=== PATIENT | female | born 1955 | race Two or more races ===

== ENCOUNTER 2020-08-25 08:39 | Outpatient (REF) | payer MEDICARE, SELFPAY ==
--- NOTE | ~2020-08-25 | XR_ITS ---
EXAMINATION: XR KNEE STANDING, BILATERAL XR KNEE, RIGHT CLINICAL INFORMATION: Right knee pain. COMPARISON: Most recent right knee radiographs dated 04/27/2018. TECHNIQUE: AP standing view of the right and left knee. Lateral and sunrise views of the right knee. FINDINGS: RIGHT KNEE: Moderate to severe lateral compartment joint space narrowing with subchondral sclerosis. Tricompartmental marginal osteophytes. No fracture or dislocation. Trace joint effusion. No abnormal soft tissue calcification. LEFT KNEE: Mild medial compartment joint space narrowing. Small tricompartmental marginal osteophytes. No osseous erosion. No fracture or dislocation. XR/XR knee RT 2V IMPRESSION: 1. Tricompartmental right knee osteoarthritis, most prominent within the lateral compartment. Trace joint effusion. Findings are similar when compared to the prior radiographs. 2. Tricompartmental left knee osteoarthritis, most prominent within the medial compartment.
--- NOTE | ~2020-08-25 | XR_ITS ---
EXAMINATION: XR KNEE STANDING, BILATERAL XR KNEE, RIGHT CLINICAL INFORMATION: Right knee pain. COMPARISON: Most recent right knee radiographs dated 04/27/2018. TECHNIQUE: AP standing view of the right and left knee. Lateral and sunrise views of the right knee. FINDINGS: RIGHT KNEE: Moderate to severe lateral compartment joint space narrowing with subchondral sclerosis. Tricompartmental marginal osteophytes. No fracture or dislocation. Trace joint effusion. No abnormal soft tissue calcification. LEFT KNEE: Mild medial compartment joint space narrowing. Small tricompartmental marginal osteophytes. No osseous erosion. No fracture or dislocation. XR/XR knee standing BI IMPRESSION: 1. Tricompartmental right knee osteoarthritis, most prominent within the lateral compartment. Trace joint effusion. Findings are similar when compared to the prior radiographs. 2. Tricompartmental left knee osteoarthritis, most prominent within the medial compartment.
== END 2020-08-25 08:40 | disposition home or self-care (01) ==
LOC: HO.HOSX 08:39
PROVIDERS: Visit Provider Orthopaedic Surgery
DX: M17.11 Unilateral primary osteoarthritis, right knee (principal)
CPT/HCPCS: 20610; 73560; 73565; 99202; J1040

== ENCOUNTER 2020-11-13 08:58 | Outpatient (REF) | payer MEDICARE, SELFPAY ==
--- NOTE | ~2020-11-13 | XR_ITS ---
EXAMINATION: XR ANKLE, RIGHT CLINICAL INFORMATION: Right ankle joint effusion. COMPARISON: None TECHNIQUE: AP, lateral, and mortise views of the right ankle. FINDINGS: There is mild soft tissue swelling bilaterally. No ankle joint effusion is detected. Mild degenerative changes are seen with some osteophytes arising from the distal fibula as well as the medial malleolus. A large enthesophyte seen at the insertion of the patellar tendon and there is a large plantar calcaneal spur seen. Osteophyte seen arising from the dorsal navicular and cuboid. XR/XR ankle RT min 3V IMPRESSION: Degenerative changes as described above with osteophytes. No ankle joint effusion is seen. Large plantar calcaneal spur.
== END 2020-11-13 08:59 | disposition home or self-care (01) ==
LOC: HO.XRAY 08:58
PROVIDERS: PCP Family Medicine; Visit Provider Family Medicine
DX: M25.471 Effusion, right ankle (principal)
CPT/HCPCS: 73610

== ENCOUNTER 2021-04-08 08:28 | Outpatient (REF) | payer MEDICARE, SELFPAY ==
--- NOTE | ~2021-04-08 | MM_ITS ---
EXAMINATION: BONE DENSITOMETRY CLINICAL INDICATION: Screening. COMPARISON: Previous BD dated 06/21/2018 and baseline BD dated 07/25/2014. TECHNIQUE: Using a [employer] DXA System (software version: 13.1) manufactured by [employer], dual-energy x-ray absorptiometry was performed of the lumbar spine and left hip. The images are of good technical quality. Summary results are attached. FINDINGS: AP SPINE L1-L4: Current: BMD 1.090 g/cm2, Z-score 0.3, T-score -0.7, normal, 2.2% increase from previous, 6.4% increase from baseline (<5% change is not significant). Prior: BMD 1.067 g/cm2. Baseline: BMD 1.024 g/cm2. LEFT FEMUR, NECK: Current: BMD 0.787 g/cm2, Z-score -0.6, T-score -1.8, osteopenia. Prior: BMD 0.815 g/cm2. Baseline: BMD 0.841 g/cm2. LEFT FEMUR, TOTAL: Current: BMD 0.773 g/cm2, Z-score -0.9, T-score -1.9, osteopenia, 6.5% decrease from previous, 11.5% decrease from baseline (<5% change is not significant). Prior: BMD 0.827 g/cm2. Baseline: BMD 0.873 g/cm2. IDENTIFIED RISK FACTORS: Menopause, history of fracture (adult), height loss, recurrent falls, rheumatoid arthritis, secondary osteoporosis. HISTORY OF FRACTURE: Shoulder. MEDICATIONS: None listed. MM/XR DEXA axial skeleton IMPRESSION: 1. DIAGNOSIS: Osteopenia based on the lowest T-score value of -1.9 in the total femur applying World Health Organization criteria. 2. 10-YEAR FRACTURE RISK PREDICTION, FRAX: Major osteoporotic fracture (clinical spine, forearm, hip or shoulder) 12.1%. Hip fracture 1.9%. 3. Treatment Recommendations: NOF guidelines recommend consideration for treatment in postmenopausal women and men age 50 and older presenting with the following: -A hip or vertebral (clinical or morphometric) fracture. -T-score less than or equal to -2.5 at the femoral neck or spine after appropriate evaluation to exclude secondary causes. -Low bone mass at the hip or spine and a 10-year fracture probability by FRAX of greater than or equal to 3% for hip fracture or greater than or equal to 20% for major osteoporotic fracture based on the [place] adapted WHO algorithm. 4. Other Recommendations: All treatment decisions require clinical judgment and consideration of individual patient factors, including patient preferences, comorbidities, previous drug use, risk factors not captured in the FRAX model (e.g. frailty, falls, vitamin D deficiency, increased bone turnover, interval significant decline in bone density) and possible under or overestimation of fracture risk by FRAX. Additional medical evaluation for secondary cause of low bone mineral density may be appropriate. FUTURE SCAN RECOMMENDATION: People with diagnosed cases of osteoporosis or at high risk for fracture should have regular bone mineral density tests. For patients eligible for Medicare, routine testing is allowed once every 2 years. The testing frequency can be increased to one year for patients who have rapidly progressing disease, those who are receiving or discontinuing medical therapy to restore bone mass, or have additional risk factors.
== END 2021-04-08 08:29 | disposition home or self-care (01) ==
LOC: HO.MAMMO 08:28
PROVIDERS: Visit Provider Nurse Practitioner
DX: Z13.820 Encounter for screening for osteoporosis (principal); M06.9 Rheumatoid arthritis, unspecified; Z78.0 Asymptomatic menopausal state
CPT/HCPCS: 77080

== ENCOUNTER 2021-08-12 09:40 | Outpatient (REF) | payer OTHER, SELFPAY ==
--- NOTE | ~2021-08-12 | US_ITS ---
EXAMINATION: US ABDOMEN COMPLETE CLINICAL INFORMATION: Right upper quadrant pain, ?cholelithiasis. COMPARISON: Ultrasound abdomen complete 01/29/2019. CT abdomen and pelvis with contrast 01/29/2019. Ultrasound abdomen complete 01/16/2013. TECHNIQUE: Real-time imaging of the abdominal viscera. FINDINGS: PANCREAS: Normal. ABDOMINAL AORTA: The proximal, mid, and distal segments are normal in caliber. INFERIOR VENA CAVA: Visualized portions are normal. LIVER: The liver is normal in size. The liver contour is normal. There is mild increased echogenicity. No focal hepatic lesion. There is no intrahepatic biliary duct dilatation seen. GALLBLADDER: Normal. The gallbladder is physiologically distended without evidence of stones, sludge, polyps, wall thickening or pericholecystic fluid. Gallbladder polyps seen on the previous exam are not seen on the present exam. COMMON BILE DUCT: Normal in caliber measuring 0.2 cm in diameter. RIGHT KIDNEY: There is an anechoic cyst in the upper pole measuring 1.7 x 1.0 x 1.5 cm. No hydronephrosis or renal calculi. The kidney measures 10.3 cm in maximum dimension. LEFT KIDNEY: There is anechoic cyst in the upper pole medially measuring 0.9 x 0.5 x 0.7 cm. No hydronephrosis or renal calculi. The kidney measures 10.3 cm in maximum dimension. SPLEEN: Normal. The spleen measures 12.3 cm in maximum dimension. FREE FLUID: None. US/US abdomen complete IMPRESSION: Bilateral upper pole renal cysts. There are no echogenic stones or hydronephrosis. Unremarkable gallbladder. Mild hepatic steatosis without focal lesion.
== END 2021-08-12 09:41 | disposition home or self-care (01) ==
LOC: HO.US 09:40
PROVIDERS: PCP Pediatrics; Visit Provider Emergency Medicine
DX: R10.9 Unspecified abdominal pain (principal)
CPT/HCPCS: 76700

== ENCOUNTER 2022-09-13 09:52 | Outpatient (REF) | payer OTHER, SELFPAY ==
--- NOTE | ~2022-09-13 | XR_ITS ---
EXAMINATION: XR THORACIC SPINE CLINICAL INFORMATION: Mid back pain of 2 years' duration. COMPARISON: None available. TECHNIQUE: Frontal, lateral and swimmer's of the thoracic spine were obtained. FINDINGS: There is bony demineralization. Vertebral body heights are normal. There is a mild thoracic dextroscoliosis. The thoracic disc spaces are relatively well-maintained. No acute fracture or spondylolisthesis is seen. There is multi-level marked thoracic spondylosis, with an appearance suggesting possible DISH. The paravertebral soft tissues are unremarkable. XR/XR lumbar spine 2-3V IMPRESSION: 1. No acute fracture or spondylolisthesis is seen. 2. The thoracic disc spaces are well-maintained. 3. Findings suggest possible DISH (diffuse idiopathic skeletal hyperostosis). 4. There is a mild thoracic dextroscoliosis. EXAMINATION: XR LUMBOSACRAL SPINE CLINICAL INFORMATION: Lower back pain of 2 years' duration. COMPARISON: Radiographs dated 03/07/2019. TECHNIQUE: AP and lateral views of the lumbar spine and lateral view of the lumbosacral junction. FINDINGS: There is bony demineralization. Vertebral body heights are normal. At L2-L3, a 5 mm anterolisthesis is seen. The remaining disc spaces are well-maintained. No acute fracture or spondylolisthesis is seen. There is moderate anterior spondylosis at L1-L2. The posterior elements are intact. There are aortoiliac atherosclerotic calcifications. IMPRESSION: 1. There is moderate degenerative disease at L4-L5. 2. No acute fracture or spondylolisthesis is seen. 3. There is moderate anterior spondylosis at L1-L2.
--- NOTE | ~2022-09-13 | XR_ITS ---
EXAMINATION: XR THORACIC SPINE CLINICAL INFORMATION: Mid back pain of 2 years' duration. COMPARISON: None available. TECHNIQUE: Frontal, lateral and swimmer's of the thoracic spine were obtained. FINDINGS: There is bony demineralization. Vertebral body heights are normal. There is a mild thoracic dextroscoliosis. The thoracic disc spaces are relatively well-maintained. No acute fracture or spondylolisthesis is seen. There is multi-level marked thoracic spondylosis, with an appearance suggesting possible DISH. The paravertebral soft tissues are unremarkable. XR/XR thoracic spine 2V IMPRESSION: 1. No acute fracture or spondylolisthesis is seen. 2. The thoracic disc spaces are well-maintained. 3. Findings suggest possible DISH (diffuse idiopathic skeletal hyperostosis). 4. There is a mild thoracic dextroscoliosis. EXAMINATION: XR LUMBOSACRAL SPINE CLINICAL INFORMATION: Lower back pain of 2 years' duration. COMPARISON: Radiographs dated 03/07/2019. TECHNIQUE: AP and lateral views of the lumbar spine and lateral view of the lumbosacral junction. FINDINGS: There is bony demineralization. Vertebral body heights are normal. At L2-L3, a 5 mm anterolisthesis is seen. The remaining disc spaces are well-maintained. No acute fracture or spondylolisthesis is seen. There is moderate anterior spondylosis at L1-L2. The posterior elements are intact. There are aortoiliac atherosclerotic calcifications. IMPRESSION: 1. There is moderate degenerative disease at L4-L5. 2. No acute fracture or spondylolisthesis is seen. 3. There is moderate anterior spondylosis at L1-L2.
== END 2022-09-13 09:53 | disposition home or self-care (01) ==
LOC: HO.HHCX 09:52
PROVIDERS: Visit Provider Internal Medicine
DX: M54.6 Pain in thoracic spine (principal); G89.29 Other chronic pain
CPT/HCPCS: 72070; 72100

== ENCOUNTER 2023-01-24 10:28 | Outpatient (REF) | payer OTHER, SELFPAY ==
--- NOTE | ~2023-01-24 | XR_ITS ---
EXAMINATION: XR KNEE, RIGHT CLINICAL INFORMATION: Unilateral osteoarthritis right knee COMPARISON: None available. TECHNIQUE: Three views of the right knee. FINDINGS: Moderate joint effusion. Bones are diffusely demineralized. Marked lateral joint space narrowing. Lateral and posterior patellar marginal osteophytes. XR/XR knee RT 3V IMPRESSION: Tricompartmental degenerative changes most notable in the lateral compartment.
== END 2023-01-24 10:29 | disposition home or self-care (01) ==
LOC: HO.HOSX 10:28
PROVIDERS: Visit Provider Orthopaedic Surgery
DX: M17.11 Unilateral primary osteoarthritis, right knee (principal)
CPT/HCPCS: 73562; 99202

== ENCOUNTER 2023-01-24 13:06 | Outpatient (AMB) | payer OTHER, SELFPAY ==
--- NOTE | 2023-01-24 13:17 | MHC.OFFVIS ---
Intake Vital Signs 01/24/23 13:18 Height 5 ft 5 in Weight 168 lb BMI 28.0 Intake Visit Reasons: OV- right knee pain Intake Note: Ina is a 68 year old female who presents today for a follow up visit for her right knee O.A. Last seen with Dr. Rehman in 2020 where he was given a cortisone injection. Currently complaining of increase pain. This injection was not helpful, she feels that the knee looks swollen and twisted. She was told that at some point she would need surgery. Hx of many cortisone injections which has become less effective over time. The knee feels that it will give out on her and she is afraid to fall. Patient describes her pain as severe in nature, 12/27. She has done physical therapy for 12 weeks over the last 6 months which aggravated her pain. She has had multiple injections in the past which gave her minimal relief. The patient has difficulty walking even short distances because of her pain. At this point her right knee pain and mechanical symptoms are interfering with her activities of daily living and her ability to sleep well through the night. Allergies theophylline Allergy (Unknown, Verified 01/24/23 13:21) nausea Medication List - Last Reconciled 01/24/23 by Espinoza Mart MD aspirin 81 mg PO DAILY atorvastatin 10 mg PO DAILY carvedilol 3.125 mg PO BID ferrous sulfate 7.5 mg PO DAILY gabapentin 100 mg PO BEDTIME insulin glargine (Lantus Solostar U-100 Insulin) 10 units subcut BEDTIME insulin lispro (Humalog KwikPen (U-100) Insulin) subcut irbesartan 75 mg PO DAILY metformin 500 mg PO DAILY montelukast 10 mg PO BEDTIME ayvvlhvzevuy-xuaz-imwqq acid 18-400 mg-mcg (Certavite-Antioxidant) 1 tab PO DAILY omeprazole 20 mg PO DAILY sertraline 25 mg PO DAILY [facility] Medical History (Updated 08/25/20 @ 10:00 by Octaviano Rehman MD) Asthma Osteoarthritis Anxiety Acute depression Diabetes Social History (Updated 08/25/20 @ 09:40 by YONG Major) Current occupational status: disabled 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 Physical Exam Vital Signs: BMI result Body Mass Index 28.0 Const Other: Well-nourished well-developed very friendly female awake alert and oriented x3 in no acute distress Extrem Other: Bilateral lower extremity examination shows good capillary refill, no skin lesions noted, normal sensation light touch Right knee examination shows a minimal effusion, palpable crepitus with range of motion, pain with range of motion, range of motion from -3 degrees to 115 degrees, no instability Results Reviewed Results Reviewed: X-rays of the patient's right knee show severe joint space narrowing with grade 4 [id number] arthritis, subchondral sclerosis, osteophyte formation, no acute bony abnormalities Assessment & Plan Assessment & Plan (1) Primary osteoarthritis of right knee: Code(s): M17.11 - Unilateral primary osteoarthritis, right knee Plan: Ms. Greer presents with progressively worsening right knee pain due to end-stage degenerative joint disease. I had a lengthy discussion with the patient regarding the treatment options. At this point she has failed continued non operative treatments. The risks and benefits of right total knee replacement surgery were discussed at length with the patient. The patient wishes to proceed with surgery. She will contact my office to pick a surgery date. I will see her back 1 week prior to her surgery to answer any final questions that she might have. Feel free to call me at any time should questions regarding her orthopedic management arise. Thank you very much for asking me to see this very friendly patient. I spent 22 minutes in reviewing the patient's records and imaging studies, seeing the patient and documenting in the medical record. Orders: Orders XR knee RT 3V Today M17.11 - Unilateral primary osteoarthritis, right knee Coding Level of Care Code New Pt Level 2 (20659) Diagnoses Primary osteoarthritis of right knee M17.11
[2023-01-24 13:18] VITALS: BMI 28.0
== END 2023-01-24 13:43 | disposition home or self-care (01) ==
PROVIDERS: PCP Pediatrics; Visit Provider Orthopaedic Surgery
DX: M17.11 Unilateral primary osteoarthritis, right knee (principal)
CPT/HCPCS: 99202

== ENCOUNTER 2023-03-16 12:31 | Outpatient (REF) | payer OTHER, SELFPAY ==
[2023-03-16 14:20] LABS: Estimated Average Glucose 194 mg/dL; Hemoglobin A1c % 8.4 % (<6.0)
== END 2023-03-16 12:32 | disposition home or self-care (01) ==
LOC: HO.LAB 12:31
PROVIDERS: PCP Pediatrics; Visit Provider Orthopaedic Surgery
DX: Z01.812 Encounter for preprocedural laboratory examination (principal)
CPT/HCPCS: 36415; 83036

== ENCOUNTER 2023-03-17 15:21 | Outpatient (REF) | payer OTHER, SELFPAY ==
[2023-03-17 16:03] LABS: MANUAL DIFF FLAG NO
[2023-03-17 16:11] LABS: Basophils Percent Auto 0.3 % (0-2); Eosinophils Absolute Auto 0.1 X10*3/uL (0.0-0.4); Eosinophils Percent Auto 1.9 % (0-4); Hematocrit 35.5 % (37.0-47.0); Hemoglobin 11.1 g/dl (12.0-16.0); Imm Gran Abs Auto 0.02 X10*3/uL (0.00-0.03); Imm Gran Pct Auto 0.3 % (0.0-0.4); Lymphocytes Absolute Auto 1.6 X10*3/uL (1.2-4.9); Lymphocytes Percent Auto 23.2 % (20-40); Mean Corpuscular HGB Conc 31.3 g/dl (31.0-35.0); Mean Corpuscular Hemoglobin 26.4 pg (27.0-33.0); Mean Corpuscular Volume 84.3 fL (80.0-98.0); Mean Platelet Volume 9.9 fL (9.4-12.3); Monocytes Absolute Auto 0.7 X10*3/uL (0.1-1.2); Monocytes Percent Auto 10.2 % (2-11); Neutrophils Absolute Auto 4.5 x10*3/uL (2.0-8.3); Neutrophils Percent Auto 64.1 % (45-73); Platelet Count 432 X10*3/uL (160-400); Red Blood Count 4.21 X10*6/uL (4.20-5.50); Red Cell Distribution Width 14.7 % (11.0-16.0)
[2023-03-17 17:56] LABS: Alanine Aminotransferase 20 U/L (0-31); Albumin Level 3.6 g/dL (3.5-5.0); Alkaline Phosphatase 118 U/L (39-117); Anion Gap 13 (12-20); Aspartate Amino Transferase 22 U/L (5-31); Bilirubin Total 0.3 mg/dL (0.0-1.0); Blood Urea Nitrogen 12 mg/dL (9-16); Calcium 9.8 mg/dL (8.4-10.2); Carbon Dioxide 27 mmol/L (22-29); Chloride 106 mmol/L (96-108); Estimated Glomerular Filt Rate > 60; Glucose Random 130 mg/dL (60-115); Lipase 41 U/L (8-78); Potassium 4.3 mmol/L (3.3-5.1); Sodium 142 mmol/L (135-145); Total Protein 6.5 g/dL (6.5-8.0)
== END 2023-03-17 15:22 | disposition home or self-care (01) ==
LOC: HO.HHCL 15:21
PROVIDERS: Visit Provider Registered Nurse
DX: R10.11 Right upper quadrant pain (principal)
CPT/HCPCS: 36415; 80053; 83690; 85025

== ENCOUNTER → 2023-07-24 09:02 | Outpatient (BNVA) | payer OTHER, SELFPAY | PROVIDERS: PCP Pediatrics; Visit Provider Orthopaedic Surgery ==

== ENCOUNTER 2023-08-31 08:01 | Outpatient (AMB) | payer OTHER, SELFPAY ==
--- NOTE | 2023-08-31 08:07 | MHC.OFFVIS ---
Intake Visit Reasons: pre-op right TKA on 09/04/[address] Hernandez Note: Ina is a 68 year old female who presents today for a follow up visit for her right knee O.A. Last seen with Dr. Rehman in 2020 where he was given a cortisone injection. Currently complaining of increase pain. This injection was not helpful, she feels that the knee looks swollen and twisted. She was told that at some point she would need surgery. Hx of many cortisone injections which has become less effective over time. The knee feels that it will give out on her and she is afraid to fall. Patient describes her pain as severe in nature, 10/10. She has done physical therapy for 12 weeks over the last 6 months which aggravated her pain. She has had multiple injections in the past which gave her minimal relief. The patient has difficulty walking even short distances because of her pain. At this point her right knee pain and mechanical symptoms are interfering with her activities of daily living and her ability to sleep well through the night. The patient has been working on getting her diabetes under better control. She states that her most recent hemoglobin A1c was 6.7. Allergies theophylline Allergy (Intermediate, Verified 08/31/23 08:08) Facial Swelling, itching, nausea Medication List - Last Reconciled 08/31/23 by Espinoza Mart MD albuterol sulfate 90 mcg/actuation 2 puffs inhalation 6XD PRN albuterol sulfate 2.5 mg inhalation QID PRN aspirin 81 mg PO DAILY atorvastatin 40 mg PO BEDTIME carvedilol 6.25 mg PO BID cetirizine 10 mg PO DAILY PRN cyanocobalamin (vitamin B-12) (Vitamin B-12) 1,000 mcg PO DAILY empagliflozin (Jardiance) 25 mg PO DAILY famotidine 40 mg PO BEDTIME ferrous sulfate 325 mg PO Q OTHER DAY fluticasone propionate 50 mcg/actuation (Flonase Allergy Relief) 1 spray intranasal BID PRN gabapentin 400 mg PO TID insulin glargine (Lantus Solostar U-100 Insulin) 13 units subcut BEDTIME insulin lispro (Humalog KwikPen (U-100) Insulin) subcut TIDAC irbesartan 75 mg PO DAILY metformin 1,000 mg PO BID mometasone-formoterol 200-5 mcg/actuation (Dulera) 2 puffs inhalation BID montelukast 10 mg PO BEDTIME kustguutnudm-xnay-wlbgv acid 18-400 mg-mcg (Certavite-Antioxidant) 1 tab PO DAILY pantoprazole 40 mg PO DAILY sertraline 100 mg PO DAILY walker Folding front wheeled walker PFSH Medical History Hx of breast cancer Back pain YAEL on CPAP Vitamin B deficiency Steatosis of liver Osteopenia Mixed anxiety and depressive disorder HTN (hypertension) GERD (gastroesophageal reflux disease) Stress incontinence in female Dyslipidemia Renal cyst Asthma Osteoarthritis Anxiety Acute depression Diabetes Surgical History Hx of tubal ligation Hx of breast surgery Hx of colonoscopy Social History Household Members: None Housing: Apartment Are you a primary menagerie caretaker to a significant other at home: No Do you presently have visiting nurse or other home services: Yes (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 weekly hours 26.5 days and 14 night, supportive family also) Patient Tobacco Use Status: Never used Tobacco Use of substances other than those prescribed or required for medical reasons: No Current occupational status: disabled 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 Physical Exam Const Other: Well-nourished well-developed very friendly female awake alert and oriented x3 in no acute distress Extrem Other: Bilateral lower extremity examination shows good capillary refill, no skin lesions noted, normal sensation light touch Right knee examination shows a minimal effusion, palpable crepitus with range of motion, pain with range of motion, range of motion from -3 degrees to 115 degrees Results Reviewed Results Reviewed: X-rays of the patient's right knee show severe joint space narrowing with grade 4 end-stage qfxv-lh-fwey arthritis, subchondral sclerosis, osteophyte formation, no acute bony abnormalities Assessment & Plan Assessment & Plan (1) Primary osteoarthritis of right knee: Code(s): M17.11 - Unilateral primary osteoarthritis, right knee Category: Medical Plan Ms. Greer presents with progressively worsening right knee pain due to end-stage degenerative joint disease. I had a lengthy discussion with the patient regarding the treatment options. At this point she has failed continued non operative treatments. The risks and benefits of right total knee replacement surgery were discussed at length with the patient. The patient wishes to proceed with surgery. community services manager will be consulted following her surgery for home physical therapy and nursing. The patient will follow-up as instructed. Feel free to call me at any time should questions regarding her orthopedic management arise. I spent 20 minutes in reviewing the patient's records and imaging studies, seeing the patient and documenting in the medical record. Coding Level of Care Code Est Pt Level 3 (71141) Diagnoses Primary osteoarthritis of right knee M17.11
== END 2023-08-31 08:18 | disposition home or self-care (01) ==
PROVIDERS: PCP Pediatrics; Visit Provider Orthopaedic Surgery
DX: M17.11 Unilateral primary osteoarthritis, right knee (principal)
CPT/HCPCS: 99024

== ENCOUNTER → 2023-08-31 08:01 | Outpatient (BNVA) | payer OTHER, SELFPAY | PROVIDERS: PCP Pediatrics; Visit Provider Orthopaedic Surgery | DX: Z01.818 Encounter for other preprocedural examination (principal); M17.11 Unilateral primary osteoarthritis, right knee | CPT/HCPCS: 99212 ==

== ENCOUNTER 2023-09-04 09:28 | Inpatient (IN) | payer OTHER, SELFPAY ==
[2023-08-25 12:15] VITALS: BP 101/57; PULSE 85; RESP 16; O2SAT 98; BMI 28.3
--- NOTE | 2023-08-25 12:48 | HO.ANESPROP2 ---
Documented by User: Yolanda Del Valle NP 09/05/23 12:13 HPI - Anesthesia Eval Consult details Narrative: 68yo F for Right Knee Replacement Total, 09/04/23 No recent illness No CP/SOB with activity limted to knee pain Follows [facility] Cardiology for cardiomyopathy (EF 45-50% per 08/2022 ECHO). Optimized for surgery per 07/2023 office visit. Medically optimized per PCP office visit 07/2023 Asthma: stable with scheduled inhaler, no rescu inhaler since Fall 2022 GERD: controlled with H2 block YAEL: CPAP QHS Anesthesia Pre-Procedure Meds Is the patient on any of the following meds?: SGLT2 Inhib PMFSH Active Problems Active Problems: All Active Problems Primary osteoarthritis of right knee (Acute) Past Medical History Medical History Hx of breast cancer Back pain YAEL on CPAP Vitamin B deficiency Steatosis of liver Osteopenia Mixed anxiety and depressive disorder HTN (hypertension) GERD (gastroesophageal reflux disease) Stress incontinence in female Dyslipidemia Renal cyst Asthma Osteoarthritis Anxiety Acute depression Diabetes Family History Family history of problems with anesthesia: No Surgical History Surgical History Hx of tubal ligation Hx of breast surgery Hx of colonoscopy History of Problems with Anesthesia: No Social History Social History Household Members: Family Housing: Apartment Are you a primary urgent care nurse practitioner to a significant other at home: No Do you presently have visiting nurse or other home services: No Patient Tobacco Use Status: Never used Tobacco service: No Current occupational status: disabled 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 Meds Allergies Allergy/AdvReac Type Severity Reaction Status Date / Time theophylline Allergy Intermediate Facial Verified 09/04/23 10:30 Swelling, itching, nausea Home Medications ?Medication ?Instructions ?Recorded ?Confirmed ?Last Taken ?Type irbesartan 75 mg tablet 75 mg PO DAILY 08/25/20 09/04/23 09/03/23 History montelukast 10 mg tablet 10 mg PO BEDTIME 08/25/20 09/04/23 09/03/23 History insulin glargine 100 unit/mL (3 13 unit subcut BEDTIME 01/24/23 09/04/23 09/03/23 History mL) subcutaneous pen (Lantus Solostar U-100 Insulin) insulin lispro 100 unit/mL 18 - 24 unit subcut TIDAC 01/24/23 09/04/23 09/03/23 History subcutaneous pen (Humalog KwikPen 12 units (U-100) Insulin) atorvastatin 40 mg tablet 40 mg PO BEDTIME 07/24/23 09/04/23 09/03/23 History empagliflozin 25 mg tablet 25 mg PO DAILY 07/24/23 09/04/23 08/28/23 History (Jardiance) famotidine 40 mg tablet 40 mg PO BEDTIME 07/24/23 09/04/23 09/03/23 History gabapentin 400 mg capsule 400 mg PO TID 07/24/23 09/04/23 09/03/23 History metformin 1,000 mg tablet 1,000 mg PO BID 07/24/23 09/04/23 09/03/23 History pantoprazole 40 mg tablet,delayed 40 mg PO DAILY@0630 07/24/23 09/04/23 09/03/23 History release cetirizine 10 mg tablet 10 mg PO DAILY PRN Allergy Symptoms 08/24/23 09/04/23 09/03/23 History cyanocobalamin (vitamin B-12) 1,000 mcg PO DAILY 08/24/23 09/04/23 09/03/23 History 1,000 mcg tablet (Vitamin B-12) ferrous sulfate 325 mg (65 mg 325 mg PO Q OTHER DAY 08/24/23 09/04/23 09/03/23 History iron) tablet fluticasone propionate 50 1 spray intranasal BID PRN Allergy 08/24/23 09/04/23 Unknown History mcg/actuation nasal Symptoms spray,suspension (Flonase Allergy Relief) mometasone-formoterol HFA 200 2 puff inhalation BID 08/24/23 09/04/23 09/03/23 History mcg-5 mcg/actuation aerosol inhaler (Dulera) sertraline 100 mg tablet 100 mg PO DAILY 08/24/23 09/04/23 09/03/23 History carvedilol 12.5 mg tablet 12.5 mg PO BID 09/04/23 09/04/23 09/03/23 History raloxifene 60 mg tablet 60 mg PO DAILY 09/04/23 09/04/23 Unknown History Exam Height,Weight and Vital Signs: Height 5 ft 5 in Weight 77.1 kg Last Vital Signs Pulse 85 08/25/23 12:15 Resp 16 08/25/23 12:15 BP 101/57 L 08/25/23 12:15 Pulse Ox 98 08/25/23 12:15 O2 Del Method Room Air 08/25/23 12:15 Narrative Narrative: EKG 07/2023 anterior T wave inversions (old since 2015) ECHO 08/2022 1. Mild global hypokinesis 2. Overall LV sys function is mildly impaired with EF 45-50% 3. C/w findings of 2020, no real change Airway Mallampati Class: I TM Dist: >3cm Neck ROM: Full Denture: Upper and Lower Heart: RRR Lungs: CTAB Assessment and Plan Assessment Anesthesia Assessment: Anesthesia Plan Discussed and PAT Visit Final Anesthetic Review Family History of Problems with Anesthesia: No History of Problems with Anesthesia: No Documented by User: Elise Fox MD 09/07/23 11:17 PMFSH Past Medical History Medical History Hx of breast cancer Back pain YAEL on CPAP Vitamin B deficiency Steatosis of liver Osteopenia Mixed anxiety and depressive disorder HTN (hypertension) GERD (gastroesophageal reflux disease) Stress incontinence in female Dyslipidemia Renal cyst Asthma Osteoarthritis Anxiety Acute depression Diabetes Surgical History Surgical History Hx of tubal ligation Hx of breast surgery Hx of colonoscopy Social History Social History Household Members: Family Housing: Apartment Are you a primary urgent care nurse practitioner to a significant other at home: No Do you presently have visiting nurse or other home services: No Patient Tobacco Use Status: Never used Tobacco service: No Current occupational status: disabled 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 Meds Allergies Allergy/AdvReac Type Severity Reaction Status Date / Time theophylline Allergy Intermediate Facial Verified 09/04/23 10:30 Swelling, itching, nausea Home Medications ?Medication ?Instructions ?Recorded ?Confirmed ?Last Taken ?Type irbesartan 75 mg tablet 75 mg PO DAILY 08/25/20 09/04/23 09/03/23 History montelukast 10 mg tablet 10 mg PO BEDTIME 08/25/20 09/04/23 09/03/23 History insulin glargine 100 unit/mL (3 13 unit subcut BEDTIME 01/24/23 09/04/23 09/03/23 History mL) subcutaneous pen (Lantus Solostar U-100 Insulin) insulin lispro 100 unit/mL 18 - 24 unit subcut TIDAC 01/24/23 09/04/23 09/03/23 History subcutaneous pen (Humalog KwikPen 12 units (U-100) Insulin) atorvastatin 40 mg tablet 40 mg PO BEDTIME 07/24/23 09/04/23 09/03/23 History empagliflozin 25 mg tablet 25 mg PO DAILY 07/24/23 09/04/23 08/28/23 History (Jardiance) famotidine 40 mg tablet 40 mg PO BEDTIME 07/24/23 09/04/23 09/03/23 History gabapentin 400 mg capsule 400 mg PO TID 07/24/23 09/04/23 09/03/23 History metformin 1,000 mg tablet 1,000 mg PO BID 07/24/23 09/04/23 09/03/23 History pantoprazole 40 mg tablet,delayed 40 mg PO DAILY@0630 07/24/23 09/04/23 09/03/23 History release cetirizine 10 mg tablet 10 mg PO DAILY PRN Allergy Symptoms 08/24/23 09/04/23 09/03/23 History cyanocobalamin (vitamin B-12) 1,000 mcg PO DAILY 08/24/23 09/04/23 09/03/23 History 1,000 mcg tablet (Vitamin B-12) ferrous sulfate 325 mg (65 mg 325 mg PO Q OTHER DAY 08/24/23 09/04/23 09/03/23 History iron) tablet fluticasone propionate 50 1 spray intranasal BID PRN Allergy 08/24/23 09/04/23 Unknown History mcg/actuation nasal Symptoms spray,suspension (Flonase Allergy Relief) mometasone-formoterol HFA 200 2 puff inhalation BID 08/24/23 09/04/23 09/03/23 History mcg-5 mcg/actuation aerosol inhaler (Dulera) sertraline 100 mg tablet 100 mg PO DAILY 08/24/23 09/04/23 09/03/23 History carvedilol 12.5 mg tablet 12.5 mg PO BID 09/04/23 09/04/23 09/03/23 History raloxifene 60 mg tablet 60 mg PO DAILY 09/04/23 09/04/23 Unknown History Assessment and Plan Final Anesthetic Review NPO: Yes ASA Class: III Final Preanesthetic Review: No Changes in Pt Med Stat, Meds/Allgs Chart Reviewed, Consent Obtained/Reviewed and Anes Risks/Benef Reviewed Patient Risk: Intermediate Procedure Risk: Intermediate Anesthetic Plan Anesthetic Plan: Spinal and Regional Block Disposition: Standard PACU
[2023-08-25 13:40] LABS: Hematocrit 35.2 % (37.0-47.0); Hemoglobin 11.5 g/dl (12.0-16.0); Mean Corpuscular HGB Conc 32.7 g/dl (31.0-35.0); Mean Corpuscular Hemoglobin 27.3 pg (27.0-33.0); Mean Corpuscular Volume 83.4 fL (80.0-98.0); Mean Platelet Volume 10.5 fL (9.4-12.3); Platelet Count 223 X10*3/uL (160-400); Red Blood Count 4.22 X10*6/uL (4.20-5.50); Red Cell Distribution Width 14.6 % (11.0-16.0); White Blood Count 6.7 X10*3/uL (4.8-10.8)
[2023-08-25 14:20] LABS: Anion Gap 11 (12-20); Blood Urea Nitrogen 16 mg/dL (9-16); Calcium 9.9 mg/dL (8.4-10.2); Carbon Dioxide 29 mmol/L (22-29); Chloride 105 mmol/L (96-108); Creatinine Clr Calc Pharmacy 63.2; Estimated Glomerular Filt Rate > 60; Glucose Random 143 mg/dL (60-115); Potassium 4.3 mmol/L (3.3-5.1); Sodium 141 mmol/L (135-145)
[2023-08-25 15:19] LABS: MRSA Nasal PCR NEGATIVE (Negative); SA Nasal PCR NEGATIVE (Negative)
[2023-09-04] VITALS (11 sets, daily range): BP systolic 94–143; BP diastolic 48–72; PULSE 61–82; RESP 12–18; TEMP 36.1–37.1; O2SAT 92–99; BMI 28.5
--- OUTSIDE RECORDS SUMMARY | 2023-09-04 09:56 | XMS_ITS | Continuity of Care Document ---
Author Organization [facility] Address [address] [place] [id number]- Care Team Providers Care Risk Officer Name Role Phone Benny Thompson NP Primary Care Physician [place] [facility] [place] 07/[place]/19 [facility] [address] [place] [address] [facility] Attending Physician: Andrei Griffith MD Admitting Physician: Andrei Griffith MD Referring Physician: Benny Thompson NP Allergies, Adverse Reactions, Alerts Substance Reaction Severity Status theophylline Active Immunizations Given and Recorded Vaccine Date Status Refusal Reason influenza virus vaccine, inactivated 1 01/21/15 Gi selena pneumococcal 23-valent vaccine 03/22/12 Given Influenza Vaccine (oldterm) 2 01/17/07 Given 1Admin Note: CDC info given to patient 2Admin Note: sanofi pasterur cold storage supervisor Medications acetaminophen-codeine 300 mg-15 mg oral tablet 1 tablet, By Mouth, Every 6 hours, PRN as needed for pain, 0 Refills, Maintenance, 08/18/14 13:56:11 Start Date: 08/18/14 Status: Ordered albuterol 0.083% inhalation solution 3 mL = 2.5 mg, Inhalation, Every 6 hours, 0 Refills, Maintenance, 10/24/13 12:01:01 Start Date: 10/24/13 Status: Ordered Aspir 81 = 81 mg, By Mouth, Daily, 0 Refills, Maintenance Start Date: 11/29/11 Status: Ordered atorvastatin 20 mg oral tablet 2 tablet = 40 mg, By Mouth, Daily, # 30 tablet, 0 Refills, Maintenance, 11/29/11 15:29:56, Tablet Start Date: 11/29/11 Status: Ordered Avapro 75 mg oral tablet 1 tablet = 75 mg, By Mouth, 0 Refills, Maintenance, 03/14/19 14:38:00 EST Start Date: 03/14/19 Status: Ordered carvedilol 6.25 mg oral tablet 6.25 mg, 1, tablet, By Mouth, 2 times a day, # 180 tablet, Refills 0, Maintenance, 11/29/16 10:14:24 Start Date: 11/29/16 Status: Ordered Cerovite Senior Therapeutic Multiple Vitamins with Minerals oral tablet 1 tablet, By Mouth, Daily, 0 Refills, Maintenance, 01/01/18 11:30:50 EDT Start Date: 01/01/18 Status: Ordered clonazePAM 0.5 mg oral tablet 1 tablet = 0.5 mg, By Mouth, Every 12 hours, prn, 0 Refills, Maintenance, 03/14/19 14:32:00 EST Start Date: 03/14/19 Status: Ordered CPAP Dispensary Clerk, 07/04/18 8:35:43 EDT, Compound Start Date: 07/04/18 Status: Ordered Cyanocobalamin = 1,000 mcg, By Mouth, Daily, 0 Refills, Maintenance, 03/14/19 14:31:00 EST Start Date: 03/14/19 Status: Ordered Doxycycline 100 mg, By Mouth, 2 times a day, Maintenance, 03/14/19 14:35:00 EST Start Date: 03/14/19 Status: Ordered Durable Medical Equipment Maintenance, Aerochamber Plus Flow- VU, 03/14/19 14:30:00 EST, Compound Start Date: 03/14/19 Status: Ordered ferrous sulfate 325 mg oral tablet 1 tablet = 325 mg, By Mouth, 3 times a day, 0 Refills, Maintenance, 01/01/18 11:31:03 EDT Start Date: 01/01/18 Status: Ordered Flonase 50 mcg/inh nasal spray 1 sprays, Daily, 0 Refills, Maintenance Start Date: 12/17/12 Status: Ordered gabapentin 300 mg oral capsule 1 capsule = 300 mg, By Mouth, 3 times a day, # 270 capsule, 0 Refills, Maintenance, 07/18/14 8:31:27, Capsule Start Date: 07/18/14 Status: Ordered Humalog 100 u/ml subcutaneous injection = 22 units, Subcutaneous Infusion, 3 times a day before meals, 0 Refills, Maintenance, 04/27/12 9:26:44 EST Start Date: 04/27/12 Status: Ordered Irbesartan = 150 mg, By Mouth, Daily, 0 Refills, Maintenance, 10/10/18 10:16:08 EDT Start Date: 10/10/18 Status: Ordered Lantus Solostar Pen 100 units/mL subcutaneous solution = 14 units, Subcutaneous Infusion, Daily at bedtime, 0 Refills, Maintenance, 11/21/14 10:08:09 EDT Start Date: 11/21/14 Status: Ordered Lidocaine 5 % Lidocaine 5 %, Refills 0, Maintenance, 1 patch by transdermal route every 12 hours prn, 03/14/19 14:33:00 EST, Compound Start Date: 03/14/19 Status: Ordered metformin 500 mg oral tablet 2 tablet = 1,000 mg, By Mouth, 2 times a day, 0 Refills, Maintenance, 04/29/12 13:40:34, Tablet Start Date: 04/29/12 Status: Ordered montelukast 10 mg oral tablet 10 mg, 1, tablet, By Mouth, Daily, Refills 0, Maintenance, 11/03/17 10:06:24 EDT Start Date: 11/03/17 Status: Ordered omeprazole 20 mg oral enteric coated capsule 1 capsule = 20 mg, By Mouth, Daily, 0 Refills, Maintenance Start Date: 12/17/12 Status: Ordered predniSONE 10 mg oral tablet See Instructions, 3 tabs/d for 2d then 2tabs/d for 3d then 1tab/d for 3d, # 18 tablet, 0 Refills, Maintenance, 02/07/18 10:19:44 EST Start Date: 02/07/18 Status: Ordered ProAir HFA 90 mcg/inh inhalation aerosol with adapter 2, puffs, Inhalation, Every 4 hours, prn, Refills 0, Maintenance, 03/14/19 14:42:00 EST Start Date: 03/14/19 Status: Ordered Probiotic Complex Probiotic Complex, 1, capsule, By Mouth, 3 times a day, Refills 0, Maintenance, 03/14/19 14:36:00 EST, Compound Start Date: 03/14/19 Status: Ordered Proventil HFA 90 mcg/inh inhalation aerosol with adapter 2, puffs, Inhalation, 4 times a day, PRN, # 25 Gm, Refills 5, Tot. Refills 5, Maintenance, 03/14/1914:42:00 EST, Aerosol, Route to Pharmacy Electronically, [id number], [facility] - [place], 160, cm, 10/10/18 1... Start Date: 03/14/19 Status: Ordered Proventil HFA 90 mcg/inh inhalation aerosol with adapter 2 puffs, Inhalation, 4 times a day, 0 Refills, Maintenance, 08/18/14 13:54:20 Start Date: 08/18/14 Status: Ordered Robitussin Chest Congestion By Mouth, 2 tsp by mouth every 4 hours prn, 0 Refills, Maintenance, 03/14/19 14:37:00 EST Start Date: 03/14/19 Status: Ordered Spiriva HandiHaler 18 mcg Inhalation Capsule 1 capsule = 18 mcg, Inhalation, Daily, # 30 capsule, 6 Refills, Maintenance, 09/14/17 10:53:08 EDT,1 capsule Inhalation Daily Start Date: 09/14/17 Status: Ordered Symbicort 160mcg/4.5mcg Inhaler See Instructions, 1 puffs Inhalation 2 times a day in the morning and the evening, # 3 each, 0 Refills, Maintenance, Inhaler Start Date: 04/19/12 Status: Ordered Zoloft 50 mg oral tablet 1 tablet = 50 mg, By Mouth, Daily, 0 Refills, Maintenance, 10/24/16 12:48:01 Start Date: 10/24/16 Status: Ordered Zyrtec 10 mg oral tablet 1 tablet = 10 mg, By Mouth, Daily, 0 Refills, Maintenance Start Date: 12/10/09 Status: Ordered Problem List Condition Effective Dates Status Health Status Inform ant Asthma(Confirmed) Active Atypical ductal hyperplasia of breast, Left, 2006(Confirmed) 1 Active LCIS, Left, 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
--- OUTSIDE RECORDS SUMMARY | 2023-09-04 09:56 | XMS_ITS | Continuity of Care Document ---
Author Organization [facility] Address [facility] [place] [address]- Care Team Providers Care Composer Teaching Artist Name Role Phone Baljit Stevenson MD, Nicole Fox Primary Care Physici an Encounter [facility] [place] Date(s): 04/26/23 - 05/26/23 [facility] [address] [place], [place] [id number]- Attending Physician: Wu Crowley Admitting Physician: Wu Crowley Referring Physician: AdmtrWu Allergies, Adverse Reactions, Alerts Substance Reaction Severity Status theophylline Active Immunizations Given and Recorded Vaccine Date Status Refusal Reason influenza virus vaccine, inactivated 1 01/21/15 Gi selena pneumococcal 23-valent vaccine 03/22/12 Given Influenza Vaccine (oldterm) 2 01/17/07 Given 1Admin Note: CDC info given to patient 2Admin Note: sanofi pasterur gis coordinator Medications albuterol 0.083% inhalation solution 3 mL = [...] 11:30:50 EDT Start Date: 01/01/18 Status: Ordered CPAP Election Watcher, 07/04/18 8:35:43 EDT, Compound Start Date: 07/04/18 Status: Ordered Cyanocobalamin = 1,000 mcg, By Mouth, Daily, 0 Refills, Maintenance, 03/14/19 14:31:00 EST Start Date: 03/14/19 Status: Ordered Durable [...] 10:08:09 EDT Start Date: 11/21/14 Status: Ordered metformin 500 mg oral tablet 2 tablet = 1,000 mg, By Mouth, 2 times a day, 0 Refills, Maintenance, 04/29/12 13:40:34, Tablet Start Date: 04/29/12 Status: Ordered montelukast 10 mg oral tablet 10 mg, 1, tablet, By Mouth, Daily, Refills 0, Maintenance, 11/03/17 10:06:24 EDT Start Date: 11/03/17 Status: Ordered NuLYTELY Lemon [place] oral powder for reconstitution See Instructions, as directed by office, # 1 each, 0 Refills, Maintenance, 04/26/23 11:54:00 EST, REC Powder, [facility], ok to sub for any gallon prep, 159.3, cm, 04/26/23 11:28:00 EST, Height, 78.36, kg, 01/25/23 10:09:00 EST, . Start Date: 04/26/23 Status: Ordered pantoprazole 40 mg oral delayed release tablet 1 tablet = 40 mg, By Mouth, Daily, # 90 tablet, 0 Refills, Maintenance, 01/25/23 10:16:00 EST, EC Tablet Start Date: 01/25/23 Status: Ordered predniSONE 10 mg oral tablet See Instructions, 3 tabs/d for 2d then 2tabs/d for 3d then 1tab/d for 3d, # 18 tablet, 0 Refills, Maintenance, 02/07/18 10:19:44 EST Start Date: 02/07/18 Status: Ordered Proventil HFA 90 mcg/inh inhalation aerosol with adapter 2, puffs, Inhalation, 4 times a day, PRN, # 25 Gm, Refills 5, Tot. Refills 5, Maintenance, 03/14/1914:42:00 EST, Aerosol, Route to Pharmacy Electronically, [id number], [facility] - [place], 160, cm, 10/10/18 1... 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 Active Leg ulcer Confirmed Active Cystocele, midline Confirmed Active Obese class I Confirmed Active Sleep apnea Confirmed Active Cricopharyngeal achalasia Confirmed Active Type 2 diabetes mellitus Confirmed Active Varicose vein Confirmed Active Venous ulcer Confirmed Active 73167 2LCIS 2004 Social History Social History Type Response Smoking Status Never smoker; Tobacc o user in household: No entered on: 11/03/17 Sex Patient Care team information Care Team Personnel Name: Baljit Stevenson MD, Nicole Fox Position: [facility] Outreach Member Role: PCP Address: Address: [address] [place] [address] [address] [place] [address]- Name: Radha Munoz RN Position: [facility] SN RN Member Role: Primary Care Nurse Care Team Related Persons Name: SU HOFFMAN Address: home [address] [address] Name: JODEE HOFFMAN
--- OUTSIDE RECORDS SUMMARY | 2023-09-04 09:56 | XMS_ITS | Continuity of Care Document ---
Author Organization [facility] Address [address] [place] [address]- Care Team Providers Care Computer Hardware Technician Name Role Phone Jay HOGUE, Benny Brush Primary Care Physician Encounter [facility] [place] Date(s): 11/12/20 - 12/12/20 [facility] [address] [place] [address]- Attending Physician: AdmWu argueta Admitting Physician: AdmtrWu Referring Physician: AdmtrWu Allergies, Adverse Reactions, Alerts Substance Reaction Severity Status theophylline Active Immunizations Given and Recorded Vaccine Date Status Refusal Reason influenza virus vaccine, inactivated 1 01/21/15 Gi selena pneumococcal 23-valent vaccine 03/22/12 Given Influenza Vaccine (oldterm) 2 01/17/07 Given 1Admin Note: CDC info given to patient 2Admin Note: sanofi pasterur testing engineer Medications acetaminophen-codeine 300 mg-15 mg oral tablet [...] EST Start Date: 03/14/19 Status: Ordered CPAP Fire Lieutenant Marine, 07/04/18 8:35:43 EDT, Compound Start Date: 07/04/18 [...] 03/14/1914:42:00 EST, Aerosol, Route to Pharmacy Electronically, [id number], [facility] - [place], 160, cm, 10/10/18 [...] Active Atypical ductal hyperplasia of breast, Left, 2005(Confirmed) 1 Active LCIS, Left, 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
--- OUTSIDE RECORDS SUMMARY | 2023-09-04 09:56 | XMS_ITS | Continuity of Care Document ---
Author Organization [facility] Address [address] [facility] [place] [place] [address]- Care Team Providers Care Medical Laboratory Manager Name Role Phone Benny Thompson NP Primary Care Physician Encounter [facility] [place] Date(s): 09/21/21 - 10/21/21 [facility] [address] [facility] [place] [place] [address]- Attending Physician: Wu Crowley Admitting Physician: AdmtrWu Referring Physician: Admtr, ArHolland Allergies, Adverse Reactions, Alerts Substance Reaction Severity Status theophylline Active Immunizations Given and Recorded Vaccine Date Status Refusal Reason influenza virus vaccine, inactivated 1 01/21/15 Gi selena pneumococcal 23-valent vaccine 03/22/12 Given Influenza Vaccine (oldterm) 2 01/17/07 Given 1Admin Note: CDC info given to patient 2Admin Note: sanofi pasterur convertible sofa bedspring tester Medications acetaminophen-codeine 300 mg-15 mg oral tablet [...] EST Start Date: 03/14/19 Status: Ordered CPAP Dry Press Operator, 07/04/18 8:35:43 EDT, Compound Start Date: 07/04/18 [...] 03/14/1914:42:00 EST, Aerosol, Route to Pharmacy Electronically, [id number], [facility] - [place], 160, cm, 10/10/18 1... 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
--- OUTSIDE RECORDS SUMMARY | 2023-09-04 09:56 | XMS_ITS | Continuity of Care Document ---
Author Organization [facility] Address [address] [facility] [place] [address] Care Team Providers Care Project Development Manager Name Role Phone Benny Thompson NP Primary Care Physician Encounter [facility] [place] Date(s): 07/08/21 - 10/21/21 [facility] [address] [facility] [place] [place] [address]- Attending Physician: Ashley Domingo NP Admitting Physician: Ashley Domingo NP Referring Physician: Benny Thompson NP Allergies, Adverse Reactions, Alerts Substance Reaction Severity Status theophylline Active Immunizations Given and Recorded Vaccine Date Status Refusal Reason influenza virus vaccine, inactivated 1 01/21/15 Gi selena pneumococcal 23-valent vaccine 03/22/12 Given Influenza Vaccine (oldterm) 2 01/17/07 Given 1Admin Note: CDC info given to patient 2Admin Note: sanofi pasterur riverboat master Medications acetaminophen-codeine 300 mg-15 mg oral tablet [...] EST Start Date: 03/14/19 Status: Ordered CPAP Welder First Class, 07/04/18 8:35:43 EDT, Compound Start Date: 07/04/18 [...] 03/14/1914:42:00 EST, Aerosol, Route to Pharmacy Electronically, [id number], [facility] - [place], 160, cm, 10/10/18 1... Start Date: 03/14/19 Status: Ordered Proventil HFA 90 mcg/inh inhalation aerosol with adapter 2 puffs, Inhalation, 4 times a day, 0 Refills, Maintenance, 08/18/14 13:54:20 Start Date: 08/18/14 Status: Ordered raloxifene 60 mg oral tablet 1 tablet, By Mouth, Daily, # 30 tablet, 8 Refills, [facility], 159.4, cm, 07/08/21 9:21:00 EDT, Height, [...] breast, Left, 2005(Confirmed) 1 Active LCIS, Left, 2006(Confirmed) 2 05/20/02 Active Leg ulcer(Confirmed) Active Cystocele, midline(Confirmed) Active Obese class I(Confirmed) Active Sleep apnea(Confirmed) Active Type 2 diabetes mellitus(Confirmed) Active Varicose vein(Confirmed) Active Venous ulcer(Confirmed) Active 29321 2LCIS 2004 Social History Social History Type Response Smoking Status Never smoker; Tobacc o user in household: No entered on: 11/03/17 Sex
--- OUTSIDE RECORDS SUMMARY | 2023-09-04 09:57 | XMS_ITS | Continuity of Care Document ---
Author Organization [facility] Address [address] [place] [address]- Care Team Providers Care Local Driver Name Role Phone Jay HOGUE, Benny Brush Primary Care Physician Encounter [facility] Date(s): 11/03/22 - 12/03/22 [facility] [address] [place] [address]- [place] Allergies, Adverse Reactions, Alerts Substance Reaction Severity Status theophylline Active Immunizations Given and Recorded Vaccine Date Status Refusal Reason influenza virus vaccine, inactivated 1 01/21/15 Gi selena pneumococcal 23-valent vaccine 03/22/12 Given Influenza Vaccine (oldterm) 2 01/17/07 Given 1Admin Note: CDC info given to patient 2Admin Note: sanofi pasterur stock replenisher Medications acetaminophen-codeine 300 mg-15 mg oral tablet [...] EST Start Date: 03/14/19 Status: Ordered CPAP Leather Parts Matcher, 07/04/18 8:35:43 EDT, Compound Start Date: 07/04/18 [...] 03/14/1914:42:00 EST, Aerosol, Route to Pharmacy Electronically, [id number], [facility] - [place], 160, cm, 10/10/18 1... Start Date: 03/14/19 Status: Ordered Proventil HFA 90 mcg/inh inhalation aerosol with adapter 2 puffs, Inhalation, 4 times a day, 0 Refills, Maintenance, 08/18/14 13:54:20 Start Date: 08/18/14 Status: Ordered raloxifene 60 mg oral tablet 1 tablet, By Mouth, Daily, # 90 tablet, 3 Refills, Maintenance, 09/28/22 9:46:00 EDT, [facility], 159.4, cm, 08/16/22 8:52:00 EDT, Height, 82.2, kg, 02/03/21 9:54:00 EST, Dry Weight Start Date: 09/28/22 Status: Ordered Robitussin Chest Congestion By Mouth, [...] List Condition Confirmation Course Effective Dates Status Health St atus Informant Asthma Confirmed Active Atypical ductal hyperplasia of breast, Left, 2005 1 Confirmed Active LCIS, Left, 2005 2 Confirmed 05/20/02 Active Leg ulcer Confirmed Active Cystocele, midline Confirmed Active Obese class I Confirmed Active Sleep apnea Confirmed Active Type 2 diabetes mellitus Confirmed Active Varicose vein Confirmed Active Venous ulcer Confirmed Active 98735 2LCIS 2003 Social History Social History Type Response Smoking Status Never smoker; Tobacc o user in household: No entered on: 11/03/17 Sex Patient Care team information Care Team Personnel Name: Benny Thompson NP Position: [facility] Outreach Member Role: PCP Address: Address: [address] [place] [address], [address] Name: Radha Munoz RN Position: [facility] SN RN Member Role: Primary Care Nurse Care Team Related Persons Name: SU HOFFMAN Address: home [address] [address] Name: JODEE HOFFMAN
--- OUTSIDE RECORDS SUMMARY | 2023-09-04 09:57 | XMS_ITS | Continuity of Care Document ---
Author Organization [facility] Address [address] [place] [address]- Care Team Providers Care Site Acquisition Specialist Name Role Phone Benny Thompson NP Primary Care Physician Encounter [facility] Date(s): 02/25/19 - 05/24/19 [facility] [address] [facility] [place] [address]- [facility] Attending Physician: Ashley Domingo NP Admitting Physician: [...] given to patient 2Admin Note: sanofi pasterur property economist Medications acetaminophen-codeine 300 mg-15 mg oral tablet [...] EST Start Date: 03/14/19 Status: Ordered CPAP Medical Reception Specialist, 07/04/18 8:35:43 EDT, Compound Start Date: 07/04/18 [...] 03/14/1914:42:00 EST, Aerosol, Route to Pharmacy Electronically, [id number], [facility] - [place], 160, cm, 10/10/18 [...] Active Varicose vein(Confirmed) Active Venous ulcer(Confirmed) Active 52487 2LCIS 2004 Social History Social History Type Response Smoking Status Never smoker; Tobacc o user in household: No entered on: 11/03/17 Sex
--- OUTSIDE RECORDS SUMMARY | 2023-09-04 09:57 | XMS_ITS | Continuity of Care Document ---
Author Organization [facility] Address [address] [place] [address]- Care Team Providers Care Bulk Coolers Installer Name Role Phone Baljit Stevenson MD, Nicole Fox Primary Care Physici an Encounter [facility] Date(s): 03/04/23 - 07/02/23 [facility] [address] [place] [address]- Attending Physician: Fay Kurtz NP Admitting Physician: Jerardo HOGUE, Fay Referring Physician: Nicole Mcpherson MD Allergies, Adverse Reactions, Alerts Substance Reaction Severity Status theophylline Active Immunizations Given and Recorded Vaccine Date Status Refusal Reason influenza virus vaccine, inactivated 1 01/21/15 Gi selena pneumococcal 23-valent vaccine 03/22/12 Given Influenza Vaccine (oldterm) 2 01/17/07 Given 1Admin Note: CDC info given to patient 2Admin Note: sanofi pasterur park maintainer Medications albuterol 0.083% inhalation solution 3 mL [...] EDT Start Date: 01/01/18 Status: Ordered CPAP Chief Of Production, 07/04/18 8:35:43 EDT, Compound Start Date: 07/04/18 [...] Start Date: 11/03/17 Status: Ordered NuLYTELY Lemon [place] oral powder for reconstitution See Instructions, as directed by office, # 1 each, 0 Refills, Maintenance, 04/26/23 11:54:00 EST, REC Powder, [facility], ok to sub for any gallon [...] 03/14/1914:42:00 EST, Aerosol, Route to Pharmacy Electronically, [id number], [facility] - [place], 160, cm, 10/10/18 [...] vein Confirmed Active Venous ulcer Confirmed Active 75525 2LCIS 2004 Social History Social History Type Response Smoking Status Never smoker; Tobacc o user in household: No entered on: 11/03/17 Sex Patient Care team information Care Team Personnel Name: Baljit Stevenson MD, Nicole Fox Position: [facility] Outreach Member Role: PCP Address: Address: [address] [place] [address] [address] [place] [address]- Name: Radha Munoz RN Position: [facility] SN RN Member Role: Primary Care Nurse Care Team Related Persons Name: SU HOFFMAN Address: home [address] [place] [address] Name: JODEE HOFFMAN
--- OUTSIDE RECORDS SUMMARY | 2023-09-04 09:57 | XMS_ITS | Continuity of Care Document ---
Author Organization [facility] Address [address] [place] [address]- Care Team Providers Care Commercial Hvac Technician Name Role Phone Benny Thompson NP Primary Care Physician Encounter [facility] ACCT R [id number] Date(s): 07/25/19 - 11/22/[address] [address]- [facility] Attending Physician: Annette Mcgrath MD Admitting Physician: Annette Mcgrath MD Referring Physician: Benny Thompson NP Allergies, Adverse Reactions, Alerts Substance Reaction Severity Status theophylline Active Immunizations Given and Recorded Vaccine Date Status Refusal Reason influenza virus vaccine, inactivated 1 01/21/15 Gi selena pneumococcal 23-valent vaccine 03/22/12 Given Influenza Vaccine (oldterm) 2 01/17/07 Given 1Admin Note: CDC info given to patient 2Admin Note: sanofi pasterur patient relations liaison Medications acetaminophen-codeine 300 mg-15 mg oral tablet [...] EST Start Date: 03/14/19 Status: Ordered CPAP Appeals Reviewer Veteran, 07/04/18 8:35:43 EDT, Compound Start Date: 07/04/18 [...] 03/14/1914:42:00 EST, Aerosol, Route to Pharmacy Electronically, [id number], [facility] - , 160, cm, 10/10/18 1... Start Date: 03/14/19 [...] Active Varicose vein(Confirmed) Active Venous ulcer(Confirmed) Active 53995 2LCIS 2004 Social History Social History Type Response Smoking Status Never smoker; Tobacc o user in household: No entered on: 11/03/17 Sex
--- OUTSIDE RECORDS SUMMARY | 2023-09-04 09:57 | XMS_ITS | Continuity of Care Document ---
Author Organization [facility] Address [address] [facility] [place] [address]- Care Team Providers Care Furnace Liner Name Role Phone Jay HOGUE, Benny Brush Primary Care Physician Encounter [facility] ACCT R [id number] Date(s): 06/30/22 - 09/10/22 [facility] [address] [facility] [place] [address]- Attending Physician: Ashley Domingo NP Admitting Physician: [...] given to patient 2Admin Note: sanofi pasterur bicycle subassembler Medications acetaminophen-codeine 300 mg-15 mg oral tablet [...] EST Start Date: 03/14/19 Status: Ordered CPAP Centrifugal Drier Operator, 07/04/18 8:35:43 EDT, Compound Start Date: [...] 03/14/1914:42:00 EST, Aerosol, Route to Pharmacy Electronically, [id number], [facility] - [place], 160, cm, 10/10/18 1... Start Date: 03/14/19 Status: Ordered Proventil HFA 90 mcg/inh inhalation aerosol with adapter 2 puffs, Inhalation, 4 times a day, 0 Refills, Maintenance, 08/18/14 13:54:20 Start Date: 08/18/14 Status: Ordered raloxifene 60 mg oral tablet 1 tablet, By Mouth, Daily, # 90 tablet, 3 Refills, Maintenance, 09/28/22 9:46:00 EDT, [facility], 159.4, cm, 08/16/22 8:52:00 EDT, Height, 82.2, kg, 02/03/21 9:54:00 EST, Dry Weight Start Date: 09/28/22 Status: Ordered raloxifene 60 mg oral tablet 1 tablet, By Mouth, Daily, for 30 days, # 30 tablet, 2 Refills, Hard Stop 09/28/22 9:46:00 EDT, 06/30/22 9:46:00 EDT, [facility], 159.4, cm, 07/08/21 9:21:00 EDT, Height, 82.2, kg, 02/03/21 9:54:00 EST, Dry Weight Start Date: 06/30/22 Stop Date: 09/28/22 Status: Ordered Robitussin Chest Congestion [...] vein Confirmed Active Venous ulcer Confirmed Active 56104 2LCIS 2004 Social History Social History Type Response Smoking Status Never smoker; Tobacc o user in household: No entered on: 11/03/17 Sex Patient Care team information Care Team Personnel Name: Benny Thompson NP Position: [facility] Outreach Member Role: PCP Address: Address: [address] [place] [address], [facility] [place] [address]- Name: Radha Munoz RN Position: [facility] SN RN Member Role: Primary Care Nurse Care Team Related Persons Name: SU HOFFMAN Address: home [address] [address] Name: JODEE HOFFMAN
--- OUTSIDE RECORDS SUMMARY | 2023-09-04 09:57 | XMS_ITS | Continuity of Care Document ---
Author Organization [facility] Address [address] [place] [address]- Care Team Providers Care Speaking Unit Assembler Name Role Phone Benny Thompson NP Primary Care Physician Encounter [facility] Date(s): 09/18/19 - 10/18/19 [facility] [address] [place] [address]- [facility] Attending Physician: Wu Crowley Admitting Physician: AdmWu argueta Referring Physician: AdmtrWu Allergies, Adverse Reactions, Alerts Substance Reaction Severity Status theophylline Active Immunizations Given and Recorded Vaccine Date Status Refusal Reason influenza virus vaccine, inactivated 1 01/21/15 Gi selena pneumococcal 23-valent vaccine 03/22/12 Given Influenza Vaccine (oldterm) 2 01/17/07 Given 1Admin Note: CDC info given to patient 2Admin Note: sanofi pasterur professor of counseling Medications acetaminophen-codeine 300 mg-15 mg oral tablet [...] EST Start Date: 03/14/19 Status: Ordered CPAP Matrix Inspector, 07/04/18 8:35:43 EDT, Compound Start Date: 07/04/18 [...] 03/14/1914:42:00 EST, Aerosol, Route to Pharmacy Electronically, [id number], [facility] - [place], 160, cm, 10/10/18 1... [...] Active Varicose vein(Confirmed) Active Venous ulcer(Confirmed) Active 39432 2LCIS 2004 Social History Social History Type Response Smoking Status Never smoker; Tobacc o user in household: No entered on: 11/03/17 Sex
--- OUTSIDE RECORDS SUMMARY | 2023-09-04 09:57 | XMS_ITS | Continuity of Care Document ---
Author Organization [facility] Address [address] [place] [address]- Care Team Providers Care Retail Analyst Name Role Phone Baljit Stevenson MD, Nicole Fox Primary Care Physici an Encounter [facility] [place] Date(s): 06/02/23 - 07/02/23 [facility] [address] [place] [address]- Attending Physician: AdmtrWu Allergies, Adverse Reactions, Alerts Substance Reaction Severity Status theophylline Active Immunizations Given and Recorded Vaccine Date Status Refusal Reason influenza virus vaccine, inactivated 1 01/21/15 Gi selena pneumococcal 23-valent vaccine 03/22/12 Given Influenza Vaccine (oldterm) 2 01/17/07 Given 1Admin Note: CDC info given to patient 2Admin Note: sanofi pasterur benefits processor Medications albuterol 0.083% inhalation solution 3 mL [...] EDT Start Date: 01/01/18 Status: Ordered CPAP Potato Chip Packaging Machine Operator, 07/04/18 8:35:43 EDT, Compound Start Date: [...] Start Date: 11/03/17 Status: Ordered NuLYTELY Lemon [place] oral powder for reconstitution See Instructions, as directed by office, # 1 each, 0 Refills, Maintenance, 04/26/23 11:54:00 EST, REC Powder, [facility], ok to sub for any gallon prep, 159.3, cm, 04/26/23 11:28:00 EST, Height, 78.36, kg, 01/25/23 10:09:00 EST, Start Date: 04/26/23 Status: Ordered pantoprazole 40 [...] 03/14/1914:42:00 EST, Aerosol, Route to Pharmacy Electronically, [id number], [facility] - [place], 160, cm, 10/10/18 [...] vein Confirmed Active Venous ulcer Confirmed Active 23246 2LCIS 2003 Procedures Procedure Date Related Diagnosis Body Site Status Esophagogastroduodenoscopy 08/26/14 Completed Social History Social History Type Response Smoking Status Never smoker; Tobacc o user in household: No entered on: 11/03/17 Sex Laboratory * Event Display: Non Lab Results Authored Date: * Event Display: Non Lab Results Authored Date: Patient Care team information Care Team Personnel Name: Baljit Stevenson MD, Nicole Fox Position: [facility] Outreach Member Role: PCP Address: Address: [address] [place] [address] [address] [place] [address]- Name: Radha Munoz RN Position: [facility] SN RN Member Role: Primary Care Nurse Care Team Related Persons Name: SU HOFFMAN Address: home [address] [place] [id number] Name: JODEE HOFFMAN
--- OUTSIDE RECORDS SUMMARY | 2023-09-04 09:57 | XMS_ITS | Continuity of Care Document ---
Author Organization [facility] ter Address [address] [place] [address]- Care Team Providers Care Titrator Name Role Phone Benny Thompson NP Primary Care Physician Encounter [facility] Date(s): 02/15/18 - 02/28/[address] [address]- [facility] Attending Physician: Ashley Domingo NP Admitting Physician: Ashley Domingo NP Referring Physician: Ashley Domingo NP Allergies, Adverse Reactions, Alerts Substance Reaction Severity Status theophylline Active Immunizations Given and Recorded Vaccine Date Status Refusal Reason influenza virus vaccine, inactivated 1 01/21/15 Gi selena pneumococcal 23-valent vaccine 03/22/12 Given Influenza Vaccine (oldterm) 2 01/17/07 Given 1Admin Note: CDC info given to patient 2Admin Note: sanofi pasterur breakdown person Medications acetaminophen-codeine 300 mg-15 mg oral tablet [...] 15:29:56, Tablet Start Date: 11/29/11 Status: Ordered carvedilol 6.25 mg oral tablet 6.25 mg, 1, tablet, By Mouth, 2 times a day, # 180 tablet, Refills 0, Maintenance, 11/29/16 10:14:24 Start Date: 11/29/16 Status: Ordered Cerovite Senior Therapeutic Multiple Vitamins with Minerals oral tablet 1 tablet, By Mouth, Daily, 0 Refills, Maintenance, 01/01/18 11:30:50 EDT Start Date: 01/01/18 Status: Ordered CPAP Radar Air Traffic Controller, 07/04/18 8:35:43 EDT, Compound Start Date: 07/04/18 Status: Ordered ferrous sulfate 325 mg oral [...] 08/18/14 13:54:20 Start Date: 08/18/14 Status: Ordered Spiriva HandiHaler 18 mcg Inhalation [...] Active Varicose vein(Confirmed) Active Venous ulcer(Confirmed) Active 55518 2LCIS 2004 Social History Social History Type Response Smoking Status Never smoker; Tobacc o user in household: No entered on: 11/03/17 Sex
--- OUTSIDE RECORDS SUMMARY | 2023-09-04 09:57 | XMS_ITS | Continuity of Care Document ---
Author Organization [facility] ter Address [address] [place] [address]- Care Team Providers Care Publication Distributor Name Role Phone Benny Thompson NP Primary Care Physician Encounter [facility] Date(s): 02/25/19 - 05/24/[address] [address]- [facility] Attending Physician: Ashley Domingo NP Admitting Physician: [...] given to patient 2Admin Note: sanofi pasterur external grinder tender Medications acetaminophen-codeine 300 mg-15 mg oral tablet [...] EST Start Date: 03/14/19 Status: Ordered CPAP Cathead Operator, 07/04/18 8:35:43 EDT, Compound Start Date: [...] 03/14/1914:42:00 EST, Aerosol, Route to Pharmacy Electronically, [id number], [facility] - Ho, 160, cm, 10/10/18 [...] breast, Left, 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
--- OUTSIDE RECORDS SUMMARY | 2023-09-04 09:57 | XMS_ITS | Continuity of Care Document ---
Author Organization [facility] Address [address] [place] [address]- Care Team Providers Care Principal Technical Architect Name Role Phone Benny Thompson NP Primary Care Physician Encounter [facility] Date(s): 10/31/18 - 02/28/19 [facility] [address] [facility] [place] [address]- [facility] Attending Physician: Ashley Domingo NP Admitting Physician: [...] given to patient 2Admin Note: sanofi pasterur j2ee java developer Medications acetaminophen-codeine 300 mg-15 mg oral tablet [...] EDT Start Date: 01/01/18 Status: Ordered CPAP Security Tester, 07/04/18 8:35:43 EDT, Compound Start Date: 07/04/18 [...] Active Varicose vein(Confirmed) Active Venous ulcer(Confirmed) Active 69355 2LCIS 2003 Social History Social History Type Response Smoking Status Never smoker; Tobacc o user in household: No entered on: 11/03/17 Sex
--- OUTSIDE RECORDS SUMMARY | 2023-09-04 09:57 | XMS_ITS | Continuity of Care Document ---
Author Organization [facility] Address [address] [place] [address]- Care Team Providers Care Electromyographic Technician Name Role Phone Benny Thompson NP Primary Care Physician Encounter [facility] Date(s): 08/29/19 - 09/28/19 [facility] [address] [place] [address] [facility] Attending Physician: AdmWu argueta Admitting Physician: AdmtrWu Referring Physician: Admtr, Ar8 Allergies, Adverse Reactions, Alerts Substance Reaction Severity Status theophylline Active Immunizations Given and Recorded Vaccine Date Status Refusal Reason influenza virus vaccine, inactivated 1 01/21/15 Gi selena pneumococcal 23-valent vaccine 03/22/12 Given Influenza Vaccine (oldterm) 2 01/17/07 Given 1Admin Note: CDC info given to patient 2Admin Note: sanofi pasterur merchandise buyer Medications acetaminophen-codeine 300 mg-15 mg oral tablet [...] EST Start Date: 03/14/19 Status: Ordered CPAP Cable Television Installer, 07/04/18 8:35:43 EDT, Compound Start Date: 07/04/18 [...] 03/14/1914:42:00 EST, Aerosol, Route to Pharmacy Electronically, [id number], [facility] - Ho, 160, cm, [...] Active Varicose vein(Confirmed) Active Venous ulcer(Confirmed) Active 45417 2LCIS 2004 Social History Social History Type Response Smoking Status Never smoker; Tobacc o user in household: No entered on: 11/03/17 Sex
--- OUTSIDE RECORDS SUMMARY | 2023-09-04 09:57 | XMS_ITS | Continuity of Care Document ---
Author Organization [facility] ter Address [address] [place] [address]- Care Team Providers Care Fiscal Clerk Name Role Phone Benny Thompson NP Primary Care Physician Encounter [facility] Date(s): 05/24/19 - 10/30/[address] [address]- [facility] Attending Physician: Ashley Domingo NP Admitting Physician: [...] given to patient 2Admin Note: sanofi pasterur employee relations assistant Medications acetaminophen-codeine 300 mg-15 mg oral tablet [...] EST Start Date: 03/14/19 Status: Ordered CPAP Earth Science Laboratory Technician, 07/04/18 8:35:43 EDT, Compound Start Date: 07/04/18 [...] Refills, Maintenance, 04/27/12 9:26:44 EST Start Date: 2/8/13 Status: Ordered Irbesartan = 150 mg, By [...] 03/14/1914:42:00 EST, Aerosol, Route to Pharmacy Electronically, [id number], [facility] - [place], 160, cm, 10/10/18 [...] Active Varicose vein(Confirmed) Active Venous ulcer(Confirmed) Active 87244 2LCIS 2003 Social History Social History Type Response Smoking Status Never smoker; Tobacc o user in household: No entered on: 11/03/17 Sex
--- OUTSIDE RECORDS SUMMARY | 2023-09-04 09:57 | XMS_ITS | Continuity of Care Document ---
Author Organization [facility] Address [address] [facility] [address]- Care Team Providers Care Project Coordinator Rn Name Role Phone Jay HOGUE, Benny Brush Primary Care Physician Encounter [facility] Date(s): 08/17/22 - 09/16/22 [facility] [address] [place] [address]- Allergies, Adverse Reactions, Alerts Substance Reaction Severity Status theophylline Active Immunizations Given and Recorded Vaccine Date Status Refusal Reason influenza virus vaccine, inactivated 1 01/21/15 Gi selena pneumococcal 23-valent vaccine 03/22/12 Given Influenza Vaccine (oldterm) 2 01/17/07 Given 1Admin Note: CDC info given to patient 2Admin Note: sanofi pasterur lead person Medications acetaminophen-codeine 300 mg-15 mg oral [...] EST Start Date: 03/14/19 Status: Ordered CPAP Community Health Agent, 07/04/18 8:35:43 EDT, Compound Start Date: 07/04/18 [...] 03/14/1914:42:00 EST, Aerosol, Route to Pharmacy Electronically, [id number], [facility] - [place], 160, cm, 10/10/18 1... Start Date: 03/14/19 Status: Ordered Proventil HFA 90 mcg/inh inhalation aerosol with adapter 2 puffs, Inhalation, 4 times a day, 0 Refills, Maintenance, 08/18/14 13:54:20 Start Date: 08/18/14 Status: Ordered raloxifene 60 mg oral tablet 1 tablet, By Mouth, Daily, # 90 tablet, 3 Refills, Maintenance, 09/28/22 9:46:00 EDT, [facility], 159.4, cm, 08/16/22 8:52:00 EDT, Height, 82.2, kg, 02/03/21 9:54:00 EST, Dry Weight Start Date: 09/28/22 Status: Ordered raloxifene 60 mg oral tablet 1 tablet, By Mouth, Daily, for 30 days, # 30 tablet, 2 Refills, Hard Stop 09/28/22 9:46:00 EDT, 06/30/22 9:46:00 EDT, [facility], 159.4, cm, 07/08/21 9:21:00 EDT, [...] vein Confirmed Active Venous ulcer Confirmed Active 57741 2LCIS 2004 Social History Social History Type Response Smoking Status Never smoker; Tobacc o user in household: No entered on: 11/03/17 Sex Patient Care team information Care Team Personnel Name: Jay HOGUE, Benny Brush Position: [facility] Outreach Member Role: PCP Address: Address: [address] [place] [address], [place], [place] [address] Name: Radha Munoz RN Position: [facility] SN RN Member Role: Primary Care Nurse Care Team Related Persons Name: SU HOFFMAN Address: home [address] [address] Name: JODEE HOFFMAN
--- OUTSIDE RECORDS SUMMARY | 2023-09-04 09:57 | XMS_ITS | Continuity of Care Document ---
Author Organization [facility] Address [address] [place] [address]- Care Team Providers Care Instructor Robotics Name Role Phone Benny Thompson NP Primary Care Physician Encounter [facility] [place] Date(s): 04/24/19 - 05/04/19 [facility] [address] [place] [address]- [facility] Attending Physician: AdmWu argueta Admitting Physician: AdmtrWu Referring Physician: Admtr, Ar8 Allergies, Adverse Reactions, Alerts Substance Reaction Severity Status theophylline Active Immunizations Given and Recorded Vaccine Date Status Refusal Reason influenza virus vaccine, inactivated 1 01/21/15 Gi selena pneumococcal 23-valent vaccine 03/22/12 Given Influenza Vaccine (oldterm) 2 01/17/07 Given 1Admin Note: CDC info given to patient 2Admin Note: sanofi pasterur doggy daycare activities director Medications acetaminophen-codeine 300 mg-15 mg oral tablet [...] EST Start Date: 03/14/19 Status: Ordered CPAP Rolls Mill Operator, 07/04/18 8:35:43 EDT, Compound Start Date: [...] 03/14/1914:42:00 EST, Aerosol, Route to Pharmacy Electronically, [id number], [facility] - [place], 160, cm, [...] Active Varicose vein(Confirmed) Active Venous ulcer(Confirmed) Active 91078 2LCIS 2004 Social History Social History Type Response Smoking Status Never smoker; Tobacc o user in household: No entered on: 11/03/17 Sex
--- OUTSIDE RECORDS SUMMARY | 2023-09-04 09:57 | XMS_ITS | Continuity of Care Document ---
Author Organization [facility] Address [address] [place] [id number]- Care Team Providers Care Outdoor Studies Director Name Role Phone Benny Thompson NP Primary Care Physician Encounter [facility] Date(s): 06/05/19 - 06/15/19 [facility] [address] [place] [id number]- [facility] Attending Physician: Admtr, Wu Allergies, Adverse Reactions, Alerts Substance Reaction Severity Status theophylline Active Immunizations Given and Recorded Vaccine Date Status Refusal Reason influenza virus vaccine, inactivated 1 01/21/15 Gi selena pneumococcal 23-valent vaccine 03/22/12 Given Influenza Vaccine (oldterm) 2 01/17/07 Given 1Admin Note: CDC info given to patient 2Admin Note: sanofi pasterur personal banking officer Medications acetaminophen-codeine 300 mg-15 mg oral tablet [...] EST Start Date: 03/14/19 Status: Ordered CPAP Crawler Tractor Operator, 07/04/18 8:35:43 EDT, Compound Start Date: [...] 03/14/1914:42:00 EST, Aerosol, Route to Pharmacy Electronically, [id number], [facility] - [place], 160, cm, 10/10/18 1... [...] Active Varicose vein(Confirmed) Active Venous ulcer(Confirmed) Active 74346 2LCIS 2003 Procedures Procedure Date Related Diagnosis Body Site Status Esophagogastroduodenoscopy 08/26/14 Completed Social History Social History Type Response Smoking Status Never smoker; Tobacc o user in household: No entered on: 11/03/17 Sex
--- OUTSIDE RECORDS SUMMARY | 2023-09-04 09:57 | XMS_ITS | Continuity of Care Document ---
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(Discharge Diagnosis) - 04/26/23 Cricopharyngeal achalasia(Discharge Diagnosis) - 04/26/23 Postprandial diarrhea(Discharge Diagnosis) - 04/26/23 Fecal incontinence(Discharge Diagnosis) - 04/26/23 Unintentional weight loss(Discharge Diagnosis) - 04/26/23 Attending Physician: Partha Bocanegra MD Referring Physician: Benny Thompson NP Allergies, Adverse Reactions, Alerts Substance Reaction Severity Status theophylline Active Immunizations Given and Recorded Vaccine Date Status Refusal Reason influenza virus vaccine, inactivated 1 01/21/15 Gi selena pneumococcal 23-valent vaccine 03/22/12 Given Influenza Vaccine (oldterm) 2 01/17/07 Given 1Admin Note: CDC info given to patient 2Admin Note: sanofi pasterur water tender Medications albuterol 0.083% inhalation solution 3 mL [...] EDT Start Date: 01/01/18 Status: Ordered CPAP Inspecting Supervisor, 07/04/18 8:35:43 EDT, Compound Start Date: 07/04/18 [...] Start Date: 11/03/17 Status: Ordered NuLYTELY Lemon [place] oral powder for reconstitution See Instructions, as directed by office, # 1 each, 0 Refills, Maintenance, 04/26/23 11:54:00 EST, REC Powder, [facility], ok to sub for any gallon prep, 159.3, cm, 04/26/23 11:28:00 EST, Height, 78.36, kg, 01/25/23 10:09:00 EST, DrVenessa.. 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 Discharge Diagnosis 04/26/23 Cricopharyngeal achalasia Discharge Diagnosis 04/26/23 Postprandial diarrhea Discharge Diagnosis 04/26/23 Fecal incontinence Discharge Diagnosis 04/26/23 Unintentional weight loss Discharge Diagnosis 04/26/23 Vital Signs Most recent to oldest [Reference Range]: 1 Height 159.3 cm (04/26/23 11:28 AM) Weight 77 kg (04/26/23 11:28 AM) Oxygen Saturation [94-100 %] 96 % (04/26/23 11:28 AM) Pulse Rate [55-90 bpm] 82 bpm (04/26/23 11:28 AM) Body Mass Index [18.5-24.99 kg/m2] 30.34 kg/m2 *>HHI* (04/26/23 11:28 AM) Blood Pressure [90-138/55-84 mm Hg] 121/ 68mm Hg (04/26/23 11:28 AM) Respiratory Rate [16-30 br/min] 16 br/mi n (04/26/23 11:28 AM) Mode of Delivery (Oxygen) Room air (04/26/23 11:28 AM) Blood pressure sites Arm, right (04/26/23 11:28 AM) Weight Obtained Via Bed scale (04/26/23 11:28 AM) Social History Social History Type Response Smoking Status Never smoker; Tobacc o user in household: No entered on: 11/03/17 Sex Patient Care team information Care Team Personnel Name: Nicole Mcpherson MD Position: [facility] Outreach Member Role: PCP Address: Address: [address] [place] [address] [address] [place] [address]- Name: Radha Mnuoz RN Position: [facility] SN RN Member Role: Primary Care Nurse Care Team Related Persons Name: SU HOFFMAN Address: home [address] [place] [id number] Name: JODEE HOFFMAN
--- NOTE | 2023-09-04 10:39 | PC.NURSE ---
[facility] called to verify CPAP. Confirmation [id number]
[2023-09-04 11:06] LABS: Glucose, Whole Blood 106 mg/dL (60-115)
[2023-09-04] MEDS: Lactated Ringers 1,000 ML 100 ML IVCONT ×2 (11:28→17:31)
[2023-09-04] MEDS: vancomycin HCL 1,000 MG in 0.9 % Sodium Chloride 250 ML 270 MG IV ×2 (11:45→22:44)
[2023-09-04] MEDS: Albuterol Sulfate (0.083%) 2.5 MG/3 ML VIAL.NEB INHALE (11:54)
--- NOTE | 2023-09-04 15:45 | P.BOP_ITS ---
Brief Operative Note Date of Service: 09/04/23 Pre-op diagnosis: Right knee degenerative joint disease Post-op diagnosis: same Procedure: Right total knee arthroplasty Implants: [employer] Triathlon cemented posterior stabilized total knee arthroplasty with a femoral component size 4 right, tibial component size 5, polyethylene liner size 5 with 11 mm of thickness, an asymmetric patellar component size 29 with 9 mm of thickness Surgeon: Espinoza Mart MD Anesthesia: regional and spinal Was an Spooling Supervisor used for this Procedure?: No Spooling Supervisor: Colette Mix Estimated blood loss (mL): 200 Pathology: other (Bony fragments from the right femur, tibia and patella) Condition: stable Disposition: PACU
--- NOTE | 2023-09-04 15:46 | P.OP_ITS ---
Operative Note Operative Note Date of Service: 09/04/23 Narrative: After the patient was identified as Ina Greer and their right knee was initialed by myself the patient was brought to the holding area where a right leg nerve block was performed by the anesthesiologist in routine fashion. The patient was then brought to the operating room where conscious sedation and spinal anesthesia were performed by the anesthesiologist in routine fashion. Because of the patient's diabetes she was given both IV Ancef and IV vancomycin preoperatively for infection prophylaxis. The patient's right lower extremity was prepped and draped in sterile fashion. A formal time-out was completed. The patient's right knee was placed onto a small bump to produce 30? of knee flexion during exposure. A #10 scalpel blade was used to make a midline incision extending 1 handbreadth proximal and distal to the patella. A second #10 scalpel blade was used to dissect the subcutaneous tissues down to the extensor mechanism. The subcutaneous flaps were maintained as thick as possible. A medial parapatellar arthrotomy was then performed using a #10 scalpel blade. The arthrotomy was begun just medial to the patellar tendon. The arthrotomy was continued 1 cm medial to the patella and then 5 mm into the medial aspect of the quadriceps tendon. The infrapatellar fat pad was partially excised to help with exposure. The soft tissue retinaculum was raised one-half of the way around the medial aspect of the proximal tibia. The patella was everted and the knee was flexed to 90?. There was no injury to the patellar tendon or its insertion onto the tibial tubercle. A drill bit was introduced into the distal aspect of the femur with a starting point 1 cm anterior to the origin of the posterior cruciate ligament. The intramedullary alignment lukas was put into place. The distal alignment guide was set for a 5 degree valgus cut. The distal cutting block was put into place and was held with 4 pins. The intramedullary alignment lukas was removed. Soft tissues were retracted in the distal femoral cut was made using a sagittal saw. The distal aspect of the femur measured to be a size 4 right component. Two drill holes were placed into the distal aspect of the femur marking 3? of external rotation. The distal cutting block was impacted into place and was held with 2 pins. Soft tissues were retracted and the 4 distal femoral cuts were made using a sagittal saw. Final notching and drilling of the distal aspect of the femur were performed in routine fashion. The trial femoral component was impacted into place. The knee was taken through a full range of motion. The patella tracked well. The patella was everted and the knee was flexed to 90?. The trial component was removed and our attention was directed to the proximal tibia. The medial and lateral menisci were removed using a #10 scalpel blade. A small rim of the medial meniscus was left intact to help prevent injury to the medial collateral ligament. A drill bit was then introduced into the proximal tibia with a starting point midway from medial to lateral and one-third of the way posteriorly. The intramedullary alignment lukas was put into place. The proximal tibial cutting guide was placed over the alignment lukas in line with the 2nd toe. The guide was held in place using 3 pins. The intramedullary alignment lukas was removed. Soft tissues were retracted and the proximal tibial cut was made using a sagittal saw. The proximal tibia measured to be a size 5 component. The tibial tray was put into place with a 11 mm liner. The femoral component was impacted into place. The knee was taken through a full range of motion. There was full flexion and full extension. There was no instability with varus or valgus stress testing with the knee in flexion or extension. The patella tracked well with no medially directed force. The rotation of the tibial tray was marked using electrocautery with the knee in extension. The patella was everted and the knee was flexed to 90?. All trial components were removed. The tibial tray was placed onto the proximal tibia in line with the electrocautery ernst. The tray was held in place using 3 pins. Final broaching of the proximal tibia was performed in routine fashion. The trial liner and trial femoral component were put into place. The knee was brought into extension and our attention was directed to the patella. The patella measured 25 mm in thickness. The patellar resection guide was set for a 10 mm resection. Soft tissues were retracted and the patella cut was made using a sagittal saw. The remaining patella measured 15 mm in thickness. The undersurface of the patella was measured to be a size 29 asymmetric component. Three drill holes were placed into the undersurface of the patella in routine fashion. The trial component was put into place. The knee was taken through a full range of motion. The patella tracked well. The patella was everted and the knee was flexed to 90?. All trial components were removed. The knee was once again brought into extension and placed onto a small bump. The knee joint was irrigated with copious amounts of normal saline solution via pulse lavage while the cement was mixed. The patella was everted and the knee was flexed to 90?. A small amount of cement was placed along the posterior aspects of the tibial and femoral components. Cement was then pressurized into the proximal tibia. The tibial component was impacted into place. Any excess cement was removed. The polyethylene liner was then impacted into place. Cement was then pressurized into the distal aspect of the femur. A small amount of cement was placed into the intramedullary canal to help reduce bleeding. The femoral component was impacted into place. Any excess cement was removed. The knee was then brought into extension. Cement was pressurized into the undersurface of the patella. The patellar component was put into place and was held with a patella clamp. Any excess cement was removed. Once the cement had hardened the patellar clamp was removed. The knee was taken through a full range of motion. There was full flexion and extension. There was no instability with varus or valgus stress t esting with the knee in flexion or extension. The patella tracked well with no medially directed force. The knee joint was irrigated with copious amounts of normal saline solution via pulse lavage. Any significant bleeding vessels were coagulated. The patient's right knee was placed onto a small bump. The arthrotomy was closed with #2 Ethibond [id number] interrupted suture as well as #1 Vicryl [id number] interrupted suture. The wound was once again irrigated. The subcutaneous tissues were closed with 0 Vicryl and 2-0 Vicryl interrupted sutures. The skin was closed with skin sara. Dry sterile dressing and Jacob bandages were placed over the patient's right knee. The patient was awake and alert. The patient was transferred to the recovery room in stable condition.
--- NOTE | 2023-09-04 17:08 | HO.PM.IMCN ---
History of Present Illness Data of Consult Service Date: 09/04/23 Requesting physician: Espinoza Mart Primary Care Provider: Nicole Stevenson MD [facility] Reason for consult: medical management 68-year-old female with history of insulin dependent type 2 diabetes, mood disorder, hypertension, GERD, hyperlipidemia, YAEL on CPAP, osteopenia admitted to Orthopedic surgery for management of osteoarthritis of right knee s/p TKA with consult placed hospitalist service for medical management. The patient has no complaints at this time. She states the right lower extremity is still numb. Denies any fevers, chills, abdominal pain, nausea, vomiting, urinary symptoms, shortness of breath, palpitations, lightheadedness, chest pain. Vital signs are stable though she does remain on 2 L supplemental O2. No known history of asthma or COPD or other chronic lung condition. Review of Systems Review of Systems: Yes all other systems are reviewed and are negative [facility] Medical History Hx of breast cancer Back pain YAEL on CPAP Vitamin B deficiency Steatosis of liver Osteopenia Mixed anxiety and depressive disorder HTN (hypertension) GERD (gastroesophageal reflux disease) Stress incontinence in female Dyslipidemia Renal cyst Asthma Osteoarthritis Anxiety Acute depression Diabetes Surgical History Hx of tubal ligation Hx of breast surgery Hx of colonoscopy Social History Household Members: None Housing: Apartment Are you a primary care management associate to a significant other at home: No Do you presently have visiting nurse or other home services: Yes ([employer] weekly hours 26.5 days and 14 night, supportive family also) Patient Tobacco Use Status: Never used Tobacco Use of substances other than those prescribed or required for medical reasons: No Have you been hit, kicked, punched, or otherwise hurt by someone within the past year? 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 Meds Allergies Allergy/AdvReac Type Severity Reaction Status Date / Time theophylline Allergy Intermediate Facial Verified 09/04/23 10:30 Swelling, itching, nausea Active Medications: Current Medications Acetaminophen (Acetaminophen 325 Mg Tablet) 650 mg PO Q6H PRN PRN Reason: Pain, Mild (Pain Scale 1-3) Albuterol Sulfate (Albuterol Sulfate (0.083%) 2.5 Mg/3 Ml Vial.Neb) 2.5 mg INHALE ONCE PRN PRN Reason: Shortness of Breath/Wheezing Last Admin: 09/04/23 11:54 Dose: 2.5 mg Albuterol Sulfate (Albuterol Sulfate (0.083%) 2.5 Mg/3 Ml Vial.Neb) 2.5 mg INHALE QID PRN PRN Reason: Shortness Of Breath Or Wheezing Albuterol Sulfate (Albuterol Sulfate 90 Mcg 8 Gm Inhaler) 2 puff INHALE 6XD PRN PRN Reason: Shortness Of Breath Or Wheezing Aspirin (Aspirin 325 Mg Tablet) 325 mg PO BID [facility] Atorvastatin Calcium (Atorvastatin Calcium 40 Mg Tablet) 40 mg PO BEDTIME [facility] Carvedilol (Carvedilol 6.25 Mg Tablet) 6.25 mg PO BID [facility]; Protocol Celecoxib (Celecoxib 200 Mg Capsule) 200 mg PO BID [facility] Cyanocobalamin (Cyanocobalamin (Vitamin B-12) 1,000 Mcg Tablet) 1,000 mcg PO DAILY [facility] Docusate Sodium (Docusate Sodium 100 Mg Capsule) 100 mg PO BID [facility] Empagliflozin (Empagliflozin 25 Mg Tablet) 25 mg PO DAILY [facility] Famotidine (Famotidine 20 Mg Tablet) 40 mg PO BEDTIME [facility] Fluticasone Propionate (Fluticasone Propionate Nasal 16 Gm [place]ach) 1 spray NOSTRIL-B BID PRN PRN Reason: Allergy Symptoms Gabapentin (Gabapentin 400 Mg Capsule) 400 mg PO TID [facility] Hydromorphone HCl (Hydromorphone Hcl 0.5 Mg/0.5 Ml Syringe) 0.25 mg IVPUSH Q4H PRN; Protocol PRN Reason: Pain, Severe (Pain Scale 7-10) Hydromorphone HCl (Hydromorphone Hcl 0.5 Mg/0.5 Ml Syringe) 0.5 mg IVPUSH Q4H PRN; Protocol PRN Reason: Pain, Severe (Pain Scale 7-10) Lactated Ringer's (Lr) 1,000 mls @ 100 mls/hr IVCONT .Q10H [facility] Last Admin: 09/04/23 11:28 Dose: 100 mls/hr Lactated Ringer's (Lr) 1,000 mls @ 100 mls/hr IVCONT .Q10H [facility] Vancomycin HCl 1,000 mg/ (Sodium Chloride) 270 mls @ 270 mls/hr IV ONCE ONE Stop: 09/04/23 20:50 Cefazolin Sodium/Dextrose (Ancef) 2 gm in 50 mls @ 100 mls/hr IV Q8H [facility] Stop: 09/05/23 04:00 Insulin Glargine (Insulin Glargine,Hum.Rec.Anlog 100 Unit/Ml 10 Ml Vial) 13 unit SUBCUT BEDTIME [facility] Loratadine (Loratadine 10 Mg Tablet) 10 mg PO DAILY PRN PRN Reason: Allergy Symptoms Metformin HCl (Metformin Hcl 1,000 Mg Tablet) 1,000 mg PO BID [facility] Methocarbamol (Methocarbamol 500 Mg Tablet) 500 mg PO TID [facility] Montelukast Sodium (Montelukast Sodium 10 Mg Tablet) 10 mg PO BEDTIME [facility] Multivitamins/Vitamin C (Multivitamin Tablet) 1 tab PO DAILY [facility] Non-Formulary Medication (Ferrous Sulfate) 325 mg PO Q OTHER DAY [facility] Non-Formulary Medication (Irbesartan) 75 mg PO DAILY [facility] Non-Formulary Medication (Mometasone-Formoterol [Dulera]) 2 puff INHALE BID [facility] Non-Formulary Medication (Pantoprazole) 40 mg PO DAILY [facility] Ondansetron HCl (Ondansetron Hcl 4 Mg/2 Ml Vial) 4 mg IVPUSH Q8H PRN PRN Reason: Nausea and Vomiting Oxycodone HCl (Oxycodone Hcl Immed Release 5 Mg Tablet) 5 mg PO Q4H PRN PRN Reason: Pain, Moderate(Pain Scale 4-6) Oxycodone HCl (Oxycodone Hcl Immed Release 5 Mg Tablet) 10 mg PO Q4H PRN PRN Reason: Pain, Moderate(Pain Scale 4-6) Oxycodone HCl (Oxycodone Hcl Er 10 Mg Tab.Er.12h) 10 mg PO BID [facility] Pharmacy Consult (Consult Rx Vancomycin Dosing) 1 each MISCELLANE DAILY PRN PRN Reason: Consult order Sertraline HCl (Sertraline Hcl 100 Mg Tablet) 100 mg PO DAILY [facility] Sodium Chloride (0.9 % Sodium Chloride Flush 3 Ml Syringe) [facility] Medications ?Medication ?Instructions ?Recorded ?Confirmed ?Last Taken ?Type aspirin 81 mg tablet,delayed 81 mg PO DAILY 08/25/20 09/04/23 08/21/23 History release irbesartan 75 mg tablet 75 mg PO DAILY 08/25/20 08/31/23 Unknown History montelukast 10 mg tablet 10 mg PO BEDTIME 08/25/20 08/31/23 Unknown History multivitamin-ferrous 1 tab PO DAILY 08/25/20 08/31/23 Unknown History fumarate-folic acid 18 mg-400 mcg tablet (Certavite-Antioxidant) insulin glargine 100 unit/mL (3 13 unit subcut BEDTIME 01/24/23 09/04/23 09/02/23 History mL) subcutaneous pen (Lantus Solostar U-100 Insulin) insulin lispro 100 unit/mL 16 - 22 unit subcut TIDAC 01/24/23 09/04/23 09/03/23 History subcutaneous pen (Humalog KwikPen 12 units (U-100) Insulin) atorvastatin 40 mg tablet 40 mg PO BEDTIME 07/24/23 08/31/23 Unknown History carvedilol 6.25 mg tablet 6.25 mg PO BID 07/24/23 09/04/23 09/04/23 History empagliflozin 25 mg tablet 25 mg PO DAILY 07/24/23 09/04/23 08/28/23 History (Jardiance) famotidine 40 mg tablet 40 mg PO BEDTIME 07/24/23 08/31/23 Unknown History gabapentin 400 mg capsule 400 mg PO TID 07/24/23 08/31/23 Unknown History metformin 1,000 mg tablet 1,000 mg PO BID 07/24/23 09/04/23 09/02/23 History pantoprazole 40 mg tablet,delayed 40 mg PO DAILY 07/24/23 08/31/23 09/04/23 History release albuterol sulfate 2.5 mg/3 mL 2.5 mg inhalation QID PRN 08/24/23 08/31/23 Unknown History (0.083 %) solution for nebulization Shortness Of Breath Or Wheezing albuterol sulfate 90 mcg/actuation 2 puff inhalation 6XD PRN 08/24/23 08/31/23 Unknown History aerosol inhaler Shortness Of Breath Or Wheezing cetirizine 10 mg tablet 10 mg PO DAILY PRN Allergy Symptoms 08/24/23 08/31/23 Unknown History cyanocobalamin (vitamin B-12) 1,000 mcg PO DAILY 08/24/23 08/31/23 Unknown History 1,000 mcg tablet (Vitamin B-12) ferrous sulfate 325 mg (65 mg 325 mg PO Q OTHER DAY 08/24/23 09/04/23 09/03/23 History iron) tablet fluticasone propionate 50 1 spray intranasal BID PRN Allergy 08/24/23 08/31/23 Unknown History mcg/actuation nasal Symptoms spray,suspension (Flonase Allergy Relief) mometasone-formoterol HFA 200 2 puff inhalation BID 08/24/23 08/31/23 Unknown History mcg-5 mcg/actuation aerosol inhaler (Dulera) sertraline 100 mg tablet 100 mg PO DAILY 08/24/23 08/31/23 09/04/23 History raloxifene 60 mg tablet 60 mg PO DAILY 09/04/23 09/04/23 Unknown History Physical Exam Vital Signs and Narrative: Vital Signs: Last Vital Signs Temp 98.0 F 09/04/23 16:45 Pulse 67 09/04/23 16:45 Resp 16 09/04/23 16:45 BP 108/57 L 09/04/23 16:45 Pulse Ox 96 09/04/23 16:45 O2 Del Method Nasal Cannula wit h Capnography 09/04/23 16:45 O2 Flow Rate 2 09/04/23 16:45 BMI result Body Mass Index 28.5 Constitutional - Awake and Alert, No apparent distress Eyes - PERRLA, EOMI Cardiovascular - S1S2, RRR, No edema Respiratory - Normal lung expansion, Normal respiratory effort, No respiratory distress, CTA bilaterally Gastrointestinal - NT / ND; +BS; No rebound or guarding Extremities - no calf tenderness bilaterally, no swelling. Post op bandage in place RLE Skin - Warm/Dry Neurological - Alert & oriented x3 Psychological - Appropriate affect Results Labs 08/25/23 13:28 08/25/23 13:28 Labs: Laboratory Results - last 24 hr 09/04/23 09/04/23 10:44 11:03 POC Glucose 106 Blood Type O Positive Antibody Screen NEGATIVE Assessment and Plan (1) Primary osteoarthritis of right knee: Status: Acute Plan 68-year-old female with history of insulin dependent type 2 diabetes, mood disorder, hypertension, GERD, hyperlipidemia, YAEL on CPAP, osteopenia admitted to Orthopedic surgery for management of osteoarthritis of right knee s/p TKA with consult placed hospitalist service for medical management. #OA R Knee s/p TKA -plan per ortho surgery #Insulin dependent type 2 diabetes without hyperglycemia -poc glucose, diabetic diet -dose adjusted basal insulin -metformin, jardiance #HTN -continue coreg -hold irbesartan -blood pressures soft, limit use of iv narcotics as tolerated #copd -no exacerbation #neuropathy -continue gabapentin Thank you for allowing me to participate in this consult. Signing off at this time. Please do not hesitate to call for further questions or for acute medical issues.
[2023-09-04] MEDS: oxyCODONE HCl Immed Release 5 MG TABLET 10 MG PO ×2 (17:57→22:08)
--- NOTE | 2023-09-04 18:19 | PC.NURSE ---
S/P Right knee replacement. A&Ox3, no resp distress, Lungs clear, on 2L NC, wears CPAP at HS. At bedside. +CMS in Bilateral legs. BM on Monday. comes from home in an apartment with MANDARIN CHINESE TEACHER. Wears dentures and glasses. Call rogers within reach, Estonian Speaking. Unable to chart against Gabapentin, waiting for pharmacy.
[2023-09-04] MEDS: HYDROmorphone HCl 0.5 MG/0.5 ML SYRINGE IVPUSH (19:20)
[2023-09-04] MEDS: 0.9 % Sodium Chloride Flush 3 ML SYRINGE IVFLUSH (19:21)
--- NOTE | 2023-09-04 20:18 | PHA.MEDREC ---
Pharmacy Consult ? Medication Reconciliation Pharmacy has completed the medication reconciliation.Spoke to patients Daughter to confirm med list. Patients Daughter had a medbox list. patient was told to hold on taking Jardiance 25 mg daily, Aspirin 81 mg daily , and Raloxifine 60 mg daily for 1 week pre opp. Patient daughter states she is on Lantus 13 units at bedtime and Humalog 18-24 units tid per sliding scale. Claim states Humalog 16-22 units Tidac.
[2023-09-04] MEDS: Insulin Lispro 100 UNIT/ML 3 ML VIAL SUBCUT (20:23)
[2023-09-04] MEDS: Aspirin 325 MG TABLET PO (20:24)
[2023-09-04] MEDS: Celecoxib 200 MG CAPSULE PO (20:24)
[2023-09-04] MEDS: Docusate Sodium 100 MG CAPSULE PO (20:24)
[2023-09-04] MEDS: methocarbamoL 500 MG TABLET PO (20:24)
[2023-09-04] MEDS: oxyCODONE HCl ER 10 MG TAB.ER.12H PO (20:25)
[2023-09-04] MEDS: carvediloL 12.5 MG TABLET PO (20:46)
[2023-09-04] MEDS: Famotidine 20 MG TABLET 40 MG PO (20:46)
[2023-09-04] MEDS: Atorvastatin Calcium 40 MG TABLET PO (20:46)
[2023-09-04] MEDS: Montelukast Sodium 10 MG TABLET PO (20:46)
[2023-09-04] MEDS: metFORMIN HCl 1,000 MG TABLET 1000 MG PO (20:46)
[2023-09-04] MEDS: Insulin Glargine,Hum.rec.anlog 100 UNIT/ML 10 ML VIAL 10 UNIT SUBCUT (20:46)
[2023-09-04] MEDS: Gabapentin 400 MG CAPSULE PO (20:47)
[2023-09-04] MEDS: ceFAZolin Sodium/Dextrose,Iso 2 GM/50 ML PIGGYBACK IV (20:47)
[2023-09-04 20:51] LABS: Glucose, Whole Blood 223 mg/dL (60-115)
[2023-09-05] VITALS (8 sets, daily range): BP systolic 97–136; BP diastolic 53–83; PULSE 51–97; RESP 16–18; TEMP 36–36.6; O2SAT 93–99
[2023-09-05] MEDS: HYDROmorphone HCl 0.5 MG/0.5 ML SYRINGE IVPUSH ×3 (00:24→17:41)
[2023-09-05] MEDS: oxyCODONE HCl Immed Release 5 MG TABLET 10 MG PO ×2 (03:51→08:01)
[2023-09-05] MEDS: ceFAZolin Sodium/Dextrose,Iso 2 GM/50 ML PIGGYBACK IV ×2 (03:51→12:29)
[2023-09-05] MEDS: Omeprazole 20 MG CAPSULE.DR PO (05:17)
[2023-09-05] MEDS: Lactated Ringers 1,000 ML 100 ML IVCONT (05:23)
[2023-09-05 07:26] LABS: Glucose, Whole Blood 136 mg/dL (60-115)
[2023-09-05 07:35] LABS: MANUAL DIFF FLAG NO
[2023-09-05 07:44] LABS: Basophils Percent Auto 0.1 % (0-2); Hematocrit 29.5 % (37.0-47.0); Hemoglobin 9.6 g/dl (12.0-16.0); Imm Gran Abs Auto 0.04 X10*3/uL (0.00-0.03); Imm Gran Pct Auto 0.5 % (0.0-0.4); Lymphocytes Absolute Auto 0.8 X10*3/uL (1.2-4.9); Lymphocytes Percent Auto 10.7 % (20-40); Mean Corpuscular HGB Conc 32.5 g/dl (31.0-35.0); Mean Corpuscular Hemoglobin 26.5 pg (27.0-33.0); Mean Corpuscular Volume 81.5 fL (80.0-98.0); Mean Platelet Volume 10.2 fL (9.4-12.3); Monocytes Absolute Auto 1.1 X10*3/uL (0.1-1.2); Monocytes Percent Auto 14.5 % (2-11); Neutrophils Absolute Auto 5.4 x10*3/uL (2.0-8.3); Neutrophils Percent Auto 74.2 % (45-73); Platelet Count 201 X10*3/uL (160-400); Red Blood Count 3.62 X10*6/uL (4.20-5.50); White Blood Count 7.3 X10*3/uL (4.8-10.8)
--- NOTE | 2023-09-05 07:47 | P.PNOP_ITS ---
Subjective Subjective Date of Service: 09/05/23 Interval history: POD 1 s/p RT TKA no overnight events resting in bed w cpap Physical Exam Vital Signs: Vital Signs: Last Vital Signs Temp 96.8 F 09/05/23 03:35 Pulse 54 09/05/23 03:35 Resp 16 09/05/23 03:35 BP 112/59 L 09/05/23 03:35 Pulse Ox 95 09/05/23 03:35 O2 Del Method CPAP 09/05/23 03:35 O2 Flow Rate 2 09/04/23 20:01 BMI result Body Mass Index 28.5 Const: General: cooperative, healthy appearing and no acute distress Resp: Effort & Inspection: normal respiratory effort and able to speak in complete sentences Cardio: Rate: regular rate Peripheral pulses: Peripheral pulses 2+ throughout GI: Palpation (GI): Soft to palpation Skin: General skin exam: no rashes or lesions noted Extrem: Other: bandage clean dry and intact. Maia intact. No erythema or joint effusion. Calf supple nontender. Neurovascularly intact. Procedures Date of Service Date of Service: 09/05/23 Progress Note: A&P Assessment and plan (1) Status post total right knee replacement: Status: Acute Assessment and Plan: * Continue pain mgmnt * Begin Aspirin for dvt ppx * begin PT for RT TKA * Dispo planning-Pending PT eval, pain mgmnt Time Spent With Patient Time: Total time managing care of this patient today ____ minutes. Quality Stroke Does the patient have a stroke diagnosis?: No VTE Prior VTE?: No VTE Risk Level:: Surgical - very high VTE Device Contraindication: N/A - Device Ordered VTE Drug Contraindication: N/A - Med Ordered
[2023-09-05] MEDS: Aspirin 325 MG TABLET PO ×2 (08:00→20:28)
[2023-09-05 08:01] LABS: Anion Gap 15 (12-20); Blood Urea Nitrogen 15 mg/dL (9-16); Carbon Dioxide 26 mmol/L (22-29); Chloride 103 mmol/L (96-108); Creatinine Clr Calc Pharmacy 69.1; Estimated Glomerular Filt Rate > 60; Glucose Fasting 161 mg/dL (60-99); Potassium 5.3 mmol/L (3.3-5.1); Sodium 139 mmol/L (135-145)
[2023-09-05] MEDS: Gabapentin 400 MG CAPSULE PO ×3 (08:01→20:28)
[2023-09-05] MEDS: Cyanocobalamin (Vitamin B-12) 1,000 MCG TABLET 1000 MCG PO (08:01)
[2023-09-05] MEDS: metFORMIN HCl 1,000 MG TABLET 1000 MG PO ×2 (08:01→20:28)
[2023-09-05] MEDS: Celecoxib 200 MG CAPSULE PO ×2 (08:01→20:28)
[2023-09-05] MEDS: Docusate Sodium 100 MG CAPSULE PO ×2 (08:01→20:28)
[2023-09-05] MEDS: oxyCODONE HCl ER 10 MG TAB.ER.12H PO ×2 (08:01→20:29)
[2023-09-05] MEDS: Sertraline HCL 100 MG TABLET PO (08:02)
[2023-09-05] MEDS: carvediloL 12.5 MG TABLET PO ×2 (08:02→20:34)
[2023-09-05] MEDS: methocarbamoL 500 MG TABLET PO ×3 (08:02→20:28)
[2023-09-05] MEDS: Ferrous Sulfate 324 MG TABLET.DR PO (08:02)
[2023-09-05] MEDS: Valsartan 40 MG TABLET PO (08:02)
[2023-09-05] MEDS: Empagliflozin 25 MG TABLET PO (08:02)
--- NOTE | 2023-09-05 09:01 | HO.POSTANES ---
Post Anesthesia Evaluation Post Anesthesia Evaluation Date of Service: 09/04/23 Vital Signs: Vital Signs Temp Pulse Resp BP Pulse Ox O2 Del Method 09/05/23 08:08 97.8 F 65 16 136/63 94 Room Air 09/05/23 03:35 96.8 F 54 16 112/59 L 95 CPAP 09/05/23 00:23 96.8 F 51 16 119/58 L 97 CPAP Anesthesia: Spinal, Nerve Block and General Mental Status: Awake Pain Control: Satisfactory Nausea/Vomiting: None Hydration: Adequate Anesthesia-Related Issues: No Anes. Related Issues
--- NOTE | 2023-09-05 10:51 | MHC.CM.PN ---
IMM DELIVERED. PATIENT IS FROM HOME ALONE W/ RELOCATION DIRECTOR SERVICES - 26 HRS/WK. DAUGHTER REPORTS [facility] IS INCREASING HOURS AFTER DC. ALSO HAS STRONG FAMLIY SUPPORT, 2 DAUGHTERS NEARBY WHO ARE VERY INVOLVED. AMBULATES W/ WALKER. USES CPAP, APRIA IS SUPPLIER. HAS TOILET RISER AND GRAB BARS IN BATHROOM. PCP DI FABIAN MD NO HCP ON FILE. DAUGHTER REPORTS SHE IS HCP AND WILL BRING IN A COPY. PCP AND [facility] DO NOT HAVE A COPY ON FILE. DP: PT REC HOME W/ SERVICES, [facility] HAS ACCEPTED. DAUGHTER TO TRANSPORT. CM WILL CONTINUE TO FOLLOW.
--- NOTE | 2023-09-05 10:54 | PC.NURSE ---
Pt welding machine operator said pt vomited this AM. However, when this video game script writer interviewed patient in the AM she denied N/V. No Vomit noted in the trash or room smells like Vomit.
[2023-09-05 11:34] LABS: Glucose, Whole Blood 152 mg/dL (60-115)
[2023-09-05] MEDS: Insulin Lispro 100 UNIT/ML 3 ML VIAL SUBCUT ×3 (12:01→20:27)
[2023-09-05] MEDS: ondansetron HCL 4 MG/2 ML VIAL IVPUSH (13:38)
--- NOTE | 2023-09-05 16:11 | PC.NURSE ---
No vomiting noted after zofran, able to hold down brenda moraima, saltine crackers, meds.
[2023-09-05 16:19] LABS: Glucose, Whole Blood 155 mg/dL (60-115)
[2023-09-05 20:15] LABS: Glucose, Whole Blood 161 mg/dL (60-115)
[2023-09-05] MEDS: Insulin Glargine,Hum.rec.anlog 100 UNIT/ML 10 ML VIAL 10 UNIT SUBCUT (20:27)
[2023-09-05] MEDS: Atorvastatin Calcium 40 MG TABLET PO (20:28)
[2023-09-05] MEDS: Montelukast Sodium 10 MG TABLET PO (20:29)
[2023-09-05] MEDS: Famotidine 20 MG TABLET 40 MG PO (20:29)
[2023-09-05] MEDS: 0.9 % Sodium Chloride Flush 3 ML SYRINGE IVFLUSH (20:34)
[2023-09-06] VITALS (14 sets, daily range): BP systolic 80–130; BP diastolic 47–67; PULSE 56–84; RESP 16–18; TEMP 35.8–36.3; O2SAT 94–99
[2023-09-06] MEDS: Omeprazole 20 MG CAPSULE.DR PO (05:28)
[2023-09-06 06:21] LABS: MANUAL DIFF FLAG NO
[2023-09-06 06:25] LABS: Basophils Percent Auto 0.1 % (0-2); Eosinophils Absolute Auto 0.2 X10*3/uL (0.0-0.4); Eosinophils Percent Auto 2.3 % (0-4); Hematocrit 30.5 % (37.0-47.0); Hemoglobin 9.8 g/dl (12.0-16.0); Imm Gran Abs Auto 0.03 X10*3/uL (0.00-0.03); Imm Gran Pct Auto 0.4 % (0.0-0.4); Lymphocytes Absolute Auto 1.2 X10*3/uL (1.2-4.9); Lymphocytes Percent Auto 16.9 % (20-40); Mean Corpuscular HGB Conc 32.1 g/dl (31.0-35.0); Mean Corpuscular Hemoglobin 26.8 pg (27.0-33.0); Mean Corpuscular Volume 83.3 fL (80.0-98.0); Mean Platelet Volume 10.7 fL (9.4-12.3); Monocytes Absolute Auto 1.2 X10*3/uL (0.1-1.2); Neutrophils Absolute Auto 4.7 x10*3/uL (2.0-8.3); Neutrophils Percent Auto 64.3 % (45-73); Platelet Count 219 X10*3/uL (160-400); Red Blood Count 3.66 X10*6/uL (4.20-5.50); Red Cell Distribution Width 14.4 % (11.0-16.0); White Blood Count 7.3 X10*3/uL (4.8-10.8)
[2023-09-06 06:42] LABS: Anion Gap 12 (12-20); Blood Urea Nitrogen 24 mg/dL (9-16); Carbon Dioxide 27 mmol/L (22-29); Chloride 105 mmol/L (96-108); Creatinine Clr Calc Pharmacy 52.9; Estimated Glomerular Filt Rate 54; Glucose Fasting 153 mg/dL (60-99); Potassium 4.8 mmol/L (3.3-5.1); Sodium 139 mmol/L (135-145)
[2023-09-06] MEDS: oxyCODONE HCl Immed Release 5 MG TABLET 10 MG PO ×2 (07:32→13:28)
[2023-09-06] MEDS: oxyCODONE HCl ER 10 MG TAB.ER.12H PO ×2 (07:32→20:08)
[2023-09-06 07:39] LABS: Glucose, Whole Blood 114 mg/dL (60-115)
--- NOTE | 2023-09-06 07:41 | PM.DS ---
DS: Providers Provider Date of Service: 09/06/23 Date of admission: 09/04/23 09:28 Primary care physician: Nicole Stevenson MD Consults: 09/04/23 16:58 Consult to Hospitalist Routine Comment: Consulting Provider: Hospitalist Reason For Exam: routine medical management DS: Diagnosis Discharge Diagnosis (1) Status post total right knee replacement: Status: Acute DS: Summary Hospital Course Hospital Course: The patient underwent a successful right total knee arthroplasty, they were transferred to PACU and then to the floor to recover. During their stay, their vitals were stable, afebrile at 97.3. Labs were unremarkable, H/H 9.8/30.5. POD 1 they were started on Aspirin 325mg po bid for DVT ppx, they also received Physical Therapy services twice a day. Prior to discharge, their dressing was clean dry and intact, and the plan was to be discharged home with VNA services. Time Attestation Discharge Coordination Time (in mins): 30 Quality: Safe Use of Opioids Does Pt have an Active Cancer Diagnosis on the Problem List?: No Quality: Stroke Does the patient have a stroke diagnosis?: No Physical Exam Vital Signs: Vital Signs: Last Vital Signs Temp 97.3 F 09/06/23 07:28 Pulse 60 09/06/23 07:28 Resp 16 09/06/23 07:28 BP 109/63 09/06/23 07:28 Pulse Ox 99 09/06/23 07:28 O2 Del Method Nasal Cannula 09/06/23 07:28 O2 Flow Rate 2 09/06/23 07:28 BMI result Body Mass Index 28.5 Const: General: cooperative, healthy appearing and no acute distress Resp: Effort & Inspection: normal respiratory effort and able to speak in complete sentences Cardio: Rate: regular rate Peripheral pulses: Peripheral pulses 2+ throughout GI: Palpation (GI): Soft to palpation Skin: Lesions: no lesions Rashes: no rashes Extrem: Other: right knee dressing is c/d/i. Able to dorsi/plantar flex. Calf is supple and nontender. Sensation intact. Pedal pulse intact. DS: Data Data Completed and Pending Pending studies at discharge: Pending at discharge 09/04/23 13:52 Surgical [PTH] Routine Labs on day of discharge: Laboratory Results - last 24 hr 09/05/23 09/05/23 09/05/23 07:27 07:27 07:27 WBC 7.3 RBC 3.62 L Hgb 9.6 L Hct 29.5 L MCV 81.5 MCH 26.5 L MCHC 32.5 RDW 14.0 Plt Count 201 MPV 10.2 Immature Gran % (Auto) 0.5 H Neut % (Auto) 74.2 H Lymph % (Auto) 10.7 L [place] % (Auto) 14.5 H Eos % (Auto) 0.0 Baso % (Auto) 0.1 Lymph # (Auto) 0.8 L [place] # (Auto) 1.1 Eos # (Auto) 0.0 Baso # (Auto) 0.0 Abs Immat Gran (auto) 0.04 H Absolute Neuts (auto) 5.4 Absolute Nucleated RBC 0.000 Nucleated RBC % (auto) 0.0 Sodium 139 Potassium 5.3 H D Chloride 103 Carbon Dioxide 26 Anion Gap 15 BUN 15 Creatinine 0.78 Cancelled Estim Creat Clear Calc 69.1 Cancelled Estimated GFR > 60 POC Glucose Fasting Glucose Calcium 09/05/23 09/05/23 09/05/23 07:27 11:26 16:15 WBC RBC Hgb Hct MCV MCH MCHC RDW Plt Count MPV Immature Gran % (Auto) Neut % (Auto) Lymph % (Auto) [place] % (Auto) Eos % (Auto) Baso % (Auto) Lymph # (Auto) [place] # (Auto) Eos # (Auto) Baso # (Auto) Abs Immat Gran (auto) Absolute Neuts (auto) Absolute Nucleated RBC Nucleated RBC % (auto) Sodium Potassium Chloride Carbon Dioxide Anion Gap BUN Creatinine Estim Creat Clear Calc Estimated GFR Cancelled POC Glucose 152 H 155 H Fasting Glucose 161 H Calcium 9.0 D 09/05/23 09/06/23 09/06/23 20:10 05:47 07:34 WBC 7.3 RBC 3.66 L Hgb 9.8 L Hct 30.5 L MCV 83.3 MCH 26.8 L MCHC 32.1 RDW 14.4 Plt Count 219 MPV 10.7 Immature Gran % (Auto) 0.4 Neut % (Auto) 64.3 Lymph % (Auto) 16.9 L [place] % (Auto) 16.0 H Eos % (Auto) 2.3 Baso % (Auto) 0.1 Lymph # (Auto) 1.2 [place] # (Auto) 1.2 Eos # (Auto) 0.2 Baso # (Auto) 0.0 Abs Immat Gran (auto) 0.03 Absolute Neuts (auto) 4.7 Absolute Nucleated RBC 0.000 Nucleated RBC % (auto) 0.0 Sodium 139 Potassium 4.8 Chloride 105 Carbon Dioxide 27 Anion Gap 12 BUN 24 H Creatinine 1.02 Estim Creat Clear Calc 52.9 Estimated GFR 54 POC Glucose 161 H 114 Fasting Glucose 153 H Calcium 9.0 Discharge Plan Discharge Anticipated Discharge Date/Time: 09/06/23 15:00 Patient Disposition: Home Health Service Discharge Diagnosis: s/p RTKA Referrals: Nicole Mcpherson MD [Primary Care Provider] - 1 Week Fabian Lewis PA-C [Physician Environmental Auditor] - 09/20/23 9:30 am Discharge Medications: New celecoxib 200 mg Capsule 200 mg PO BID 30 Days Qty: 60 0RF methocarbamol 500 mg Tablet 500 mg PO TID 7 Days Qty: 21 0RF acetaminophen 325 mg Tablet 650 mg PO Q6H PRN (Reason: Pain, Mild (Pain Scale 1-3)) 30 Days Qty: 240 0RF aspirin 325 mg Tablet 325 mg PO BID 30 Days Qty: 240 0RF docusate sodium 100 mg Capsule 100 mg PO BID 30 Days Qty: 60 0RF oxycodone 10 mg tablet 10 mg PO Q4H PRN (Reason: Pain, Severe (Pain Scale 7-10)) 7 Days Qty: 42 0RF Rx Instructions: Partial Fill upon patient request. Continued (PAYAL) jean Pagan See Rx Instructions .ROUTE .MEDSUPPLY Qty: 1 0RF Rx Instructions: Folding front wheeled walker cetirizine 10 mg Tablet 10 mg PO DAILY PRN (Reason: Allergy Symptoms) sertraline 100 mg Tablet 100 mg PO DAILY cyanocobalamin (vitamin B-12) [Vitamin B-12] 1,000 mcg Tablet 1,000 mcg PO DAILY ferrous sulfate 325 mg (65 mg iron) Tablet 325 mg PO Q OTHER DAY fluticasone propionate [Flonase Allergy Relief] 50 mcg/actuation [place],Suspension 1 spray INTRANASAL BID PRN (Reason: Allergy Symptoms) Rx Instructions: administer into each nostril Dulera 200-5 mcg/actuation Hfa Aerosol Inhaler 2 puff INHALATION BID raloxifene 60 mg tablet 60 mg PO DAILY carvedilol 12.5 mg tablet 12.5 mg PO BID irbesartan 75 mg tablet 75 mg PO DAILY montelukast 10 mg tablet 10 mg PO BEDTIME atorvastatin 40 mg tablet 40 mg PO BEDTIME famotidine 40 mg tablet 40 mg PO BEDTIME gabapentin 400 mg capsule 400 mg PO TID Jardiance 25 mg tablet 25 mg PO DAILY metformin 1,000 mg tablet 1,000 mg PO BID pantoprazole 40 mg tablet,delayed release (DR/EC) 40 mg PO DAILY@0630 insulin lispro [Humalog KwikPen Insulin] 100 unit/mL insulin pen 18 - 24 unit subcut TIDAC Patient Comments: 18-24 units Rx Instructions: per sliding scale insulin glargine [Lantus Solostar U-100 Insulin] 100 unit/mL (3 mL) insulin pen 13 unit subcut BEDTIME Discontinued aspirin 81 mg tablet,delayed release (DR/EC) 81 mg PO DAILY Discharge Orders: Discharge Order (Routine); Ordered 09/06/23 Ordered By: Colette Mix Diet: Advance to usual diet Activity on Discharge: Use cane or walker Stand Alone Forms: Patient Portal Discharge page Print Language: Malay Care Plan Goals: restore fxn RTKA Health Concerns: none Plan of Treatment: Physical Therapy for ROM 0-120, quad strength, gait training. Use walker for ambulation Limit stair climbing, No shower, No tub bath, No driving Continue anticoagulant x 6 weeks Keep Aquacel dressing clean, dry and intact. Follow up with orthopedics in 2 weeks Assessment: stable for discharge
--- NOTE | 2023-09-06 07:45 | W.MHC.F2F ---
Service Date Service Date: 09/06/23 Encounter Date of encounter: 09/06/23 Reasons for Services Signs and symptoms assessed: s/p; RTKA Pt. is considered homebound due to recent surgery. Unable to drive, poor balance, poor gait mechanics. Reason for physical therapy: home safety and mobility, therapeutic exercises, restore joint function, gait/transfer training, assess need for DME and ADL training Homebound: Leaving the home is medically contraindicated at this time without the asist of a device and/or another person due th the listed conditions above and below. Reason homebound: unsteady gait / fall risk, leg weakness, pain with ambulation, pain with transfers, poor balance / fall risk and unable to drive Certification: Based on the above findings, I certify that this patient is confined to the home and needs intermittent [facility] care, physical therapy and/or speech therapy, or continues to need occupational therapy. The patient is under my care, and I have initiated the establishment of the plan of care. The patient will be followed by a physician who will periodically review the plan of care. Time Spent With Patient Time: Total time managing care of this patient today ____ minutes.
[2023-09-06] MEDS: 0.9 % Sodium Chloride Flush 3 ML SYRINGE IVFLUSH ×2 (07:50→17:00)
[2023-09-06] MEDS: Celecoxib 200 MG CAPSULE PO ×2 (07:51→20:07)
[2023-09-06] MEDS: Sertraline HCL 100 MG TABLET PO (07:51)
[2023-09-06] MEDS: Aspirin 325 MG TABLET PO ×2 (07:51→20:06)
[2023-09-06] MEDS: metFORMIN HCl 1,000 MG TABLET 1000 MG PO ×2 (07:52→20:07)
[2023-09-06] MEDS: methocarbamoL 500 MG TABLET PO ×2 (07:52→20:08)
[2023-09-06] MEDS: Empagliflozin 25 MG TABLET PO (07:52)
[2023-09-06] MEDS: Gabapentin 400 MG CAPSULE PO ×2 (07:52→20:07)
[2023-09-06] MEDS: Valsartan 40 MG TABLET PO (07:52)
[2023-09-06] MEDS: Docusate Sodium 100 MG CAPSULE PO ×2 (07:53→20:08)
[2023-09-06] MEDS: Cyanocobalamin (Vitamin B-12) 1,000 MCG TABLET 1000 MCG PO (07:53)
[2023-09-06] MEDS: carvediloL 12.5 MG TABLET PO (07:53)
[2023-09-06] MEDS: Fluticasone/Vilanterol 100/25 BLST.W.DEV 1 PUFF INHALE (08:14)
--- NOTE | 2023-09-06 09:26 | PM.EVENT ---
Event Note Date of Service: 09/06/23 Event Note: Pt with orthostatic hypotension with associated lightheadedness with ambulation. Recommend 1L IV NS bolus and recheck orthostatic VS. Judicious use of narcotic medications. Recommend discontinuing valsartan. Hold coreg for now. Will continue following. Time Spent With Patient Time: Total time managing care of this patient today ____ minutes.
--- NOTE | 2023-09-06 09:49 | MHC.CM.PN ---
Addendum entered by Carley Page RN 09/06/23 10:48: Per RN patient requiring bolus for low BP. CM will continue to follow. Original Note: EMR reviewed. Patient medically cleared for dc home w/ new [facility] for PT. Patient's daughter to provide transport home around 11am. RN aware. [facility] aware of dc.
[2023-09-06 11:37] LABS: Glucose, Whole Blood 178 mg/dL (60-115)
[2023-09-06] MEDS: Insulin Lispro 100 UNIT/ML 3 ML VIAL SUBCUT ×2 (12:02→16:58)
[2023-09-06] MEDS: Albumin Human 25 % 100 ML IV ×2 (12:02→13:09)
[2023-09-06 16:05] LABS: Glucose, Whole Blood 155 mg/dL (60-115)
[2023-09-06] MEDS: Atorvastatin Calcium 40 MG TABLET PO (20:07)
[2023-09-06] MEDS: Montelukast Sodium 10 MG TABLET PO (20:07)
[2023-09-06] MEDS: Famotidine 20 MG TABLET PO (20:23)
[2023-09-06 21:00] LABS: Glucose, Whole Blood 141 mg/dL (60-115)
[2023-09-06] MEDS: Insulin Glargine,Hum.rec.anlog 100 UNIT/ML 10 ML VIAL 10 UNIT SUBCUT (21:26)
[2023-09-07] MEDS: 0.9 % Sodium Chloride Flush 3 ML SYRINGE IVFLUSH ×2 (00:30→08:25)
[2023-09-07 03:22] VITALS: BP 118/57; PULSE 83; RESP 20; TEMP 36.1; O2SAT 90
[2023-09-07] MEDS: Omeprazole 20 MG CAPSULE.DR PO (05:36)
[2023-09-07] MEDS: Acetaminophen 325 MG TABLET 650 MG PO (05:40)
[2023-09-07 06:01] LABS: MANUAL DIFF FLAG NO
[2023-09-07 06:15] LABS: Basophils Percent Auto 0.3 % (0-2); Eosinophils Absolute Auto 0.2 X10*3/uL (0.0-0.4); Eosinophils Percent Auto 3.6 % (0-4); Hematocrit 25.1 % (37.0-47.0); Hemoglobin 8.1 g/dl (12.0-16.0); Imm Gran Abs Auto 0.03 X10*3/uL (0.00-0.03); Imm Gran Pct Auto 0.5 % (0.0-0.4); Lymphocytes Absolute Auto 1.4 X10*3/uL (1.2-4.9); Lymphocytes Percent Auto 21.5 % (20-40); Mean Corpuscular HGB Conc 32.3 g/dl (31.0-35.0); Mean Corpuscular Hemoglobin 26.7 pg (27.0-33.0); Mean Corpuscular Volume 82.8 fL (80.0-98.0); Mean Platelet Volume 10.6 fL (9.4-12.3); Monocytes Absolute Auto 0.8 X10*3/uL (0.1-1.2); Monocytes Percent Auto 12.9 % (2-11); Neutrophils Absolute Auto 3.9 x10*3/uL (2.0-8.3); Neutrophils Percent Auto 61.2 % (45-73); Platelet Count 195 X10*3/uL (160-400); Red Blood Count 3.03 X10*6/uL (4.20-5.50); Red Cell Distribution Width 14.6 % (11.0-16.0); White Blood Count 6.3 X10*3/uL (4.8-10.8)
[2023-09-07 06:26] LABS: Anion Gap 11 (12-20); Blood Urea Nitrogen 22 mg/dL (9-16); Calcium 8.8 mg/dL (8.4-10.2); Carbon Dioxide 25 mmol/L (22-29); Chloride 107 mmol/L (96-108); Creatinine Clr Calc Pharmacy 74.9; Estimated Glomerular Filt Rate > 60; Glucose Fasting 126 mg/dL (60-99); Potassium 4.2 mmol/L (3.3-5.1); Sodium 139 mmol/L (135-145)
[2023-09-07 07:31] LABS: Glucose, Whole Blood 119 mg/dL (60-115)
[2023-09-07 07:38] VITALS: BP 121/58; PULSE 68; RESP 16; TEMP 36; O2SAT 93
[2023-09-07] MEDS: Fluticasone/Vilanterol 100/25 BLST.W.DEV 1 PUFF INHALE (08:12)
[2023-09-07 08:14] VITALS: PULSE 69; RESP 16; O2SAT 98
[2023-09-07] MEDS: Sertraline HCL 100 MG TABLET PO (08:23)
[2023-09-07] MEDS: Empagliflozin 25 MG TABLET PO (08:24)
[2023-09-07] MEDS: metFORMIN HCl 1,000 MG TABLET 1000 MG PO (08:24)
[2023-09-07] MEDS: Gabapentin 400 MG CAPSULE PO (08:24)
[2023-09-07] MEDS: Cyanocobalamin (Vitamin B-12) 1,000 MCG TABLET 1000 MCG PO (08:24)
[2023-09-07] MEDS: methocarbamoL 500 MG TABLET PO (08:24)
[2023-09-07] MEDS: Docusate Sodium 100 MG CAPSULE PO (08:24)
[2023-09-07] MEDS: Celecoxib 200 MG CAPSULE PO (08:24)
[2023-09-07] MEDS: Ferrous Sulfate 324 MG TABLET.DR PO (08:24)
[2023-09-07] MEDS: Aspirin 325 MG TABLET PO (08:24)
--- NOTE | 2023-09-07 09:35 | MHC.CM.PN ---
Patient medically cleared for dc. Daughter transport home. [facility] aware of dc.
== END 2023-09-07 09:33 | disposition home health service (06) | DRG 470 ==
LOC: HO.SSSA 09:55 → HO.S3 11:17
PROVIDERS: Nurse Practitioner; Physician Assistant; Admitting Provider Orthopaedic Surgery; PCP Internal Medicine; Visit Provider Orthopaedic Surgery
PROC: 0SRC0J9 Replacement of Right Knee Joint with Synthetic Substitute, Cemented, Open Approach (ICD-10-PCS; CPT 27447; principal; 2023-09-04 12:00)
DX: M17.11 Unilateral primary osteoarthritis, right knee (principal); G89.18 Other acute postprocedural pain; K21.9 Gastro-esophageal reflux disease without esophagitis; E11.65 Type 2 diabetes mellitus with hyperglycemia; I95.1 Orthostatic hypotension; E11.40 Type 2 diabetes mellitus with diabetic neuropathy, unspecified; J44.9 Chronic obstructive pulmonary disease, unspecified; I10 Essential (primary) hypertension; F39 Unspecified mood [affective] disorder; E78.5 Hyperlipidemia, unspecified; G47.33 Obstructive sleep apnea (adult) (pediatric); Z79.4 Long term (current) use of insulin; Z79.84 Long term (current) use of oral hypoglycemic drugs; Z79.899 Other long term (current) drug therapy
CPT/HCPCS: 36415; 80048; 82947; 85025; 85027; 86850; 86900; 86901; 87640; 87641; 88305; 88311; 94640; 97110; 97116; 97162; 97530; C1776; J0131; J0665; J0690; J1100; J1170; J2250; J2371; J2405; J2704; J3370; J7120; P9047

== ENCOUNTER → 2023-09-04 09:28 | Outpatient (BNV) | payer OTHER, SELFPAY | PROVIDERS: Admitting Provider Orthopaedic Surgery; PCP Internal Medicine; Visit Provider Physician Assistant | DX: M17.11 Unilateral primary osteoarthritis, right knee (principal); E11.65 Type 2 diabetes mellitus with hyperglycemia | CPT/HCPCS: 99222; 99499 ==

== ENCOUNTER → 2023-09-04 09:28 | Outpatient (BNV) | payer OTHER, SELFPAY | PROVIDERS: Admitting Provider Orthopaedic Surgery; PCP Internal Medicine; Visit Provider Orthopaedic Surgery | DX: Z47.1 Aftercare following joint replacement surgery (principal); Z96.651 Presence of right artificial knee joint | CPT/HCPCS: 27447; 99024; 99212; G0180 ==

== ENCOUNTER 2023-09-20 08:01 | Outpatient (REF) | payer OTHER, SELFPAY ==
--- NOTE | ~2023-09-20 | XR_ITS ---
EXAMINATION: XR KNEE, RIGHT CLINICAL INFORMATION: Right knee arthroplasty. COMPARISON: Right knee radiographs dated 01/24/2023. TECHNIQUE: AP, lateral, and sunrise views of the right knee. FINDINGS: Prosthetic components of the total knee arthroplasty are appropriately aligned. No periprosthetic fracture. Gas from recent surgery is present in the joint and surrounding soft tissues. A joint effusion is present. XR/XR knee RT 3V IMPRESSION: Appropriate alignment of the right total knee arthroplasty.
== END 2023-09-20 08:02 | disposition home or self-care (01) ==
LOC: HO.HOSX 08:01
PROVIDERS: Visit Provider Physician Assistant
DX: Z96.651 Presence of right artificial knee joint (principal)
CPT/HCPCS: 73562; 99212

== ENCOUNTER 2023-09-20 09:25 | Outpatient (AMB) | payer OTHER, SELFPAY ==
--- NOTE | 2023-09-20 09:45 | A.OFFVIS_ITS ---
Intake Visit Reasons: PO right TKA on 09/04/[address] Hernandez Note: Ina a 68 year old female who presents today for a post operative visit s/p right TKA on 09/04/23 with . Patient reports she is doing well, states mild tolerable pain. She has completed in home therapy. Allergies theophylline Allergy (Intermediate, Verified 09/20/23 09:56) Facial Swelling, itching, nausea Medication List - Last Reconciled 09/20/23 by KIKO Beaulieu-Charisse acetaminophen 650 mg (2 x 325 mg) PO Q6H PRN 30 days aspirin 325 mg PO BID 30 days atorvastatin 40 mg PO BEDTIME carvedilol 12.5 mg PO BID celecoxib 200 mg PO BID 30 days cetirizine 10 mg PO DAILY PRN cyanocobalamin (vitamin B-12) (Vitamin B-12) 1,000 mcg PO DAILY docusate sodium 100 mg PO BID 30 days empagliflozin (Jardiance) 25 mg PO DAILY famotidine 40 mg PO BEDTIME ferrous sulfate 325 mg PO Q OTHER DAY fluticasone propionate 50 mcg/actuation (Flonase Allergy Relief) 1 spray intrana andrews BID PRN gabapentin 400 mg PO TID insulin glargine (Lantus Solostar U-100 Insulin) 13 units subcut BEDTIME insulin lispro (Humalog KwikPen (U-100) Insulin) 18 - 24 units subcut TIDAC irbesartan 75 mg PO DAILY metformin 1,000 mg PO BID methocarbamol 500 mg PO TID 7 days mometasone-formoterol 200-5 mcg/actuation (Dulera) 2 puffs inhalation BID montelukast 10 mg PO BEDTIME oxycodone 10 mg PO Q4H PRN 7 days pantoprazole 40 mg PO DAILY@0630 raloxifene 60 mg PO DAILY sertraline 100 mg PO DAILY walker Folding front wheeled walker HPI HPI PO right TKA on 09/04/23 with : Details: 68-year-old female who returns to the office today for post-op right TKA, 09/04/[address] Mart. She states she has mild tolerable pain and is doing well overall. She has completed home physical therapy as instructed. She has no other concerns today. [facility] Medical History Hx of breast cancer Back pain YAEL on CPAP Vitamin B deficiency Steatosis of liver Osteopenia Mixed anxiety and depressive disorder HTN (hypertension) GERD (gastroesophageal reflux disease) Stress incontinence in female Dyslipidemia Renal cyst Asthma Osteoarthritis Anxiety Acute depression Diabetes Surgical History Hx of tubal ligation Hx of breast surgery Hx of colonoscopy Social History Household Members: Family Housing: Apartment Are you a primary foster care case manager to a significant other at home: No Do you presently have visiting nurse or other home services: No Patient Tobacco Use Status: Never used Tobacco service: No Current occupational status: disabled 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 No redness or swelling. ROM is 0-9 degrees. Calf supple, nontender. NVI. Assessment & Plan Assessment & Plan (1) Status post total right knee replacement: Code(s): Z96.651 - Presence of right artificial knee joint Category: Surgical Plan Maia removed, steri strips applied. She will begin to transition to Outpatient PT to continue working on Gait training, ROM and quad strength. No driving for another 4 weeks. She will require ppx abx for dental procedures. She will f/u in 4 weeks, sooner if needed. Orders: Orders XR knee RT 3V Today M17.11 - Unilateral primary osteoarthritis, right knee PT Evaluation and Treatment Today Z96.651 - Presence of right artificial knee joint Patient Instructions: Scribed for Fabian Lewis PA-C, by John Arzola medical laboratory scientist, on 09/20/2023 at 9:30 AM EST.? I, Fabian Lewis PA-C, have personally reviewed and agree with the information entered by the scribe. Coding Level of Care Code Global (63068) Diagnoses Status post total right knee replacement Z96.651
== END 2023-09-20 10:50 | disposition home or self-care (01) ==
PROVIDERS: PCP Pediatrics; Visit Provider Physician Assistant
DX: Z96.651 Presence of right artificial knee joint (principal)
CPT/HCPCS: 99024

== ENCOUNTER 2023-10-03 15:15 | Observation (INO) | payer OTHER, SELFPAY ==
[2023-10-03] VITALS (8 sets, daily range): BP systolic 61–120; BP diastolic 37–64; PULSE 73–82; RESP 13–20; TEMP 36.6–36.8; O2SAT 94–99; BMI 27.6
--- NOTE | 2023-10-03 | ECG_ITS ---
Test Reason : HYPOTENSION Blood Pressure : / mmHG Vent. Rate : 075 BPM Atrial Rate : 075 BPM P-R Int : 180 ms QRS Dur : 088 ms QT Int : 434 ms P-R-T Axes : 027 -15 020 degrees QTc Int : 484 ms Sinus rhythm with occasional Premature ventricular complexes Cannot rule out Anterior infarct (cited on or before 03-OCT-2023) Abnormal ECG When compared with ECG of 29-JAN-2019 10:42, Premature ventricular complexes are now Present Referred By: Yung Nye Electronically Signed By:FIDENCIO MEADE MD
--- NOTE | ~2023-10-03 | US_ITS ---
EXAMINATION: US VENOUS ULTRASOUND WITH DOPPLER LOWER EXTREMITY, RIGHT CLINICAL INFORMATION: Pain. COMPARISON: None available. TECHNIQUE: Ultrasound of the deep veins is performed from the hip to the calf with compression sonography and color and pulse Doppler assessment. Spectral analysis with color-flow imaging is performed. FINDINGS: There is normal venous compression and respiratory variation and augmented flow. The visualized common femoral vein, superficial femoral vein, profunda femoral vein, popliteal vein, and the trifurcation region shows no evidence of deep venous thrombosis. There is no significant popliteal fossa cyst. If the patient's symptoms persist, followup ultrasound in 5 days 7 days might be of value to exclude proximal propagation from a non-visualized calf vein. US/US venous duplex LE RT IMPRESSION: No DVT demonstrated in the right lower extremity.
--- NOTE | ~2023-10-03 | CT_ITS ---
EXAMINATION: CT ANGIOGRAM OF THE CHEST WITH AND WITHOUT CONTRAST (CT PULMONARY ANGIOGRAM FOR PE) CLINICAL INFORMATION: Reason for Exam Hypotension, elevated D-dimer, TKA 1 month prior COMPARISON: None available. TECHNIQUE: Prior to contrast administration, noncontrast localization images were obtained. Subsequently, multidetector volumetric imaging was performed from the thoracic inlet to below the diaphragms following the administration of 65 mL Omnipaque 350 intravenous contrast. No contrast reaction reported Sagittal, coronal, and MIP oblique sagittal reformatted images were obtained on the CT workstation, uploaded to PACS, and reviewed. This CT examination was performed using dose optimization techniques as appropriate, variously including the following: *Automated exposure control *Adjustment of mA and/or kV according to patient size (this includes techniques or standardized protocols for targeted exams where dose is matched to indication/reason for exam; i.e. extremities or head) *Use of iterative reconstruction technique Total exam dose-length product 325 mGy-cm FINDINGS: QUALITY OF STUDY/CONTRAST BOLUS: Suboptimal.. Assessment of the pulmonary arteries is limited by habitus and limited opacification of the small vessels as well as beam hardening from high attenuation in the SVC and right atrium as well as the subclavian and brachiocephalic veins PULMONARY ARTERIES: No acute pulmonary embolus demonstrated. THORACIC AORTA: There is no thoracic aortic aneurysm. LUNG: No suspicious abnormality the trachea or mainstem bronchi. There are scattered areas of mixed attenuation which likely are related to air trapping bilaterally. There are some small nonspecific lung opacities which could be atelectasis. Motion limits detail. PLEURA: No pleural effusion or pneumothorax. MEDIASTINUM: There are no enlarged hilar lymph nodes. There are nonspecific pericardiophrenic lymph nodes which were present on 01/29/19 and therefore are likely reactive No evidence of septal bowing or right heart strain. CORONARY ARTERY CALCIFICATION: None visualized on this study. CHEST WALL/AXILLA: Nonspecific axillary lymph nodes on the left. The breast tissue is not completely included. OSSEOUS STRUCTURES: No acute or suspicious osseous abnormality. Extensive bridging osteophytes or syndesmophytes. This results in a so-called rigid spine. UPPER ABDOMEN: No suspicious abnormality demonstrated No reflux of contrast into the hepatic veins to suggest elevated right heart pressures. CT/CT angio chest PE protocol IMPRESSION: Somewhat limited exam. No pulmonary embolus demonstrated. Scattered areas of mixed lung attenuation likely related to air trapping. VTE: negative
--- NOTE | 2023-10-03 15:31 | ED_ITS ---
HPI - General Adult General Chief complaint: General Medical Stated complaint: dizzy, hypotensive *60/40,blurred vision Time Seen by Provider: 10/03/23 15:31 Source: patient and family Limitations: language barrier (Patient speaks Turkmen only, assistant purchasing manager used. Patient's daughter is here and she speaks Citizen Of [place] and Turkmen) History of Present Illness ED Provider: Dr. Yung Nye HPI narrative: 68-year-old female with history of insulin dependent type 2 diabetes, mood disorder, hypertension, GERD, hyperlipidemia, YAEL on CPAP, osteopenia right TKA 09/04/2023 who presents emergency department for evaluation of lightheadedness with near syncope, blurred vision, diaphoresis with symptoms starting approximately 1 hour prior to coming to the emergency department. The patient states that she has been having pain in her right knee since she has had a total knee replacement proximally 1 month prior. She states that last night she did have sweats but did not have any chest pain or shortness of breath. She had a physical therapy appointment at 13:00 hours today and then went to the mall with her daughter. While she was at the mall she felt lightheaded as if she was going to pass out. She states that her vision got very blurry. She states she had trouble sitting up secondary to weakness. Patient was found to be hypotensive by the paramedics and was given a 500 cc bolus of normal saline in route to the hospital. She denied fever, chills, rhinorrhea, sore throat, cough, chest pain, shortness of breath or dyspnea on exertion. She has had no nausea vomiting or diarrhea. She denied frequency, urgency, dysuria. She denied dark stools or bloody stools. In reviewing her notes from her admission for total knee replacement on 09/04/2023, the patient did have an episode of hypotension with her blood pressure in the 80s. The hospitalist felt that the patient's symptoms were secondary to her valsartan, Coreg and narcotic administration. According to her daughter, patient may have had similar episodes of lightheadedness over the last month but never reported these episodes to her family. The family states the patient has had significant weight loss over a year since she has had a decreased appetite. Related Data Home Medications ?Medication ?Instructions ?Recorded ?Confirmed irbesartan 75 mg tablet 75 mg PO DAILY 08/25/20 09/20/23 montelukast 10 mg tablet 10 mg PO BEDTIME 08/25/20 09/20/23 insulin glargine 100 unit/mL (3 13 unit subcut BEDTIME 01/24/23 09/20/23 mL) subcutaneous pen (Lantus Solostar U-100 Insulin) insulin lispro 100 unit/mL 18 - 24 unit subcut TIDAC 01/24/23 09/20/23 subcutaneous pen (Humalog KwikPen (U-100) Insulin) atorvastatin 40 mg tablet 40 mg PO BEDTIME 07/24/23 09/20/23 empagliflozin 25 mg tablet 25 mg PO DAILY 07/24/23 09/20/23 (Jardiance) famotidine 40 mg tablet 40 mg PO BEDTIME 07/24/23 09/20/23 gabapentin 400 mg capsule 400 mg PO TID 07/24/23 09/20/23 metformin 1,000 mg tablet 1,000 mg PO BID 07/24/23 09/20/23 pantoprazole 40 mg tablet,delayed 40 mg PO DAILY@0630 07/24/23 09/20/23 release cetirizine 10 mg tablet 10 mg PO DAILY PRN Allergy Symptoms 08/24/23 09/20/23 cyanocobalamin (vitamin B-12) 1,000 mcg PO DAILY 08/24/23 09/20/23 1,000 mcg tablet (Vitamin B-12) ferrous sulfate 325 mg (65 mg 325 mg PO Q OTHER DAY 08/24/23 09/20/23 iron) tablet fluticasone propionate 50 1 spray intranasal BID PRN Allergy 08/24/23 09/20/23 mcg/actuation nasal Symptoms spray,suspension (Flonase Allergy Relief) mometasone-formoterol HFA 200 2 puff inhalation BID 08/24/23 09/20/23 mcg-5 mcg/actuation aerosol inhaler (Dulera) sertraline 100 mg tablet 100 mg PO DAILY 08/24/23 09/20/23 carvedilol 12.5 mg tablet 12.5 mg PO BID 09/04/23 09/20/23 raloxifene 60 mg tablet 60 mg PO DAILY 09/04/23 09/20/23 Previous Rx's ?Medication ?Instructions ?Recorded walker #1 ea 08/22/23 acetaminophen 325 mg tablet 650 mg (2 x 325 mg) PO Q6H PRN 09/05/23 Pain, Mild (Pain Scale 1-3) 30 days #240 tabs aspirin 325 mg tablet 325 mg PO BID 30 days #240 tabs 09/05/23 celecoxib 200 mg capsule 200 mg PO BID 30 days #60 caps 09/05/23 docusate sodium 100 mg capsule 100 mg PO BID 30 days #60 caps 09/05/23 methocarbamol 500 mg tablet 500 mg PO TID 7 days #21 tabs 09/05/23 oxycodone 10 mg tablet 10 mg PO Q4H PRN Pain, Severe 09/05/23 (Pain Scale 7-10) 7 days #42 tabs Allergies Allergy/AdvReac Type Severity Reaction Status Date / Time theophylline Allergy Intermediate Facial Verified 10/03/23 15:26 Swelling, itching, nausea Review of Systems 2 Review of Systems: Yes all other systems are reviewed and are negative [facility] Past Medical History [facility] Narrative: Social history: She lives with her family. She denies tobacco, alcohol and drug use. Medical History Hx of breast cancer Back pain YAEL on CPAP Vitamin B deficiency Steatosis of liver Osteopenia Mixed anxiety and depressive disorder HTN (hypertension) GERD (gastroesophageal reflux disease) Stress incontinence in female Dyslipidemia Renal cyst Asthma Osteoarthritis Anxiety Acute depression Diabetes Surgical History Hx of tubal ligation Hx of breast surgery Hx of colonoscopy Social History Social History Household Members: Family Housing: Apartment Are you a primary pet caretaker to a significant other at home: No Do you presently have visiting nurse or other home services: No Patient Tobacco Use Status: Never used Tobacco Smoked in Last 30 Days: No Use of substances other than those prescribed or required for medical reasons: No Advance Directives: No Advance Directives Information Provided: No Do you have a plan to hurt others: No Plan service: No Current occupational status: disabled 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 Physical Exam ED Vital Signs: Vital Signs - 24 hr 10/03/23 15:19 10/03/23 16:12 10/03/23 18:11 Temperature 97.9 F 98.3 F 97.9 F Pulse Rate 73 76 81 Respiratory Rate 18 20 20 Blood Pressure 80/38 L 81/43 L 115/60 Pulse Oximetry 99 99 Oxygen Delivery Method Room Air Nasal Cannula Nasal Cannula Oxygen Flow Rate 2 2 10/03/23 18:30 10/03/23 18:32 10/03/23 18:33 Temperature Pulse Rate 77 77 82 Respiratory Rate Blood Pressure 104/64 120/60 93/53 L Pulse Oximetry Oxygen Delivery Method Oxygen Flow Rate 10/03/23 18:56 Temperature Pulse Rate Respiratory Rate Blood Pressure 101/52 L Pulse Oximetry Oxygen Delivery Method Oxygen Flow Rate BMI result Body Mass Index 27.6 Vital signs revealed low blood pressure of 80/38 otherwise unremarkable Exam: General: Awake, alert in no distress Head: Normocephalic, atraumatic EENT: PERRL, Lids normal, sclera normal, conjunctiva normal, nose normal , ears normal, throat without erythema or exudates Neck: Supple, no adenopathy Lung: breath sounds symmetric, no wheezing, rales or rhonchi Chest: symmetric movement, nontender Heart: regular rate and rhythm, normal S1, S2 no murmurs or rubs Abdomen: soft, non-tender, nondistended, normal bowel sounds Back: no vertebral tenderness, no CVAT Extremities: Righ knee appears larger than the left consistent with postoperative changes, no increased warmth or increased erythema, there is a small joint effusion, no tenderness palpation of the right knee. Patient has negative Homans sign and no tenderness palpation of her calf or thigh on the right Neuro: Awake, alert, oriented, normal speech, cranial nerves intact, moves all extremities symmetrically Psych: Pleasant, cooperative Medications Administered Discontinued Medications Generic Name Dose Route Start Last Admin Trade Name Freq PRN Reason Stop Dose Admin Sodium Chloride 2,400 mls @ 2,400 mls/hr 10/03/23 16:12 10/03/23 18:16 Ns 30 ml/kg infuse over 1 hr (2400 ml) 10/03/23 17:11 Infused IV Infusion .Q1H STA Iohexol 65 ml 10/03/23 18:00 10/03/23 18:01 Iohexol 350 Mg/Ml 100 Ml Infus..Btl IV 10/03/23 18:01 65 ml ONCE ONE Administration Medical Decision Making Medical Decision Making MDM Narrative: 68-year-old female with history of insulin dependent type 2 diabetes, mood disorder, hypertension, GERD, hyperlipidemia, YAEL on CPAP, osteopenia right TKA 09/04/2023 who presents emergency department for evaluation of lightheadedness with near syncope, blurred vision, diaphoresis with symptoms starting approximately 1 hour prior to coming to the emergency department. Patient was found to be hypotensive by paramedics gave her 500 cc bolus of normal saline. Patient was complaining of pain in her right knee since her surgery and did have increased pain this morning but was able to complete physical therapy. While the patient was in the hospital for her knee replacement she did have an episode of hypotension with a systolic blood pressure in the 80s and was felt to be secondary to her antihypertensive medications and narcotic medications that were administered. Patient did have weight loss over the past year and the daughter states that the patient has had episodes of lightheadedness that she was not reported to the family. Vital signs did reveal hypotension. Physical examination was otherwise unremarkable. Differential diagnosis: ?Includes but is not limited to myocardial infarction, myocardial ischemia, over medication with antihypertensive medications, anemia, electrolyte abnormalities Following evaluation was ordered: CBC, CMP, magnesium, troponin, lactic acid, PT/INR, PTT, D-dimer, blood cultures x2, venous duplex ultrasound of the left lower extremity, EKG Patient was initially treated with the following: Normal saline 30 cc/kilogram bolus Course: Course: 16:14 My interpretation patient's laboratory evaluation: WBC low 3500, normocytic anemia with an H&H of 9.5 and 29.4-H&H is been trending down since her preop values on 08/25/2023 when her H&H was 11.5 and 35.2. When I do INR elevated 1.2. PTT normal. D-dimer elevated 1208. Sodium low 135. BUN elevated 22 with a normal creatinine of 1.09 with a creatinine clearance 52.3. Glucose elevated 173. Lactic acid elevated 2.2. Given the patient's low blood pressure and slightly elevated D-dimer I did make her a sepsis protocol however I do not have a source for an infection at this time and I believe that her low blood pressure is more related to her blood pressure medications. Given her elevated D-dimer I will obtain a CT pulmonary angiogram to rule out PE. 19:[address] pulmonary angiogram PE protocol was negative for PE which is reassuring. Duplex ultrasound of the right leg was also negative for DVT. At this time there does not appear to be any source of infection to cause her hypotension and I believe her hypertension is caused by her medications. The patient's blood pressures have improved after receiving IV fluid. I did discuss the patient's presentation with the covering hospitalist, and the patient will be admitted to the hospital overnight to monitor blood pressure and to determine if her blood pressure medications need to be stopped or restarted at a lower dose. Admission/Observation Consideration of admission/observation: Escalation of care including admission/observation considered Consult Healthcare Provider Management of the patient was discussed with: Hospitalist (Dr. Jackson) Lab Data MDM Lab Attestation statement: I reviewed the patient's lab results. 10/03/23 15:45 10/03/23 15:45 Labs: Lab Results 10/03/23 10/03/23 10/03/23 Range/Units 15:45 15:57 16:05 WBC 3.5 L (4.8-10.8) X10*3/uL RBC 3.51 L (4.20-5.50) X10*6/uL Hgb 9.5 L (12.0-16.0) g/dl Hct 29.4 L (37.0-47.0) % MCV 83.8 (80.0-98.0) fL MCH 27.1 (27.0-33.0) pg MCHC 32.3 (31.0-35.0) g/dl RDW 16.4 H (11.0-16.0) % Plt Count 147 L (160-400) X10*3/uL MPV 10.2 (9.4-12.3) fL Immature Gran % (Auto) 0.6 H (0.0-0.4) % Neut % (Auto) 62.1 (45-73) % Lymph % (Auto) 23.2 (20-40) % [place] % (Auto) 12.9 H (2-11) % Eos % (Auto) 0.3 (0-4) % Baso % (Auto) 0.9 (0-2) % Lymph # (Auto) 0.8 L (1.2-4.9) X10*3/uL [place] # (Auto) 0.5 (0.1-1.2) X10*3/uL Eos # (Auto) 0.0 (0.0-0.4) X10*3/uL Baso # (Auto) 0.0 (0.0-0.2) X10*3/uL Abs Immat Gran (auto) 0.02 (0.00-0.03) X10*3/uL Absolute Neuts (auto) 2.2 (2.0-8.3) x10*3/uL Absolute Nucleated RBC 0.000 (0.0-0.012) X10*3/uL Nucleated RBC % (auto) 0.0 (0.0-0.2) /100WBC PT 14.0 H (11.1-13.3) SEC INR 1.2 H (0.9-1.1) APTT 32.0 (26.0-36.8) SEC D-Dimer High Sensitivty 1208 NG/ML Sodium 134 L (135-145) mmol/L Potassium 3.6 (3.3-5.1) mmol/L Chloride 101 (96-108) mmol/L Carbon Dioxide 24 (22-29) mmol/L Anion Gap 13 (12-20) BUN 22 H (9-16) mg/dL Creatinine 1.09 (0.5-1.4) mg/dL Estim Creat Clear Calc 52.3 Estimated GFR 50 POC Glucose 178 H (60-115) mg/dL Random Glucose 173 H (60-115) mg/dL Lactic Acid 2.2 H* (0.5-2.0) mmol/L Lactic Acid F/U @ 2Hr (0.5-2.0) mmol/L Calcium 8.4 (8.4-10.2) mg/dL Magnesium 1.8 (1.6-2.6) mg/dL Total Bilirubin 0.5 (0.0-1.0) mg/dL AST 48 H (5-31) U/L ALT 25 (0-31) U/L Alkaline Phosphatase 99 (39-117) U/L Troponin I High Sens 3.9 (<3.5-17.0) ng/L Total Protein 5.9 L (6.5-8.0) g/dL Albumin 3.2 L (3.5-5.0) g/dL 07/16/24 Range/Units 18:08 WBC (4.8-10.8) X10*3/uL RBC (4.20-5.50) X10*6/uL Hgb (12.0-16.0) g/dl Hct (37.0-47.0) % MCV (80.0-98.0) fL MCH (27.0-33.0) pg MCHC (31.0-35.0) g/dl RDW (11.0-16.0) % Plt Count (160-400) X10*3/uL MPV (9.4-12.3) fL Immature Gran % (Auto) (0.0-0.4) % Neut % (Auto) (45-73) % Lymph % (Auto) (20-40) % [place] % (Auto) (2-11) % Eos % (Auto) (0-4) % Baso % (Auto) (0-2) % Lymph # (Auto) (1.2-4.9) X10*3/uL [place] # (Auto) (0.1-1.2) X10*3/uL Eos # (Auto) (0.0-0.4) X10*3/uL Baso # (Auto) (0.0-0.2) X10*3/uL Abs Immat Gran (auto) (0.00-0.03) X10*3/uL Absolute Neuts (auto) (2.0-8.3) x10*3/uL Absolute Nucleated RBC (0.0-0.012) X10*3/uL Nucleated RBC % (auto) (0.0-0.2) /100WBC PT (11.1-13.3) SEC INR (0.9-1.1) APTT (26.0-36.8) SEC D-Dimer High Sensitivty NG/ML Sodium (135-145) mmol/L Potassium (3.3-5.1) mmol/L Chloride (96-108) mmol/L Carbon Dioxide (22-29) mmol/L Anion Gap (12-20) BUN (9-16) mg/dL Creatinine (0.5-1.4) mg/dL Estim Creat Clear Calc Estimated GFR POC Glucose (60-115) mg/dL Random Glucose (60-115) mg/dL Lactic Acid (0.5-2.0) mmol/L Lactic Acid F/U @ 2Hr 2.3 H* (0.5-2.0) mmol/L Calcium (8.4-10.2) mg/dL Magnesium (1.6-2.6) mg/dL Total Bilirubin (0.0-1.0) mg/dL AST (5-31) U/L ALT (0-31) U/L Alkaline Phosphatase (39-117) U/L Troponin I High Sens (<3.5-17.0) ng/L Total Protein (6.5-8.0) g/dL Albumin (3.5-5.0) g/dL Independent Interpretation I performed an independent interpretation of an: EKG Radiology Impression Discussion of test interpretation with radiology: I have reviewed the radiologist's reading. Radiologist Impression: CT angio chest PE protocol IMPRESSION: Somewhat limited exam. No pulmonary embolus demonstrated. Scattered areas of mixed lung attenuation likely related to air trapping. VTE: negative Dictated By: Tutu Majano MD US venous duplex LE RT IMPRESSION: No DVT demonstrated in the right lower extremity. Dictated By: Jeff Barajas Jr, DO Independent Historian Clinical information obtained from an independent historian. History obtained from or confirmed by: Other (Daughter) External Record Review External record reviewed: Inpatient record Chronic Conditions Patient?s care impacted by: Hypertension Critical Care Time Critical Care Time Critical Care Time: Yes Total Critical Care Time: 45 Attestation: Critical Care: The patient was critically ill with a high probability of imminent or life threatening deterioration. I spent greater than 30 minutes of discontinuous time evaluating the patient,delivering critical care at the bedside, discussing and evaluating pertinent data with consultants. Critical care time does not include time spent performing separately billable procedures or teaching. Total time spent performing critical care was 45 minutes. Discharge Plan Discharge Patient Disposition: Admitted As Inpatient Prescriptions: No Action (DME) walker Misc See Rx Instructions .ROUTE .MEDSUPPLY Qty: 1 0RF Rx Instructions: Folding front wheeled walker cetirizine 10 mg Tablet 10 mg PO DAILY PRN (Reason: Allergy Symptoms) sertraline 100 mg Tablet 100 mg PO DAILY cyanocobalamin (vitamin B-12) [Vitamin B-12] 1,000 mcg Tablet 1,000 mcg PO DAILY ferrous sulfate 325 mg (65 mg iron) Tablet 325 mg PO Q OTHER DAY fluticasone propionate [Flonase Allergy Relief] 50 mcg/actuation [place],Suspension 1 spray INTRANASAL BID PRN (Reason: Allergy Symptoms) Rx Instructions: administer into each nostril Dulera 200-5 mcg/actuation Hfa Aerosol Inhaler 2 puff INHALATION BID raloxifene 60 mg tablet 60 mg PO DAILY carvedilol 12.5 mg tablet 12.5 mg PO BID celecoxib 200 mg Capsule 200 mg PO BID 30 Days Qty: 60 0RF methocarbamol 500 mg Tablet 500 mg PO TID 7 Days Qty: 21 0RF acetaminophen 325 mg Tablet 650 mg PO Q6H PRN (Reason: Pain, Mild (Pain Scale 1-3)) 30 Days Qty: 240 0RF aspirin 325 mg Tablet 325 mg PO BID 30 Days Qty: 240 0RF docusate sodium 100 mg Capsule 100 mg PO BID 30 Days Qty: 60 0RF oxycodone 10 mg tablet 10 mg PO Q4H PRN (Reason: Pain, Severe (Pain Scale 7-10)) 7 Days Qty: 42 0RF Rx Instructions: Partial Fill upon patient request. irbesartan 75 mg tablet 75 mg PO DAILY montelukast 10 mg tablet 10 mg PO BEDTIME atorvastatin 40 mg tablet 40 mg PO BEDTIME famotidine 40 mg tablet 40 mg PO BEDTIME gabapentin 400 mg capsule 400 mg PO TID Jardiance 25 mg tablet 25 mg PO DAILY metformin 1,000 mg tablet 1,000 mg PO BID pantoprazole 40 mg tablet,delayed release (DR/EC) 40 mg PO DAILY@0630 insulin lispro [Humalog KwikPen Insulin] 100 unit/mL insulin pen 18 - 24 unit subcut TIDAC Patient Comments: 18-24 units Rx Instructions: per sliding scale insulin glargine [Lantus Solostar U-100 Insulin] 100 unit/mL (3 mL) insulin pen 13 unit subcut BEDTIME Print Language: Turkmen
[2023-10-03 15:51] LABS: MANUAL DIFF FLAG NO
[2023-10-03 15:52] LABS: Basophils Percent Auto 0.9 % (0-2); Eosinophils Percent Auto 0.3 % (0-4); Hematocrit 29.4 % (37.0-47.0); Hemoglobin 9.5 g/dl (12.0-16.0); Imm Gran Abs Auto 0.02 X10*3/uL (0.00-0.03); Imm Gran Pct Auto 0.6 % (0.0-0.4); Lymphocytes Absolute Auto 0.8 X10*3/uL (1.2-4.9); Lymphocytes Percent Auto 23.2 % (20-40); Mean Corpuscular HGB Conc 32.3 g/dl (31.0-35.0); Mean Corpuscular Hemoglobin 27.1 pg (27.0-33.0); Mean Corpuscular Volume 83.8 fL (80.0-98.0); Mean Platelet Volume 10.2 fL (9.4-12.3); Monocytes Absolute Auto 0.5 X10*3/uL (0.1-1.2); Monocytes Percent Auto 12.9 % (2-11); Neutrophils Absolute Auto 2.2 x10*3/uL (2.0-8.3); Neutrophils Percent Auto 62.1 % (45-73); Platelet Count 147 X10*3/uL (160-400); Red Blood Count 3.51 X10*6/uL (4.20-5.50); Red Cell Distribution Width 16.4 % (11.0-16.0); White Blood Count 3.5 X10*3/uL (4.8-10.8)
[2023-10-03 15:58] LABS: INTERNATIONAL NORM RATIO 1.2 (0.9-1.1)
[2023-10-03 16:05] LABS: Lactic Acid 2.2 mmol/L (0.5-2.0)
[2023-10-03 16:07] LABS: Alanine Aminotransferase 25 U/L (0-31); Albumin Level 3.2 g/dL (3.5-5.0); Alkaline Phosphatase 99 U/L (39-117); Anion Gap 13 (12-20); Aspartate Amino Transferase 48 U/L (5-31); Bilirubin Total 0.5 mg/dL (0.0-1.0); Blood Urea Nitrogen 22 mg/dL (9-16); Calcium 8.4 mg/dL (8.4-10.2); Carbon Dioxide 24 mmol/L (22-29); Chloride 101 mmol/L (96-108); Creatinine Clr Calc Pharmacy 52.3; Estimated Glomerular Filt Rate 50; Glucose Random 173 mg/dL (60-115); Magnesium 1.8 mg/dL (1.6-2.6); Potassium 3.6 mmol/L (3.3-5.1); Sodium 134 mmol/L (135-145); Total Protein 5.9 g/dL (6.5-8.0)
[2023-10-03 16:14] LABS: Troponin-I High Sensitivity 3.9 ng/L (<3.5-17.0)
--- NOTE | 2023-10-03 16:16 | MHC.EDTECH ---
PER PROVIDER SCIARUTO DO ORTHOSTATICS VITALS ONCE FLUIDS ARE FINISH .
[2023-10-03 16:26] LABS: D Dimer High Sensitivity 1208 NG/ML
--- NOTE | 2023-10-03 16:29 | PC.NURSE ---
On arrival 1L of NS hung, sepsis initiated at 1615 per provider. Previous 1L of NS to be included in sepsis fluid amount of 2,400.
[2023-10-03 17:14] LABS: Glucose, Whole Blood 178 mg/dL (60-115)
[2023-10-03 17:50] LABS: Reflex Lactate? Lactic Acid Added
[2023-10-03] MEDS: iohexoL 350 MG/ML 100 ML INFUS..BTL 65 ML IV (18:01)
--- NOTE | 2023-10-03 18:13 | MHC.EDTECH ---
2ND TROP DRAWN AND SENT TO LAB ,VITALS TAKEN ,PATIENT DAUGHTER AT BEDSIDE .
[2023-10-03 18:31] LABS: ~Lactic Acid-LAB USE ONLY 2.3 mmol/L (0.5-2.0)
--- NOTE | 2023-10-03 19:16 | P.HPHOSP_ITS ---
History of Present Illness Date of Service: 10/03/23 Attending physician on admission: Anh Jackson Chief Complaint: dizziness 68-year-old female with history of insulin dependent type 2 diabetes, mood disorder, hypertension, GERD, hyperlipidemia, YAEL on CPAP, osteopenia presented to the ED earlier today for evaluation of lightheadedness, blurred vision, and sweats/chills that occurred around midnight but then recurred with worsening symptoms around 3pm while walking at the mall today. She is accopanied by her granddaughter. She says she has had decreased appetite but has been drinking plenty of fluids. No diplopia, fevers, shaking chills, st, congestion, abd pain, n/v/d, urinary symptoms, cough, sob syncope, chest pain. She states she has been forgetful but this is not a new symptom. She was admitted last month for R TKA and was followed by hospitalist service due to hypotension post operatively, thought to be r/t narcotic medication but irbesartan was also ultiamtely dsicontinued on discharge. On arrival, pt hypotensive to 80/38, given 2.4 L IVF with improvement in BP to 106/61 on admission, but still with positive orthostatic hypotension following IVF. She is currently asymptomatic. She is mildly leukopenic at 3.5 and has a stable normocytic anemia. Renal function baseline, electrolyte levels normal except for mild hyponatremia of 134. Initial lactic acid 2.2, replete 2.3. Glucose 173. Troponin 3.9. D-dimer 1208. CTA of the chest negative for PE but showing scattered areas of mixed lung attenuation likely related to air trapping. Venous duplex of the right lower negative for DVT. In the ED, received 2.4 L IVF. Review of Systems 2 Review of Systems: Yes all other systems are reviewed and are negative [facility] Medical History Primary osteoarthritis of right knee Hx of breast cancer Back pain YAEL on CPAP Vitamin B deficiency Steatosis of liver Osteopenia Mixed anxiety and depressive disorder HTN (hypertension) GERD (gastroesophageal reflux disease) Stress incontinence in female Dyslipidemia Renal cyst Asthma Osteoarthritis Anxiety Acute depression Diabetes Surgical History Hx of tubal ligation Hx of breast surgery Hx of colonoscopy Social History Household Members: Family Housing: Apartment Are you a primary home care specialist to a significant other at home: No Do you presently have visiting nurse or other home services: No Patient Tobacco Use Status: Never used Tobacco Smoked in Last 30 Days: No Use of substances other than those prescribed or required for medical reasons: No Advance Directives: No Advance Directives Information Provided: No Do you have a plan to hurt others: No Plan service: No Current occupational status: disabled 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 Meds Allergies Allergy/AdvReac Type Severity Reaction Status Date / Time theophylline Allergy Intermediate Facial Verified 10/03/23 15:26 Swelling, itching, nausea Home Medications ?Medication ?Instructions ?Recorded ?Confirmed ?Last Taken ?Type irbesartan 75 mg tablet 75 mg PO DAILY 08/25/20 09/20/23 09/03/23 History montelukast 10 mg tablet 10 mg PO BEDTIME 08/25/20 09/20/23 09/03/23 History insulin glargine 100 unit/mL (3 13 unit subcut BEDTIME 01/24/23 09/20/23 09/03/23 History mL) subcutaneous pen (Lantus Solostar U-100 Insulin) insulin lispro 100 unit/mL 18 - 24 unit subcut TIDAC 01/24/23 09/20/23 09/03/23 History subcutaneous pen (Humalog KwikPen 12 units (U-100) Insulin) atorvastatin 40 mg tablet 40 mg PO BEDTIME 07/24/23 09/20/23 09/03/23 History famotidine 40 mg tablet 40 mg PO BEDTIME 07/24/23 09/20/23 09/03/23 History gabapentin 400 mg capsule 400 mg PO TID 07/24/23 09/20/23 09/03/23 History metformin 1,000 mg tablet 1,000 mg PO BID 07/24/23 09/20/23 09/03/23 History pantoprazole 40 mg tablet,delayed 40 mg PO DAILY@0630 07/24/23 09/20/23 09/03/23 History release cetirizine 10 mg tablet 10 mg PO DAILY PRN Allergy Symptoms 08/24/23 09/20/23 09/03/23 History cyanocobalamin (vitamin B-12) 1,000 mcg PO DAILY 08/24/23 09/20/23 09/03/23 History 1,000 mcg tablet (Vitamin B-12) ferrous sulfate 325 mg (65 mg 325 mg PO Q OTHER DAY 08/24/23 09/20/23 09/03/23 History iron) tablet fluticasone propionate 50 1 spray intranasal BID PRN Allergy 08/24/23 09/20/23 Unknown History mcg/actuation nasal Symptoms spray,suspension (Flonase Allergy Relief) mometasone-formoterol HFA 200 2 puff inhalation BID 08/24/23 09/20/23 09/03/23 History mcg-5 mcg/actuation aerosol inhaler (Dulera) sertraline 100 mg tablet 100 mg PO DAILY 08/24/23 09/20/23 09/03/23 History carvedilol 12.5 mg tablet 12.5 mg PO BID 09/04/23 09/20/23 09/03/23 History raloxifene 60 mg tablet 60 mg PO DAILY 09/04/23 09/20/23 Unknown History empagliflozin 25 mg tablet 25 mg PO QAM 10/03/23 Unknown History (Jardiance) multivitamin-ferrous 1 tab PO QAM 10/03/23 Unknown History fumarate-folic acid 18 mg-400 mcg tablet (Tab-A-Leeanne Multivitamin w-iron) Physical Exam 2 Vital Signs and Narrative: Vital Signs: Last Vital Signs Temp 97.9 F 10/03/23 18:11 Pulse 82 10/03/23 18:33 Resp 20 10/03/23 18:11 BP 101/52 L 10/03/23 18:56 Pulse Ox 99 10/03/23 18:11 O2 Del Method Nasal Cannula 10/03/23 18:11 O2 Flow Rate 2 10/03/23 18:11 BMI result Body Mass Index 27.6 Constitutional - Awake and Alert, No apparent distress Eyes - PERRLA, EOMI Cardiovascular - S1S2, RRR, 1+ rle edema Respiratory - Normal lung expansion, Normal respiratory effort, No respiratory distress, CTA bilaterally Gastrointestinal - NT / ND; +BS; No rebound or guarding Extremities - no calf tenderness bilaterally, no swelling Skin - Warm/Dry Neurological - Alert & oriented x3, CN II-XII in tact Psychological - Appropriate affect Results Labs 10/03/23 15:45 10/03/23 15:45 Labs: Laboratory Results - last 24 hr 10/03/23 10/03/23 10/03/23 15:45 15:57 16:05 MCV 83.8 MCH 27.1 MCHC 32.3 RDW 16.4 H Plt Count 147 L MPV 10.2 Immature Gran % (Auto) 0.6 H Neut % (Auto) 62.1 Lymph % (Auto) 23.2 [place] % (Auto) 12.9 H Eos % (Auto) 0.3 Baso % (Auto) 0.9 Lymph # (Auto) 0.8 L [place] # (Auto) 0.5 Eos # (Auto) 0.0 Baso # (Auto) 0.0 Abs Immat Gran (auto) 0.02 Absolute Neuts (auto) 2.2 Absolute Nucleated RBC 0.000 Nucleated RBC % (auto) 0.0 PT 14.0 H INR 1.2 H APTT 32.0 D-Dimer High Sensitivty 1208 Anion Gap 13 Estim Creat Clear Calc 52.3 Estimated GFR 50 POC Glucose 178 H Random Glucose 173 H Lactic Acid 2.2 H* Lactic Acid F/U @ 2Hr Calcium 8.4 Magnesium 1.8 Total Bilirubin 0.5 AST 48 H ALT 25 Alkaline Phosphatase 99 Troponin I High Sens 3.9 Total Protein 5.9 L Albumin 3.2 L 10/03/23 18:08 MCV MCH MCHC RDW Plt Count MPV Immature Gran % (Auto) Neut % (Auto) Lymph % (Auto) [place] % (Auto) Eos % (Auto) Baso % (Auto) Lymph # (Auto) [place] # (Auto) Eos # (Auto) Baso # (Auto) Abs Immat Gran (auto) Absolute Neuts (auto) Absolute Nucleated RBC Nucleated RBC % (auto) PT INR APTT D-Dimer High Sensitivty Anion Gap Estim Creat Clear Calc Estimated GFR POC Glucose Random Glucose Lactic Acid Lactic Acid F/U @ 2Hr 2.3 H* Calcium Magnesium Total Bilirubin AST ALT Alkaline Phosphatase Troponin I High Sens Total Protein Albumin Imaging Radiologist's Impressions: Impressions Venous Duplex 10/03/23 16:19 IMPRESSION: No DVT demonstrated in the right lower extremity. Chest CTA 10/03/23 18:05 IMPRESSION: Somewhat limited exam. No pulmonary embolus demonstrated. Scattered areas of mixed lung attenuation likely related to air trapping. VTE: negative Assessment and Plan (1) Near syncope: Status: Acute (2) Orthostatic hypotension: Status: Acute Plan 68-year-old female with history of insulin dependent type 2 diabetes, mood disorder, hypertension, GERD, hyperlipidemia, YAEL on CPAP, osteopenia to be observed for orthostatic hypotension #Orthostatic hypotension- ?r/t medications -hold jardiance. Hold antihypertensive in the setting of hypotension/soft bp, resume as appropriate -continue ivf -repeat orthostatic vs am -will monitor on tele #Insulin dependent type 2 diabetes without hyperglycemia -poc glucose, diabetic diet -dose adjusted basal insulin -hold metformin,jardiance #HTN -hold antihypertensive as above, resume as appropriate #copd -no exacerbation -continue maintenance inhalers, albuterol p.r.n. #diabetic polyneuropathy -continue gabapentin #Chronic normocytic anemia -h/h above transfusion threshold #CKD stage 3 -renal function baseline #Acute thrombocytopenia -likely r/t asa for dvt prophylaxis following tka, monitor #HLD -statin dvt prophylaxis- lovenox full code Quality Stroke Does the patient have a stroke diagnosis?: No VTE Prior VTE?: No VTE Risk Level:: Medical - moderate - high VTE Device Contraindication: Treatment Not Indicated VTE Drug Contraindication: N/A - Med Ordered
[2023-10-03 20:38] LABS: Cancel Lactic Acid Canceled
[2023-10-03 20:46] LABS: Glucose, Whole Blood 124 mg/dL (60-115)
[2023-10-03] MEDS: Enoxaparin Sodium 40 MG/0.4 ML SYRINGE SUBCUT (20:54)
[2023-10-03] MEDS: Insulin Glargine,Hum.rec.anlog 100 UNIT/ML 10 ML VIAL 10 UNIT SUBCUT (20:55)
--- NOTE | 2023-10-03 21:05 | PC.NURSE ---
this rn assumed care of pt, pt a&ox4, respirations even and unlabored. pt reporting 8/10 left pain at this time, PA aware at this time. pt medicated per may. POC 124.
[2023-10-03] MEDS: oxyCODONE HCl Immed Release 5 MG TABLET PO (21:08)
--- NOTE | 2023-10-03 21:09 | PC.NURSE ---
pt medicated per mar, tolerated well with water.
--- NOTE | 2023-10-03 21:34 | PHA.MEDREC ---
Pharmacy Consult ? Medication Reconciliation Pharmacy has completed the medication reconciliation. Spoke to patient patients daughter to confirm med list. Utilized the med list she had. Daughter states her mom is no longer on Irbesartan 75 mg daily.
--- NOTE | 2023-10-03 22:53 | PC.NURSE ---
pt assisted to bedside commode with this RN. pt denies dizziness and chest pain.
[2023-10-04] VITALS (12 sets, daily range): BP systolic 102–136; BP diastolic 50–83; PULSE 67–87; RESP 14–20; TEMP 36.3–37.6; O2SAT 92–97; BMI 26.6
[2023-10-04 05:18] LABS: Appearance Urine Clear; Color Urine Yellow; Glucose Urine UA >=1000 mg/dL (Negative); Leukocyte Esterase Urine Negative (Negative); Nitrite Urine Negative (Negative); Specific Gravity - Urine >= 1.030 (1.005-1.025); UMIC TRIGGER UACC YES; Urine Blood Negative (Negative); Urine Ketones Negative (Negative); Urine Protein Trace mg/dL (Neg-Trace)
[2023-10-04 05:46] LABS: Bacteria Urine 1+ (None Seen); Hyaline Casts Urine 0-2 /LPF (0-2); Squamous Epithelial Cell Urine 0-2 /HPF (0-2); WBC Urine 0-5 /HPF (0-5)
[2023-10-04 06:21] LABS: Basophils Percent Auto 0.6 % (0-2); Eosinophils Percent Auto 0.3 % (0-4); Hemoglobin 8.8 g/dl (12.0-16.0); Imm Gran Abs Auto 0.02 X10*3/uL (0.00-0.03); Imm Gran Pct Auto 0.6 % (0.0-0.4); Lymphocytes Percent Auto 29.8 % (20-40); MANUAL DIFF FLAG SCAN; Mean Corpuscular HGB Conc 32.6 g/dl (31.0-35.0); Mean Corpuscular Volume 82.8 fL (80.0-98.0); Mean Platelet Volume 11.3 fL (9.4-12.3); Monocytes Absolute Auto 0.7 X10*3/uL (0.1-1.2); Monocytes Percent Auto 20.3 % (2-11); Neutrophils Absolute Auto 1.7 x10*3/uL (2.0-8.3); Neutrophils Percent Auto 48.4 % (45-73); Platelet Count 144 X10*3/uL (160-400); Red Blood Count 3.26 X10*6/uL (4.20-5.50); Red Cell Distribution Width 16.3 % (11.0-16.0); SCAN SMEAR FLAG 1; White Blood Count 3.5 X10*3/uL (4.8-10.8)
[2023-10-04 06:32] LABS: Anion Gap 13 (12-20); Blood Urea Nitrogen 18 mg/dL (9-16); Calcium 8.4 mg/dL (8.4-10.2); Carbon Dioxide 20 mmol/L (22-29); Chloride 108 mmol/L (96-108); Estimated Glomerular Filt Rate > 60; Glucose Random 118 mg/dL (60-115); Sodium 137 mmol/L (135-145)
[2023-10-04] MEDS: Omeprazole 20 MG CAPSULE.DR PO (06:35)
--- NOTE | 2023-10-04 06:36 | PC.NURSE ---
pt medicated per may , tolerated well with water
[2023-10-04 07:05] LABS: Glucose, Whole Blood 84 mg/dL (60-115)
[2023-10-04 07:55] LABS: SLIDE REVIEW VERIFIED
[2023-10-04] MEDS: Fluticasone/Vilanterol 200/25 BLST.W.DEV 1 PUFF INHALE (08:24)
[2023-10-04] MEDS: Sertraline HCL 100 MG TABLET PO (09:18)
[2023-10-04] MEDS: Celecoxib 200 MG CAPSULE PO ×2 (09:18→20:23)
[2023-10-04] MEDS: Docusate Sodium 100 MG CAPSULE PO ×2 (09:18→20:23)
[2023-10-04] MEDS: Gabapentin 400 MG CAPSULE PO ×3 (09:18→20:23)
[2023-10-04] MEDS: Multivitamin TABLET 1 TAB PO (09:18)
[2023-10-04] MEDS: Aspirin 325 MG TABLET PO ×2 (09:18→20:23)
[2023-10-04] MEDS: Cyanocobalamin (Vitamin B-12) 1,000 MCG TABLET 1000 MCG PO (09:18)
--- NOTE | 2023-10-04 11:34 | MHC.CM.PN ---
Roberts 10/04/23, Pt is Macedonian speaking only, her dtr was present in ED with her. She was in this hosp last month. 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 She had [facility] when she was DC last month, and then went to outpt PT. For DME: she has a walker, CPAP, toilet riser. HCP form to be completed here. Dtr to transport home at DC. CM will follow for DC planning.
[2023-10-04 12:04] LABS: Glucose, Whole Blood 148 mg/dL (60-115)
--- NOTE | 2023-10-04 14:04 | HO.PM.IMPN ---
Subjective Subjective Date of Service: 10/04/23 Interval History: Daughter at bedside who speaks Lithuanian. States mom feels much better since admission Review of Systems Denies chest pain Denies shortness of breath Denies nausea vomiting diarrhea Denies fever chills Physical Exam Vital Signs: Vital Signs: Last Vital Signs Temp 99.2 F 10/04/23 11:59 Pulse 69 10/04/23 11:59 Resp 16 10/04/23 11:59 BP 114/60 10/04/23 11:59 Pulse Ox 92 10/04/23 11:59 O2 Del Method Room Air 10/04/23 11:59 O2 Flow Rate 2 10/03/23 18:11 BMI result Body Mass Index 27.6 Const: Other: Awake alert no acute distress Resp: Other: Clear to auscultation bilaterally no rales rhonchi or wheezes Cardio: Other: No S4; positive S1-S2; no S3 murmurs rubs or gallops GI: Other: Soft nontender nondistended normoactive bowel sounds Extrem: Other: No edema bilaterally Objective Data Active Medications Acetaminophen (Acetaminophen 325 Mg Tablet) 650 mg PO Q6H PRN PRN Reason: Pain, Mild (Pain Scale 1-3), fever or headache Aspirin (Aspirin 325 Mg Tablet) 325 mg PO BID [facility] Last Admin: 10/04/23 09:18 Dose: 325 mg Documented By: BEATRIZ Atorvastatin Calcium (Atorvastatin Calcium 40 Mg Tablet) 40 mg PO BEDTIME ALEC Celecoxib (Celecoxib 200 Mg Capsule) 200 mg PO BID [facility] Last Admin: 10/04/23 09:18 Dose: 200 mg Documented By: BEATRIZ Cyanocobalamin (Cyanocobalamin (Vitamin B-12) 1,000 Mcg Tablet) 1,000 mcg PO DAILY [facility] Last Admin: 10/04/23 09:18 Dose: 1,000 mcg Documented By: BEATRIZ Docusate Sodium (Docusate Sodium 100 Mg Capsule) 100 mg PO BID [facility] Last Admin: 10/04/23 09:18 Dose: 100 mg Documented By: BEATRIZ Enoxaparin Sodium (Enoxaparin Sodium 40 Mg/0.4 Ml Syringe) 40 mg SUBCUT Q24H [facility] Last Admin: 10/03/23 20:54 Dose: 40 mg Documented By: MARIBETH Famotidine (Famotidine 20 Mg Tablet) 40 mg PO BEDTIME [facility] Ferrous Sulfate (Ferrous Sulfate 324 Mg Tablet.) 325 mg PO Q48H [facility] Fluticasone Propionate (Fluticasone Propionate Nasal 16 Gm [place]) 1 spray NOSTRIL-B BID PRN PRN Reason: Allergy Symptoms Fluticasone/Vilanterol (Fluticasone/Vilanterol 200/25 Blst.W.Dev) 1 puff INHALE RDAILY [facility] Last Admin: 10/04/23 08:24 Dose: 1 puff Documented By: URIEL Gabapentin (Gabapentin 400 Mg Capsule) 400 mg PO TID [facility] Last Admin: 10/04/23 09:18 Dose: 400 mg Documented By: BEATRIZ Glucose (Glucose Gel 15 Gm Gel..Gram.) 15 gm PO Q15M PRN; Protocol PRN Reason: per Hypoglycemia Standing Ord. Dextrose (D10) 250 mls @ 750 mls/hr IV Q15M PRN; Protocol PRN Reason: per Hypoglycemia Standing Ord. Lactated Ringer's (Lr) 1,000 mls @ 125 mls/hr IVCONT .Q8H [facility] Insulin Glargine (Insulin Glargine,Hum.Rec.Anlog 100 Unit/Ml 10 Ml Vial) 10 unit SUBCUT BEDTIME [facility] Last Admin: 10/03/23 20:55 Dose: 10 unit Documented By: MARIBETH Insulin Glargine (Insulin Glargine,Hum.Rec.Anlog 100 Unit/Ml 10 Ml Vial) 10 unit SUBCUT BEDTIME [facility] Insulin Human Lispro (Insulin Lispro 100 Unit/Ml 3 Ml Vial) 0 unit SUBCUT QIDACHS [facility]; Protocol Last Admin: 10/04/23 12:42 Dose: Not Given Documented By: BEATRIZ Non-Admin Reason: No Insulin Coverage Loratadine (Loratadine 10 Mg Tablet) 10 mg PO DAILY PRN PRN Reason: Allergy Symptoms Metformin HCl (Metformin Hcl 1,000 Mg Tablet) 1,000 mg PO BIDWM [facility] Montelukast Sodium (Montelukast Sodium 10 Mg Tablet) 10 mg PO BEDTIME [facility] Multivitamins/Vitamin C (Multivitamin Tablet) 1 tab PO DAILY [facility] Last Admin: 10/04/23 09:18 Dose: 1 tab Documented By: BEATRIZ Omeprazole (Omeprazole 20 Mg Capsule.) 20 mg PO DAILY@0630 [facility] Last Admin: 10/04/23 06:35 Dose: 20 mg Documented By: MARIBETH Sertraline HCl (Sertraline Hcl 100 Mg Tablet) 100 mg PO DAILY [facility] Last Admin: 10/04/23 09:18 Dose: 100 mg Documented By: BEATRIZ Labs 10/04/23 05:40 10/04/23 05:40 Labs: Laboratory Results - last 24 hr 10/03/23 10/03/23 10/03/23 15:45 15:57 16:05 MCV 83.8 MCH 27.1 MCHC 32.3 RDW 16.4 H Plt Count 147 L MPV 10.2 Immature Gran % (Auto) 0.6 H Neut % (Auto) 62.1 Lymph % (Auto) 23.2 [place] % (Auto) 12.9 H Eos % (Auto) 0.3 Baso % (Auto) 0.9 Lymph # (Auto) 0.8 L [place] # (Auto) 0.5 Eos # (Auto) 0.0 Baso # (Auto) 0.0 Abs Immat Gran (auto) 0.02 Absolute Neuts (auto) 2.2 Absolute Nucleated RBC 0.000 Nucleated RBC % (auto) 0.0 Smear Tech's Comments PT 14.0 H INR 1.2 H APTT 32.0 D-Dimer High Sensitivty 1208 Anion Gap 13 Estim Creat Clear Calc 52.3 Estimated GFR 50 POC Glucose 178 H Random Glucose 173 H Lactic Acid 2.2 H* Lactic Acid F/U @ 2Hr Calcium 8.4 Magnesium 1.8 Total Bilirubin 0.5 AST 48 H ALT 25 Alkaline Phosphatase 99 Troponin I High Sens 3.9 Total Protein 5.9 L Albumin 3.2 L Urine Color Urine Appearance Urine pH Ur Specific [place] Urine Protein Urine Glucose (UA) Urine Ketones Urine Blood Urine Nitrite Ur Leukocyte Esterase Urine RBC Urine WBC Ur Squamous Epith Cells Urine Bacteria Hyaline Casts 10/03/23 10/03/23 10/04/23 18:08 20:41 05:09 MCV MCH MCHC RDW Plt Count MPV Immature Gran % (Auto) Neut % (Auto) Lymph % (Auto) [place] % (Auto) Eos % (Auto) Baso % (Auto) Lymph # (Auto) [place] # (Auto) Eos # (Auto) Baso # (Auto) Abs Immat Gran (auto) Absolute Neuts (auto) Absolute Nucleated RBC Nucleated RBC % (auto) Smear Tech's Comments PT INR APTT D-Dimer High Sensitivty Anion Gap Estim Creat Clear Calc Estimated GFR POC Glucose 124 H Random Glucose Lactic Acid Lactic Acid F/U @ 2Hr 2.3 H* Calcium Magnesium Total Bilirubin AST ALT Alkaline Phosphatase Troponin I High Sens Total Protein Albumin Urine Color Yellow Urine Appearance Clear Urine pH 6.0 Ur Specific [place] >= 1.030 H Urine Protein Trace Urine Glucose (UA) >=1000 H Urine Ketones Negative Urine Blood Negative Urine Nitrite Negative Ur Leukocyte Esterase Negative Urine RBC 3-5 H Urine WBC 0-5 Ur Squamous Epith Cells 0-2 Urine Bacteria 1+ Hyaline Casts 0-2 10/04/23 10/04/23 10/04/23 05:40 07:01 11:57 MCV 82.8 MCH 27.0 MCHC 32.6 RDW 16.3 H Plt Count 144 L MPV 11.3 Immature Gran % (Auto) 0.6 H Neut % (Auto) 48.4 Lymph % (Auto) 29.8 [place] % (Auto) 20.3 H Eos % (Auto) 0.3 Baso % (Auto) 0.6 Lymph # (Auto) 1.0 L [place] # (Auto) 0.7 Eos # (Auto) 0.0 Baso # (Auto) 0.0 Abs Immat Gran (auto) 0.02 Absolute Neuts (auto) 1.7 L Absolute Nucleated RBC 0.000 Nucleated RBC % (auto) 0.0 Smear Tech's Comments VERIFIED PT INR APTT D-Dimer High Sensitivty Anion Gap 13 Estim Creat Clear Calc 74.0 Estimated GFR > 60 POC Glucose 84 148 H Random Glucose 118 H Lactic Acid Lactic Acid F/U @ 2Hr Calcium 8.4 Magnesium Total Bilirubin AST ALT Alkaline Phosphatase Troponin I High Sens Total Protein Albumin Urine Color Urine Appearance Urine pH Ur Specific [place] Urine Protein Urine Glucose (UA) Urine Ketones Urine Blood Urine Nitrite Ur Leukocyte Esterase Urine RBC Urine WBC Ur Squamous Epith Cells Urine Bacteria Hyaline Casts Assessment and Plan (1) Orthostatic hypotension: Status: Acute Plan 68-year-old female with history of insulin dependent type 2 diabetes, mood disorder, hypertension, GERD, hyperlipidemia, YAEL on CPAP, osteopenia to be observed for orthostatic hypotension likely secondary to dehydration 1.Orthostatic hypotension -responded to volume repletion -continue to follow orthostatics 2.Insulin dependent type 2 diabetes without hyperglycemia -hold oral agents -lispro correctional scale -adjust as indicated 3.HTN -normotensive off all meds -hold antihypertensive as above... PCP can review as outpatient 2.copd -no exacerbation -continue maintenance inhalers, albuterol p.r.n. lovenox full code Requires ongoing hospitalization for volume repletion and following orthostatic vitals done Quality Stroke Does the patient have a stroke diagnosis?: No VTE Prior VTE?: No VTE Risk Level:: Medical - moderate - high VTE Device Contraindication: Treatment Not Indicated VTE Drug Contraindication: N/A - Med Ordered
[2023-10-04] MEDS: Lactated Ringers 1,000 ML 125 ML IVCONT ×2 (14:27→20:22)
[2023-10-04 15:18] LABS: Glucose, Whole Blood 166 mg/dL (60-115)
[2023-10-04] MEDS: Insulin Lispro 100 UNIT/ML 3 ML VIAL SUBCUT (16:07)
[2023-10-04 20:21] LABS: Glucose, Whole Blood 128 mg/dL (60-115)
[2023-10-04] MEDS: Enoxaparin Sodium 40 MG/0.4 ML SYRINGE SUBCUT (20:23)
[2023-10-04] MEDS: Montelukast Sodium 10 MG TABLET PO (20:23)
[2023-10-04] MEDS: Atorvastatin Calcium 40 MG TABLET PO (20:24)
[2023-10-04] MEDS: Insulin Glargine,Hum.rec.anlog 100 UNIT/ML 10 ML VIAL 10 UNIT SUBCUT (20:24)
[2023-10-04] MEDS: Famotidine 20 MG TABLET 40 MG PO (20:26)
[2023-10-05] VITALS (7 sets, daily range): BP systolic 115–130; BP diastolic 58–78; PULSE 72–87; RESP 18–20; TEMP 36.4–36.6; O2SAT 91–94
[2023-10-05] MEDS: Lactated Ringers 1,000 ML 125 ML IVCONT (03:39)
--- NOTE | 2023-10-05 04:07 | PC.NURSE ---
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 pt denies pain. a&ox4, VS stable, denies dizziness upon standing, saftey and comfort maintained, call rogers within reach.
[2023-10-05] MEDS: Omeprazole 20 MG CAPSULE.DR PO (06:16)
[2023-10-05 07:08] LABS: Hematocrit 26.8 % (37.0-47.0); Hemoglobin 8.7 g/dl (12.0-16.0); Mean Corpuscular HGB Conc 32.5 g/dl (31.0-35.0); Mean Corpuscular Hemoglobin 26.9 pg (27.0-33.0); Mean Corpuscular Volume 82.7 fL (80.0-98.0); Mean Platelet Volume 11.2 fL (9.4-12.3); Platelet Count 149 X10*3/uL (160-400); Red Blood Count 3.24 X10*6/uL (4.20-5.50); White Blood Count 4.1 X10*3/uL (4.8-10.8)
[2023-10-05 07:14] LABS: Alanine Aminotransferase 23 U/L (0-31); Albumin Level 3.2 g/dL (3.5-5.0); Alkaline Phosphatase 105 U/L (39-117); Anion Gap 15 (12-20); Aspartate Amino Transferase 37 U/L (5-31); Bilirubin Total 0.4 mg/dL (0.0-1.0); Blood Urea Nitrogen 12 mg/dL (9-16); Carbon Dioxide 22 mmol/L (22-29); Chloride 105 mmol/L (96-108); Creatinine Clr Calc Pharmacy 88.9; Estimated Glomerular Filt Rate > 60; Glucose Fasting 101 mg/dL (60-99); Potassium 3.7 mmol/L (3.3-5.1); Sodium 138 mmol/L (135-145); Total Protein 5.7 g/dL (6.5-8.0)
[2023-10-05 07:24] LABS: INTERNATIONAL NORM RATIO 1.1 (0.9-1.1); Prothrombin Time 13.1 SEC (11.1-13.3)
[2023-10-05] MEDS: Fluticasone/Vilanterol 200/25 BLST.W.DEV 1 PUFF INHALE (07:58)
[2023-10-05 08:10] LABS: Glucose, Whole Blood 138 mg/dL (60-115)
[2023-10-05] MEDS: Celecoxib 200 MG CAPSULE PO (09:41)
[2023-10-05] MEDS: Docusate Sodium 100 MG CAPSULE PO (09:41)
[2023-10-05] MEDS: Aspirin 325 MG TABLET PO (09:41)
[2023-10-05] MEDS: Cyanocobalamin (Vitamin B-12) 1,000 MCG TABLET 1000 MCG PO (09:42)
[2023-10-05] MEDS: metFORMIN HCl 1,000 MG TABLET 1000 MG PO (09:42)
[2023-10-05] MEDS: Gabapentin 400 MG CAPSULE PO (09:42)
[2023-10-05] MEDS: Sertraline HCL 100 MG TABLET PO (09:42)
[2023-10-05] MEDS: Multivitamin TABLET 1 TAB PO (09:42)
[2023-10-05] MEDS: Ferrous Sulfate 324 MG TABLET.DR PO (10:50)
[2023-10-05 11:28] LABS: Glucose, Whole Blood 145 mg/dL (60-115)
--- NOTE | 2023-10-05 11:39 | MHC.CM.PN ---
[facility] PT WILL BE MEDICALLY CLEARED FOR DC HOME W/RESUMP OF OUTPT P.T. 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
--- NOTE | 2023-10-05 13:25 | P.DS_ITS ---
DS: Providers Provider Date of Service: 10/05/23 Date of admission: 10/03/23 19:56 Date of discharge: 10/05/23 Primary care physician: Nicole Stevenson MD Attending physician on discharge: Khalif Posadas Discharging clinician: Ibeth Mendoza DS: Diagnosis Discharge Diagnosis (1) Orthostatic hypotension: Status: Acute DS: Summary Hospital Course Hospital Course: From H&P on the day of admission 68-year-old female with history of insulin dependent type 2 diabetes, mood disorder, hypertension, GERD, hyperlipidemia, YAEL on CPAP, osteopenia presented to the ED earlier today for evaluation of lightheadedness, blurred vision, and sweats/chills that occurred around midnight but then recurred with worsening symptoms around 3pm while walking at the mall today. She is accopanied by her granddaughter. She says she has had decreased appetite but has been drinking plenty of fluids. No diplopia, fevers, shaking chills, st, congestion, abd pain, n/v/d, urinary symptoms, cough, sob syncope, chest pain. She states she has been forgetful but this is not a new symptom. She was admitted last month for R TKA and was followed by hospitalist service due to hypotension post operatively, thought to be r/t narcotic medication but irbesartan was also ultiamtely dsicontinued on discharge. On arrival, pt hypotensive to 80/38, given 2.4 L IVF with improvement in BP to 106/61 on admission, but still with positive orthostatic hypotension following IVF. She is currently asymptomatic. She is mildly leukopenic at 3.5 and has a stable normocytic anemia. Renal function baseline, electrolyte levels normal except for mild hyponatremia of 134. Initial lactic acid 2.2, replete 2.3. Glucose 173. Troponin 3.9. D-dimer 1208. CTA of the chest negative for PE but showing scattered areas of mixed lung attenuation likely related to air trapping. Venous duplex of the right lower negative for DVT. In the ED, received 2.4 L IVF. orthostatic hypotension Patient was initially admitted for orthostatic hypotension and was treated with IV fluid. Repeat orthostatic blood pressures were negative and her symptoms of dizziness resolved. She was seen by Physical therapy who recommended resuming h ome physical therapy. Time Attestation Discharge Coordination Time (in mins): 35 Quality: Safe Use of Opioids Does Pt have an Active Cancer Diagnosis on the Problem List?: No Quality: Stroke Does the patient have a stroke diagnosis?: No Physical Exam Vital Signs: Vital Signs: Last Vital Signs Temp 97.6 F 10/05/23 11:41 Pulse 72 10/05/23 11:41 Resp 20 10/05/23 11:41 BP 128/65 10/05/23 11:41 Pulse Ox 94 10/05/23 11:41 O2 Del Method Room Air 10/05/23 11:41 O2 Flow Rate 2 10/03/23 18:11 BMI result Body Mass Index 26.6 Const: General: cooperative, comfortable, no acute distress, alert and awake Nutritional Appearance: average body habitus Orientation/consciousness: patient oriented x3 Resp: Effort & Inspection: normal respiratory effort, no respiratory distress and no use of accessory muscles Cardio: Rate: regular rate Neuro: General: patient oriented x3, moves all extremities and CN's II-XI intact bilaterally DS: Data Data Completed and Pending Completed studies during hospitalization [Text1]: Procedures Introduction of Anesthetic Agent into Peripheral Nerves and Plexi, Percutaneous Approach (09/04/23) Replacement of Right Knee Joint with Synthetic Substitute, Cemented, Open Approach (09/04/23) Labs on day of discharge: Laboratory Results - last 24 hr 10/04/23 10/04/23 10/05/23 15:13 20:14 06:21 WBC 4.1 L RBC 3.24 L Hgb 8.7 L Hct 26.8 L MCV 82.7 MCH 26.9 L MCHC 32.5 RDW 16.0 Plt Count 149 L MPV 11.2 Absolute Nucleated RBC 0.000 Nucleated RBC % (auto) 0.0 PT 13.1 INR 1.1 Sodium 138 Potassium 3.7 Chloride 105 Carbon Dioxide 22 Anion Gap 15 BUN 12 Creatinine 0.63 Estim Creat Clear Calc 88.9 Estimated GFR > 60 POC Glucose 166 H 128 H Fasting Glucose 101 H Calcium 9.0 D Total Bilirubin 0.4 AST 37 H ALT 23 Alkaline Phosphatase 105 Total Protein 5.7 L Albumin 3.2 L 10/05/23 10/05/23 07:08 11:09 WBC RBC Hgb Hct MCV MCH MCHC RDW Plt Count MPV Absolute Nucleated RBC Nucleated RBC % (auto) PT INR Sodium Potassium Chloride Carbon Dioxide Anion Gap BUN Creatinine Estim Creat Clear Calc Estimated GFR POC Glucose 138 H 145 H Fasting Glucose Calcium Total Bilirubin AST ALT Alkaline Phosphatase Total Protein Albumin Preliminary micro results at discharge 10/03/23 15:57 Blood Culture - Preliminary Blood - Venous No growth after 24 hours. 10/03/23 15:45 Blood Culture - Preliminary Blood - Venous No growth after 24 hours. Discharge Plan Discharge Patient Disposition: Home Health Service Discharge Diagnosis: orthostatic hypotension Referrals: Nicole Mcpherson MD [Primary Care Provider] - 1 Week Discharge Medications: Continued (DME) walker Misc See Rx Instructions .ROUTE .MEDSUPPLY Qty: 1 0RF Rx Instructions: Folding front wheeled walker Tab-A-Leeanne Multivitamin w-iron 18-400 mg-mcg tablet 1 tab PO DAILY Jardiance 25 mg tablet 25 mg PO DAILY cetirizine 10 mg Tablet 10 mg PO DAILY PRN (Reason: Allergy Symptoms) sertraline 100 mg Tablet 100 mg PO DAILY cyanocobalamin (vitamin B-12) [Vitamin B-12] 1,000 mcg Tablet 1,000 mcg PO DAILY ferrous sulfate 325 mg (65 mg iron) Tablet 325 mg PO Q48H fluticasone propionate [Flonase Allergy Relief] 50 mcg/actuation Delta,Suspension 1 spray INTRANASAL BID PRN (Reason: Allergy Symptoms) Rx Instructions: administer into each nostril Dulera 200-5 mcg/actuation Hfa Aerosol Inhaler 2 puff INHALATION BID raloxifene 60 mg tablet 60 mg PO DAILY celecoxib 200 mg Capsule 200 mg PO BID 30 Days Qty: 60 0RF acetaminophen 325 mg Tablet 650 mg PO Q6H PRN (Reason: Pain, Mild (Pain Scale 1-3)) 30 Days Qty: 240 0RF aspirin 325 mg Tablet 325 mg PO BID 30 Days Qty: 240 0RF docusate sodium 100 mg Capsule 100 mg PO BID 30 Days Qty: 60 0RF montelukast 10 mg tablet 10 mg PO BEDTIME atorvastatin 40 mg tablet 40 mg PO BEDTIME famotidine 40 mg tablet 40 mg PO BEDTIME gabapentin 400 mg capsule 400 mg PO TID metformin 1,000 mg tablet 1,000 mg PO BIDWM pantoprazole 40 mg tablet,delayed release (DR/EC) 40 mg PO DAILY@0630 insulin lispro [Humalog KwikPen Insulin] 100 unit/mL insulin pen 16 - 22 unit subcut TIDAC Patient Comments: 18-24 units Rx Instructions: per sliding scale: 16-22 units before breakfast, 16-18 units before lunch, 18-22 units before dinner insulin glargine [Lantus Solostar U-100 Insulin] 100 unit/mL (3 mL) insulin pen 13 unit subcut BEDTIME Held carvedilol 12.5 mg tablet 12.5 mg PO BID Hold Instructions: don't take coreg until follow up with PC Discharge Orders: Discharge Order (Routine); Ordered 10/05/23 Ordered By: Ibeth Mendoza Activity on Discharge: As tolerated Stand Alone Forms: Patient Portal Discharge page Print Language: Panamanian Care Plan Goals: See below Health Concerns: Orthostatic hypotension. Resolved Plan of Treatment: stop taking coreg until follow up with PCP Call to schedule follow-up appointment with PCP as soon as possible Assessment: See discharge summary
== END 2023-10-05 15:45 | disposition home health service (06) ==
LOC: HO.ED 19:22 → HO.EDOVER 20:17 → HO.IMC 10-04 13:25
PROVIDERS: Hospitalist; Internal Medicine; Student in an Organized Health Care Education/Training Program; Admitting Provider Physician Assistant; Emergency Provider Emergency Medicine Emergency Medical Services; PCP Internal Medicine; Visit Provider Physician Assistant Medical
DX: I95.1 Orthostatic hypotension (principal); M25.561 Pain in right knee; M79.604 Pain in right leg; R79.1 Abnormal coagulation profile; E11.9 Type 2 diabetes mellitus without complications; I10 Essential (primary) hypertension; E78.5 Hyperlipidemia, unspecified; J44.9 Chronic obstructive pulmonary disease, unspecified; Z96.651 Presence of right artificial knee joint; Z79.4 Long term (current) use of insulin; Z79.84 Long term (current) use of oral hypoglycemic drugs; Z79.899 Other long term (current) drug therapy
CPT/HCPCS: 36415; 71275; 80048; 80053; 81001; 82947; 83605; 83735; 84484; 85025; 85027; 85379; 85610; 85730; 87040; 93005; 93971; 94640; 96360; 96361; 96372; 97162; 99222; 99285; J1650; J7120; Q9967

== ENCOUNTER → 2023-10-03 15:55 | Outpatient (BNV) | payer OTHER, SELFPAY | PROVIDERS: Emergency Provider Emergency Medicine Emergency Medical Services; PCP Internal Medicine; Visit Provider Physician Assistant | DX: R55 Syncope and collapse (principal); I95.1 Orthostatic hypotension; E11.65 Type 2 diabetes mellitus with hyperglycemia | CPT/HCPCS: 99222; 99232; 99239 ==

== ENCOUNTER → 2023-10-03 16:02 | Outpatient (BNV) | payer OTHER, SELFPAY | PROVIDERS: Admitting Provider Physician Assistant; Emergency Provider Emergency Medicine Emergency Medical Services; PCP Internal Medicine; Visit Provider Internal Medicine Cardiovascular Disease | DX: I95.9 Hypotension, unspecified (principal); R94.31 Abnormal electrocardiogram [ECG] [EKG] | CPT/HCPCS: 93010 ==

== ENCOUNTER 2023-10-12 08:00 | Outpatient (AMB) | payer OTHER, SELFPAY ==
--- NOTE | 2023-10-12 08:05 | A.OFFVIS_ITS ---
Intake Visit Reasons: 6 wk PO right TKA on 09/04/[address] Hernandez Note: Ina is a 68 year old female who presents to the office today for a 6 week PO right TKA 09/04/23. The patient reports mild intermittent discomfort in her right knee. She continues to go to formal physical therapy here at [facility]. She denies any fevers or chills. Allergies theophylline Allergy (Intermediate, Verified 10/12/23 08:05) Facial Swelling, itching, nausea Medication List - Last Reconciled 10/12/23 by Espinoza Mart MD acetaminophen 650 mg (2 x 325 mg) PO Q6H PRN 30 days amoxicillin 2,000 mg (4 x 500 mg) PO ONCE aspirin 325 mg PO BID 30 days atorvastatin 40 mg PO BEDTIME carvedilol 12.5 mg PO BID celecoxib 200 mg PO BID 30 days cetirizine 10 mg PO DAILY PRN cyanocobalamin (vitamin B-12) (Vitamin B-12) 1,000 mcg PO DAILY docusate sodium 100 mg PO BID 30 days empagliflozin (Jardiance) 25 mg PO DAILY famotidine 40 mg PO BEDTIME ferrous sulfate 325 mg PO Q48H fluticasone propionate 50 mcg/actuation (Flonase Allergy Relief) 1 spray intranasal BID PRN gabapentin 400 mg PO TID insulin glargine (Lantus Solostar U-100 Insulin) 13 units subcut BEDTIME insulin lispro (Humalog KwikPen (U-100) Insulin) 16 - 22 units subcut TIDAC metformin 1,000 mg PO BIDWM mometasone-formoterol 200-5 mcg/actuation (Dulera) 2 puffs inhalation BID montelukast 10 mg PO BEDTIME jlqzpiaxtlnq-byio-oaicy acid 18-400 mg-mcg (Tab-A-Leeanne Multivitamin w-iron) 1 tab PO DAILY pantoprazole 40 mg PO DAILY@0630 raloxifene 60 mg PO DAILY sertraline 100 mg PO DAILY walker Folding front wheeled walker [facility] Medical History Primary osteoarthritis of right knee Hx of breast cancer Back pain YAEL on CPAP Vitamin B deficiency Steatosis of liver Osteopenia Mixed anxiety and depressive disorder HTN (hypertension) GERD (gastroesophageal reflux disease) Stress incontinence in female Dyslipidemia Renal cyst Asthma Osteoarthritis Anxiety Acute depression Diabetes Surgical History Hx of tubal ligation Hx of breast surgery Hx of colonoscopy Social History Household Members: Family Household Members Other:: daughter, son, and brother Housing: Apartment Are you a primary care manager cna to a significant other at home: No Do you presently have visiting nurse or other home services: Yes Patient Tobacco Use Status: Never used Tobacco service: No Current occupational status: disabled 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 Greer continues to do well after undergoing right total knee replacement surgery on 09/04/2023. She will continue going to formal physical therapy for now. She will gradually transition to a home stretching program. She does know to take antibiotics before any dental work. She will contact me prior to her follow-up appointment in 2 months should any questions or concerns arise. Feel free to call me at any time should questions regarding her orthopedic management arise. Medications: New amoxicillin Take four caps (2,000 mg) one hour before any dental work 2,000 mg (4 x 500 mg) PO ONCE 20 caps 0RF Coding Level of Care Code Global (10101) Diagnoses Right knee pain M25.561
== END 2023-10-12 08:25 | disposition home or self-care (01) ==
PROVIDERS: PCP Pediatrics; Visit Provider Orthopaedic Surgery
DX: M25.561 Pain in right knee (principal)
CPT/HCPCS: 99024

== ENCOUNTER → 2023-10-12 08:00 | Outpatient (BNVA) | payer OTHER, SELFPAY | PROVIDERS: PCP Pediatrics; Visit Provider Orthopaedic Surgery | DX: M25.561 Pain in right knee (principal) | CPT/HCPCS: 99212 ==

== ENCOUNTER 2023-10-12 14:27 | Outpatient (REF) | payer OTHER, SELFPAY ==
[2023-10-12 16:02] LABS: MANUAL DIFF FLAG NO
[2023-10-12 16:13] LABS: Basophils Percent Auto 0.5 % (0-2); Eosinophils Absolute Auto 0.6 X10*3/uL (0.0-0.4); Eosinophils Percent Auto 7.5 % (0-4); Hematocrit 32.3 % (37.0-47.0); Hemoglobin 10.3 g/dl (12.0-16.0); Imm Gran Abs Auto 0.03 X10*3/uL (0.00-0.03); Imm Gran Pct Auto 0.4 % (0.0-0.4); Lymphocytes Absolute Auto 1.8 X10*3/uL (1.2-4.9); Lymphocytes Percent Auto 23.1 % (20-40); Mean Corpuscular HGB Conc 31.9 g/dl (31.0-35.0); Mean Corpuscular Hemoglobin 27.2 pg (27.0-33.0); Mean Corpuscular Volume 85.2 fL (80.0-98.0); Mean Platelet Volume 10.3 fL (9.4-12.3); Monocytes Absolute Auto 0.7 X10*3/uL (0.1-1.2); Monocytes Percent Auto 9.2 % (2-11); Neutrophils Absolute Auto 4.7 x10*3/uL (2.0-8.3); Neutrophils Percent Auto 59.3 % (45-73); Platelet Count 395 X10*3/uL (160-400); Red Blood Count 3.79 X10*6/uL (4.20-5.50); Red Cell Distribution Width 17.3 % (11.0-16.0)
[2023-10-12 16:27] LABS: Anion Gap 15 (12-20); Blood Urea Nitrogen 12 mg/dL (9-16); Calcium 9.9 mg/dL (8.4-10.2); Carbon Dioxide 26 mmol/L (22-29); Chloride 106 mmol/L (96-108); Estimated Glomerular Filt Rate > 60; Glucose Random 95 mg/dL (60-115); Potassium 4.3 mmol/L (3.3-5.1); Sodium 143 mmol/L (135-145)
== END 2023-10-12 14:28 | disposition home or self-care (01) ==
LOC: HO.HHCL 14:27
PROVIDERS: Visit Provider Internal Medicine
DX: Z01.818 Encounter for other preprocedural examination (principal)
CPT/HCPCS: 36415; 80048; 85025

== ENCOUNTER 2023-10-25 12:00 | Outpatient (RCR) | payer OTHER, SELFPAY ==
--- NOTE | 2023-10-03 15:14 | MHC.PT.EP ---
[facility] [place] [facility] [place] [facility] [place] [facility] [address] Lizy Arreola [address] [phone] F: [phone] F: [phone] F: [phone] F: [phone] Physical Therapy Plan of Care Date of Evaluation: 10/03/23 Date of Surgery: 09/04/23 Diagnosis: s/p RIGHT TKA (DOS: 09/04/23) Dr Mart (RS) Assessment: Ina is a pleasant 68 y.o. [place]ic speaking female who is referred to PT by KIKO Beaulieu, surgery performed by Dr. Brittny MD or [facility] with Dx of s/p RIGHT TKA due to osteoarthritis. Patient impairments include active tissue healing of incision site, pain, swelling, limited knee ROM, weakness in R LE, antalgic gait with AD use. Patient current functional limitations are Bending, walking, standing, stair use, laundry, showering, dressing, cooking, cleaning. Patient will benefit from skilled PT to address aforementioned impairments and functional limitations to meet established goals. Frequency and Duration: The patient will be seen 2x/week for 8 weeks Short Term Goals: 4weeks Ina demonstrates consistency and independence with HEP to self manage symptoms. Ina presents with reduced swelling in R midpatella circumferential measurement 44cm to be able to wear regular shoe and decrease fall risk. Ina is able to safely ambulate with straight cane on level surfaces 100 ft. 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 Ina presents with increased RIGHT quad strength 4+/5 to be able to stand independently to cook and shower. Treatment Plan: Modalities to reduce pain, spasms and effusion. Manual therapy to restore motion and function. Therapeutic exercise to improve strength and flexibility. Neuromuscular re-education for posture and balance. Therapeutic activities to return to functional activities of daily living. Electronically signed by: Donna Martin, PT, DPT Please sign and return to therapist. Thank you for your referral.
--- NOTE | 2023-10-30 15:50 | MHC.PT.DC ---
[facility] [place] Office [place] Office [place] Office [address] Lizy Arreola [address] [facility] [phone] F: [phone] F: [phone] F: [phone] F: [phone] Physical Therapy Discharge Report Diagnosis: s/p RIGHT TKA (DOS: 09/04/23) Dr Mart (RS) Date of Surgery: 09/04/23 Date of Evaluation: 10/03/23 Date of Discharge: 10/30/23 Treatments to Date: 8 Cancellations to Date: No Shows to Date: Discharge Status: Achieved Goals Improved Function Independent with HEP Patient Elected to Stop Discharge Summary: Pt independent w/HEP Significant improvement w/LEFS ALL GOALS MET Electronically signed by: Donna Martin, PT, DPT Please sign and return to therapist. Thank you for your referral.
== END 2023-10-30 15:50 | disposition home or self-care (01) ==
LOC: HO.PT 12:00
PROVIDERS: PCP Internal Medicine; Visit Provider Physician Assistant
DX: Z96.651 Presence of right artificial knee joint (principal)
CPT/HCPCS: 97110; 97116; 97140; 97162; 97530

== ENCOUNTER 2023-11-09 15:26 | Outpatient (REF) | payer OTHER, SELFPAY ==
[2023-11-09 16:23] LABS: Cholesterol 138 mg/dL (<200); HDL Cholesterol 34 mg/dL (>40); LDL Cholesterol Calculated 59 mg/dL (<100); Triglycerides 229 mg/dL (<150)
[2023-11-09 18:36] LABS: Creatinine Urine 52.04 mg/dL; Microalbum/Creatinine Ratio Ur 15.3 ug/mg cr (<30)
[2023-11-09 21:19] LABS: Reflex LDLD? No
== END 2023-11-09 15:27 | disposition home or self-care (01) ==
LOC: HO.HHCL 15:26
PROVIDERS: Visit Provider Internal Medicine
DX: E11.65 Type 2 diabetes mellitus with hyperglycemia (principal); Z79.4 Long term (current) use of insulin
CPT/HCPCS: 36415; 80061; 82043; 82570

== ENCOUNTER 2023-12-13 08:54 | Outpatient (AMB) | payer OTHER, SELFPAY ==
--- NOTE | 2023-12-13 08:58 | MHC.OFFVIS ---
Intake Visit Reasons: 6 wk PO right TKA on 09/04/[address] Hernandez Note: Ina is a 68 year old female who presents with complaints of mild discomfort in her right knee after undergoing right total knee replacement surgery on 09/04/2023. She continues with her home exercise program. She takes Tylenol as needed for discomfort. She denies any fevers or chills. Allergies theophylline Allergy (Intermediate, Verified 12/13/23 08:59) Facial Swelling, itching, nausea Medication List - Last Reconciled 12/13/23 by Espinoza Mart MD acetaminophen 650 mg (2 x 325 mg) PO Q6H PRN 30 days amoxicillin 2,000 mg (4 x 500 mg) PO ONCE aspirin 325 mg PO BID 30 days atorvastatin 40 mg PO BEDTIME carvedilol 12.5 mg PO BID celecoxib 200 mg PO BID 30 days cetirizine 10 mg PO DAILY PRN cyanocobalamin (vitamin B-12) (Vitamin B-12) 1,000 mcg PO DAILY docusate sodium 100 mg PO BID 30 days empagliflozin (Jardiance) 25 mg PO DAILY famotidine 40 mg PO BEDTIME ferrous sulfate 325 mg PO Q48H fluticasone propionate 50 mcg/actuation (Flonase Allergy Relief) 1 spray intranasal BID PRN gabapentin 400 mg PO TID metformin 1,000 mg PO BIDWM mometasone-formoterol 200-5 mcg/actuation (Dulera) 2 puffs inhalation BID montelukast 10 mg PO BEDTIME ceelgjhciehk-bdii-zwvvn acid 18-400 mg-mcg (Tab-A-Leeanne Multivitamin w-iron) 1 tab PO DAILY pantoprazole 40 mg PO DAILY@0630 raloxifene 60 mg PO DAILY sertraline 100 mg PO DAILY walker Folding front wheeled walker REPLACED BY [facility] Medical History Primary osteoarthritis of right knee Hx of breast cancer Back pain YAEL on CPAP Vitamin B deficiency Steatosis of liver Osteopenia Mixed anxiety and depressive disorder HTN (hypertension) GERD (gastroesophageal reflux disease) Stress incontinence in female Dyslipidemia Renal cyst Asthma Osteoarthritis Anxiety Acute depression Diabetes Surgical History Hx of tubal ligation Hx of breast surgery Hx of colonoscopy Social History Household Members: Family Household Members Other:: daughter, son, and brother Housing: Apartment Are you a primary director of career resources to a significant other at home: No Do you presently have visiting nurse or other home services: Yes Patient Tobacco Use Status: Never used Tobacco service: No Current occupational status: disabled 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 Greer continues to do well after undergoing right total knee replacement surgery on 09/04/2023. She will continue with her home exercise program. She does know to take antibiotics before any dental work. She will contact me prior to her follow-up appointment in 6 months should any questions or concerns arise. Feel free to call me at any time should questions regarding her orthopedic management arise. I spent 21 minutes in reviewing the patient's records and imaging studies, seeing the patient and documenting in the medical record. Coding Level of Care Code Est Pt Level 3 (33944) Complex EM visit Add On G2211 Diagnoses Right knee pain M25.561
== END 2023-12-13 09:16 | disposition home or self-care (01) ==
PROVIDERS: PCP Pediatrics; Visit Provider Orthopaedic Surgery
DX: Z47.1 Aftercare following joint replacement surgery (principal); Z96.651 Presence of right artificial knee joint
CPT/HCPCS: 99213

== ENCOUNTER → 2023-12-13 08:54 | Outpatient (BNVA) | payer OTHER, SELFPAY | PROVIDERS: PCP Pediatrics; Visit Provider Orthopaedic Surgery | DX: M25.561 Pain in right knee (principal); Z96.651 Presence of right artificial knee joint | CPT/HCPCS: 99212 ==

== ENCOUNTER 2024-07-23 09:25 | Outpatient (AMB) | payer OTHER, SELFPAY ==
--- NOTE | 2024-07-23 09:31 | A.OFFVIS_ITS ---
Vital Signs 07/23/24 09:32 Height 5 ft 7 in Weight 169 lb BMI 26.5 Intake Visit Reasons: OV-Right TKA on 09/04/[address]-Spring time F/U Intake Note: Ina is a 69 year old female who presents for follow up after undergoing right total knee replacement surgery on 09/04/2023. Patient reports she is doing well. She continues with her home exercise program. She denies any fevers or chills. Shoe Stitcher Required: No Allergies theophylline Allergy (Intermediate, Verified 07/23/24 09:36) Facial Swelling, itching, nausea Medication List - Last Reviewed 07/23/24 by Chidi Bolanos, [place] acetaminophen 650 mg (2 x 325 mg) PO Q6H PRN 30 days amoxicillin 2,000 mg (4 x 500 mg) PO ONCE aspirin 325 mg PO BID 30 days atorvastatin 40 mg PO BEDTIME carvedilol 12.5 mg PO BID celecoxib 200 mg PO BID 30 days cetirizine 10 mg PO DAILY PRN cyanocobalamin (vitamin B-12) (Vitamin B-12) 1,000 mcg PO DAILY docusate sodium 100 mg PO BID 30 days empagliflozin (Jardiance) 25 mg PO DAILY famotidine 40 mg PO BEDTIME ferrous sulfate 325 mg PO Q48H fluticasone propionate 50 mcg/actuation (Flonase Allergy Relief) 1 spray intranasal BID PRN gabapentin 400 mg PO TID metformin 1,000 mg PO BIDWM mometasone-formoterol 200-5 mcg/actuation (Dulera) 2 puffs inhalation BID montelukast 10 mg PO BEDTIME vvgpegeppixr-eqrz-hgkii acid 18-400 mg-mcg (Tab-A-Leeanne Multivitamin w-iron) 1 tab PO DAILY pantoprazole 40 mg PO DAILY@0630 raloxifene 60 mg PO DAILY sertraline 100 mg PO DAILY walker Folding front wheeled walker PFSH Medical History Primary osteoarthritis of right knee Hx of breast cancer Back pain YAEL on CPAP Vitamin B deficiency Steatosis of liver Osteopenia Mixed anxiety and depressive disorder HTN (hypertension) GERD (gastroesophageal reflux disease) Stress incontinence in female Dyslipidemia Renal cyst Asthma Osteoarthritis Anxiety Acute depression Diabetes Surgical History Hx of tubal ligation Hx of breast surgery Hx of colonoscopy Social History Household Members: Family Household Members Other:: daughter, son, and brother Housing: Apartment Are you a primary neurocritical care physician to a significant other at home: No Do you presently have visiting nurse or other home services: Yes Patient Tobacco Use Status: Never used Tobacco service: No Current occupational status: disabled 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 Physical Exam Vital Signs: BMI result Body Mass Index 26.5 Const Other: Well-nourished well-developed very friendly female awake alert and oriented x3 in no acute distress Extrem Other: Bilateral lower extremity examination shows good capillary refill, no skin lesions noted, normal sensation light touch Right knee examination shows the surgical incision is well healed, no erythema, full active extension and flexion to 120 degrees, her patella tracks well Results Reviewed Results Reviewed: X-rays of the patient's right knee taken today show a total knee arthroplasty in good position with no signs of loosening, no acute bony abnormalities Assessment & Plan Assessment & Plan (1) Right knee pain: Code(s): M25.561 - Pain in right knee Category: Medical Plan Ms. Greer continues to do very well after undergoing right total knee replacement surgery on 09/04/2023. She will continue with her home exercise program. She does know to take antibiotics before any dental work. She will contact me prior to her annual follow-up appointment should any questions or concerns arise. Feel free to call me at any time should questions regarding orthopedic management arise. I spent 20 minutes in reviewing the patient's records and imaging studies, seeing the patient and documenting in the medical record. Orders: Orders XR knee RT 3V Today M25.561 - Pain in right knee Coding Level of Care Code Est Pt Level 3 (55709) Complex EM visit Add On G2211 Diagnoses Right knee pain M25.561
[2024-07-23 09:32] VITALS: BMI 26.5
== END 2024-07-23 09:44 | disposition home or self-care (01) ==
LOC: HO.HOS 09:26
PROVIDERS: PCP Internal Medicine; Visit Provider Orthopaedic Surgery
DX: M25.561 Pain in right knee (principal); Z96.651 Presence of right artificial knee joint
CPT/HCPCS: 99213; G2211

== ENCOUNTER → 2024-07-23 09:26 | Outpatient (BNV) | payer OTHER, SELFPAY | PROVIDERS: Visit Provider Radiology Diagnostic Radiology | DX: M25.561 Pain in right knee (principal); Z96.651 Presence of right artificial knee joint | CPT/HCPCS: 73562 ==

== ENCOUNTER 2024-07-23 10:49 | Outpatient (REF) | payer OTHER, SELFPAY ==
--- NOTE | ~2024-07-23 | XR_ITS ---
EXAMINATION: XR KNEE, RIGHT CLINICAL INFORMATION: M25.561 - Pain in right knee COMPARISON: 09/20/2023, 01/24/2023. TECHNIQUE: Three views of the right knee. FINDINGS: There is been total right knee arthroplasty. There is been associated patellar resurfacing. Tibial, and femoral components are intact, well seated, in anatomic alignment. No complication evident. The patella is normally aligned and intact. No significant joint effusion. No soft tissue abnormality. XR/XR knee RT 3V IMPRESSION: Total right knee arthroplasty without complication. Electronically signed by: Levi Joiner MD 07/23/2024 09:39 AM EDT
--- OUTSIDE RECORDS SUMMARY | 2024-07-24 12:09 | XMS_ITS | Encounter Summary ---
Author Organization [employer] Address [address] [facility] [address] [place] [address] Care Team Providers Care Sports Lawyer Name Role Phone Nicole Mcpherson MD Primary Care Provide r Reason for Visit * Reason Onset Date Comments Hospital Follow-up 10/05/2023 Encounter Details Date Type Department Care Team ([facility] Contact Info) Description 10/05/2023 Telephone [facility] [address] [place], [place] [phone] Nicole Mcpherson MD [address] [place], [place] [phone] Hospital Follow-up Social History Tobacco Use Types Packs/Day Years Used Date Smoking Tobacco: Never Smokeless Tobacco: Never Alcohol Use Standard Drinks/Week Comments Never 0 (1 standard drink = 0.6 oz pur e alcohol) Depression Answer Date Recorded Patient Health Questionnaire-9 Score 11 09/13/2022 Housing Stability Answer Date Recorded What is your housing situation today? I have sintia berry 01/13/[address] you li ve. Do you have problems with any of the following? None of the above 01/13/2023 Food Insecurity Answer Date Recorded Within the past 12 months, y ou worried that your food would run out before you got money to buy more: Never True 01/13/2023 Within the past 12 months,th e food you bought just didn't last and you didn't have enough money to get more: Never True Transportation Answer Date Recorded In the past 12 months, has l ack of transportation kept you from medical appts, meetings, work or from getting things needed for daily living? No 01/13/2023 Utilities Answer Date Recorded In the past 12 months, has t he electric, gas, oil or water company threatened to shut off services in your home? No 01/13/2023 Depression Answer Date Recorded Patient Health Questionnaire-2 Score 4 09/13/2022 Comments Unknown Sex and Gender Information Value Date Recorded Sex Assigned at Female 01/17/2022 10:15 AM EDT Legal Sex Female 10:15 AM EDT Gender Identity Female 01/17/2022 10:15 AM EDT Sexual Orientation Straight 01/17/2022 10 :15 AM EDT documented as of this encounter Miscellaneous Notes * Telephone Encounter - Lillie Ventura - 10/05/2023 4:11 PM EDT Tc from pt stating a nurse from clinic called. In regards to moms HDF follow up appt, food writer sees no task,. documented in this encounter Plan of Treatment Upcoming Encounters Date Type Department Care Team (Late st Contact Info) Description 07/29/2024 11:00 AM EDT Medication Management [facility] [address] [place] [phone] 09/12/2024 2:30 PM EDT Office Visit [facility] [address] [place] [phone] Nicole Mcpherson MD [address] [place] [phone] documented as of this encounter Visit Diagnoses Not on filedocumented in this encounter Additional Health Concerns Assessment Noted Time PHQ-9 Depression Total Score: 11 023 9:15 AM EDT documented as of this encounter Care Teams Sports Lawyer Relationship Specialty Start Date End Date Nicole Mcpherson MD [address] [place] [id number] PCP - General Family Medicine 11/11/21 documented as of this encounter
--- OUTSIDE RECORDS SUMMARY | 2024-07-24 12:09 | XMS_ITS | Encounter Summary ---
Author Organization [employer] Address [address] [facility] [address] [place] [address] Care Team Providers Care Office Cleaner Name Role Phone Nicole Mcpherson MD Primary Care Provide r Reason for Visit * Reason Comments Med Refill Encounter Details Date Type Department Care Team ([facility] st Contact Info) Description 10/24/2023 Refill [facility] [address], [place] [phone] Nicole Mcpherson MD [address] [place] [address] Type 2 diabetes mellitus with other specified complication, unspecified whether fci insulin use ([facility]) Social History Tobacco Use Types Packs/Day Years Used Date Smoking Tobacco: Never Smokeless Tobacco: Never Alcohol Use Standard Drinks/Week Comments Never 0 (1 standard drink = 0.6 oz pur e alcohol) Depression Answer Date Recorded Patient Health Questionnaire-9 Score 11 09/13/2022 Housing Stability Answer Date Recorded What is your housing situation today? I have isntia berry 10/24/[address] you li ve. Do you have problems with any of the following? Pests such as bugs, ants, or mice 10/24/2023 Food Insecurity Answer Date Recorded Within the past 12 months, y ou worried that your food would run out before you got money to buy more: Never True 10/24/2023 Within the past 12 months,th e food you bought just didn't last and you didn't have enough money to get more: Never True 08/2023 Transportation Answer Date Recorded In the past 12 months, has l ack of transportation kept you from medical appts, meetings, work or from getting things needed for daily living? No 10/24/2023 Utilities Answer Date Recorded In the past 12 months, has t he electric, gas, oil or water company threatened to shut off services in your home? No 10/24/2023 Depression Answer Date Recorded Patient Health Questionnaire-2 Score 4 09/13/2022 Comments Unknown Sex and Gender Information Value Date Recorded Sex Assigned at Female 01/17/2022 10:15 AM EDT Legal Sex Female 10:15 AM EDT Gender Identity Female 01/17/2022 10:15 AM EDT Sexual Orientation Straight 01/17/2022 10 :15 AM EDT documented as of this encounter Plan of Treatment Upcoming Encounters Date Type Department Care Team (Late st Contact Info) Description 07/29/2024 11:00 AM EDT Medication Management [facility] [address] [place] [phone] 09/12/2024 2:30 PM EDT Office Visit [facility] [address] [place] [phone] Nicole Mcpherson MD [address] [place] [phone] documented as of this encounter Visit Diagnoses Diagnosis Type 2 diabetes mellitus with other specified complication, unspecified whether ethologist insulin use ([facility]) documented in this encounter Additional Health Concerns Assessment Noted Time PHQ-9 Depression Total Score: 11 023 9:15 AM EDT documented as of this encounter Care Teams Office Cleaner Relationship Specialty Start Date End Date Nicole Mcpherson MD [address] [place] [phone] PCP - General Family Medicine 11/11/21 documented as of this encounter
--- OUTSIDE RECORDS SUMMARY | 2024-07-24 12:09 | XMS_ITS | Encounter Summary ---
Author Organization [employer] Address [address] [facility] [address] [place] [address] Care Team Providers Care Skilled Nursing Facility Counselor Name Role Phone Nicole Mcpherson MD Primary Care Provide r Encounter Details Date Type Department Care Team (Late Contact Info) Description 10/20/2022 Orders Only [facility] [address] [place], [place] [phone] America Gracia LPN Social History Tobacco Use Types Packs/Day Years Used Date Smoking Tobacco: Never Smokeless Tobacco: Never Alcohol Use Standard Drinks/Week Comments Never 0 (1 standard drink = 0.6 oz pur e alcohol) Depression Answer Date Recorded Patient Health Questionnaire-9 Score 11 09/13/2022 Depression Answer Date Recorded Patient Health Questionnaire-2 [...] Encounters Date Type Department Care Team (Late Contact Info) Description 07/29/2024 11:00 AM EDT Medication Management [facility] [address] [place] [address] [phone] 09/12/2024 2:30 PM EDT Office Visit [facility] [address] [place] [address] [phone] Nicole Mcpherson MD [address] [place] [address] [phone] documented as of this encounter Visit Diagnoses Not on filedocumented in this encounter Additional Health Concerns Assessment Noted Time PHQ-9 Depression Total Score: 11 023 9:15 AM EDT documented as of this encounter Care Teams Skilled Nursing Facility Counselor Relationship Specialty Start Date End Date Nicole Mcpherson MD [address] [place] [phone] PCP - General Family Medicine 11/11/21 documented as of this encounter
--- OUTSIDE RECORDS SUMMARY | 2024-07-24 12:09 | XMS_ITS | Clinical Summary ---
Author Organization [employer] Address [address] [place] [address] 7[address] [place] [address] Care Team Providers Care Maintenance Director Name Role Phone Nicole Mcpherson MD Primary Care Provide r Allergies Active Allergy Reactions Criticality Noted Date Comments Theophylline 05/03/2012 Other reaction(s): Rash Medications Continuous Blood Gluc Mechanical Integrity Engineer (FreeStyle Mark 2 [place]) deviceIndicatio ns:Type 2 diabetes mellitus with hyperglycemia, with long-term current use of insulin ([facility]) Scan sensor every 8 hours 1 each 024 Active fluticasone (Flonase) 50 MCG/ACT nasal sprayIndication s:Mild persistent asthma without complication INHALE 1 SPRAY IN EACH NOSTRIL TWICE DAILY 48 g 024 Active insulin glargine (Lantus SoloStar) 100 UNIT/ML penIndications: Type 2 diabetes mellitus without complication, unspecified whether termination clerk insulin use ([facility]) inject 13 unit by subcutaneous route every evening 15 mL 3 024 Active Blood Glucose Monitoring Suppl (FreeStyle [place] Lite) w/Device kitIndications: Type 2 diabetes mellitus with hyperglycemia, with long-term current use of insulin ([facility]) Use to test blood sugar 3 times daily 1 kit 024 Active FREESTYLE LITE test stripIndication s:Type 2 diabetes mellitus with hyperglycemia, with long-term current use of insulin ([facility]) Use to test blood sugar 3 times daily 100 each 12 024 2024 Active acetaminophen (Tylenol) 325 MG tablet Take 2 tablets by mouth every 6 (six) hours if needed for mild pain. 06/20/2 024 Active cetirizine (ZyrTEC) 10 MG tabletIndicatio ns:Allergic rhinitis, unspecified seasonality, unspecified trigger TAKE 1 TABLET BY MOUTH ONCE DAILY NEEDED 90 tablet 3 Active Multiple Vitamins-Minera ls (CertaVite/Anti oxidants) tablet TAKE 1 TABLET BY MOUTH EVERY MORNING 90 tablet 3 024 Active empagliflozin (Jardiance) 10 MGIndications:T ype 2 diabetes mellitus with hyperglycemia, with long-term current use of insulin ([facility]) Take 1 tablet (10 mg) by mouth Once per day. 30 tablet 11 024 2024 Active metFORMIN (Glucophage) 850 MG tabletIndicatio ns:Type 2 diabetes mellitus with hyperglycemia, with long-term current use of insulin ([facility]) Take 1 tablet (850 mg) by mouth with breakfast and with evening meal. 60 tablet 11 024 2024 Active TRUEplus Lancets 33G miscIndications :Type 2 diabetes mellitus with other specified complication, unspecified whether termination clerk insulin use ([facility]) USE DIRECTED TO TEST BLOOD SUGAR THREE TIMES DAILY 100 each 5 Active famotidine (Pepcid) 40 MG tablet TAKE 1 TABLET BY MOUTH AT BEDTIME 90 tablet 3 024 Active Ferrous Sulfate (iron) 325 (65 Fe) MG tabletIndicatio ns:Iron deficiency TAKE 1 TABLET BY MOUTH EVERY OTHER DAY IN THE MORNING 45 tablet 1 Active albuterol 108 (90 Base) MCG/ACT inhalerIndicati ons:Influenza-l eliezer symptoms Inhale 2 puffs every 4 (four) hours if needed for wheezing or shortness of breath. 18 g 1 024 2024 Active albuterol (2.5 MG/3ML) 0.083% nebulizer solutionIndicat ions:Influenza- like symptoms Take 3 mL (2.5 mg) by nebulization every 6 (six) hours if needed for wheezing or shortness of breath. 75 mL 1 024 2024 Active Spacer/Aero-Hol ding Chambers (OptiChamber Jessica) misc 1 each every 4 (four) hours if needed (asthma). 1 each 024 Active atorvastatin (Lipitor) 40 MG tablet TAKE 1 TABLET BY MOUTH AT BEDTIME 90 tablet 1 025 Active cyanocobalamin (Vitamin B-12) 1000 MCG tabletIndicatio ns:B12 deficiency TAKE 1 TABLET BY MOUTH EVERY MORNING 90 tablet 1 025 Active montelukast (Singulair) 10 MG tabletIndicatio ns:Asthma, unspecified asthma severity, unspecified whether complicated, unspecified whether persistent TAKE 1 TABLET BY MOUTH EVERY EVENING 90 tablet 1 025 Active gabapentin (Neurontin) 400 MG capsuleIndicati ons:Other diabetic neurological complication associated with type 2 diabetes mellitus (CMS/HCC) TAKE 1 CAPSULE BY MOUTH THREE TIMES DAILY IN THE MORNING, EVENING, AND BEDTIME 90 capsule 3 025 Active Aspirin Low Dose 81 MG EC tablet TAKE 1 TABLET BY MOUTH EVERY MORNING 30 tablet 5 025 Active pantoprazole (ProtoNix) 40 MG EC tablet TAKE 1 TABLET BY MOUTH EVERY MORNING 90 tablet 1 025 Active insulin pen needle (B-D ULTRAFINE III SHORT PEN) 31G X 8 mm miscIndications :Type 2 diabetes mellitus without complication, with long-term current use of insulin ([facility]) USE DIRECTED FOUR TIMES DAILY 100 each 3 025 Active Continuous Glucose Sensor (FreeStyle Mark 2 Sensor) miscIndications :Type 2 diabetes mellitus with hyperglycemia, with long-term current use of insulin ([facility]) USE DIRECTED TO TEST BLOOD SUGAR CHANGE EVERY 14 DAYS 2 each 3 025 Active sertraline (Zoloft) 50 MG tabletIndicatio ns:Mixed anxiety and depressive disorder Take 1 tablet (50 mg) by mouth Once per day. 30 tablet 2 025 2025 Active Alcohol Swabs (Alcohol Prep) 70 % padsIndications :Type 2 diabetes mellitus with hyperglycemia, with long-term current use of insulin ([facility]) TEST BLOOD SUGAR THREE TIMES DAILY 100 each 5 025 Active Dulera 200-5 MCG/ACT inhalerIndicati ons:Asthma, unspecified asthma severity, unspecified whether complicated, unspecified whether persistent INHALE 2 PUFFS BY MOUTH TWICE DAILY IN THE MORNING AND IN THE EVENING. RINSE MOUTH AFTER USING. 13 g 2 Active sertraline (Zoloft) 100 MG tabletIndicatio ns:Mild episode of recurrent major depressive disorder (CMS/HCC) TAKE 1 TABLET BY MOUTH EVERY MORNING 30 tablet 2 Active Spacer/Aero-Hol ding Chambers ([facility]) miscIndications :Influenza-like symptoms 1 each every 4 (four) hours if needed (asthma). 1 each 2024 Discontinued(M ed list cleanup (will not trigger notification to Pharmacy)) Multiple Vitamins-Iron (Tab-A-Leeanne/Iro n/Beta Carotene) tablet Take 1 tablet by mouth in the morning. 2024 Discontinued(M ed list cleanup (will not trigger notification to Pharmacy)) aspirin 325 MG EC tablet Take 1 tablet by mouth 2 times daily. 2024 Discontinued(M ed list cleanup (will not trigger notification to Pharmacy)) celecoxib (CeleBREX) 200 MG capsule Take 1 capsule by mouth 2 times daily. 2024 Discontinued(M ed list cleanup (will not trigger notification to Pharmacy)) oxyCODONE (Roxicodone) 10 MG immediate release tablet Take 1 tablet by mouth every 4 (four) hours if needed for severe pain. 024 2024 Discontinued(M ed list cleanup (will not trigger notification to Pharmacy)) raloxifene (Evista) 60 MG tablet Take 1 tablet by mouth Once per day. 2024 Discontinued(M ed list cleanup (will not trigger notification to Pharmacy)) Nirmatrelvir&Ri tonavir 300/100 (Paxlovid, 300/100,) 20 x 150 MG & 10 x 100MG tablet therapy pack Take 300 mg by mouth 2 times daily. Take 3 tablets 2x/day for 5 days 30 each 024 2024 Discontinued(M ed list cleanup (will not trigger notification to Pharmacy)) sertraline (Zoloft) 100 MG tabletIndicatio ns:Mild episode of recurrent major depressive disorder (CMS/HCC) TAKE 1 TABLET BY MOUTH EVERY MORNING 30 tablet 2 025 2024 Discontinued Dulera 200-5 MCG/ACT inhalerIndicati ons:Asthma, unspecified asthma severity, unspecified whether complicated, unspecified whether persistent INHALE 2 PUFFS BY MOUTH TWICE DAILY IN THE MORNING AND IN THE EVENING, RINSE MOUTH AFTER USING. 13 g 2 025 2024 Discontinued Active Problems Problem Noted Date Diagnosed Date Foot pain, bilateral 06/14/2024 Urinary incontinence, mixed 06/14/2024 Assessment & Plan (06/14/2024 4:31 PM EDT): I will prescribe for patient pull-ups size milligrams and wipes I will refer patient to neurology Preop examination 08/15/2023 Assessment & Plan (08/15/2023 3:47 PM EDT): RCRI score is 0 which is a 3.9% Patient should stop aspirin 2 weeks before the procedure Patient is instructed to stop her insulin Lantus the night before the procedure and do not use Novolog the day of the procedure It is instructed to be NPO after midnight the day of the procedure It is instructed to take her blood pressure medication the day of the procedure with a small sip of water Surgery should proceed as schedule CBC/BMP and A1c ordered today EKG ordered today and is normal (NSR no ST changes) Primary osteoarthritis of both knees 04/27/2023 Assessment & Plan (04/27/2023 5:02 PM EST): I printed today's result (A1c) so that she can schedule again her procedure with orthopedics team Fatigue 03/30/2023 Assessment & Plan (03/30/2023 1:33 PM EST): Probably multifactorial, related to uncontrolled DM, and probably increased mirtazapine and fluoxetine dose Dc fluoxetine and go back to sertraline 100mg, lower mirtazapine to 7.5 and DC Buspar I will contact mental health provider (Jeovany Puente) FU w PCP, consider lowering gabapentin to BID Discussed w/ pt importance of tight control of DM and depression Mild episode of recurrent major depressive disor loreta 03/30/2023 Assessment & Plan (03/30/2023 1:34 PM EST): See fatigue Chronic left shoulder pain 01/13/2023 Colon cancer screening 01/13/2023 Esophageal dysphagia 10/20/2022 Chronic left-sided thoracic back pain 09/13/2022 Assessment & Plan (09/13/2022 9:42 AM EDT): Apply heat on affected area Patient to be contacted about XRAY results Chronic bilateral low back pain without sciatica 09/13/2022 Assessment & Plan (04/27/2023 5:04 PM EST): Heat on affected area Acetaminophen PRN Assessment & Plan (09/13/2022 9:42 AM EDT): As above Female stress incontinence 02/24/2022 Assessment & Plan (11/09/2023 3:38 PM EDT): I will prescribe for patient wipes Assessment & Plan (03/30/2023 1:34 PM EST): Pt uses pull ups and I will also prescribe whipes Personal history of malignant neoplasm of breast 02/24/2022 Renal cyst 08/17/2021 Steatosis of liver 08/17/2021 Osteopenia 04/11/2021 Sleep apnea 06/13/2014 Backache 04/09/2013 Assessment & Plan (01/13/2023 10:30 AM EDT): Apply heat on affected area Short course of nabumetone and flexeril, side effects where reviewed with patient Patient also refer to PT Vitamin B deficiency 01/09/2013 Diabetic neuropathy 08/09/2012 Mixed anxiety and depressive disorder 08/09/2012 Assessment & Plan (06/14/2024 4:31 PM EDT): Extensive counseling done today I increase her sertraline to 150 mg daily Gastroesophageal reflux disease 04/25/2012 Asthma 11/15/2011 Diabetes mellitus 11/15/2011 Assessment & Plan (06/14/2024 4:31 PM EDT): Diabetes is: almost at goal - Lab Results Component Value Date HGBA1C 7.6 (A) 06/14/2024 HGBA1C 5.9 11/09/2023 HGBA1C 6.7 (A) 08/15/2023 - Lab Results Component Value Date MICROALBUR 8.0 11/09/2023 CREATININE 0.74 10/12/2023 -Changes: Extensive counseling about diabetic diet done today, I will continue with the medication regimen - Diabetic eye exam: Patient reports she is up-to-date - Diabetic foot exam: Referral done today - Continue lifestyle modifications - Continue current medications - Follow up: 3 months Assessment & Plan (11/09/2023 3:37 PM EDT): Diabetes is: controlled - Lab Results Component Value Date HGBA1C 5.9 11/09/2023 HGBA1C 6.7 (A) 08/15/2023 HGBA1C 7.5 (A) 04/27/2023 - Lab Results Component Value Date MICROALBUR 1.2 04/01/2021 CREATININE 0.74 10/12/2023 -Changes: in light of low A1c I decided to discontinue insulin, to go down on metfformin to 850mg BID and go down on jardiance to 10mg daily - Diabetic eye exam:up to date - Diabetic foot exam:pending - Continue lifestyle modifications - Continue current medications - Follow up: 3 months Assessment & Plan (08/15/2023 3:41 PM EDT): Diabetes is: controlled - Lab Results Component Value Date HGBA1C 6.7 (A) 08/15/2023 HGBA1C 7.5 (A) 04/27/2023 HGBA1C 8.4 (H) 03/16/2023 - Lab Results Component Value Date MICROALBUR 1.2 04/01/2021 CREATININE 0.74 03/17/2023 -Changes: none - Diabetic eye exam:pending - Diabetic foot exam:pending - Continue lifestyle modifications - Continue current medications - Follow up: 3 months Assessment & Plan (04/27/2023 5:06 PM EST): - Lab Results Component Value Date HGBA1C 7.5 (A) 04/27/2023 HGBA1C 8.4 (H) 03/16/2023 HGBA1C 8.3 (A) 01/13/2023 - Lab Results Component Value Date MICROALBUR 1.2 04/01/2021 CREATININE 0.74 03/17/2023 - Diabetic eye exam:pending - Diabetic foot exam:pending - Continue lifestyle modifications - Continue current medications -CGM prescription already done is my medical opinion patient twill benefit from it in light of being on insulin (long acting and short acting) and A1c not at goal Assessment & Plan (03/30/2023 1:53 PM EST): Uncontrolled, A1c on 03/16 is 8.4. Discussed w pt regarding importance of taking at least 3 meals /day, use Humalog TID prior to these meals as prescribed by PCP. Cont Metformin, Jardiance, and Lantus 16u/d nd fu w/ PCP in 4 wks Counseled re more frequent low calorie/carb meals. Check fgstk once daily Encouraged physical activity as tolerated. Refer to DM education and nutrition, patient could use CGM To improve compliance with humalog, after she's more compliant with meals. She's aware that she can not use humalog if she's not having that specific meal. Assessment & Plan (01/13/2023 10:30 AM EDT): A1c is not at goal Lab Results Component Value Date HGBA1C 8.3 (A) 01/13/2023 HGBA1C 8.2 (A) 09/13/2022 HGBA1C 8.1 (H) 08/10/2021 - Lab Results Component Value Date MICROALBUR 1.2 04/01/2021 CREATININE 0.86 09/15/2022 - Diabetic eye exam: up to date - Diabetic foot exam: pending - Continue lifestyle modifications - I increase her lantus FS Am aea around 170, form 14U to 16U at bed time, I will also increase today her jardiance form 10mg to 25mg daily Assessment & Plan (10/20/2022 3:20 PM EDT): Lab Results Component Value Date HGBA1C 8.2 (A) 09/13/2022 HGBA1C 8.1 (H) 08/10/2021 HGBA1C 7.7 (H) 11/13/2020 - Lab Results Component Value Date MICROALBUR 1.2 04/01/2021 CREATININE 0.86 09/15/2022 - - Diabetic eye exam: up to date - Diabetic foot exam: up to date - Continue lifestyle modifications - Continue current medications Assessment & Plan (09/13/2022 9:41 AM EDT): Lab Results Component Value Date HGBA1C 8.1 (H) 08/10/2021 HGBA1C 7.7 (H) 11/13/2020 HGBA1C 7.9 (H) 11/20/2019 HGBA1C 7.9 (H) 11/20/2019 - Lab Results Component Value Date MICROALBUR 1.2 04/01/2021 - Continue lifestyle modifications - Continue current medications Dyslipidemia 11/15/2011 Glaucoma 11/15/2011 Hypertension 11/15/2011 Assessment & Plan (06/14/2024 4:30 PM EDT): Blood pressure seems to be under control continue with same intervention, she is currently off medications Assessment & Plan (11/09/2023 3:37 PM EDT): Off medications I advise low Na diet and weight reduction Assessment & Plan (04/27/2023 5:02 PM EST): Maintenance: BMP: up to date Lipid Panel: up to date ASCVD Risk: high risk on atorvastatin 40mg daily - Aerobic exercise to reduce BP. Initial goal of 30 min walk 3-5x/week. Increase as tolerated. - low-sodium diet (goal: <2g/day) and heart healthy diet such as DASH to reduce BP and prevent ASCVD. - Home BP monitoring 1-2 x day with goal of <140/90. - Seek immediate medical attention for chest pain, palpitations, SOB, syncope, or sudden changes in mental status. - Do not change or discontinue current prescriptions without first consulting health care provider Assessment & Plan (01/13/2023 10:28 AM EDT): - Aerobic exercise to reduce BP. Initial goal of 30 min walk 3-5x/week. Increase as tolerated. - low-sodium diet (goal: <2g/day) and heart healthy diet such as DASH to reduce BP and prevent ASCVD. - Home BP monitoring 1-2 x day with goal of <140/90. - Seek immediate medical attention for chest pain, palpitations, SOB, syncope, or sudden changes in mental status. - Do not change or discontinue current prescriptions without first consulting health care provider Assessment & Plan (10/20/2022 3:21 PM EDT): - Aerobic exercise to reduce BP. Initial goal of 30 min walk 3-5x/week. Increase as tolerated. - low-sodium diet (goal: <2g/day) and heart healthy diet such as DASH to reduce BP and prevent ASCVD. - Home BP monitoring 1-2 x day with goal of <140/90. - Seek immediate medical attention for chest pain, palpitations, SOB, syncope, or sudden changes in mental status. - Do not change or discontinue current prescriptions without first consulting health care provider Assessment & Plan (09/13/2022 9:40 AM EDT): Maintenance: BMP: ordered today Lipid Panel: ordered today - Aerobic exercise to reduce BP. Initial goal of 30 min walk 3-5x/week. Increase as tolerated. - low-sodium diet (goal: <2g/day) and heart healthy diet such as DASH to reduce BP and prevent ASCVD. - Home BP monitoring 1-2 x day with goal of <140/90. - Seek immediate medical attention for chest pain, palpitations, SOB, syncope, or sudden changes in mental status. - Do not change or discontinue current prescriptions without first consulting health care provider Encounters Date Type Department Care Team Description 07/13/2024 Refill [facility] [address] [place] [phone] Mariana Marroquin MD Asthma, unspecified asthma severity, unspecified whether complicated, unspecified whether persistent; Mild episode of recurrent major depressive disorder ([facility]) 06/27/2024 9:00 AM EDT Office Visit [facility] [address] [place] [phone] Radha Taylor MD Chronic bilateral low back pain without sciatica (Primary Dx); Mixed anxiety and depressive disorder 06/27/2024 Travel 06/24/2024 Telephone [facility] [address] [place] [phone] Nicole Mcpherson MD 06/18/2024 Telephone [facility] [address] [place] [phone] Devika Strickland RN CGM PA 06/18/2024 Refill [facility] [address] [place] [phone] Nicole Mcpherson MD Type 2 diabetes mellitus with hyperglycemia, with long-term current use of insulin ([facility]) 06/14/2024 3:15 PM EDT Office Visit [facility] [address] [place] [phone] Nicole Mcpherson MD Primary hypertension (Primary Dx); Type 2 diabetes mellitus with other specified complication, unspecified whether termination clerk insulin use (CMS/HCC); Foot pain, bilateral; Mixed anxiety and depressive disorder; Urinary incontinence, mixed 06/14/2024 Travel 06/12/2024 Refill [facility] [address] [place] [phone] Nicole Mcpherson MD Type 2 diabetes mellitus with hyperglycemia, with long-term current use of insulin (CMS/HCC) 06/09/2024 Refill [facility] [address] [place], [place] [phone] [facility] Type 2 diabetes mellitus without complication, with long-term current use of insulin (CMS/HCC) 06/04/2024 Patient Outreach [facility] [address] [place] [phone] Nicole Mcpherson MD Pre-visit Planning ([facility] screening completed on 04/30/2024) 05/24/2024 Refill [facility] [address], [place] [phone] Nicole Mcpherson MD 05/17/2024 Refill [facility] [address] [place] [phone] Charles Anaya MD 05/07/2024 Travel 04/30/2024 Patient Outreach [facility] [address] [place] [phone] Nicole Mcpherson MD Pre-visit Planning (SDOH screening negative and tobacco screening negative) from Last 3 Months Immunizations Name Administration Dates Next Due Influenza High-dose Quadriva lent Preservative Free 01/13/2023,11/26/2021,12/18/2020 Influenza Whole 01/17/2007 Influenza injectable quadriv alent IIV4 with preservative 12/11/2017 Influenza injectable quadriv alent preservative free 12/29/2016,02/22/2016,12/18/2014 Influenza, IIV3, injectable 01/21/2015,1 ,11/26/2010,12/10 Influenza, Split (incl. kandi fied surface antigen) 01/23/2014,12/20/2012 MMR 12/27/1994 Pfizer Covid-19 Vaccine 12+ 04/27/2023 Pneumococcal Conjugate PCV 13 03/16/2021 Pneumococcal Conjugate PCV 20 01/13/2023 Pneumococcal Polysaccharide PPSV23 08/23/2013,,07/05/2007 RSV Bivalent 04/28/2023 TD (adult), 2 Lf tetanus tox oid, preservative free, adsorbed 07/05/2007,05/18/1994 Tdap 02/22/2016 Zoster, Recombinant 11/25/2021,09/01/2021 Zoster, live 02/22/2016 Social History Tobacco Use Types Packs/Day Years Used Date Smoking Tobacco: Never Passive Smoke Exposure: Never Smokeless Tobacco: Never Tobacco Cessation:Counseling Given: Not Answered Alcohol Use Standard Drinks/Week Comments Never 0 (1 standard drink = 0.6 oz pur e alcohol) Depression Answer Date Recorded Patient Health Questionnaire-9 Score 18 06/14/2024 Patient Health Questionnaire-9 Score 18 06/14/2024 Last PHQ-9: Questionnaire Data Not on file 0 06/14/2024 Housing Stability Answer Date Recorded What is your housing situation today? I have sintia kristi 04/30/[address] you li ve. Do you have problems with any of the following? None of the above 04/30/2024 Food Insecurity Answer Date Recorded Within the [...] Answer Date Recorded Patient Health Questionnaire-2 Score 3 06/14/2024 Internet Access Answer Date Recorded Internet Access Q1 Yes 11/19/2023 Internet Access Q2 Not on file 11/19/2023 Comments No Sex and Gender Information Value Date Recorded Sex Assigned at Female 01/17/2022 10:15 AM EDT Legal Sex Female 10:15 AM EDT Gender Identity Female 01/17/2022 10:15 AM EDT Sexual Orientation Straight 01/17/2022 10 :15 AM EDT Last Filed Vital Signs Vital Sign Reading Time Taken Comments Blood Pressure 128/70 06/27/2024 10:45 AM EDT Pulse 84 06/14/2024 3:14 PM EDT Temperature 36.2 ??C (97.1 ??F) 06/14/2024 3:14 PM ED T Respiratory Rate 19 06/14/2024 3:14 PM EDT Oxygen Saturation 98% 06/14/2024 3:14 PM EDT Inhaled Oxygen Concentration - - Weight 72.1 kg (159 lb) 06/14/2024 3:14 PM EDT Height 167.6 cm (5' 6 ) 06/14/2024 3:14 PM EDT Body Mass Index 25.66 06/14/2024 3:14 PM EDT Plan of Treatment Upcoming Encounters Date Type Department Care Team (Late st Contact Info) Description 07/29/2024 11:00 AM EDT Medication Management [facility] [address] [place] [phone] 09/12/2024 2:30 PM EDT Office Visit [facility] [address] [place] [phone] Nicole Mcpherson MD [address] [place] [phone] Health Maintenance Due Date Last Done Comments CT Colonography 1953 Colonoscopy 1953 Colorectal Cancer Screening 1953 FIT DNA/Cologuard 1953 FIT 1953 FOBT 1953 Sigmoidoscopy 1953 Diabetes: Foot Exam 1963 Eye Exam 1963 Alcohol/Substance Use Screening 1965 Hepatitis A Vaccines (1 of 2 - Risk 2-dose series) 01/07/1972 Hepatitis B Vaccines (1 of 3 - Risk 3-dose series) 2013 COVID-19 Vaccine ( season) 2023 04/27/2023, 07/08/2021, 02/03/2021, Additional history exists Influenza Vaccine (#1) 2023 , 11/26/2021, 12/18/2020, Additional history exists Diabetes: Hemoglobin A1C 09/14/2024 025, 11/09/2023, 08/15/2023, Additional history exists Diabetes: Urine Protein Screening 11/08/2024 11/09/2023, 04/01/2021, 11/20/2019 Lipid Panel 11/08/2024 11/09/2023, 0611/2022, 08/10/2021, Additional history exists SDOH Screening 04/30/2025 04/30/2024 Depression Screening 06/14/2025 06/14/2024, 06/15/19 Tobacco Screening 06/14/2025 06/14/2024 Mammogram 08/21/2025 08/22/2023, 04/08/2021 DTaP/Tdap/Td Vaccines (2 - Td or Tdap) 02/21/2026 02/22/2016, 07/05/2007, 05/18/1994 Hepatitis C Screening Completed 08/10/2021, 022 Zoster Vaccines Completed 11/25/2021, 08/18, 02/22/2016 Pneumococcal Vaccine: 50+ Years Completed 01/13/2023, 03/16/2021, 08/23/2013, Additional history exists RSV Patients and Patients Aged 60 years or older Completed 04/28/2023 HIB Vaccines Aged Out No longer eligi ble based on patient's age to complete this topic HPV Vaccines Aged Out No longer eligi ble based on patient's age to complete this topic IPV Vaccines Aged Out No longer eligi ble based on patient's age to complete this topic Meningococcal Vaccine Aged Out No marie bc eligible based on patient's age to complete this topic RSV under 20 months Aged Out No longe r eligible based on patient's age to complete this topic Rotavirus Vaccines Aged Out No longer eligible based on patient's age to complete this topic Procedures Procedure Name Priority Date/Time Associated Diagnosis Comments POCT GLYCATED HEMOGLOBIN, TOTAL Routine 06/14/2024 3:19 PM EDT Type 2 diabetes mellitus with other specified complication, unspecified whether chcf insulin use (CMS/HCC) POCT GLUCOSE Routine 06/14/2024 3:19 PM EDT Type 2 diabetes mellitus with other specified complication, unspecified whether chcf insulin use (CMS/HCC) ALBUMIN, RANDOM URINE W/CREATININE Routine 11/09/2023 4:24 PM EDT Type 2 diabetes mellitus with hyperglycemia, with long-term current use of insulin (CMS/HCC) LIPID PANEL WITH REFLEX TO DIRECT LDL Routine 11/09/2023 3:32 PM EDT Type 2 diabetes mellitus with hyperglycemia, with long-term current use of insulin (CMS/HCC) HM MAMMOGRAPHY Routine 08/22/2023 ZZZ HISTORICAL HEPATITIS C AB W/REFL TO HCV RNA, QN, PCR Routine 08/10/2021 3:07 PM EDT from Last 3 Months or Most Recently Relevant to Health Maintenance Results * (ABNORMAL) POCT HGB A1C (06/14/2024 3:19 PM EDT) Hemoglobin A1C 7.6(A) 4.0 - 6.0 % QC Media Lot # [id number] Lot# Expiration Date Blood 06/14/2024 3:19 PM EDT Nicole Stevenson MD POINT OF CARE TEST EN TER/EDIT ORDERABLES Final Result * (ABNORMAL) POCT Glucose (06/14/2024 3:19 PM EDT) Glucose Blood, POC 251(A) 60 - 200 mg/dL QC Media Lot # [id number] Lot# Expiration Date Blood Capillary blood specimen / Unknown 06/14/2024 3:19 PM EDT Nicole Stevenson MD POINT OF CARE TEST EN TER/EDIT ORDERABLES Final Result * Albumin, Random Urine W/Creatinine (11/09/2023 4:24 PM EDT) Creatinine, Urine 52.04 mg/dL [facility] Microalbumin Urine 8.0 mg/L [facility] Microalbum Creatinine Ratio Ur 15.3 <30 ug/mg cr [facility] Comment:Albumin/Creatinine R atio Reference Ranges: Normal: < 30 ug/mg creatinine Microalbuminuria: 30 - 300 ug/mg creatinineClinical Albuminuria: > 300 ug/mg creatinine Urine (Urine, Random) 11/09/2023 4:24 PM EDT 11/09/2023 5:32 PM EDT Result Ann Marie Stevenson MD LAB URINE ORDERABLES Final Result [facility] [address] [place] [phone] * (ABNORMAL) Lipid Panel with Reflex to Direct LDL (11/09/2023 3:32 PM EDT) Triglycerides 229(H) <150 mg/dL [facility] Comment:Desirable Triglyceri de: less than 150 mg/dLBorderline High Triglyceride 150-199 mg/dLHigh Triglyceride: 200-499 mg/dLVery High Triglyceride: greater than or equal to 5OO mg/dL Cholesterol 138 <200 mg/dL [facility] Comment:Desirable Cholestero l: less than 200 mg/dLBorderline High Cholesterol: 200-239 mg/dLHigh Cholesterol: greater than 239 mg/dL LDL Cholesterol Calculated 59 <100 mg/dL [facility] Comment:Desirable LDL: less than 100 mg/dLNear Optimal/Above Optimal LDL: 110- 129 mg/dLBorderline High LDL: 130-159 mg/dLHigh LDL: 160-189 mg/dLVery High LDL: greater than or equal to 190 mg/dL HDL Cholesterol 34(L) >40 mg/dL [facility] Comment:Desirable HDL: great er than 40 mg/dL Note: This HDL assay may give artificially low results in patients with liver disease. Blood 11/09/2023 3:32 PM EDT 11/09/2023 4:01 PM EDT us Nicole Stevenson MD LAB BLOOD ORDERABLES Final Result [facility] [address] [place] [phone] * Mammography (08/22/2023) Pathologist [facility] Mammogram BIRADS 1 Normal, Abnormal, BIRADS 1 , BIRADS 2 Anatomical Region Laterality Modality Other Historical Provider HEALTH MAINTENANCE Final Result * HEPATITIS C AB W/REFL TO HCV RNA, QN, PCR (08/10/2021 3:07 PM EDT) Pathologist [facility] HEPATITIS C ANTIBODY NON-REACT SAMANTHA NON-REACT SAMANTHA [facility] INDEX 0.03 <1.00 [facility] Comment: ?? HCV antibody was non-reactive. There is no laboratory ?? evidence of HCV infection. ?? In most cases, no further action is required. However, if recent HCV exposure is suspected, a test for HCV RNA (test code 01089) is suggested. ?? For additional information please refer to http://education.[employer]/faq/GML58t4 (This link is being provided for informational/ educational purposes only.) ?? 08/10/2021 3:07 PM EDT us Adrianne Durham BULL DRIVER HISTORICAL/NON ORDERABLE LABS Final Result [facility] [address] from Last 3 Months or Most Recently Relevant to Health Maintenance Insurance STANDARD [facility] MCC OPTIONS (O D-SNP) [facility] MCC OPTIONS (O D-SNP) Care Teams Maintenance Director Relationship Specialty Start Date End Date Nicole Mcpherson MD [address] [place] [phone] PCP - General Family Medicine 11/11/21
--- OUTSIDE RECORDS SUMMARY | 2024-07-24 12:09 | XMS_ITS | Encounter Summary ---
Author Organization [employer] Address [address] [facility] 7t [place] [address] Care Team Providers Care Deputy Harbormaster Name Role Phone Nicole Mcpherson MD Primary Care Provide r Encounter Details Date Type Department Care Team (Late Contact Info) Description 05/26/2022 Orders Only [facility] CHC MED & PEDS [address] [place] [address] America Gracia LPN Social History Tobacco Use Types Packs/Day Years Used Date Smoking Tobacco: Never Smokeless Tobacco: Never Alcohol Use Standard Drinks/Week Comments Never 0 (1 standard drink = 0.6 oz pur e alcohol) Comments Unknown Sex and Gender Information Value Date Recorded Sex Assigned at Female 01/17/2022 10:15 AM EDT Legal Sex Female 10:15 AM EDT Gender Identity Female 01/17/2022 10:15 AM EDT Sexual Orientation Straight 01/17/2022 10 :15 AM EDT documented as of this encounter Plan of Treatment Upcoming Encounters Date Type Department Care Team (Late Contact Info) Description 07/29/2024 11:00 AM EDT Medication Management [facility] MEDICINE [address] [place] [address] [phone] 09/12/2024 2:30 PM EDT Office Visit [facility] [address] [place] [address] [phone] Nicole Mcpherson MD [address] [place] [address] [phone] documented as of this encounter Visit Diagnoses Not on filedocumented in this encounter Care Teams Deputy Harbormaster Relationship Specialty Start Date End Date Nicole Mcpherson MD [address] [place] [phone] PCP - General Family Medicine 11/11/21 documented as of this encounter
--- OUTSIDE RECORDS SUMMARY | 2024-07-24 12:09 | XMS_ITS | Encounter Summary ---
Author Organization [employer] Address [address] [facility] [address] 7t [place] [address] Care Team Providers Care Academic Affairs Manager Name Role Phone Nicole Mcpherson MD Primary Care Provide r Encounter Details Date Type Department Care Team ([facility] st Contact Info) Description 03/19/2024 Orders Only [facility] WALK-IN [facility]ENTER [address] [place] [address] [phone] Charles Anaya MD [address] [place] [phone] Social History Tobacco Use Types Packs/Day Years Used Date Smoking Tobacco: Never Passive Smoke Exposure: Never Smokeless Tobacco: Never Alcohol Use Standard Drinks/Week Comments Never 0 (1 standard drink = 0.6 oz pur e alcohol) Depression Answer Date Recorded Patient Health Questionnaire-9 Score 11 09/13/2022 Housing Stability Answer Date Recorded What is your housing situation today? I have sintia berry 10/24/[address] you [...] Recorded Patient Health Questionnaire-2 Score 4 09/13/2022 Internet Access Answer Date Recorded Internet Access Q1 Yes 11/19/2023 Internet Access Q2 Not on file 11/19/2023 Comments Unknown Sex and Gender Information Value [...] Description 07/29/2024 11:00 AM EDT Medication Management [address] [address] 09/12/2024 2:30 PM EDT Office Visit [address] [address] Nicole Mcpherson MD [address] [place] [phone] documented as of this encounter Visit Diagnoses Not on filedocumented in this encounter Additional Health Concerns Assessment Noted Time PHQ-9 Depression Total Score: 11 023 9:15 AM EDT documented as of this encounter Care Teams Academic Affairs Manager Relationship Specialty Start Date End Date Nicole Mcpherson MD [address] [place] [phone] PCP - General Family Medicine 11/11/21 documented as of this encounter
--- OUTSIDE RECORDS SUMMARY | 2024-07-24 12:09 | XMS_ITS | Encounter Summary ---
Author Organization [employer] Address 75 [facility] 7t [place] [address] Care Team Providers Care Center Administrator Name Role Phone Nicole Mcpherson MD Primary Care Provide r Encounter Details Date Type Department Care Team (Late Contact Info) Description 11/22/2022 Orders Only [facility] CHC MED & PEDS [address] [place], [place] [phone] America Gracia LPN Social History Tobacco Use [...] Description 07/29/2024 11:00 AM EDT Medication Management [facility] MEDICINE [address] [place] [address] [phone] 09/12/2024 2:30 PM EDT Office Visit [facility] [address] [place] [address] [phone] Nicole Mcpherson MD [address] [place] [address] [phone] documented as of this encounter Visit Diagnoses Not on filedocumented in this encounter Additional Health Concerns Assessment Noted Time PHQ-9 Depression Total Score: 11 023 9:15 AM EDT documented as of this encounter Care Teams Center Administrator Relationship Specialty Start Date End Date Nicole Mcpherson MD [address] [place] [phone] PCP - General Family Medicine 11/11/21 documented as of this encounter
--- OUTSIDE RECORDS SUMMARY | 2024-07-24 12:09 | XMS_ITS | Encounter Summary ---
Author Organization [employer] Address [address] [facility] 7t [place] [address] Care Team Providers Care Roundsman Name Role Phone Nicole Mcpherson MD Primary Care Provide r Reason for Visit * Reason Comments Med Refill Encounter Details Date Type Department Care Team ([facility] Contact Info) Description 11/20/2022 Refill [facility] MED[facility] [address] [place] [address] [phone] Parul Leonardo MD [address] [place] [address] [phone] Type 2 diabetes mellitus with other specified complication, unspecified whether assisted insulin use ([facility]) Social History Tobacco Use Types Packs/Day Years [...] Upcoming Encounters Date Type Department Care Team ([facility] Contact Info) Description 07/29/2024 11:00 AM EDT Medication Management [facility] [address] [place] [address] [phone] 09/12/2024 2:30 PM EDT Office Visit [facility] [address] [place] [address] Nicole Mcpherson MD [address] [place] [address] documented as of this encounter Visit Diagnoses Diagnosis Type 2 diabetes mellitus with other specified complication, unspecified whether buttermaker continuous churn insulin use ([facility]) documented in this encounter Additional Health Concerns Assessment Noted Time PHQ-9 Depression Total Score: 11 023 9:15 AM EDT documented as of this encounter Care Teams Roundsman Relationship Specialty Start Date End Date Nicole Mcpherson MD [address] [place] [phone] PCP - General Family Medicine 11/11/21 documented as of this encounter
--- OUTSIDE RECORDS SUMMARY | 2024-07-24 12:09 | XMS_ITS | Encounter Summary ---
Author Organization [employer] Address [address] [facility] [address] 7[address] [place] [address] Care Team Providers Care Forensic Photographer Name Role Phone Nicole Mcpherson MD Primary Care Provide r Reason for Visit * Reason Comments Med Refill Encounter Details Date Type Department Care Team ([facility] st Contact Info) Description 06/11/2023 Refill [facility] [address] [place], [place] [phone] Nicole Mcpherson MD [address] [place], [place] [phone] Chronic right-sided thoracic back pain; Chronic bilateral low back pain without sciatica Social History Tobacco Use Types Packs/Day Years [...] Description 07/29/2024 11:00 AM EDT Medication Management [address] [phone] 09/12/2024 2:30 PM EDT Office Visit [address] [address] Nicole Mcpherson MD [address] [place] [phone] documented as of this encounter Visit Diagnoses Diagnosis Chronic right-sided thoracic back pain Chronic bilateral low back pain without sciatica documented in this encounter Additional Health Concerns Assessment Noted Time PHQ-9 Depression Total Score: 11 023 9:15 AM EDT documented as of this encounter Care Teams Forensic Photographer Relationship Specialty Start Date End Date Nicole Mcpherson MD [address] [place] [phone] PCP - General Family Medicine 11/11/21 documented as of this encounter
--- OUTSIDE RECORDS SUMMARY | 2024-07-24 12:09 | XMS_ITS | Encounter Summary ---
Author Organization [employer] Address [address] [facility] [address] 7[address] [place] [address] Care Team Providers Care Stuffed Casing Tier Name Role Phone Nicole Mcpherson MD Primary Care Provide r Encounter Details Date Type Department Care Team ([facility] st Contact Info) Description 05/03/2023 Abstract [facility] [address] [place], [place] [phone] Nicole Mcpherson MD [address] [place], [place] [phone] Social History Tobacco Use Types Packs/Day Years Used Date Smoking Tobacco: Never Smokeless Tobacco: Never Alcohol Use Standard Drinks/Week Comments Never 0 (1 standard drink = 0.6 oz pur e alcohol) Depression Answer Date Recorded Patient Health Questionnaire-9 Score 11 09/13/2022 Housing Stability Answer Date Recorded What is your housing situation today? I have sintiabear berry 01/13/[address] you [...] the past 12 months, has t he [employer], oil or water company threatened to shut [...] Description 07/29/2024 11:00 AM EDT Medication Management [address] [address] 09/12/2024 2:30 PM EDT Office Visit [facility] [address] [place] [phone] Nicole Mcpherson MD [address] [place] [phone] documented as of this encounter Visit Diagnoses Not on filedocumented in this encounter Additional Health Concerns Assessment Noted Time PHQ-9 Depression Total Score: 11 023 9:15 AM EDT documented as of this encounter Care Teams Stuffed Casing Tier Relationship Specialty Start Date End Date Nicole Mcpherson MD [address] [place] [phone] PCP - General Family Medicine 11/11/21 documented as of this encounter
--- OUTSIDE RECORDS SUMMARY | 2024-07-24 12:09 | XMS_ITS | Encounter Summary ---
Author Organization [employer] Address [address] [facility] [address] 7t [place] [address] Care Team Providers Care Accounts Payable Clerk Name Role Phone Nicole Mcpherson MD Primary Care Provide r Encounter Details Date Type Department Care Team ([facility] st Contact Info) Description 01/16/2023 Orders Only [facility] CHC MED & PEDS [address] [place] [address] America Gracia LPN Social History Tobacco Use [...] Description 07/29/2024 11:00 AM EDT Medication Management [facility] [address] [place] [phone] 09/12/2024 2:30 PM EDT Office Visit [address] [address] Nicole Mcpherson MD [address] [place] [phone] documented as of this encounter Visit Diagnoses Not on filedocumented in this encounter Additional Health Concerns Assessment Noted Time PHQ-9 Depression Total Score: 11 023 9:15 AM EDT documented as of this encounter Care Teams Accounts Payable Clerk Relationship Specialty Start Date End Date Nicole Mcpherson MD [address] [place] [phone] PCP - General Family Medicine 11/11/21 documented as of this encounter
== END 2024-07-23 10:50 | disposition home or self-care (01) ==
LOC: HO.HOSX 10:49
PROVIDERS: Visit Provider Orthopaedic Surgery
DX: M25.561 Pain in right knee (principal)
CPT/HCPCS: 73562; 99212

== ENCOUNTER 2024-08-26 08:30 | Outpatient (AMB) | payer OTHER, SELFPAY ==
--- OUTSIDE RECORDS SUMMARY | 2024-08-26 08:38 | XMS_ITS | Encounter Summary ---
Author Organization [employer] Address [address] [facility] [address] 7t [place] [address] Care Team Providers Care Filament Welder Name Role Phone Nicole Mcpherson MD Primary Care Provide r Encounter Details Date Type Department Care Team ([facility] st Contact Info) Description 05/03/2023 Abstract [facility] MED[facility]INE [address] [place], [place] [phone] Nicole Mcpherson MD [address] [place], [place] [phone] Social History Tobacco Use Types Packs/Day Years [...] t he electric, gas, oil or water [employer] threatened to shut off services in your [...] Care Team (Late st Contact Info) Description 09/12/2024 2:30 PM EDT Office Visit [facility] [address] [place] [phone] Nicole Mcpherson MD [address] [place] [phone] documented as of this encounter Visit Diagnoses Not on filedocumented in this encounter Additional Health Concerns Assessment Noted Time PHQ-9 Depression Total Score: 11 023 9:15 AM EDT documented as of this encounter Care Teams Filament Welder Relationship Specialty Start Date End Date Nicole Mcpherson MD [address] [place] [phone] PCP - General Family Medicine 11/11/21 documented as of this encounter
--- NOTE | 2024-08-26 09:01 | A.OFFVIS_ITS ---
Intake Visit Reasons: rinary incontinence Intake Note: New patient presents today for initial visit for urinary incontinence Urology Medication:Vitamin B12 Blood Thinner:Aspirin Antibiotic Allergies:None PVR:16ml Residential Door Unit Installer Required: Yes Residential Door Unit Installer Services: Residential Door Unit Installer Present Allergies theophylline Allergy (Intermediate, Verified 08/26/24 09:04) Facial Swelling, itching, nausea Medication List - Last Reconciled 08/26/24 by Dawit Freedman MD acetaminophen 650 mg (2 x 325 mg) PO Q6H PRN 30 days aspirin 325 mg PO BID 30 days atorvastatin 40 mg PO BEDTIME carvedilol 12.5 mg PO BID cyanocobalamin (vitamin B-12) (Vitamin B-12) 1,000 mcg PO DAILY empagliflozin (Jardiance) 25 mg PO DAILY famotidine 40 mg PO BEDTIME ferrous sulfate 325 mg PO Q48H gabapentin 400 mg PO TID metformin 1,000 mg PO BIDWM mirabegron ER (Myrbetriq) 25 mg PO DAILY montelukast 10 mg PO BEDTIME nfsmbzzzlayh-zxcs-dqyof acid 18-400 mg-mcg (Tab-A-Leeanne Multivitamin w-iron) 1 tab PO DAILY pantoprazole 40 mg PO DAILY@0630 walker Folding front wheeled walker HPI Comments Details: 08/26/24-- History of Present Illness - The patient is a 69-year-old female presenting with urinary incontinence. The patient's daughter is present and interprets for her. - Incontinence occurs during sleep and amid urgency during daytime, necessitating the use of protective pull-ups. - There is a history of pelvic organ prolapse (cystocele) with an awareness of the bladder's descent, occasionally requiring manual repositioning. - Prior recommendations by previous Urologist included pessary placement, though this has not been pursued. - Denies hematuria or other urinary tract symptoms indicative of infection. Discussion Notes During the visit, discussion included the diagnosis and evaluation of urinary incontinence. Further diagnostic imaging via ultrasound were discussed, to assess the status of the kidneys and bladder. The patient was educated on the possibility of using a low-dose medication, Mirabegron (25 mg), to alleviate urge symptoms, with instructions to consult the office should there be issues with insurance coverage for the prescription. Follow up office cystoscopy with pelvic exam. [facility] Medical History Primary osteoarthritis of right knee Hx of breast cancer Back pain YAEL on CPAP Vitamin B deficiency Steatosis of liver Osteopenia Mixed anxiety and depressive disorder HTN (hypertension) GERD (gastroesophageal reflux disease) Stress incontinence in female Dyslipidemia Renal cyst Asthma Osteoarthritis Anxiety Acute depression Diabetes Surgical History Hx of tubal ligation Hx of breast surgery Hx of colonoscopy Social History Household Members: Family Household Members Other:: daughter, son, and brother Housing: Apartment Are you a primary managed care provider to a significant other at home: No Do you presently have visiting nurse or other home services: Yes Patient Tobacco Use Status: Never used Tobacco service: No Current occupational status: disabled 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 Review of Systems Const All systems reviewed & are unremarkable except as noted in HPI and below Reports no additional complaints Eyes Reports no additional complaints ENT Reports no additional complaints Card Reports no additional complaints Resp Reports no additional complaints GI Reports no additional complaints Reports as per HPI Musc Reports no additional complaints Skin/Breast Reports system reviewed and no additional complaints, except as documented Neuro Reports no additional complaints Psych Reports no additional complaints Endo Reports no additional complaints Hank/Lymph Reports no additional complaints Aller/Immun Reports no additional complaints Results AMB Urinalysis, Automated UA Leukoctes 0 Homer/uL Last Edit by Heather Vargas on 08/26/24 14:35 UA Nitrite Positive Last Edit by Heather Vargas on 08/26/24 14:35 UA Urobilinogen 17 mg/dL Last Edit by Heather Vargas on 08/26/24 14:35 UA Protein 1 mg/dL Last Edit by Heather Vargas on 08/26/24 14:35 UA pH 6.0 Last Edit by Heather Vargas on 08/26/24 14:35 UA Blood 0 Tobi/uL Last Edit by Heather Vargas on 08/26/24 14:35 UA Specific [place] 1.010 Last Edit by Heather Vargas on 08/26/24 14:35 UA Ketone Negative Last Edit by Heather Vargas on 08/26/24 14:35 UA Bilirubin 0 mg/dL Last Edit by Heather Vargas on 08/26/24 14:35 UA Glucose 60 mg/dL Last Edit by Heather Vargas on 08/26/24 14:35 Assessment & Plan Assessment & Plan (1) Urge incontinence of urine: Code(s): N39.41 - Urge incontinence Category: Medical (2) Vaginal prolapse: Code(s): N81.10 - Cystocele, unspecified Category: Medical (3) Diabetes: Code(s): E11.9 - Type 2 diabetes mellitus without complications Category: Medical Plan Plan - Start Mirabegron 25 mg; call office to address concerns with insurance if encountered. - Schedule renal and bladder ultrasound; attend with a full bladder. - Plan cystoscopy and pelvic exam on follow-up visit. Orders: Orders AMB Urinalysis Automated Today E11.9 - Type 2 diabetes mellitus without complications, N39.41 - Urge incontinence, N81.10 - Cystocele, unspecified Urine Culture Today N39.0 - Urinary tract infection, site not specified AMB Post Void Residual by ultrasound Today E11.9 - Type 2 diabetes mellitus without complications, N39.41 - Urge incontinence, N81.10 - Cystocele, unspecified Medications: New mirabegron ER (Myrbetriq) 25 mg PO DAILY 30 tabs 2RF nitrofurantoin monohyd/m-cryst 100 mg (Macrobid) must administer with a meal/food 100 mg PO BID 14 caps 0RF 7 days Patient Instructions: The patient had an opportunity to ask questions regarding treatment plan. The patient expressed understanding and agreement with the above treatment plan. The patient is aware they should contact our office by phone for worsening of their current condition or the appearance of new symptoms. Compliance is encouraged with any medications and followup testing that is ordered. It is a privilege to be allowed the opportunity to participate in the urologic care of your patient. If you have any questions or concerns regarding treatment for the above conditions please do not hesitate to contact me. The office telephone contact is [phone]. This note is constructed in part using voice recognition software. While every effort has been made to ensure accuracy labor relations teacher errors may have been included. Yours sincerely, Dawit Freedman MD Scribe Plan - Not visible on output: Patient was informed and verbally consented to the use of an ambient scribe for clinic note documentation during this visit. Coding Level of Care Code New Pt Level 4 (59008) Diagnoses Urge incontinence of urine N39.41 Vaginal prolapse N81.10 Diabetes E11.9
== END 2024-08-26 09:59 | disposition home or self-care (01) ==
LOC: HO.HUSH 08:31
PROVIDERS: PCP Internal Medicine; Visit Provider Urology
DX: E11.9 Type 2 diabetes mellitus without complications (principal); N39.41 Urge incontinence; N81.10 Cystocele, unspecified

== ENCOUNTER 2024-08-26 08:30 | Outpatient (REF) | payer OTHER, SELFPAY | END 2024-08-26 08:31 | disposition home or self-care (01) | LOC: HO.LAB 08:30 | PROVIDERS: PCP Internal Medicine; Visit Provider Urology | DX: N39.0 Urinary tract infection, site not specified (principal); N39.41 Urge incontinence; E11.9 Type 2 diabetes mellitus without complications; N81.10 Cystocele, unspecified | CPT/HCPCS: 81003; 87086; 87088; 87186; 99202 ==

== ENCOUNTER 2024-10-01 08:15 | Outpatient (REF) | payer OTHER, SELFPAY ==
--- NOTE | ~2024-10-01 | US_ITS ---
EXAMINATION: US KIDNEY BILATERAL HISTORY: N39.41 - Urge incontinence TECHNIQUE: Real-time grayscale ultrasound imaging of the kidneys was performed and images were reviewed. COMPARISON: Comparison is made to an abdominal ultrasound dated 08/12/2021. FINDINGS: Right kidney: The right kidney measures 10.0 x 5.8 x 4.6 cm. Renal parenchymal echotexture and thickness are normal. There is a 1.5 x 1.6 x 1.2 cm upper pole cyst and a 0.6 x 0.4 x 0.7 cm lower pole cyst. There is no hydronephrosis or renal calculi. Left Kidney: The left kidney measures 10.5 x 5.2 x 5.5 cm. Renal parenchymal echotexture and thickness are normal. There is a 1.2 x 0.9 x 0.9 cm upper pole cyst. There is no hydronephrosis or renal calculi. US/US renal BI IMPRESSION: Bilateral renal cysts as described. Otherwise unremarkable renal ultrasound. Electronically signed by: Tomi Tavera MD 10/02/2024 07:01 AM EDT
--- OUTSIDE RECORDS SUMMARY | 2024-10-01 08:25 | XMS_ITS | Encounter Summary ---
Author Organization [email or web address] Address [address] [place] [address] Care Team Providers Care Metal Moulder'S Assistant Name Role Phone Nicole Mcpherson MD Primary Care Provide r Encounter Details Date Type Department Care Team ([facility] st Contact Info) Description 05/03/2023 Abstract [facility] MEDICINE [address] [place], [place] [phone] Nicole Mcpherson MD [address] [place], [place] [phone] Social History Tobacco Use Types Packs/Day Years [...] t he electric, gas, oil or water [employer] threatened to shut off services in your [...] as of this encounter Plan of Treatment Not on file documented as of this encounter Visit Diagnoses Not on filedocumented in this encounter Additional Health Concerns Assessment Noted Time PHQ-9 Depression Total Score: 11 023 9:15 AM EDT documented as of this encounter Care Teams Metal Moulder'S Assistant Relationship Specialty Start Date End Date Nicole Mcpherson MD [address] [place] [address] PCP - General Family Medicine 11/11/21 documented as of this encounter
[2024-10-01 11:59] LABS: Alanine Aminotransferase 23 U/L (0-31); Albumin Level 4.1 g/dL (3.5-5.0); Alkaline Phosphatase 126 U/L (39-117); Anion Gap 13 (12-20); Aspartate Amino Transferase 28 U/L (5-31); Blood Urea Nitrogen 12 mg/dL (9-16); Calcium 9.3 mg/dL (8.4-10.2); Carbon Dioxide 29 mmol/L (22-29); Chloride 106 mmol/L (96-108); Cholesterol 140 mg/dL (<200); Estimated Glomerular Filt Rate > 60; HDL Cholesterol 39 mg/dL (>40); Potassium 4.5 mmol/L (3.3-5.1); Sodium 143 mmol/L (135-145); Total Protein 7.0 g/dL (6.5-8.0); Triglycerides 116 mg/dL (<150)
[2024-10-01 12:18] LABS: Microalbum/Creatinine Ratio Ur 13.2 ug/mg cr (<30)
[2024-10-01 12:26] LABS: Vitamin B12 1133 pg/mL (200-900)
== END 2024-10-01 08:16 | disposition home or self-care (01) ==
LOC: HO.US 08:15
PROVIDERS: PCP Internal Medicine; Referring Provider Internal Medicine; Visit Provider Urology
DX: E11.69 Type 2 diabetes mellitus with other specified complication (principal); N39.41 Urge incontinence
CPT/HCPCS: 36415; 76775; 80053; 80061; 82043; 82570; 82607

== ENCOUNTER → 2024-10-01 16:25 | Outpatient (BNV) | payer OTHER, SELFPAY | PROVIDERS: PCP Internal Medicine; Referring Provider Internal Medicine; Visit Provider Radiology Diagnostic Radiology | DX: N28.1 Cyst of kidney, acquired (principal) | CPT/HCPCS: 76775 ==

== ENCOUNTER 2024-10-16 13:01 | Outpatient (AMB) | payer OTHER, SELFPAY ==
--- OUTSIDE RECORDS SUMMARY | 2024-10-16 13:37 | XMS_ITS | Encounter Summary ---
Author Organization [employer] Address [address] [place] [address] Care Team Providers Care Mine Car Repairer Name Role Phone Nicole Mcpherson MD Primary Care Provide r Encounter Details Date Type Department Care Team ([facility] st Contact Info) Description 05/03/2023 Abstract [facility] MEDICINE [address] [place], [place] [phone] Nicole Mcpherson MD [address] [place], [place] [phone] Social History Tobacco Use Types Packs/Day Years [...] t he electric, gas, oil or water [email or web address] threatened to shut off services in your [...] documented as of this encounter Care Teams Mine Car Repairer Relationship Specialty Start Date End Date Nicole Mcpherson MD [address] [place] [address] PCP - General Family Medicine 11/11/21 documented as of this encounter
--- NOTE | 2024-10-16 13:40 | MHC.OFFVIS ---
Intake Visit Reasons: cysto/US Intake Note: Patient presents today for cysto/US Renal US 10/01 Urology Medication:Vitamin B12 Blood Thinner:Aspirin Antibiotic Allergies:None Lot #: [id number] Exp: 03/24/27 Posting Clerk Required: Yes Posting Clerk Services: Posting Clerk Present Allergies doxycycline Allergy (Severe, Verified 11/12/24 12:59) Itching theophylline Allergy (Intermediate, Verified 11/12/24 12:58) Facial Swelling, itching, nausea Medication List - Last Reconciled 10/16/24 by Dawit Freedman MD acetaminophen 650 mg (2 x 325 mg) PO Q6H PRN 30 days aspirin 325 mg PO BID 30 days atorvastatin 40 mg PO BEDTIME carvedilol 12.5 mg PO BID Held on 10/05/23. Instructions: don't take coreg until follow up with PC cyanocobalamin (vitamin B-12) (Vitamin B-12) 1,000 mcg PO DAILY empagliflozin (Jardiance) 25 mg PO DAILY famotidine 40 mg PO BEDTIME ferrous sulfate 325 mg PO Q48H gabapentin 400 mg PO TID metformin 1,000 mg PO BIDWM mirabegron ER (Myrbetriq) 25 mg PO DAILY montelukast 10 mg PO BEDTIME vkcvjcountga-hocc-eywcm acid 18-400 mg-mcg (Tab-A-Leeanne Multivitamin w-iron) 1 tab PO DAILY nitrofurantoin monohyd/m-cryst 100 mg (Macrobid) 100 mg PO BID 7 days pantoprazole 40 mg PO DAILY@0630 walker Folding front wheeled walker [facility] Comments Details: 10/16/24--Here for office cystoscopy Cystoscopy findings: mild bladder walling thickening, no suspicious bladder lesions visualized History of Present Illness - The patient is a 69-year-old female presenting with urinary incontinence. - The urinary incontinence was initially evaluated on 08/26/24. - A renal ultrasound was performed on 10/01/24, revealing small bilateral renal cysts but was otherwise within normal limits. - The patient reports that the Myrbetric medication has not been effective in managing her symptoms. - The incontinence occurs primarily when the patient is unable to reach the bathroom in time, and is exacerbated by actions such as coughing or sneezing. - There is no history of prior surgeries, including hysterectomy, and no history of breast cancer. Results - Renal ultrasound on 10/01/24: Small bilateral renal cysts, otherwise within normal limits Plan - Increase the dose of Myrbetric to 50 mg in the morning. - Prescribe an estrogen cream for vaginal application due to thin tissues. - vesicare 5 mg medication at bedtime. - Schedule a follow-up appointment in 10 weeks to assess the effectiveness of the treatment plan. 08/26/24-- History of Present Illness - The patient is a 69-year-old female presenting with urinary incontinence. The patient's daughter is present and interprets for her. - Incontinence occurs during sleep and amid urgency during daytime, necessitating the use of protective pull-ups. - There is a history of pelvic organ prolapse (cystocele) with an awareness of the bladder's descent, occasionally requiring manual repositioning. - Prior recommendations by previous Urologist included pessary placement, though this has not been pursued. - Denies hematuria or other urinary tract symptoms indicative of infection. Discussion Notes During the visit, discussion included the diagnosis and evaluation of urinary incontinence. Further diagnostic imaging via ultrasound were discussed, to assess the status of the kidneys and bladder. The patient was educated on the possibility of using a low-dose medication, Mirabegron (25 mg), to alleviate urge symptoms, with instructions to consult the office should there be issues with insurance coverage for the prescription. Follow up office cystoscopy with pelvic exam. [facility] Medical History Primary osteoarthritis of right knee Hx of breast cancer Back pain YAEL on CPAP Vitamin B deficiency Steatosis of liver Osteopenia Mixed anxiety and depressive disorder HTN (hypertension) GERD (gastroesophageal reflux disease) Stress incontinence in female Dyslipidemia Renal cyst Asthma Osteoarthritis Anxiety Acute depression Diabetes Surgical History Hx of tubal ligation Hx of breast surgery Hx of colonoscopy Social History Household Members: Family Household Members Other:: daughter, son, and brother Housing: Apartment Are you a primary career professional to a significant other at home: No Do you presently have visiting nurse or other home services: Yes Patient Tobacco Use Status: Never used Tobacco service: No Current occupational status: disabled 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 Review of Systems Const All systems reviewed & are unremarkable except as noted in HPI and below Reports no additional complaints Eyes Reports no additional complaints ENT Reports no additional complaints Card Reports no additional complaints Resp Reports no additional complaints GI Reports no additional complaints Reports as per HPI Musc Reports no additional complaints Skin/Breast Reports system reviewed and no additional complaints, except as documented Neuro Reports no additional complaints Psych Reports no additional complaints Endo Reports no additional complaints Hank/Lymph Reports no additional complaints Aller/Immun Reports no additional complaints Office Procedures Cystoscopy Consent Discussed risk and benefit or proposed procedure with the patient. Information consent for procedure given to the patient. Discussed technical aspects, risks, benefits and alternatives in full. Addressed all of the patient's questions and concerns regarding the procedure. The patient demonstrated knowledge and understanding. They wish to proceed with this procedure. Preparation The patient was prepped in the usual manner. A community mental health social worker was present and in the room. Genitalia was prepped with betadine solution in a sterile manner. Lidocaine Jelly 2% was placed into the urethra and 16Fr flexible Olympus cystoscope was inserted into the meatus after adequate lubrication. Procedure Time out per protocol performed. Speculum used as indicated for adequate visualization of urethra, the flexible cystoscope is passed transurethrally: The bladder was inspected in its entirety with utilization retroflexion displaying: Tumor(s): no suspicious bladder lesions visualized Trabeculation: Mild Mucosal Erthema: Orifices: normal shape and position Urethra: normal Cystoscopy findings: mild bladder walling thickening, no suspicious bladder lesions visualized [id number] DISPOSABLE SCOPE URO-G FLEXIBLE SCOPE Procedure code (CPT) selection complete Office Meds lidocaine HCl 2 % mucosal jelly in applicator Performing Provider: Dawit Freedman MD [place]forming Location[place] [facility] [place] [facility] Administered by: Firda Skelton RN on 10/16/24 14:09 Dose Route Admin Location Dispensed Lot Number Expiration Date [facility] Maintenance Supervisor 10 mL intra-urethral 20 mL ciprofloxacin HCl 500 mg tablet Performing Provider: Dawit Freedman MD Performing Location[place] [facility] [place] [facility] Administered by: Frida Skelton RN on 10/16/24 14:09 Dose Route Admin Location Dispensed Lot Number Expiration Date [facility] Maintenance Supervisor 500 mg PO 1 tab phenazopyridine 200 mg tablet Performing Provider: Dawit Freedman MD Performing Location: [facility] [place] [facility] Administered by: Frida Skelton RN on 10/16/24 14:09 Dose Route Admin Location Dispensed Lot Number Expiration Date [facility] Maintenance Supervisor 200 mg PO 1 tab Results AMB Urinalysis, Automated UA Leukoctes 0 Homer/uL Last Edit by Crystal Vargas on 10/16/24 16:37 UA Nitrite Negative Last Edit by Crystal Vargas on 10/16/24 16:37 UA Urobilinogen 3.5 mg/dL Last Edit by Crystal Vargas on 10/16/24 16:37 UA Protein 0 mg/dL Last Edit by Crystal Vargas on 10/16/24 16:37 UA pH 5.5 Last Edit by Crystal Vargas on 10/16/24 16:37 UA Blood 0 Tobi/uL Last Edit by Crystal Vargas on 10/16/24 16:37 UA Specific [place] 1.010 Last Edit by Crystal Vargas on 10/16/24 16:37 UA Ketone Negative Last Edit by Crystal Vargas on 10/16/24 16:37 UA Bilirubin 0 mg/dL Last Edit by Crystal Vargas on 10/16/24 16:37 UA Glucose 60 mg/dL Last Edit by Crystal Vargas on 10/16/24 16:37 Results Reviewed Results Reviewed: Laboratory Last Values Urine pH (Auto) 5.5 10/16/24 16:27 Specific [place] (Auto) 1.010 10/16/24 16:27 Urine Protein (Auto) 0 mg/dL 10/16/24 16:27 Glucose (UA)(Auto) 60 mg/dL 10/16/24 16:27 Urine Ketones (Auto) Negative 10/16/24 16:27 Urine Blood (Auto) 0 Tobi/uL 10/16/24 16:27 Urine Nitrite (Auto) Negative 10/16/24 16:27 Urine Bilirubin (Auto) 0 mg/dL 10/16/24 16:27 Urine Urobilinogen (Auto) 3.5 mg/dL 10/16/24 16:27 Leukocyte Esterase (Auto) 0 Homer/uL 10/16/24 16:27 Date of Service: 10/01/24 Procedure(s): US renal BI Accession Number(s): [id number] cc: Dawit Freedman MD; Nicole Mcpherson MD~ EXAMINATION: US KIDNEY BILATERAL HISTORY: N39.41 - Urge incontinence TECHNIQUE: Real-time grayscale ultrasound imaging of the kidneys was performed and images were reviewed. COMPARISON: Comparison is made to an abdominal ultrasound dated 08/12/2021. FINDINGS: Right kidney: The right kidney measures 10.0 x 5.8 x 4.6 cm. Renal parenchymal echotexture and thickness are normal. There is a 1.5 x 1.6 x 1.2 cm upper pole cyst and a 0.6 x 0.4 x 0.7 cm lower pole cyst. There is no hydronephrosis or renal calculi. Left Kidney: The left kidney measures 10.5 x 5.2 x 5.5 cm. Renal parenchymal echotexture and thickness are normal. There is a 1.2 x 0.9 x 0.9 cm upper pole cyst. There is no hydronephrosis or renal calculi. US/US renal BI IMPRESSION: Bilateral renal cysts as described. Otherwise unremarkable renal ultrasound. Assessment & Plan Assessment & Plan (1) Urge incontinence of urine: Code(s): N39.41 - Urge incontinence Category: Medical (2) Diabetes: Code(s): E11.9 - Type 2 diabetes mellitus without complications Category: Medical (3) OAB (overactive bladder): Code(s): N32.81 - Overactive bladder Category: Medical (4) Bladder wall thickening: Code(s): N32.89 - Other specified disorders of bladder Category: Medical Plan mirabegron ER (Myrbetriq) 50 mg PO DAILY 90 tabs 2RF solifenacin (Vesicare) 5 mg PO BEDTIME 30 tabs 3RF estradiol 0.01%(0.1mg/gram) (Estrace) Use a pea-sized amount on fingertip apply vaginally at bedtime vaginally daily; 42.5 grams 2RF Discontinued mirabegron ER Discontinued Reason: Doctor's Order 25 mg PO DAILY 30 tabs 2RF Orders: Orders AMB Cystoscopy 10/16/24 N39.41 - Urge incontinence AMB Urinalysis Automated 10/16/24 Z13.9 - Encounter for screening, unspecified Medications: New mirabegron ER (Myrbetriq) 50 mg PO DAILY 90 tabs 2RF solifenacin (Vesicare) 5 mg PO BEDTIME 30 tabs 3RF estradiol 0.01%(0.1mg/gram) (Estrace) Use a pea-sized amount on fingertip apply vaginally at bedtime vaginally daily; 42.5 grams 2RF Discontinued mirabegron ER Discontinued Reason: Doctor's Order 25 mg PO DAILY 30 tabs 2RF Patient Instructions: The patient had an opportunity to ask questions regarding treatment plan. The patient expressed understanding and agreement with the above treatment plan. The patient is aware they should contact our office by phone for worsening of their current condition or the appearance of new symptoms. Compliance is encouraged with any medications and followup testing that is ordered. It is a privilege to be allowed the opportunity to participate in the urologic care of your patient. If you have any questions or concerns regarding treatment for the above conditions please do not hesitate to contact me. The office telephone contact is [phone]. This note is constructed in part using voice recognition software. While every effort has been made to ensure accuracy continuous conveyor screen drier errors may have been included. Yours sincerely, Dawit Freedman MD Scribe Plan - Not visible on output: Patient was informed and verbally consented to the use of an ambient scribe for clinic note documentation during this visit. Coding Level of Care Code Est Pt Level 4 (78371) Diagnoses Urge incontinence of urine N39.41 Diabetes E11.9 OAB (overactive bladder) N32.81 Bladder wall thickening N32.89 CPT Codes Cystoscopy - CPT: [id number] ([id number])
== END 2024-10-16 14:50 | disposition home or self-care (01) ==
LOC: HO.HUSH 13:02
PROVIDERS: PCP Internal Medicine; Visit Provider Urology
DX: N39.41 Urge incontinence (principal); Z13.9 Encounter for screening, unspecified
CPT/HCPCS: 52000

== ENCOUNTER → 2024-10-16 13:01 | Outpatient (BNVA) | payer OTHER, SELFPAY | PROVIDERS: PCP Internal Medicine; Visit Provider Urology | DX: N39.41 Urge incontinence (principal) | CPT/HCPCS: 52000; 81003 ==

== ENCOUNTER 2024-11-12 12:50 | Outpatient (AMB) | payer OTHER, SELFPAY ==
[2024-11-12 12:56] VITALS: BMI 26.5
--- NOTE | 2024-11-12 12:56 | MHC.OFFVIS ---
Vital Signs 11/12/24 12:56 Height 5 ft 7 in Weight 169 lb BMI 26.5 Intake Visit Reasons: New prob-Lt 3rd digit trigger finger Intake Note: Ina is a 69 year old right hand dominant female who presents today for a new problem visit to evaluate left middle finger locking and catching. Patient and daughter, who aids with interpretation, reports this has been going for over a year. She has been using a finger splint to keep it straight due to pain. No previous treatments. History of DM, per referral, A1C done 09/12/24- 6.9% Allergies doxycycline Allergy (Severe, Verified 11/12/24 12:59) Itching theophylline Allergy (Intermediate, Verified 11/12/24 12:58) Facial Swelling, itching, nausea HPI HPI New prob-Lt 3rd digit trigger finger: Details: Ina is a 69 year old right hand dominant female who presents today for a new problem visit to evaluate left middle finger locking and catching. Patient and daughter, who aids with interpretation, reports this has been going for over a year. She has been using a finger splint to keep it straight due to pain. No previous treatments. History of DM, per referral, A1C done 09/12/24- 6.9% PFSH Medical History Primary osteoarthritis of right knee Hx of breast cancer Back pain YAEL on CPAP Vitamin B deficiency Steatosis of liver Osteopenia Mixed anxiety and depressive disorder HTN (hypertension) GERD (gastroesophageal reflux disease) Stress incontinence in female Dyslipidemia Renal cyst Asthma Osteoarthritis Anxiety Acute depression Diabetes Surgical History Hx of tubal ligation Hx of breast surgery Hx of colonoscopy Social History Household Members: Family Household Members Other:: daughter, son, and brother Housing: Apartment Are you a primary urgent care physician assistant to a significant other at home: No Do you presently have visiting nurse or other home services: Yes Patient Tobacco Use Status: Never used Tobacco service: No Current occupational status: disabled 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 Neuro: Normal sensation of the tips of all digits of the left hand at this time Vascular: Cap refill brisk Pain: No tenderness to palpation of the A1 jose martin of left middle finger Pain with associated locking and catching of the left middle finger ROM: There is a visible and palpable locking and catching of the left middle finger in a flexed position Patient is able to flex and extend all of the digits of the left hand fully and without difficulty Skin: No lacerations or abrasions. General: No ecchymosis, erythema, or evidence of infection. Psych: Appears grossly normal Affect normal Attitude cooperative Office Procedures AMB Tendon Injection Tendon Injection [id number] Tendon Sheath Injection All charges added?: Procedure code (CPT) selection complete Assessment & Plan Assessment & Plan (1) Trigger finger, left middle finger: Code(s): M65.332 - Trigger finger, left middle finger Category: Medical Plan 1. Left middle finger trigger finger Patient is educated about this condition Patient is educated about the treatment options available Patient would like to proceed with steroid injection The risks and benefits of a steroid injection including but not limited to risk of damage to blood vessels, nerves, tendons, infection, skin bleaching, failure to improve symptoms, increased pain, and possible need for further injections or other intervention were discussed with the patient and the patient wishes to proceed with the steroid injection. Once consent was obtained, I sterilely prepped the area over the A1 jose martin of the flexor tendon sheath of the left middle finger. I then injected the flexor tendon sheath with a combination of 1 mL of dexamethasone (4mg/ml), and 1% lidocaine. The patient tolerated the procedure well with no complications. If the patient continues to have locking and catching 4-6 weeks following this injection, they may call to schedule appointment to discuss alternative treatment options Follow-up prn Coding Level of Care Code Est Pt Level 3 (56021) Diagnoses Trigger finger, left middle finger M65.332 CPT Codes Tendon Injection - Tendon Injection 1: [id number] Tendon Sheath Injection ([id number])
--- OUTSIDE RECORDS SUMMARY | 2024-11-12 13:31 | XMS_ITS | Encounter Summary ---
Author Organization [employer] Address [address] [place] [address] Care Team Providers Care Pairer Substandard Name Role Phone Nicole Mcpherson MD Primary Care Provide r Encounter Details Date Type Department Care Team ([facility] st Contact Info) Description 01/16/2023 Orders Only [facility] [address] [place] [address] America Gracia LPN Social History Tobacco Use [...] documented as of this encounter Care Teams Pairer Substandard Relationship Specialty Start Date End Date Nicole Mcpherson MD [address] [place] [id number] PCP - General Family Medicine 11/11/21 documented as of this encounter
--- OUTSIDE RECORDS SUMMARY | 2024-11-12 13:31 | XMS_ITS | Encounter Summary ---
Author Organization [employer] Address [address] [facility] [address] [place] [address] Care Team Providers Care Toolroom Checker Name Role Phone Nicole Mcpherson MD Primary Care Provide r Encounter Details Date Type Department Care Team ([facility] st Contact Info) Description 10/20/2022 Orders Only [facility] [address] [place] [address] America Gracia LPN Social History Tobacco Use [...] documented as of this encounter Care Teams Toolroom Checker Relationship Specialty Start Date End Date Nicole Mcpherson MD [address] [place] [id number] PCP - General Family Medicine 11/11/21 documented as of this encounter
--- OUTSIDE RECORDS SUMMARY | 2024-11-12 13:31 | XMS_ITS | Clinical Summary ---
Author Organization [employer] Address [address] [place] [address] [address] [place] [address] Care Team Providers Care Water Conservation Specialist Name Role Phone Nicole Mcpherson MD Primary Care Provide r Allergies Active Allergy Reactions Criticality Noted Date Comments Theophylline 05/03/2012 Other reaction(s): Rash Medications Continuous Blood Gluc Revenue Liaison (Somotoyle Mark 2 [place]) deviceIndicatio ns:Type 2 diabetes mellitus with hyperglycemia, with long-term current use of insulin ([facility]) Scan sensor every 8 hours 1 each 04/26/19 24 Active fluticasone (Flonase) 50 MCG/ACT nasal sprayIndication s:Mild persistent asthma without complication INHALE 1 SPRAY IN EACH NOSTRIL TWICE DAILY 48 g 05/15/19 24 Active Blood Glucose Monitoring Suppl (Somotoyle Louisa Lite) w/Device kitIndications: Type 2 diabetes mellitus with hyperglycemia, with long-term current use of insulin ([facility]) Use to test blood sugar 3 times daily 1 kit 08/15/19 24 Active acetaminophen (Tylenol) 325 MG tablet Take 2 tablets by mouth every 6 (six) hours if needed for mild pain. 09/07/19 24 Active famotidine (Pepcid) 40 MG tablet TAKE 1 TABLET BY MOUTH AT BEDTIME 90 tablet 3 01/11/20 24 Active albuterol 108 (90 Base) MCG/ACT inhalerIndicati ons:Influenza-l eliezer symptoms Inhale 2 puffs every 4 (four) hours if needed for wheezing or shortness of breath. 18 g 1 03/19/20 24 2024 Active albuterol (2.5 MG/3ML) 0.083% nebulizer solutionIndicat ions:Influenza- like symptoms Take 3 mL (2.5 mg) by nebulization every 6 (six) hours if needed for wheezing or shortness of breath. 75 mL 1 03/19/20 24 2024 Active Spacer/Aero-Hol ding Chambers (OptiChamber Jessica) misc 1 each every 4 (four) hours if needed (asthma). 1 each 03/19/20 24 Active pantoprazole (ProtoNix) 40 MG EC tablet TAKE 1 TABLET BY MOUTH EVERY MORNING 90 tablet 1 05/25/19 25 Active Continuous Glucose Sensor (FreeStyle Mark 2 Sensor) miscIndications :Type 2 diabetes mellitus with hyperglycemia, with long-term current use of insulin ([facility]) USE DIRECTED TO TEST BLOOD SUGAR CHANGE EVERY 14 DAYS 2 each 3 06/14/19 25 Active Alcohol Swabs (Alcohol Prep) 70 % padsIndications :Type 2 diabetes mellitus with hyperglycemia, with long-term current use of insulin ([facility]) TEST BLOOD SUGAR THREE TIMES DAILY 100 each 5 06/19/19 25 Active sertraline (Zoloft) 100 MG tabletIndicatio ns:Mild episode of recurrent major depressive disorder ([facility]) TAKE 1 TABLET BY MOUTH EVERY MORNING 30 tablet 2 07/16/19 25 Active empagliflozin (Jardiance) 25 MGIndications:T ype 2 diabetes mellitus with other specified complication, unspecified whether penitentiary insulin use ([facility]) Take 1 tablet (25 mg) by mouth Once per day. 30 tablet 11 08/02/19 25 2025 Active gabapentin (Neurontin) 400 MG capsuleIndicati ons:Other diabetic neurological complication associated with type 2 diabetes mellitus ([facility]) TAKE 1 CAPSULE BY MOUTH THREE TIMES DAILY IN THE MORNING, EVENING, AND BEDTIME 90 capsule 3 08/14/19 25 Active Ferrous Sulfate (iron) 325 (65 Fe) MG tabletIndicatio ns:Iron deficiency TAKE 1 TABLET BY MOUTH EVERY OTHER DAY IN THE MORNING 45 tablet 1 08/17/19 25 Active FREESTYLE LITE test stripIndication s:Type 2 diabetes mellitus with hyperglycemia, with long-term current use of insulin ([facility]) USE DIRECTED TO TEST BLOOD SUGAR THREE TIMES DAILY 100 strip 12 08/23/19 25 Active atorvastatin (Lipitor) 40 MG tablet TAKE 1 TABLET BY MOUTH AT BEDTIME 90 tablet 1 09/13/19 25 Active montelukast (Singulair) 10 MG tabletIndicatio ns:Asthma, unspecified asthma severity, unspecified whether complicated, unspecified whether persistent TAKE 1 TABLET BY MOUTH EVERY EVENING 90 tablet 09/13/19 25 Active TRUEplus Lancets 33G miscIndications :Type 2 diabetes mellitus with other specified complication, unspecified whether joint terminal attack controller insulin use ([facility]) TEST BLOOD SUGAR THREE TIMES DAILY 100 each 09/19/19 25 Active BD Pen Needle Short Ultrafine 31G X 8 MM miscIndications :Type 2 diabetes mellitus without complication, with long-term current use of insulin ([facility]) USE DIRECTED FOUR TIMES DAILY 100 each 10/08/19 25 Active Multiple Vitamins-Minera ls (CertaVite/Anti oxidants) tablet TAKE 1 TABLET BY MOUTH EVERY MORNING 90 tablet 10/11/19 25 Active cetirizine (ZyrTEC) 10 MG tabletIndicatio ns:Allergic rhinitis, unspecified seasonality, unspecified trigger TAKE 1 TABLET BY MOUTH EVERY DAY NEEDED 90 tablet 10/11/19 25 Active sertraline (Zoloft) 50 MG tabletIndicatio ns:Mixed anxiety and depressive disorder TAKE 1 TABLET BY MOUTH EVERY MORNING 30 tablet 10/12/19 25 Active Dulera 200-5 MCG/ACT inhalerIndicati ons:Asthma, unspecified asthma severity, unspecified whether complicated, unspecified whether persistent INHALE 2 PUFFS BY MOUTH TWICE DAILY IN THE MORNING AND IN THE EVENING RINSE MOUTH AFTER USING. 13 g 2 10/12/19 25 Active Aspirin Low Dose 81 MG EC tablet TAKE 1 TABLET BY MOUTH EVERY MORNING 30 tablet 11/09/19 25 Active metFORMIN (Glucophage) 850 MG tabletIndicatio ns:Type 2 diabetes mellitus with hyperglycemia, with long-term current use of insulin ([facility]) TAKE 1 TABLET BY MOUTH TWICE DAILY IN THE MORNING AND IN THE EVENING WITH FOOD 60 tablet 11/09/19 25 Active metFORMIN (Glucophage) 850 MG tabletIndicatio ns:Type 2 diabetes mellitus with hyperglycemia, with long-term current use of insulin ([facility]) Take 1 tablet (850 mg) by mouth with breakfast and with evening meal. 60 tablet 11/09/19 24 2024 Discontinued Aspirin Low Dose 81 MG EC tablet TAKE 1 TABLET BY MOUTH EVERY MORNING 30 tablet 5 05/17/19 25 2024 Discontinued Active Problems Problem Noted Date Diagnosed Date Acquired trigger finger of left middle finger Foot pain, bilateral 06/14/2024 Urinary incontinence, mixed [...] 11/15/2011 Diabetes mellitus 11/15/2011 Assessment & Plan (09/12/2024 3:36 PM EDT): Diabetes is: almost at goal - Lab Results Component Value Date HGBA1C 6.9 (A) 09/12/2024 HGBA1C 7.6 (A) 06/14/2024 HGBA1C 5.9 11/09/2023 - Lab Results Component Value Date MICROALBUR 8.0 11/09/2023 CREATININE 0.74 10/12/2023 -Changes: None - Diabetic eye exam: Up-to-date - Diabetic foot exam: Pending - Continue lifestyle modifications - Continue current medications - Follow up: 3 months Assessment & Plan (06/14/2024 4:31 PM EDT): [...] Glaucoma 11/15/2011 Hypertension 11/15/2011 Assessment & Plan (09/12/2024 3:35 PM EDT): I advised: - Aerobic exercise to reduce BP. Initial [...] consulting health care provider Assessment & Plan (06/14/2024 4:30 PM EDT): [...] Encounters Date Type Department Care Team Description 11/08/2024 Refill [facility] [address] [place] [address] Nicole Mcpherson MD Type 2 diabetes mellitus with hyperglycemia, with long-term current use of insulin ([facility]) 10/11/2024 Refill [facility] [address] [place] [address] Nicole Mcpherson MD Mixed anxiety and depressive disorder; Asthma, unspecified asthma severity, unspecified whether complicated, unspecified whether persistent 10/10/2024 Refill [facility] [address] [place] [address] Nicole Mcpherson MD Allergic rhinitis, unspecified seasonality, unspecified trigger 10/06/2024 Refill [facility] [address] [place], [place] [phone] Nicole Mcpherson MD Type 2 diabetes mellitus without complication, with long-term current use of insulin ([facility]) 10/01/2024 Results Follow-Up [facility] [address] [place] [address] Nicole Mcpherson MD Vitamin B12 10/01/2024 Orders Only [facility] [address] [place] [address] Nicole Mcpherson MD 10/01/2024 Orders Only [facility] [address] [place] [address] Nicole Mcpherson MD 09/18/2024 Refill [facility] [address] [place] [address] Nicole Mcpherson MD Type 2 diabetes mellitus with other specified complication, unspecified whether penitentiary insulin use ([facility]) 09/12/2024 2:30 PM EDT Office Visit [facility] [address] [place] [address] Nicole Mcpherson MD Type 2 diabetes mellitus with other specified complication, unspecified whether joint terminal attack controller insulin use ([facility]); Colon cancer screening; Primary hypertension; Acquired trigger finger of left middle finger 09/12/2024 Travel 09/11/2024 Telephone [facility] [address] [place] [address] Nicole Mcpherson MD chart prep 09/11/2024 Refill [facility] [address] [place] [address] Nicole Mcpherson MD Asthma, unspecified asthma severity, unspecified whether complicated, unspecified whether persistent; B12 deficiency 09/04/2024 Patient Outreach [facility] [address] [place] [address] Nicole Mcpherson MD Pre-visit Planning ([facility] screening completed on 04/30/24 ) 08/26/2024 Orders Only GENERIC EXTERNAL DATA DEPARTMENT Provider, Generic External Data 08/22/2024 Refill [facility] [address] [place] [address] Nicole Mcpherson MD Type 2 diabetes mellitus with hyperglycemia, with long-term current use of insulin ([facility]) 08/15/2024 Refill [facility] [address] [place] [address] Nicole Mcpherson MD Iron deficiency from Last 3 Months Immunizations Immunization Administration Dates Next Due Influenza High-dose Quadriva [...] housing situation today? I have sintia berry 04/30/[address] you li [...] Sign Reading Time Taken Comments Blood Pressure 130/74 09/12/2024 1:52 PM EDT Pulse 74 09/12/2024 1:52 PM EDT Temperature 36.7 C (98 F) 09/12/2024 1:52 PM EDT Respiratory Rate 19 09/12/2024 1:52 PM EDT Oxygen Saturation 95% 09/12/2024 1:52 PM EDT Inhaled Oxygen Concentration - - Weight 67.3 kg (148 lb 6.4 oz) 09/12/2024 1:52 P M EDT Height 167.6 cm (5' 6 ) 09/12/2024 1:52 PM EDT Body Mass Index 23.95 09/12/2024 1:52 PM EDT Plan of Treatment Health Maintenance Due Date Last Done Comments CT Colonography 1955 FIT DNA/Cologuard 1955 FIT 1955 FOBT 1955 Sigmoidoscopy 1955 Diabetes: Foot Exam 1963 Alcohol/Substance Use Screening 1965 Hepatitis A Vaccines (1 of 2 - Risk 2-dose series) 01/07/1972 Hepatitis B Vaccines (1 of 3 - Risk 3-dose series) 2013 COVID-19 Vaccine ( season) 2023 04/27/2023, 07/08/2021, 02/03/2021, Additional history exists Influenza Vaccine (#1) 2024 , 11/26/2021, 12/18/2020, Additional history exists Depression Monitoring 12/15/2024 06/14/2024, 025 Diabetes: Hemoglobin A1C 03/14/2025 025, 06/14/2024, 11/09/2023, Additional history exists SDOH Screening 04/30/2025 04/30/2024 Mammogram 08/21/2025 08/22/2023, 04/08/2021 Tobacco Screening 09/12/2025 09/12/2024 Diabetes: Urine Protein Screening 10/01/2025 10/01/2024, 11/09/2023, 04/01/2021, Additional history exists Lipid Panel 10/01/2025 10/01/2024, 10/19, 09/15/2022, Additional history exists Eye Exam 01/15/2026 01/16/2024 DTaP/Tdap/Td Vaccines (2 - Td or Tdap) 02/21/2026 02/22/2016, 07/05/2007, 05/18/1994 Colonoscopy 11/30/2026 11/30/2016 Colorectal Cancer Screening 11/30/2026 Hepatitis C Screening Completed 08/10/2021, 022 Zoster [...] patient's age to complete this topic Meningococcal B Vaccine Aged Out No l onger eligible based on patient's age to complete [...] Procedure Name Priority Date/Time Associated Diagnosis Comments US RENAL COMPLETE Routine 10/01/2024 4:4 2 PM EDT VITAMIN B12 Routine 10/01/2024 8:29 AM EDT COMPREHENSIVE METABOLIC PANEL Routine 10/01/2024 8:29 AM EDT Type 2 diabetes mellitus with other specified complication, unspecified whether joint terminal attack controller insulin use (CMS/HCC) ALBUMIN, RANDOM URINE W/CREATININE Routine 10/01/2024 8:29 AM EDT Type 2 diabetes mellitus with other specified complication, unspecified whether joint terminal attack controller insulin use (CMS/HCC) LIPID PANEL, STANDARD Routine 10/01/2024 8:29 AM EDT Type 2 diabetes mellitus with other specified complication, unspecified whether penitentiary insulin use (CMS/HCC) POCT GLYCATED HEMOGLOBIN, TOTAL Routine 09/12/2024 1:53 PM EDT Type 2 diabetes mellitus with other specified complication, unspecified whether joint terminal attack controller insulin use (CMS/HCC) POCT GLUCOSE Routine 09/12/2024 1:53 PM EDT Type 2 diabetes mellitus with other specified complication, unspecified whether joint terminal attack controller insulin use (CMS/HCC) CULTURE, URINE, ROUTINE Routine 08/26/2024 8:30 AM EDT HM MAMMOGRAPHY Routine 08/22/2023 ZZZ HISTORICAL HEPATITIS C AB W/REFL TO HCV RNA, QN, PCR Routine 08/10/2021 3:07 PM EDT HM COLONOSCOPY Routine 11/30/2016 from Last 3 Months or Most Recently Relevant to Health Maintenance Results * US Renal Complete (10/01/2024 4:42 PM EDT) Anatomical Region Laterality Modality Kidney Ultrasound 10/01/2024 4:42 PM EDT Narrative 10/02/2024 7:08 AM EDT [address] [address] Ultrasound Report Signed Patient: Ina Greer MR#: [id number] : 1955 Acct:[id number] Age/Sex: 69 / F ADM Date: 10/01/24 Loc: HO.US Attending Dr: Dawit Freedman MD Ordering Physician: Dawit Freedman MD Date of Service: 10/01/24 Procedure(s): US renal BI Accession Number(s): [id number] cc: Dawit Freedman MD; Nicole Mcpherson MD EXAMINATION: US KIDNEY BILATERAL HISTORY: N39.41 - Urge incontinence TECHNIQUE: Real-time grayscale ultrasound imaging of the kidneys was performed and images were reviewed. COMPARISON: Comparison is made to an abdominal ultrasound dated 08/12/2021. FINDINGS: Right kidney: The right kidney measures 10.0 x 5.8 x 4.6 cm. Renal parenchymal echotexture and thickness are normal. There is a 1.5 x 1.6 x 1.2 cm upper pole cyst and a 0.6 x 0.4 x 0.7 cm lower pole cyst. There is no hydronephrosis or renal calculi. Left Kidney: The left kidney measures 10.5 x 5.2 x 5.5 cm. Renal parenchymal echotexture and thickness are normal. There is a 1.2 x 0.9 x 0.9 cm upper pole cyst. There is no hydronephrosis or renal calculi. US/US renal BI IMPRESSION: Bilateral renal cysts as described. Otherwise unremarkable renal ultrasound. Electronically signed by: Tomi Tavera MD 10/02/2024 07:01 AM EDT Dictated By: Tomi Tavera MD Signed By: <Electronically signed by Tomi Tavera MD in OV> 10/02/24 0701 DD/ 1642 TD/TT: 10/01/24 1648 Liner Man: Procedure Note Donotuseinterpreter, Image - 10/02/2024 [place] [id number] Ultrasound Report Signed Patient: Chaparro Greer#: [id number] : 1955cct:[id number] Age/Sex: 69 / FADM Date: 10/01/24 Loc: .US Attending Dr: Dawit Freedman MD Ordering Physician: Dawit Freedman MD Date of Service: 10/01/24 Procedure(s): US renal BI Accession Number(s): [id number] cc: Dawit Freedman MD; Nicole Mcpherson MD EXAMINATION: US KIDNEY BILATERAL HISTORY: N39.41 - Urge incontinence TECHNIQUE: Real-time grayscale ultrasound imaging of the kidneys was performed and images were reviewed. COMPARISON: Comparison is made to an abdominal ultrasound dated 08/12/2021. FINDINGS: Right kidney: The right kidney measures 10.0 x 5.8 x 4.6 cm. Renal parenchymal echotexture and thickness are normal. There is a 1.5 x 1.6 x 1.2 cm upper pole cyst and a 0.6 x 0.4 x 0.7 cm lower pole cyst. There is no hydronephrosis or renal calculi. Left Kidney: The left kidney measures 10.5 x 5.2 x 5.5 cm. Renal parenchymal echotexture and thickness are normal. There is a 1.2 x 0.9 x 0.9 cm upper pole cyst. There is no hydronephrosis or renal calculi. US/US renal BI IMPRESSION: Bilateral renal cysts as described. Otherwise unremarkable renal ultrasound. Electronically signed by: Tomi Tavera MD 10/02/2024 07:01 AM EDT Dictated By: Tomi Tavera MD Signed By: <Electronically signed by Tomi Tavera MD in OV> 10/02/24 0701 DD/ 1642 TD/TT: 10/01/24 1648 Liner Man: [facility] External Provider IMG US PROCEDURES Final Result * Albumin, Random Urine W/Creatinine (10/01/2024 8:29 AM EDT) Creatinine, Urine 60.23 mg/dL [facility] Microalbumin Urine 8.0 mg/L [facility] Microalbum Creatinine Ratio Ur 13.2 <30 ug/mg cr [facility] Comment:Albumin/Creatinine R atio Reference Ranges: Normal: < 30 ug/mg creatinine Microalbuminuria: 30 - 300 ug/mg creatinineClinical Albuminuria: > 300 ug/mg creatinine Urine (Urine, Random) 10/01/2024 8:29 AM EDT 10/01/2024 11:07 AM EDT us Nicole Stevenson MD LAB URINE ORDERABLES Final Result Performing Organization Address City/[facility]/ZIP Co de Phone Number [facility] [address] [place] [phone] * (ABNORMAL) Vitamin B12 (10/01/2024 8:29 AM EDT) Vitamin B12 1,133(H) 200 - 900 pg/mL [facility] Comment:NORMAL 200-900 PG/ML INDETERMINATE 160-199 PG/ML DEFICIENT < 160 PG/ML 10/01/2024 8:29 AM EDT 10/01/2024 11:06 AM EDT us Nicole Stevenson MD LAB BLOOD ORDERABLES Final Result Performing Organization Address [facility] Co de Phone Number [facility] [address] [place] [phone] * (ABNORMAL) Lipid Panel, Standard (10/01/2024 8:29 AM EDT) Triglycerides 116 <150 mg/dL [facility] Comment:Desirable Triglyceri de: less than 150 mg/dLBorderline High Triglyceride 150-199 mg/dLHigh Triglyceride: 200-499 mg/dLVery High Triglyceride: greater than or equal to 5OO mg/dL Cholesterol 140 <200 mg/dL [facility] Comment:Desirable Cholestero l: less than 200 mg/dLBorderline High Cholesterol: 200-239 mg/dLHigh Cholesterol: greater than 239 mg/dL LDL Cholesterol Calculated 78 <100 mg/dL [facility] Comment:Desirable LDL: less than 100 mg/dLNear Optimal/Above Optimal LDL: 110- 129 mg/dLBorderline High LDL: 130-159 mg/dLHigh LDL: 160-189 mg/dLVery High LDL: greater than or equal to 190 mg/dL HDL Cholesterol 39(L) >40 mg/dL [facility] Comment:Desirable HDL: great er than 40 mg/dL Note: This HDL assay may give artificially low results in patients with liver disease. Blood Venous blood specimen / Unknown 10/01/2024 8:29 AM EDT 10/01/2024 11:06 AM EDT us Nicole Stevenson MD LAB BLOOD ORDERABLES Final Result [facility] [address] [place] [address] [phone] * (ABNORMAL) Comprehensive Metabolic Panel (10/01/2024 8:29 AM EDT) Sodium 143 135 - 145 mmol/L [facility] Potassium 4.5 3.3 - 5.1 mmol/L [facility] Chloride 106 96 - 108 mmol/L [facility] Carbon Dioxide 29 22 - 29 mmol/L [facility] Anion Gap 13 12 - 20 [facility] Urea Nitrogen (BUN) 12 9 - 16 mg/dL [facility] Creatinine, Serum 0.74 0.5 - 1.4 mg/dL [facility] Estimated Glomerular Filt Rate >60 [facility] Comment:Chronic Kidney Disea se: Estimated GFR < 60 mL/min/1.74x2Sujyaa Kidney Disease: Estimated GFR < 15 mL/min/1.73m2 Glucose 127(H) 60 - 115 mg/dL [facility] Calcium 9.3 8.4 - 10.2 mg/dL [facility] Bilirubin, Total 0.4 0.0 - 1.0 mg/dL [facility] Aspartate Amino Transferase 28 5 - 31 U/L [facility] Alanine Aminotransferase 23 0 - 31 U/L [facility] Total Protein 7.0 6.5 - 8.0 g/dL [facility] Albumin Level 4.1 3.5 - 5.0 g/dL [facility] Alkaline Phosphatase 126(H) 39 - 117 U/L [facility] Blood Venous blood specimen / Unknown 10/01/2024 8:29 AM EDT 10/01/2024 11:06 AM EDT Nicole Stevenson MD LAB BLOOD ORDERABLES Final Result [facility] [address] [place] [address] [phone] * (ABNORMAL) POCT HGB A1C (09/12/2024 1:53 PM EDT) Hemoglobin A1C 6.9(A) 4.0 - 6.0 % QC Media Lot # [id number] Lot# Expiration Date Blood 09/12/2024 1:53 PM EDT Nicole Stevenson MD POINT OF CARE TEST EN TER/EDIT ORDERABLES Final Result * POCT Glucose (09/12/2024 1:53 PM EDT) Glucose Blood, POC 148 60 - 200 mg/dL QC Media Lot # [id number] Lot# Expiration Date Blood Capillary blood specimen / Unknown 09/12/2024 1:53 PM EDT Nicole Stevenson MD POINT OF CARE TEST EN TER/EDIT ORDERABLES Final Result * Culture, Urine, Routine (08/26/2024 8:30 AM EDT) Urine Urine specimen obtained by clean catch procedure / Unknown 08/26/2024 8:30 AM EDT 08/26/2024 4:41 PM EDT Comment:UACC Narrative [facility] - 08/28/2024 7:30 AM EDT Klebsiella pneumoniae Quant > 100,000 cfu/mL Klebsiella pneumoniae: Ampicillin <=2(R) Klebsiella pneumoniae: Cefazolin 2(S) Klebsiella pneumoniae: Cefepime <=0.12(S) Klebsiella pneumoniae: Ceftriaxone <=0.25(S) Klebsiella pneumoniae: Ciprofloxacin <=0.06(S) Klebsiella pneumoniae: Gentamicin <=1(S) Klebsiella pneumoniae: Nitrofurantoin <=16(S) Klebsiella pneumoniae: Trimethoprim/Sulfamethoxazole <=20(S) Specimen Source: Urine clean catch Generic External Data Provider LAB MICROBIOLOGY - GENERAL ORDERABLES Final Result [facility] [address] [place] [phone] [phone] * Mammography (08/22/2023) Mammogram BIRADS 1 Normal, Abnormal, BIRADS 1 , BIRADS 2 Anatomical Region Laterality Modality Other Historical Provider MD HEALTH MAINTENANCE Edited Result - Final * HEPATITIS C AB W/REFL TO HCV RNA, QN, PCR (08/10/2021 3:07 PM EDT) HEPATITIS C ANTIBODY NON-REACT SAMANTHA NON-REACT SAMANTHA [facility] INDEX 0.03 <1.00 [facility] Comment: HCV antibody was non-reactive. There is no laboratory evidence of HCV infection. In most cases, no further action is required. However, if recent HCV exposure is suspected, a test for HCV RNA (test code 61192) is suggested. For additional information please refer to [email or web address])/faq/EKN76c2 (This link is being provided for informational/ educational purposes only.) 08/10/2021 3:07 PM EDT Adrianne DOSHIP HISTORICAL/NON ORDERABLE LABS Final Result [facility] [address] [place] [address], * Colonoscopy (11/30/2016) Colonoscopy Normal Normal Narrative Margot Mora - 11/30/2016 Recommended 10 years. See see results scanned in media relations specialist on 10/01/2024 she completed last colonoscopy with [facility] and per GI note procedure was done on 11/30/2016 us Historical Provider HEALTH MAINTENANCE Final Result from Last 3 Months or Most Recently Relevant to Health Maintenance Insurance STANDARD [facility] CARE HOME OPTIONS (HMO D-SNP) Care Teams Water Conservation Specialist Relationship Specialty Start Date End Date Nicole Mcpherson MD [address] [place] [phone] PCP - General Family Medicine 11/11/21
--- OUTSIDE RECORDS SUMMARY | 2024-11-12 13:31 | XMS_ITS | Encounter Summary ---
Author Organization [employer] Address [address] [facility] 7t [place] [address] Care Team Providers Care Folder Taper Operator Name Role Phone Nicole Mcpherson MD Primary Care Provide r Encounter Details Date Type Department Care Team ([facility] st Contact Info) Description 11/22/2022 Orders Only [facility] CH[facility] MED & PEDS [address] [place] [address] America Gracia LPN Social History Tobacco Use [...] documented as of this encounter Care Teams Folder Taper Operator Relationship Specialty Start Date End Date Nicole Mcpherson MD [address] [place] [phone] PCP - General Family Medicine 11/11/21 documented as of this encounter
--- OUTSIDE RECORDS SUMMARY | 2024-11-12 13:31 | XMS_ITS | Encounter Summary ---
Author Organization [employer] Address [address] [facility] 7t [place] [address] Care Team Providers Care Cut Tobacco Bulker Name Role Phone Nicole Mcpherson MD Primary Care Provide r Reason for Visit * Reason Comments Med Refill Encounter Details Date Type Department Care Team ([facility] Contact Info) Description 11/08/2024 Refill [facility] [address] [place] [address] [phone] Nicole Mcpherson MD [address] [place] [address] Type 2 diabetes mellitus with hyperglycemia, with long-term current use of insulin ([facility]) Social History Tobacco Use Types Packs/Day Years [...] Diagnoses Diagnosis Type 2 diabetes mellitus with hyperglycemia, with long-term current use of insulin ([facility]) documented in this encounter Additional Health Concerns Assessment Noted Time PHQ-9 Depression Total Score: 18 025 4:00 PM EDT documented as of this encounter Care Teams Cut Tobacco Bulker Relationship Specialty Start Date End Date Nicole Mcpherson MD [address] [place] [phone] PCP - General Family Medicine 11/11/21 documented as of this encounter
--- OUTSIDE RECORDS SUMMARY | 2024-11-12 13:31 | XMS_ITS | Encounter Summary ---
Author Organization [employer] Address [address] [facility] 7t [place] [address] Care Team Providers Care It Operations Manager Name Role Phone Nicole Mcpherson MD Primary Care Provide r Encounter Details Date Type Department Care Team ([facility] st Contact Info) Description 05/26/2022 Orders Only [facility] CHC MED & PEDS [address] [place] [address] America Gracia LPN Social History Tobacco Use [...] on filedocumented in this encounter Care Teams It Operations Manager Relationship Specialty Start Date End Date Nicole Mcpherson MD [address] [place] [phone] PCP - General Family Medicine 11/11/21 documented as of this encounter
--- OUTSIDE RECORDS SUMMARY | 2024-11-12 13:31 | XMS_ITS | Encounter Summary ---
Author Organization [employer] Address [address] [facility] 7t [place] [address] Care Team Providers Care Set Builder Name Role Phone Nicole Mcpherson MD Primary Care Provide r Reason for Visit * Reason Onset Date Comments Hospital Follow-up 10/05/2023 Encounter Details Date Type Department Care Team ([facility] Contact Info) Description 10/05/2023 Telephone [facility] MEDICINE [address] [place], [place] [phone] Nicole Mcpherson MD [address] [place], [place] [phone] Hospital Follow-up Social History Tobacco Use Types [...] regards to moms HDF follow up appt, adjusto writer operator sees no task,. documented in this encounter Plan of Treatment Not on file documented as of this encounter Visit Diagnoses Not on filedocumented in this encounter Additional Health Concerns Assessment Noted Time PHQ-9 Depression Total Score: 11 023 9:15 AM EDT documented as of this encounter Care Teams Set Builder Relationship Specialty Start Date End Date Nicole Mcpherson MD [address] [place] [address] PCP - General Family Medicine 11/11/21 documented as of this encounter
--- OUTSIDE RECORDS SUMMARY | 2024-11-12 13:31 | XMS_ITS | Encounter Summary ---
Author Organization [employer] Address [address] [place] [address] 7t [place] [address] Care Team Providers Care Quill Cleaner Name Role Phone Nicole Mcpherson MD Primary Care Provide r Reason for Visit * Reason Comments Med Refill Encounter Details Date Type Department Care Team ([facility] st Contact Info) Description 11/20/2022 Refill [facility] MEDICINE [address] [place], [place] [phone] Parul Leonardo MD [address] [place], [place] [phone] Type 2 diabetes mellitus with other specified complication, unspecified whether vocational education professional insulin use (CMS/HCC) Social History Tobacco Use Types Packs/Day Years [...] mellitus with other specified complication, unspecified whether vocational education professional insulin use (CMS/HCC) documented in this encounter Additional Health Concerns Assessment Noted Time PHQ-9 Depression Total Score: 11 023 9:15 AM EDT documented as of this encounter Care Teams Quill Cleaner Relationship Specialty Start Date End Date Nicole Mcpherson MD [address] [place] [address] PCP - General Family Medicine 11/11/21 documented as of this encounter
--- OUTSIDE RECORDS SUMMARY | 2024-11-12 13:31 | XMS_ITS | Encounter Summary ---
Author Organization [employer] Address [address] [facility] [address] 7t [place] [address] Care Team Providers Care Stretching Press Operator Name Role Phone Nicole Mcpherson MD Primary Care Provide r Encounter Details Date Type Department Care Team ([facility] st Contact Info) Description 03/19/2024 Orders Only [facility] [address] [place] [address] [phone] Charles Anaya MD [address] [place] [phone] Social History Tobacco Use Types Packs/Day Years [...] documented as of this encounter Care Teams Stretching Press Operator Relationship Specialty Start Date End Date Nicole Mcpherson MD [address] [place] [address] PCP - General Family Medicine 11/11/21 documented as of this encounter
--- OUTSIDE RECORDS SUMMARY | 2024-11-12 13:31 | XMS_ITS | Encounter Summary ---
Author Organization [employer] Address [address] [facility] 7t [place] [address] Care Team Providers Care Tactical Air Defense Controller Name Role Phone Nicole Mcpherson MD Primary Care Provide r Encounter Details Date Type Department Care Team ([facility] Contact Info) Description 10/01/2024 Orders Only [facility] MEDICINE [address] [place], [place] [phone] Nicole Mcpherson MD [address] [place], [place] [phone] Social History Tobacco Use Types Packs/Day Years [...] on file documented as of this encounter Procedures Procedure Name Priority Date/Time Associated Diagnosis Comments US RENAL COMPLETE Routine 10/01/2024 4:4 2 PM EDT documented in this encounter Results * US Renal Complete (10/01/2024 4:42 PM EDT) Anatomical Region Laterality Modality Kidney Ultrasound 10/01/2024 4:42 PM EDT Narrative 10/02/2024 7:08 AM EDT [place] [id number] Ultrasound Report Signed Patient: Ina Greer MR#: [id number] : 1955 Acct:[id number] Age/Sex: 69 / F ADM Date: 10/01/24 Loc: HO.US Attending Dr: Dawit Freedman MD Ordering Physician: Dawit Freedman MD Date of Service: 10/01/24 Procedure(s): US renal BI Accession Number(s): [id number] cc: Dawit Freedman MD; Nicole Mcpherson MD [...] Tomi Tavera MD 10/02/2024 07:01 AM EDT RP Dictated By: Tomi Tavera MD Signed By: <Electronically signed by Tomi Tavera MD in [place]> 10/02/24 0701 DD/ 1642 TD/TT: 10/01/24 1648 Lockstitch Pocket Setter: Procedure Note Donotuseinterpreter, Image - 10/02/2024 [place] [address] Ultrasound Report Signed Patient: Chaparro Greer#: [id number] : 1955cct:[id number] Age/Sex: 69 / FADM Date: 10/01/24 Loc: HO.US Attending Dr: Dawit Freedman MD Ordering Physician: Dawit Freedman MD Date of Service: 10/01/24 Procedure(s): US renal BI Accession Number(s): [id number] cc: Dawit Freedman MD; Nicole Mcpherson MD [...] 10/02/24 0701 DD/ 1642 TD/TT: 10/01/24 1648 Lockstitch Pocket Setter: [facility] External Provider IMG US PROCEDURES Final Result documented in this encounter Visit Diagnoses Not on filedocumented in this encounter Additional Health Concerns Assessment Noted Time PHQ-9 Depression Total Score: 18 025 4:00 PM EDT documented as of this encounter Care Teams Tactical Air Defense Controller Relationship Specialty Start Date End Date Nicole Mcpherson MD [address] [place] [address] PCP - General Family Medicine 11/11/21 documented as of this encounter
--- OUTSIDE RECORDS SUMMARY | 2024-11-12 13:31 | XMS_ITS | Encounter Summary ---
Author Organization [email or web address] Address [address] [facility] 7t [place] [address] Care Team Providers Care Adding Machine Servicer Name Role Phone Nicole Mcpherson MD Primary Care Provide r Reason for Visit * Reason Comments Med Refill Encounter Details Date Type Department Care Team ([facility] st Contact Info) Description 06/11/2023 Refill [facility] MEDICINE [address] [place], [place] [phone] Nicole Mcpherson MD [address] [place] [address] Chronic right-sided thoracic back pain; Chronic bilateral [...] documented as of this encounter Care Teams Adding Machine Servicer Relationship Specialty Start Date End Date Nicole Mcpherson MD [address] [place] [phone] PCP - General Family Medicine 11/11/21 documented as of this encounter
--- OUTSIDE RECORDS SUMMARY | 2024-11-12 13:31 | XMS_ITS | Encounter Summary ---
Author Organization [employer] Address [address] [facility] 7t [place] [address] Care Team Providers Care Physician Name Role Phone Nicole Mcpherson MD Primary Care Provide r Reason for Visit * Reason Comments Med Refill Encounter Details Date Type Department Care Team ([facility] st Contact Info) Description 10/24/2023 Refill [facility] [address] [place], [place] [phone] Nicole Mcpherson MD [address] [place] [address] Type 2 diabetes mellitus with other specified complication, unspecified whether [facility] insulin use ([facility]) Social History Tobacco Use [...] mellitus with other specified complication, unspecified whether supervisor long goods insulin use ([facility]) documented in this encounter Additional Health Concerns Assessment Noted Time PHQ-9 Depression Total Score: 11 023 9:15 AM EDT documented as of this encounter Care Teams Physician Relationship Specialty Start Date End Date Nicole Mcpherson MD [address] [place] [address] PCP - General Family Medicine 11/11/21 documented as of this encounter
--- OUTSIDE RECORDS SUMMARY | 2024-11-12 13:31 | XMS_ITS | Encounter Summary ---
Author Organization [employer] Address [address] [facility] [address] 7[address] [place] [address] Care Team Providers Care Muleser Name Role Phone Nicole Mcpherson MD Primary Care Provide r Encounter Details Date Type Department Care Team ([facility] st Contact Info) Description 05/03/2023 Abstract [facility] MEDICINE [address] [place], [place] [phone] Nicole Mcpherson MD [address] [place], [place] [phone] Social History Tobacco Use Types Packs/Day Years [...] t he electric, gas, oil or water [employer] threatened to shut off services in your [...] documented as of this encounter Care Teams Muleser Relationship Specialty Start Date End Date Nicole Mcpherson MD [address] [place] [address] PCP - General Family Medicine 11/11/21 documented as of this encounter
== END 2024-11-12 13:44 | disposition home or self-care (01) ==
LOC: HO.HOS 12:51
PROVIDERS: PCP Internal Medicine
DX: M65.332 Trigger finger, left middle finger (principal)
CPT/HCPCS: 20550; 99213

== ENCOUNTER → 2024-11-12 12:50 | Outpatient (BNVA) | payer OTHER, SELFPAY | PROVIDERS: PCP Internal Medicine | DX: M65.332 Trigger finger, left middle finger (principal) | CPT/HCPCS: 20550; 99212; J1100; J2003 ==

== ENCOUNTER 2024-12-27 12:31 | Outpatient (AMB) | payer OTHER, SELFPAY ==
--- NOTE | 2024-12-27 13:14 | A.OFFVIS_ITS ---
Intake Visit Reasons: Follow up Intake Note: Patient presents today for a follow up Urology Medication: Myrbetriq, vesicare, estrace Blood Thinner:Aspirin Antibiotic Allergies:None Clerical Transcriber Required: Yes Clerical Transcriber Services: Clerical Transcriber Present Clerical Transcriber Name: Mitra [id number] Allergies doxycycline Allergy (Severe, Verified 12/27/24 13:14) Itching theophylline Allergy (Intermediate, Verified 12/27/24 13:14) Facial Swelling, itching, nausea HPI Comments Details: 12/27/24-- History of Present Illness The patient is a 69-year-old female presenting with overactive bladder symptoms for a follow-up visit. She has been experiencing urinary incontinence, specifically leaking on her way to the bathroom from bed, despite being on Myrbetriq and Vesicare. The patient has been using a prescribed estrace cream, but reports no significant improvement in leakage. Plan 1. Overactive Bladder - Schedule Urodynamics - The patient is advised to stop bladder medications five days before the test. 10/16/24--Here for office cystoscopy Cystoscopy findings: mild bladder walling thickening, no suspicious bladder lesions visualized - The patient is a 69-year-old female presenting with urinary incontinence. - The urinary incontinence was initially evaluated on 08/26/24. - A renal ultrasound was performed on 10/01/24, revealing small bilateral renal cysts but was otherwise within normal limits. - The patient reports that the Myrbetric medication has not been effective in managing her symptoms. - The incontinence occurs primarily when the patient is unable to reach the bathroom in time, and is exacerbated by actions such as coughing or sneezing. - There is no history of prior surgeries, including hysterectomy, and no history of breast cancer. Results - Renal ultrasound on 10/01/24: Small bilateral renal cysts, otherwise within normal limits Plan - Increase the dose of Myrbetric to 50 mg in the morning. - Prescribe an estrogen cream for vaginal application due to thin tissues. - vesicare 5 mg medication at bedtime. - Schedule a follow-up appointment in 10 weeks to assess the effectiveness of the treatment plan. 08/26/24-- - The patient is a 69-year-old female presenting with urinary incontinence. The patient's daughter is present and interprets for her. - Incontinence occurs during sleep and amid urgency during daytime, necessitating the use of protective pull-ups. - There is a history of pelvic organ prolapse (cystocele) with an awareness of the bladder's descent, occasionally requiring manual repositioning. - Prior recommendations by previous Urologist included pessary placement, though this has not been pursued. - Denies hematuria or other urinary tract symptoms indicative of infection. Discussion Notes During the visit, discussion included the diagnosis and evaluation of urinary incontinence. Further diagnostic imaging via ultrasound were discussed, to assess the status of the kidneys and bladder. The patient was educated on the possibility of using a low-dose medication, Mirabegron (25 mg), to alleviate urge symptoms, with instructions to consult the office should there be issues with insurance coverage for the prescription. Follow up office cystoscopy with pelvic exam. PFSH Medical History Primary osteoarthritis of right knee Hx of breast cancer Back pain YAEL on CPAP Vitamin B deficiency Steatosis of liver Osteopenia Mixed anxiety and depressive disorder HTN (hypertension) GERD (gastroesophageal reflux disease) Stress incontinence in female Dyslipidemia Renal cyst Asthma Osteoarthritis Anxiety Acute depression Diabetes Surgical History Hx of tubal ligation Hx of breast surgery Hx of colonoscopy Social History Household Members: Family Household Members Other:: daughter, son, and brother Housing: Apartment Are you a primary manager respiratory care to a significant other at home: No Do you presently have visiting nurse or other home services: Yes Patient Tobacco Use Status: Never used Tobacco service: No Current occupational status: disabled 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 Review of Systems Const All systems reviewed & are unremarkable except as noted in HPI and below Reports no additional complaints Eyes Reports no additional complaints ENT Reports no additional complaints Card Reports no additional complaints Resp Reports no additional complaints GI Reports no additional complaints Reports as per HPI Musc Reports no additional complaints Skin/Breast Reports system reviewed and no additional complaints, except as documented Neuro Reports no additional complaints Psych Reports no additional complaints Endo Reports no additional complaints Hank/Lymph Reports no additional complaints Aller/Immun Reports no additional complaints Results AMB Urinalysis, Automated UA Leukoctes 0 Homer/uL Last Edit by Heather Vargas on 12/27/24 17:06 UA Nitrite Negative Last Edit by Heather Vargas on 12/27/24 17:06 UA Urobilinogen 0.2 mg/dL Last Edit by Heather Vargas on 12/27/24 17:06 UA Protein 0 mg/dL Last Edit by Heather Vargas on 12/27/24 17:06 UA pH 6.0 Last Edit by Heather Vargas on 12/27/24 17:06 UA Blood 0 Tboi/uL Last Edit by Heather Vargas on 12/27/24 17:06 UA Specific Baltic 1.010 Last Edit by Heather Vargas on 12/27/24 17:06 UA Ketone Negative Last Edit by Heather Vargas on 12/27/24 17:06 UA Bilirubin 0 mg/dL Last Edit by Heather Vargas on 12/27/24 17:06 UA Glucose 1000 mg/dL Last Edit by Heather Vargas on 12/27/24 17:06 Results Reviewed Results Reviewed: Laboratory Last Values Urine pH (Auto) 6.0 12/27/24 16:02 Specific Baltic (Auto) 1.010 12/27/24 16:02 Urine Protein (Auto) 0 mg/dL 12/27/24 16:02 Glucose (UA)(Auto) 1000 mg/dL 12/27/24 16:02 Urine Ketones (Auto) Negative 12/27/24 16:02 Urine Blood (Auto) 0 Tobi/uL 12/27/24 16:02 Urine Nitrite (Auto) Negative 12/27/24 16:02 Urine Bilirubin (Auto) 0 mg/dL 12/27/24 16:02 Urine Urobilinogen (Auto) 0.2 mg/dL 12/27/24 16:02 Leukocyte Esterase (Auto) 0 Homer/uL 12/27/24 16:02 Assessment & Plan Assessment & Plan (1) Urge incontinence of urine: Code(s): N39.41 - Urge incontinence Category: Medical (2) Diabetes: Code(s): E11.9 - Type 2 diabetes mellitus without complications Category: Medical (3) OAB (overactive bladder): Code(s): N32.81 - Overactive bladder Category: Medical (4) Bladder wall thickening: Code(s): N32.89 - Other specified disorders of bladder Category: Medical Plan Plan 1. Overactive Bladder - Schedule Urodynamics - The patient is advised to stop bladder medications five days before the test. Orders: Orders AMB Urinalysis Automated 12/27/24 Z13.9 - Encounter for screening, unspecified Patient Instructions: The patient had an opportunity to ask questions regarding treatment plan. The patient expressed understanding and agreement with the above treatment plan. The patient is aware they should contact our office by phone for worsening of their current condition or the appearance of new symptoms. Compliance is encouraged with any medications and followup testing that is ordered. It is a privilege to be allowed the opportunity to participate in the urologic care of your patient. If you have any questions or concerns regarding treatment for the above conditions please do not hesitate to contact me. The office telephone contact is [phone]. This note is constructed in part using voice recognition software. While every effort has been made to ensure accuracy airport guide errors may have been inc luded. Yours sincerely, Dawit Freedman MD Scribe Plan - Not visible on output: Patient was informed and verbally consented to the use of an ambient scribe for clinic note documentation during this visit. Coding Level of Care Code Est Pt Level 4 (72433) Diagnoses Urge incontinence of urine N39.41 Diabetes E11.9 OAB (overactive bladder) N32.81 Bladder wall thickening N32.89
== END 2024-12-27 14:01 | disposition home or self-care (01) ==
LOC: HO.HUSH 12:32
PROVIDERS: PCP Internal Medicine; Visit Provider Urology
DX: N39.41 Urge incontinence (principal); E11.9 Type 2 diabetes mellitus without complications; N32.81 Overactive bladder; N32.89 Other specified disorders of bladder
CPT/HCPCS: 99214

== ENCOUNTER → 2024-12-27 12:31 | Outpatient (BNVA) | payer OTHER, SELFPAY | PROVIDERS: PCP Internal Medicine; Visit Provider Urology | DX: N39.41 Urge incontinence (principal); N32.81 Overactive bladder; N32.89 Other specified disorders of bladder; E11.9 Type 2 diabetes mellitus without complications | CPT/HCPCS: 81003; 99212 ==

== ENCOUNTER 2025-02-06 13:49 | Outpatient (REF) | payer OTHER, SELFPAY ==
--- NOTE | ~2025-02-06 | XR_ITS ---
EXAMINATION: XR KNEE 4 OR MORE VIEWS LEFT HISTORY: Fell on knee today. Pain over anterior knee COMPARISON: Correlation is made with a standing AP view of the left knee dated 09/20/2023. FINDINGS: Five views of the left knee are submitted. Osseous mineralization is normal. There is no fracture or dislocation. There is mild to moderate tricompartmental osteoarthritis with joint space narrowing and osteophyte formation. There is a large suprapatellar joint effusion. XR/XR knee LT 4V IMPRESSION: Large joint effusion. Mild to moderate tricompartmental osteoarthritis. No fracture is seen. Electronically signed by: Tomi Tavera MD 02/06/2025 02:45 PM EST
--- OUTSIDE RECORDS SUMMARY | 2025-02-06 14:00 | XMS_ITS | Encounter Summary ---
Author Organization [employer] Address [address] [facility] [address]t [place] [address] Care Team Providers Care Typing Element Machine Operator Name Role Phone Nicole Mcpherson MD Primary Care Provide r Reason for Referral * Consultation (Routine) - Pending Review Specialty Diagnoses / Procedures Referred By Katlin abraham Referred To Contact Orthopaedic Surgery Diagnoses Acute pain of left knee Ibeth Ashraf MD [address] [place] [phone] Phone: tel: fax: Referral ID Status Reason Start Date Expiration Date Visits Requested Visits Authorized [id number] Pending Review Specialty Services Required 02/06/2026 1 1 Reason for Visit * Reason Comments Knee Pain Encounter Details Date Type Department Care Team ([facility] st Contact Info) Description 02/06/2025 2:00 PM EST Office Visit [facility] [address] [place] [address] [phone] Ibeth Ashraf MD [address] [place] [address] [phone] Acute pain of left knee (Primary Dx) Social History Tobacco Use Types Packs/Day Years [...] AM EDT documented as of this encounter Last Filed Vital Signs Vital Sign Reading Time Taken Comments Blood Pressure 140/84 02/06/2025 1:29 PM EST Pulse 90 02/06/2025 1:29 PM EST Temperature 37 C (98.6 F) 02/06/2025 1:29 PM EST Respiratory Rate 17 02/06/2025 1:29 PM EST Oxygen Saturation - - Inhaled Oxygen Concentration - - Weight - - Height - - Body Mass Index - - documented in this encounter Progress Notes * Ibeth Ashraf MD - 02/06/2025 2:00 PM EST Subjective Ina Crumllo, age 70 years Right knee pain and immobility - Experienced fall in shower this am when shampoo got into her eye. Experienced acute left knee pain and inability to move the leg. She went to the store and had difficulty walking. Daughter brought her in for evaluation. - Attempted to pour cold water on the knee for relief - Used a wheelchair for mobility to get here today - No mention of trauma or injury mechanism prior to onset - No mention of bleeding or other systemic symptoms -she takes aspirin Past surgical history relevant to current condition - History of right knee replacement surgery prior to current episode [facility] - Family member provides support and assistance with mobility and transportation Objective Blood pressure (!) 140/84, pulse 90, temperature 98.6 ??F (37 ??C), temperature source Temporal, resp. rate 17. Physical Exam Musculoskeletal: Left knee: Swelling and effusion present. No deformity, erythema, ecchymosis, lacerations or crepitus. Decreased range of motion. Tenderness present over the medial joint line and lateral joint line.Normal alignment. Acute pain of left knee: - Ordered X-ray of left knee. Recommended to avoid weight-bearing and walking on the affected leg until results are available. Prescribed strong acetaminophen for pain management. Knee wrapped with joseph bandage. Advised to apply ice and elevate the leg at home. Referral to orthopedics to be made after X-ray results; instructed to call orthopedics to schedule appointment once results are received. XR 02/06/25 IMPRESSION: Large joint effusion. Mild to moderate tricompartmental osteoarthritis. No fracture is seen. This note was drafted using Ambient (AI) technology. The patient/patient's guardian has been informed and has consented to the use of this technology: Yes documented in this encounter Plan of Treatment Scheduled Referrals Name Type Priority Associated Diagnoses Order Schedule Referral to Orthopaedic Surgery Outpatient Referral Routine Acute pain of left knee Expected: 02/06/2025 (Approximate), Expires: 02/06/2026 documented as of this encounter Procedures Procedure Name Priority Date/Time Associated Diagnosis Comments XR KNEE 4+ VIEWS LEFT Routine 02/06/2025 2:29 PM EST Acute pain of left knee documented in this encounter Results * XR Knee 4+ Views Left (02/06/2025 2:29 PM EST) Anatomical Region Laterality Modality Lower Extremities, Knee Left Radiogra [facility] 02/06/2025 2:29 PM EST Narrative 02/06/2025 2:48 PM EST [address] XRay Report Signed Patient: Ina Greer MR#: [id number] : 1955 Acct:[id number] Age/Sex: 70 / F ADM Date: 02/06/25 Loc: HO.HHCX Attending Dr: Ibeth Ashraf MD Ordering Physician: Ibeth Ashraf MD Date of Service: 02/06/25 Procedure(s): XR knee LT 4V Accession Number(s): [id number] cc: Ibeth Ashraf MD Reason for Exam: fell on knee today. pain over anterior knee EXAMINATION: XR KNEE 4 OR MORE VIEWS LEFT HISTORY: Fell on knee today. Pain over anterior knee COMPARISON: Correlation is made with a standing AP view of the left knee dated 09/20/2023. FINDINGS: Five views of the left knee are submitted. Osseous mineralization is normal. There is no fracture or dislocation. There is mild to moderate tricompartmental osteoarthritis with joint space narrowing and osteophyte formation. There is a large suprapatellar joint effusion. XR/XR knee LT 4V IMPRESSION: Large joint effusion. Mild to moderate tricompartmental osteoarthritis. No fracture is seen. Electronically signed by: Tomi Tavera MD 02/06/2025 02:45 PM EST Dictated By: Tomi Tavera MD Signed By: <Electronically signed by Tomi Tavera MD in OV> 02/06/25 1445 DD/ 1429 TD/TT: 02/06/25 1440 Disulfurizer Tender: Procedure Note Donotuseinterpreter, Image - 02/06/[address] [address] XRay Report Signed Patient: Lindsey GreerR#: [id number] : 1955cct:[id number] Age/Sex: 70 / FADM Date: 02/06/25 Loc: HO.HHCX Attending Dr: Ibeth Ashraf MD Ordering Physician: Ibeth Ashraf MD Date of Service: 02/06/25 Procedure(s): XR knee LT 4V Accession Number(s): [id number] cc: Ibeth Ashraf MD Reason for Exam: fell on knee today. pain over anterior knee EXAMINATION: XR KNEE 4 OR MORE VIEWS LEFT HISTORY: Fell on knee today. Pain over anterior knee COMPARISON: Correlation is made with a standing AP view of the left knee dated 09/20/2023. FINDINGS: Five views of the left knee are submitted. Osseous mineralization is normal. There is no fracture or dislocation. There is mild to moderate tricompartmental osteoarthritis with joint space narrowing and osteophyte formation. There is a large suprapatellar joint effusion. XR/XR knee LT 4V IMPRESSION: Large joint effusion. Mild to moderate tricompartmental osteoarthritis. No fracture is seen. Electronically signed by: Tomi Tavera MD 02/06/2025 02:45 PM EST Dictated By: Tomi Tavera MD Signed By: <Electronically signed by Tomi Tavera MD in OV> 02/06/25 1445 DD/ 1429 TD/TT: 02/06/25 1440 Disulfurizer Tender: Ibeth Ashraf MD IMG XR PROCEDURES Final Re sult documented in this encounter Visit Diagnoses Diagnosis Acute pain of left knee- Primary documented in this encounter Additional Health Concerns Assessment Noted Time PHQ-9 Depression Total Score: 18 06/14/ 025 4:00 PM EDT documented as of this encounter Care Teams Typing Element Machine Operator Relationship Specialty Start Date End Date Nicole Mcpherson MD [address] [place] [phone] PCP - General Family Medicine 11/11/21 documented as of this encounter
--- OUTSIDE RECORDS SUMMARY | 2025-02-06 19:18 | XMS_ITS | Encounter Summary ---
Author Organization [employer] Address [address] [facility] 7t [place] [address] Care Team Providers Care Needle Loom Operator Helper Name Role Phone Nicole Mcpherson MD Primary Care Provide r Reason for Visit * Reason Onset Date Comments Hospital Follow-up 10/05/2023 Encounter Details Date Type Department Care Team ([facility] st Contact Info) Description 10/05/2023 Telephone [facility] MEDICINE [address] [place] [address] [phone] Nicole Mcpherson MD [address] [place], [place] [phone] Hospital Follow-up Social History Tobacco Use Types [...] encounter Miscellaneous Notes * Telephone Encounter - Memeehsanana mariaedson Jose Antonio Ventura - 10/05/2023 4:11 PM EDT Tc from pt stating a nurse from clinic called. In regards to moms HDF follow up appt, freelance copywriter sees no task,. documented in this encounter Plan of Treatment Not on file documented as of this encounter Visit Diagnoses Not on filedocumented in this encounter Additional Health Concerns Assessment Noted Time PHQ-9 Depression Total Score: 11 023 9:15 AM EDT documented as of this encounter Care Teams Needle Loom Operator Helper Relationship Specialty Start Date End Date Nicole Mcpherson MD [address] [place] [address] PCP - General Family Medicine 11/11/21 documented as of this encounter
--- OUTSIDE RECORDS SUMMARY | 2025-02-06 19:18 | XMS_ITS | Encounter Summary ---
Author Organization [employer] Address [address] [facility] [address] [address] [place] [address] Care Team Providers Care Environmental Science Professor Name Role Phone Nicole Mcpherson MD Primary Care Provide r Encounter Details Date Type Department Care Team (Late st Contact Info) Description 03/19/2024 Orders Only [facility] [address] [place] [address] [phone] Charles Anaya MD [address] [place], [place] [phone] Social History Tobacco Use Types Packs/Day Years [...] the past 12 months, has t he [employer] gas, oil or water company threatened to [...] documented as of this encounter Care Teams Environmental Science Professor Relationship Specialty Start Date End Date Nicole Mcpherson MD [address] [place] [phone] PCP - General Family Medicine 11/11/21 documented as of this encounter
--- OUTSIDE RECORDS SUMMARY | 2025-02-06 19:18 | XMS_ITS | Encounter Summary ---
Author Organization [employer] Address [address] [facility] [address] [place] [address] Care Team Providers Care Veterinary Parasitologist Name Role Phone Nicole Mcpherson MD Primary Care Provide r Encounter Details Date Type Department Care Team (Late st Contact Info) Description 10/20/2022 Orders Only [facility] [address] [place] [address] America Gracia LPN Social History Tobacco Use [...] documented as of this encounter Care Teams Veterinary Parasitologist Relationship Specialty Start Date End Date Nicole Mcpherson MD [address] [place] [phone] PCP - General Family Medicine 11/11/21 documented as of this encounter
--- OUTSIDE RECORDS SUMMARY | 2025-02-06 19:18 | XMS_ITS | Encounter Summary ---
Author Organization [employer] Address [address] [facility] 7t [place] [address] Care Team Providers Care Eclectic Doctor Name Role Phone Nicole Mcpherson MD Primary Care Provide r Reason for Visit * Reason Comments Med Refill Encounter Details Date Type Department Care Team ([facility] st Contact Info) Description 02/05/[address] [facility] MEDICINE [address] [place], [place] [phone] Nicole Mcpherson MD [address] [place], [place] [phone] Iron deficiency Social History Tobacco Use Types Packs/Day Years [...] as of this encounter Visit Diagnoses Diagnosis Iron deficiency Disorders of iron metabolism documented in this encounter Additional Health Concerns Assessment Noted Time PHQ-9 Depression Total Score: 18 025 4:00 PM EDT documented as of this encounter Care Teams Eclectic Doctor Relationship Specialty Start Date End Date Nicole Mcpherson MD [address] [place] [address] PCP - General Family Medicine 11/11/21 documented as of this encounter
--- OUTSIDE RECORDS SUMMARY | 2025-02-06 19:18 | XMS_ITS | Encounter Summary ---
Author Organization [employer] Address [address] [facility] [address] [place] [address] Care Team Providers Care Temporary Receptionist Name Role Phone Nicole Mcpherson MD Primary Care Provide r Encounter Details Date Type Department Care Team ([facility] st Contact Info) Description 01/16/2023 Orders Only [facility] [address] [place] [address] America Gracia LPN Social History Tobacco Use [...] documented as of this encounter Care Teams Temporary Receptionist Relationship Specialty Start Date End Date Nicole Mcpherson MD [address] [place] [address] PCP - General Family Medicine 11/11/21 documented as of this encounter
--- OUTSIDE RECORDS SUMMARY | 2025-02-06 19:18 | XMS_ITS | Encounter Summary ---
Author Organization [employer] Address [address] [facility] [address] [place] [address] Care Team Providers Care Ems Driver Name Role Phone Nicole Mcpherson MD Primary Care Provide r Encounter Details Date Type Department Care Team (Late st Contact Info) Description 05/03/2023 Abstract [facility] MEDICINE [address] [place], [place] [phone] Nicole Mcpherson MD [address] [place], [place] [phone] Social History Tobacco Use Types Packs/Day Years [...] documented as of this encounter Care Teams Ems Driver Relationship Specialty Start Date End Date Nicole Mcpherson MD [address] [place] [phone] PCP - General Family Medicine 11/11/21 documented as of this encounter
--- OUTSIDE RECORDS SUMMARY | 2025-02-06 19:18 | XMS_ITS | Clinical Summary ---
Author Organization [employer] Address 75 [facility] 7t [place] [address] Care Team Providers Care Blindstitch Machine Operator Name Role Phone Nicole Mcpherson MD Primary Care Provide r Allergies Active Allergy Reactions Criticality Noted Date Comments Theophylline 05/03/2012 Other reaction(s): Rash Medications Continuous Blood Gluc Advanced Practice Professional (Redmere TechnologyStyle Mark 2 [place]) deviceIndicatio ns:Type 2 diabetes mellitus with hyperglycemia, with long-term current use of insulin ([facility]) Scan sensor every 8 hours 1 each 04/26/19 24 Active fluticasone (Flonase) 50 MCG/ACT nasal sprayIndication s:Mild persistent asthma without complication INHALE 1 SPRAY IN EACH NOSTRIL TWICE DAILY 48 g 05/15/19 24 Active Blood Glucose Monitoring Suppl (Redmere TechnologyStyle [place] Lite) w/Device kitIndications: Type 2 diabetes mellitus with hyperglycemia, with long-term current use of insulin ([facility]) Use to test blood sugar 3 times daily 1 kit 08/15/19 24 Active acetaminophen (Tylenol) 325 MG tablet Take 2 tablets by mouth every 6 (six) hours if needed for mild pain. 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 30 tablet 08/02/192025 Active FREESTYLE LITE test stripIndication s:Type 2 diabetes mellitus with hyperglycemia, with long-term current use of insulin ([facility]) USE DIRECTED TO TEST BLOOD SUGAR THREE TIMES DAILY 100 strip 08/23/19 25 Active atorvastatin (Lipitor) 40 MG tablet TAKE 1 TABLET BY MOUTH AT BEDTIME 90 tablet 09/13/19 25 Active montelukast (Singulair) 10 MG tabletIndicatio ns:Asthma, unspecified asthma severity, unspecified whether complicated, unspecified whether persistent TAKE 1 TABLET BY MOUTH EVERY EVENING 90 tablet 1 09/13/19 25 Active TRUEplus Lancets 33G miscIndications :Type 2 diabetes mellitus with other specified complication, unspecified whether fdc insulin use (HCC) TEST BLOOD SUGAR THREE TIMES DAILY 100 each 5 09/19/19 25 Active BD Pen Needle Short Ultrafine 31G X 8 MM miscIndications :Type 2 diabetes mellitus without complication, with long-term current use of insulin ([facility]) USE DIRECTED FOUR TIMES DAILY 100 each 3 10/08/19 25 Active Multiple Vitamins-Minera ls (CertaVite/Anti oxidants) tablet TAKE 1 TABLET BY MOUTH EVERY MORNING 90 tablet 10/11/19 25 Active cetirizine (ZyrTEC) 10 MG tabletIndicatio ns:Allergic rhinitis, unspecified seasonality, unspecified trigger TAKE 1 TABLET BY MOUTH EVERY DAY NEEDED 90 tablet 3 10/11/19 25 Active Dulera 200-5 MCG/ACT inhalerIndicati ons:Asthma, unspecified asthma severity, unspecified whether complicated, unspecified whether persistent INHALE 2 PUFFS BY MOUTH TWICE DAILY IN THE MORNING AND IN THE EVENING RINSE MOUTH AFTER USING. 13 g 2 10/12/19 25 Active Aspirin Low Dose 81 MG EC tablet TAKE 1 TABLET BY MOUTH EVERY MORNING 30 tablet 5 11/09/19 25 Active metFORMIN (Glucophage) 850 MG tabletIndicatio ns:Type 2 diabetes mellitus with hyperglycemia, with long-term current use of insulin (HCC) TAKE 1 TABLET BY MOUTH TWICE DAILY IN THE MORNING AND IN THE EVENING WITH FOOD 60 tablet 11 11/09/19 25 Active sertraline (Zoloft) 100 MG tabletIndicatio ns:Mild episode of recurrent major depressive disorder (CMS/HCC) TAKE 1 TABLET BY MOUTH EVERY MORNING 30 tablet 3 12/03/19 25 Active gabapentin (Neurontin) 400 MG capsuleIndicati ons:Other diabetic neurological complication associated with type 2 diabetes mellitus (HCC) TAKE 1 CAPSULE BY MOUTH THREE TIMES DAILY IN THE MORNING, EVENING, AND BEDTIME 90 capsule 3 12/19/19 25 Active famotidine (Pepcid) 40 MG tablet TAKE 1 TABLET BY MOUTH AT BEDTIME 90 tablet 3 01/09/20 25 Active sertraline (Zoloft) 50 MG tabletIndicatio ns:Mixed anxiety and depressive disorder TAKE 1 TABLET BY MOUTH EVERY MORNING 30 tablet 2 01/10/20 25 Active Ferrous Sulfate (iron) 325 (65 Fe) MG tabletIndicatio ns:Iron deficiency TAKE 1 TABLET BY MOUTH EVERY OTHER DAY IN THE MORNING 45 tablet 1 02/07/20 25 Active Acetaminophen 500 MG capsuleIndicati ons:Acute pain of left knee Take 1 capsule (500 mg) by mouth every 8 (eight) hours if needed for moderate pain or fever. 30 capsule 02/07/20 25 2024 Active famotidine (Pepcid) 40 MG tablet TAKE 1 TABLET BY MOUTH AT BEDTIME 90 tablet 3 01/11/20 24 2024 Discontinued Ferrous Sulfate (iron) 325 (65 Fe) MG tabletIndicatio ns:Iron deficiency TAKE 1 TABLET BY MOUTH EVERY OTHER DAY IN THE MORNING 45 tablet 1 08/17/19 25 2024 Discontinued sertraline (Zoloft) 50 MG tabletIndicatio ns:Mixed anxiety and depressive disorder TAKE 1 TABLET BY MOUTH EVERY MORNING 30 tablet 2 10/12/19 25 2024 Discontinued Active Problems Problem Noted [...] Encounters Date Type Department Care Team Description 02/06/2025 2:00 PM EST Office Visit [facility] [address] [place] [phone] Ibeth Ashraf MD Acute pain of left knee (Primary Dx) 02/06/2025 Travel 02/05/2025 Refill [facility] [address] [place] [phone] Nicole Mcpherson MD Iron deficiency 01/09/2025 Refill [facility] [address] [place] [phone] Nicole Mcpherson MD Mixed anxiety and depressive disorder 01/07/2025 Refill [facility] [address] [place] [phone] Nicole Mcpherson MD 12/31/2024 Telephone [facility] [address] [place] [phone] Kemal Bashir MA cologaurrandee outreach 12/24/2024 9:15 AM EDT Office Visit [facility] [address] [place] [phone] Radha Taylor MD Chronic bilateral low back pain without sciatica (Primary Dx); Mixed anxiety and depressive disorder 12/24/2024 Travel 12/17/2024 10:00 AM EDT Office Visit [facility] [address] [place] [address] Radha Taylor MD Chronic bilateral low back pain without sciatica (Primary Dx); Mixed anxiety and depressive disorder 12/17/2024 Travel 12/17/2024 Refill [facility] [address] [place] [address] Nicole Mcpherson MD Other diabetic neurological complication associated with type 2 diabetes mellitus ([facility]) 12/01/2024 Refill [facility] [address] [place] [address] Nicole Mcpherson MD Mild episode of recurrent major depressive disorder ([facility]); Other diabetic neurological complication associated with type 2 diabetes mellitus ([facility]) 11/08/2024 Refill [facility] [address] [place], [place] [phone] Nicole Mcpherson MD Type 2 diabetes mellitus with hyperglycemia, with long-term current use of insulin ([facility]) from Last 3 Months Immunizations Immunization Administration [...] 17 02/06/2025 1:29 PM EST Oxygen Saturation 95% 09/12/2024 1:52 PM EDT [...] 3-dose series) 2013 COVID-19 Vaccine ( season) 2024 04/27/2023, 07/08/2021, 02/03/2021, Additional history exists Influenza Vaccine (#1) 2024 , 11/26/2021, 12/18/2020, Additional history exists Depression Monitoring 12/15/2024 06/14/2024, 025 Diabetes: Hemoglobin A1C 03/14/2025 025, 06/14/2024, 11/09/2023, Additional history exists SDOH Screening 04/30/2025 04/30/2024 Mammogram 08/21/2025 08/22/2023, 04/08/2021 Diabetes: Urine Protein Screening 10/01/2025 10/01/2024, 11/09/2023, 04/01/2021, Additional history exists Lipid Panel 10/01/2025 10/01/2024, 10/19, 09/15/2022, Additional history exists Eye Exam 01/15/2026 01/16/2024 Tobacco Screening 02/06/2026 02/06/2025 DTaP/Tdap/Td Vaccines (2 - Td or Tdap) [...] PM EST Acute pain of left knee ALBUMIN, RANDOM URINE W/CREATININE Routine 10/01/2024 8:29 AM EDT Type 2 diabetes mellitus with other specified complication, unspecified whether fdc insulin use (CMS/HCC) LIPID PANEL, STANDARD Routine 10/01/2024 8:29 AM EDT Type 2 diabetes mellitus with other specified complication, unspecified whether agricultural labor camp manager insulin use (CMS/HCC) POCT GLYCATED HEMOGLOBIN, TOTAL Routine 09/12/2024 1:53 PM EDT Type 2 diabetes mellitus with other specified complication, unspecified whether agricultural labor camp manager insulin use (CMS/HCC) HM MAMMOGRAPHY Routine 08/22/2023 ZZZ HISTORICAL HEPATITIS C AB W/REFL TO HCV RNA, QN, PCR Routine 08/10/2021 3:07 PM EDT HM COLONOSCOPY Routine 11/30/2016 from Last 3 Months or Most Recently Relevant to Health Maintenance Results * XR Knee 4+ Views Left (02/06/2025 2:29 PM EST) Anatomical Region Laterality Modality Lower Extremities, Knee Left Radiogra phic Imaging 02/06/2025 2:29 PM EST Narrative 02/06/2025 2:48 PM EST [facility] [address] [place] [address] XRay Report Signed Patient: Ina Greer MR#: [id number] : 1955 Acct:[id number] Age/Sex: 70 / F ADM Date: 02/06/25 Loc: .HHCX Attending Dr: Ibeth Ashraf MD Ordering Physician: Ibeth Ashraf MD Date of Service: 02/06/25 Procedure(s): XR knee LT 4V Accession Number(s): [id number] cc: Ibeth Ashraf MD Reason for Exam: [...] 02/06/25 1445 DD/ 1429 TD/TT: 02/06/25 1440 Call Or Contact Centre Manager: Procedure Note Donotuseinterpreter, Image - 02/06/2025 [facility] [address] [place] [address] XRay Report Signed Patient: Chaparro Greer#: [id number] : 3Acct:[id number] Age/Sex: 70 / FADM Date: 02/06/25 [facility]: Ibeth Ashraf MD Ordering Physician: Ibeth Ashraf MD Date of Service: 02/06/25 Procedure(s): XR knee LT 4V Accession Number(s): [id number] cc: Ibeth Ashraf MD Reason for Exam: [...] by: Tomi Tavera MD 02/06/2025 02:45 PM [facility] Dictated By: Tomi Tavera MD Signed By: <Electronically signed by Tomi Tavera MD in OV> 02/06/25 1445 DD/ 1429 TD/TT: 02/06/25 1440 Call Or Contact Centre Manager: Ibeth Ashraf MD IMG XR PROCEDURES Final Re sult * Albumin, Random Urine W/Creatinine (10/01/2024 8:29 AM EDT) Creatinine, Urine 60.23 mg/dL [facility] Microalbumin Urine 8.0 mg/L [facility] Microalbum Creatinine Ratio Ur 13.2 <30 ug/mg cr [facility] Comment:Albumin/Creatinine R atio Reference Ranges: Normal: < 30 ug/mg creatinine Microalbuminuria: 30 - 300 ug/mg creatinineClinical Albuminuria: > 300 ug/mg creatinine Urine (Urine, Random) 10/01/2024 8:29 AM EDT 10/01/2024 11:07 AM EDT us Nicole Stevenson MD LAB URINE ORDERABLES Final Result Performing Organization Address City/[facility]/ZIP Co de Phone Number [facility] [address] [place] [address] [phone] * (ABNORMAL) Lipid Panel, Standard (10/01/2024 8:29 AM EDT) Triglycerides 116 <150 mg/dL [facility] Comment:Desirable Triglyceri de: less than 150 mg/dLBorderline High Triglyceride 150-199 mg/dLHigh Triglyceride: 200-499 mg/dLVery High Triglyceride: greater than or equal to 5OO mg/dL Cholesterol 140 <200 mg/dL [facility] Comment:Desirable Cholestero l: less than 200 mg/dLBorderline High Cholesterol: 200-239 mg/dLHigh Cholesterol: greater than 239 mg/dL LDL Cholesterol Calculated 78 <100 mg/dL [facility] Comment:Desirable LDL: less than 100 mg/dLNear Optimal/Above Optimal LDL: 110- 129 mg/dLBorderline High LDL: 130-159 mg/dLHigh LDL: 160-189 mg/dLVery High LDL: greater than or equal to 190 mg/dL HDL Cholesterol 39(L) >40 mg/dL [facility] Comment:Desirable HDL: great er than 40 mg/dL Note: This HDL assay may give artificially low results in patients with liver disease. Blood Venous blood specimen / Unknown 10/01/2024 8:29 AM EDT 10/01/2024 11:06 AM EDT us Nicole Stevenson MD LAB BLOOD ORDERABLES Final Result [facility] [address] [place] [phone] [phone] * (ABNORMAL) POCT HGB A1C (09/12/2024 1:53 PM EDT) Pathologist [facility] Hemoglobin A1C 6.9(A) 4.0 - 6.0 % QC Media Lot # [id number] Lot# Expiration Date [id number] Blood 09/12/2024 1:53 PM EDT Nicole Stevenson MD POINT OF CARE TEST EN TER/EDIT ORDERABLES Final Result * Mammography (08/22/2023) Pathologist [facility] Mammogram BIRADS 1 Normal, Abnormal, BIRADS 1 , BIRADS 2 Anatomical Region Laterality Modality Other Historical Provider HEALTH MAINTENANCE Edited Result - Final * HEPATITIS C AB W/REFL TO HCV RNA, QN, PCR (08/10/2021 3:07 PM EDT) Pathologist [facility] HEPATITIS C ANTIBODY NON-REACT [facility] NON-REACT [facility] INDEX 0.03 <1.00 [facility] Comment: HCV antibody was non-reactive. There is no laboratory evidence of HCV infection. In most cases, no further action is required. However, if recent HCV exposure is suspected, a test for HCV RNA (test code 63146) is suggested. For additional information please refer to http://education.[employer].Cleverbug/faq/CSL86b0 (This link is being provided for informational/ educational purposes only.) 08/10/2021 3:07 PM EDT Adrianne Durham [employer]OVER HISTORICAL/NON ORDERABLE LABS Final Result [facility] [address] [place] [address], * Colonoscopy (11/30/2016) Pathologist [facility] Colonoscopy Normal Normal Narrative Margot Mora - 11/30/2016 Recommended 10 years. See see results scanned in social media director on 10/01/2024 she completed last colonoscopy with Mirella and per GI note procedure was done on 11/30/2016 us Historical Provider HEALTH MAINTENANCE Final Result from Last 3 Months or Most Recently Relevant to Health Maintenance Insurance [id number] [facility] STANDARD [facility] JAIL OPTIONS (HMO D-SNP) [address] Care Teams Blindstitch Machine Operator Relationship Specialty Start Date End Date Nicole Mcpherson MD [address] [place] [phone] PCP - General Family Medicine 11/11/21
--- OUTSIDE RECORDS SUMMARY | 2025-02-06 19:18 | XMS_ITS | Encounter Summary ---
Author Organization [employer] Address 75 [facility] 7t [place] [address] Care Team Providers Care Form Tamper Operator Name Role Phone Nicole Mcpherson MD Primary Care Provide r Reason for Visit * Reason Comments Med Refill Encounter Details Date Type Department Care Team ([facility] st Contact Info) Description 11/20/2022 Refill [facility] [address] [place], [place] [phone] Parul Leonardo MD [address] [place], [place] [phone] Type 2 diabetes mellitus with other specified complication, unspecified whether senior living insulin use ([facility]) Social History Tobacco Use Types Packs/Day [...] mellitus with other specified complication, unspecified whether ground worker 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
--- OUTSIDE RECORDS SUMMARY | 2025-02-06 19:18 | XMS_ITS | Encounter Summary ---
Author Organization [employer] Address [address] [facility] [address]t [place] [address] Care Team Providers Care Creping Machine Operator Helper Name Role Phone Nicole Mcpherson MD Primary Care Provide r Encounter Details Date Type Department Care Team (Latest Contact Info) Description 02/06/2025 Travel Social History Tobacco Use Types Packs/Day Years [...] documented as of this encounter Care Teams Creping Machine Operator Helper Relationship Specialty Start Date End Date Nicole Mcpherson MD [address] [place] [phone] PCP - General Family Medicine 11/11/21 documented as of this encounter
--- OUTSIDE RECORDS SUMMARY | 2025-02-06 19:18 | XMS_ITS | Encounter Summary ---
Author Organization [employer] Address [address] [facility] 7t [place] [address] Care Team Providers Care Electrochemist Name Role Phone Nicole Mcpherson MD Primary Care Provide r Reason for Visit * Reason Comments Med Refill Encounter Details Date Type Department Care Team ([facility] st Contact Info) Description 06/11/2023 Refill [facility] [address] [place], [place] [phone] Nicole Mcpherson MD [address] [place], [place] [phone] Chronic right-sided thoracic back pain; Chronic bilateral [...] documented as of this encounter Care Teams Electrochemist Relationship Specialty Start Date End Date Nicole Mcpherson MD [address] [place] [phone] PCP - General Family Medicine 11/11/21 documented as of this encounter
--- OUTSIDE RECORDS SUMMARY | 2025-02-06 19:18 | XMS_ITS | Encounter Summary ---
Author Organization [employer] Address [address] [facility] [address] [place] [address] Care Team Providers Care Test Skein Winder Name Role Phone Nicole Mcpherson MD Primary Care Provide r Encounter Details Date Type Department Care Team (Late st Contact Info) Description 11/22/2022 Orders Only [facility] [address] [place] [address] America Gracia LPN Social History Tobacco Use [...] documented as of this encounter Care Teams Test Skein Winder Relationship Specialty Start Date End Date Nicole Mcpherson MD [address] [place] [phone] PCP - General Family Medicine 11/11/21 documented as of this encounter
--- OUTSIDE RECORDS SUMMARY | 2025-02-06 19:18 | XMS_ITS | Encounter Summary ---
Author Organization [employer] Address [address] [facility] [address] 7[address] [place] [address] Care Team Providers Care Instrument Installer Name Role Phone Nicole Mcpherson MD Primary Care Provide r Encounter Details Date Type Department Care Team (Late st Contact Info) Description 05/26/2022 Orders Only [facility] [address] [place] [address] America Gracia LPN Social History Tobacco Use [...] on filedocumented in this encounter Care Teams Instrument Installer Relationship Specialty Start Date End Date Nicole Mcpherson MD [address] [place] [phone] PCP - General Family Medicine 11/11/21 documented as of this encounter
--- OUTSIDE RECORDS SUMMARY | 2025-02-06 19:18 | XMS_ITS | Encounter Summary ---
Author Organization [employer] Address [address] [facility] [address] 7t [place] [address] Care Team Providers Care Patent Searcher Name Role Phone Nicole Mcpherson MD Primary Care Provide r Encounter Details Date Type Department Care Team ([facility] st Contact Info) Description 10/01/2024 Orders Only [facility] [address] [place], [place] [phone] Nicole Mcpherson MD [address] [place] [address] Social History Tobacco Use Types Packs/Day Years [...] PM EDT Narrative 10/02/2024 7:08 AM EDT [place] [id number] Ultrasound Report Signed Patient: Ina Greer MR#: [id number] : 1955 Acct:[id number] Age/Sex: 69 / F ADM Date: 10/01/24 Loc: HO.US Attending Dr: Dawit Freedman MD Ordering Physician: Dawit Freedman MD Date of Service: 10/01/24 Procedure(s): US renal BI Accession Number(s): [id number] cc: Dawit Freedman MD; Nicole Mcpherson MD [...] 10/02/24 0701 DD/ 1642 TD/TT: 10/01/24 1648 Tier Truck Driver: Procedure Note Donotuseinterpreter, Image - 10/02/2024 [place] [id number] Ultrasound Report Signed Patient: Chaparro Greer#: [id number] : 3Acct:[id number] Age/Sex: 69 / FADM Date: 10/01/24 Loc: HO.US Attending Dr: Dawit Freedman MD Ordering Physician: Dawit Freedman MD Date of Service: 10/01/24 Procedure(s): US renal BI Accession Number(s): [id number] cc: Dawit Freedman MD; Nicole Mcpherson MD [...] 10/02/24 0701 DD/ 1642 TD/TT: 10/01/24 1648 Tier Truck Driver: [facility] External Provider IMG US PROCEDURES Final Result documented in this encounter Visit Diagnoses Not on filedocumented in this encounter Additional Health Concerns Assessment Noted Time PHQ-9 Depression Total Score: 18 025 4:00 PM EDT documented as of this encounter Care Teams Patent Searcher Relationship Specialty Start Date End Date Nicole Mcpherson MD [address] [place] [phone] PCP - General Family Medicine 11/11/21 documented as of this encounter
--- OUTSIDE RECORDS SUMMARY | 2025-02-06 19:18 | XMS_ITS | Encounter Summary ---
Author Organization [employer] Address 75 [facility] 7t [place] [address] Care Team Providers Care Sharepoint Application Architect Name Role Phone Nicole Mcpherson MD Primary Care Provide r Reason for Visit * Reason Comments Med Refill Encounter Details Date Type Department Care Team ([facility] Contact Info) Description 10/24/2023 Refill [facility] [address] [place], [place] [phone] Nicole Mcpherson MD [address] [place], [place] [phone] Type 2 diabetes mellitus with other specified complication, unspecified whether long distance operator insulin use ([facility]) Social History Tobacco Use Types Packs/Day Years [...] mellitus with other specified complication, unspecified whether long distance operator insulin use (HCC) documented in this encounter Additional Health Concerns Assessment Noted Time PHQ-9 Depression Total Score: 11 023 9:15 AM EDT documented as of this encounter Care Teams Sharepoint Application Architect Relationship Specialty Start Date End Date Nicole Mcpherson MD [address] [place] [phone] PCP - General Family Medicine 11/11/21 documented as of this encounter
== END 2025-02-06 13:50 | disposition home or self-care (01) ==
LOC: HO.HHCX 13:49
PROVIDERS: Visit Provider Family Medicine
DX: M25.562 Pain in left knee (principal)
CPT/HCPCS: 73564

== ENCOUNTER → 2025-02-06 13:50 | Outpatient (BNV) | payer OTHER, SELFPAY | PROVIDERS: Visit Provider Radiology Diagnostic Radiology | DX: M25.562 Pain in left knee (principal); M25.462 Effusion, left knee; M17.12 Unilateral primary osteoarthritis, left knee; Z04.3 Encounter for examination and observation following other accident | CPT/HCPCS: 73564 ==

== ENCOUNTER 2025-02-25 13:06 | Outpatient (AMB) | payer OTHER, SELFPAY ==
[2025-02-25 13:24] VITALS: BMI 26.5
--- NOTE | 2025-02-25 13:24 | MHC.OFFVIS ---
Vital Signs 02/25/25 13:24 Height 5 ft 7 in Weight 169 lb BMI 26.5 Intake Visit Reasons: OV-Lt 3rd digit trigger finger, pain Intake Note: Ina is a 70 year old right hand dominant Maldivian speaking female, with a history of Diabetes, who presents today for a Follow Up visit status post Left Middle Finger Trigger Finger Injection, DOS: 11/12/24. Patient reports the injection did not provide any relief. She is interested in discussion other options. Health Information Tech Required: No Accompanied by: Daughter Allergies doxycycline Allergy (Severe, Verified 02/25/25 13:24) Itching theophylline Allergy (Intermediate, Verified 02/25/25 13:24) Facial Swelling, itching, nausea HPI HPI OV-Lt 3rd digit trigger finger, pain: Details: Ina is a 70 year old right hand dominant Maldivian speaking female, with a history of Diabetes, who presents today for a Follow Up visit status post Left Middle Finger Trigger Finger Injection, DOS: 11/12/24. Patient reports the injection did not provide any relief. Is not interested in repeat injections. She is interested in discussion other options, including surgery. FOR[facility]LY [facility], [facility] Medical History Primary osteoarthritis of right knee Hx of breast cancer Back pain YAEL on CPAP Vitamin B deficiency Steatosis of liver Osteopenia Mixed anxiety and depressive disorder HTN (hypertension) GERD (gastroesophageal reflux disease) Stress incontinence in female Dyslipidemia Renal cyst Asthma Osteoarthritis Anxiety Acute depression Diabetes Surgical History Hx of tubal ligation Hx of breast surgery Hx of colonoscopy Social History Household Members: Family Household Members Other:: daughter, son, and brother Housing: Apartment Are you a primary healthcare economics consultant to a significant other at home: No Do you presently have visiting nurse or other home services: Yes Patient Tobacco Use Status: Never used Tobacco service: No Current occupational status: disabled 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 Neuro: Normal sensation of the tips of all digits of the left hand at this time Vascular: Cap refill brisk Pain: No tenderness to palpation of the A1 jose martin of left middle finger Pain with associated locking and catching of the left middle finger ROM: There is a visible and palpable locking and catching of the left middle finger in a flexed position Patient is able to flex and extend all of the digits of the left hand fully and without difficulty Skin: No lacerations or abrasions. General: No ecchymosis, erythema, or evidence of infection. Psych: Appears grossly normal Affect normal Attitude cooperative Assessment & Plan Assessment & Plan (1) Trigger finger, left middle finger: Code(s): M65.332 - Trigger finger, left middle finger Category: Medical Plan 1. Left middle finger trigger finger I educated the patient about the condition. I discussed both operative and nonoperative treatment options. The patient would like to proceed with surgery. The risks and benefits of operative treatment were discussed with the patient and the patient wishes to proceed with surgery. These risks include, but are not limited to, risk of damage to blood vessels, nerves, tendons, infection, recurrence, incomplete relief of preoperative symptoms, persistent pain, possible need for further surgery, and the risks associated with regional blocks and/or anesthesia. Plan is to take the patient to the operating room at some point in the next few weeks for the following procedures: 1. Left middle finger trigger release under local All of the preoperative paperwork including the consent was discussed today. All of the patient's questions were answered in the clinic today. The patient understands that they will be in contact with our instructor adjunct surgical technician to discuss scheduling their procedure. Patient reports diabetes, reports that last A1c was below 8, but we will need final value prior to surgery Denies blood thinners, asthma, heart issues, lung issues, kidney issues, or current smoking. Coding Level of Care Code Est Pt Level 4 (76042) Diagnoses Trigger finger, left middle finger M65.332
--- OUTSIDE RECORDS SUMMARY | 2025-02-25 17:18 | XMS_ITS | Encounter Summary ---
Author Organization [email or web address] Address [address] [facility] 7t [place] [address] Care Team Providers Care Rn Forensic Name Role Phone Nicole Mcpherson MD Primary Care Provide r Reason for Visit * Reason Comments Med Refill Encounter Details Date Type Department Care Team ([facility] st Contact Info) Description 06/11/2023 Refill [facility] MEDICINE [address] [place], [place] [phone] Nicole Mcpherson MD [address] [place], [place] [phone] Chronic right-sided thoracic back pain; Chronic bilateral [...] documented as of this encounter Care Teams Rn Forensic Relationship Specialty Start Date End Date Nicole Mcpherson MD [address] [place] [phone] PCP - General Family Medicine 11/11/21 documented as of this encounter
--- OUTSIDE RECORDS SUMMARY | 2025-02-25 17:18 | XMS_ITS | Encounter Summary ---
Author Organization [employer] Address [address] [facility] [address] [place] [address] Care Team Providers Care Nursing Unit Clerk Name Role Phone Nicole Mcpherson MD Primary Care Provide r Encounter Details Date Type Department Care Team (Late st Contact Info) Description 05/03/2023 Abstract [facility] MEDICINE [address] [place], [place] [phone] Nicole Mcpherson MD [address] [place], [place] [phone] Social History Tobacco Use Types Packs/Day Years [...] documented as of this encounter Care Teams Nursing Unit Clerk Relationship Specialty Start Date End Date Nicole Mcpherson MD [address] [place] [id number] PCP - General Family Medicine 11/11/21 documented as of this encounter
--- OUTSIDE RECORDS SUMMARY | 2025-02-25 17:19 | XMS_ITS | Encounter Summary ---
Author Organization [employer] Address [address] [facility] 7t [place] [address] Care Team Providers Care Dump Grounds Checker Name Role Phone Nicole Mcpherson MD Primary Care Provide r Reason for Visit * Reason Comments Med Refill Encounter Details Date Type Department Care Team ([facility] st Contact Info) Description 11/20/2022 Refill [facility] MEDICINE [address] [place], [place] [phone] Parul Leonardo MD [address] [place], [place] [phone] Type 2 diabetes mellitus with other specified complication, unspecified whether terminal system operator insulin use ([facility]) Social History Tobacco Use Types [...] mellitus with other specified complication, unspecified whether terminal system operator insulin use (HCC) documented in this encounter Additional Health Concerns Assessment Noted Time PHQ-9 Depression Total Score: 11 09/13/ 023 9:15 AM EDT documented as of this encounter Care Teams Dump Grounds Checker Relationship Specialty Start Date End Date Nicole Mcpherson MD [address] [place] [address] PCP - General Family Medicine 11/11/21 documented as of this encounter
--- OUTSIDE RECORDS SUMMARY | 2025-02-25 17:19 | XMS_ITS | Encounter Summary ---
Author Organization [employer] Address [address] [facility] [address] [address] 7[address] [place] [address] Care Team Providers Care Dental Laboratory Technician Apprentice Name Role Phone Nicole Mcpherson MD Primary Care Provide r Encounter Details Date Type Department Care Team (Late st Contact Info) Description 11/22/2022 Orders Only [facility] [address] [place] [address] America Gracia LPN Social History Tobacco Use [...] documented as of this encounter Care Teams Dental Laboratory Technician Apprentice Relationship Specialty Start Date End Date Nicole Mcpherson MD [address] [place] [phone] PCP - General Family Medicine 11/11/21 documented as of this encounter
--- OUTSIDE RECORDS SUMMARY | 2025-02-25 17:19 | XMS_ITS | Encounter Summary ---
Author Organization [employer] Address [address] [facility] [address] [place] [address] Care Team Providers Care Dryer And Washer Mechanic Name Role Phone Nicole Mcpherson MD Primary Care Provide r Encounter Details Date Type Department Care Team ([facility] st Contact Info) Description 10/01/2024 Orders Only [facility] MEDICINE [address] [place], [place] [phone] Nicole Mcpherson MD [address] [place] [address] Social History Tobacco Use Types Packs/Day Years [...] PM EDT Narrative 10/02/2024 7:08 AM EDT [place] [address] Ultrasound Report Signed Patient: Ina Greer MR#: [id number] : 1955 Acct:[id number] Age/Sex: 69 / F ADM Date: 10/01/24 Loc: HO.US Attending Dr: Dawit Freedman MD Ordering Physician: Dawit Freedman MD Date of Service: 10/01/24 Procedure(s): US renal BI Accession Number(s): [id number] cc: Dawit Freedman MD; Nicole Mcpherson MD [...] 10/02/24 0701 DD/ 1642 TD/TT: 10/01/24 1648 Director Of Social Work: Procedure Note Donotuseinterpreter, Image - 10/02/2024 [place] [address] Ultrasound Report Signed Patient: Chaparro Greer#: [id number] : 3Acct:[id number] Age/Sex: 69 / FADM Date: 10/01/24 Loc: HO.US Attending Dr: Dawit Freedman MD Ordering Physician: Dawit Freedman MD Date of Service: 10/01/24 Procedure(s): US renal BI Accession Number(s): [id number] cc: Dawit Freedman MD; Nicole Mcpherson MD [...] 10/02/24 0701 DD/ 1642 TD/TT: 10/01/24 1648 Director Of Social Work: [facility] External Provider IMG US PROCEDURES Final Result documented in this encounter Visit Diagnoses Not on filedocumented in this encounter Additional Health Concerns Assessment Noted Time PHQ-9 Depression Total Score: 18 025 4:00 PM EDT documented as of this encounter Care Teams Dryer And Washer Mechanic Relationship Specialty Start Date End Date Nicole Mcpherson MD [address] [place] [phone] PCP - General Family Medicine 11/11/21 documented as of this encounter
--- OUTSIDE RECORDS SUMMARY | 2025-02-25 17:19 | XMS_ITS | Encounter Summary ---
Author Organization [employer] Address [address] [facility] [address] [place] [address] Care Team Providers Care Sugar Cane Planter Machine Operator Name Role Phone Nicole Mcpherson MD Primary Care Provide r Encounter Details Date Type Department Care Team (Late st Contact Info) Description 03/19/2024 Orders Only [facility] [address] [place] [phone] Charles Anaya MD [address] [place], [place] [phone] Social History Tobacco Use Types Packs/Day Years [...] the past 12 months, has t he [email or web address], gas, oil or water company threatened to [...] documented as of this encounter Care Teams Sugar Cane Planter Machine Operator Relationship Specialty Start Date End Date Nicole Mcpherson MD [address] [place] [phone] PCP - General Family Medicine 11/11/21 documented as of this encounter
--- OUTSIDE RECORDS SUMMARY | 2025-02-25 17:19 | XMS_ITS | Encounter Summary ---
Author Organization [employer] Address [address] [facility] [address] [place] [address] Care Team Providers Care Budget Specialist Name Role Phone Nicole Mcpherson MD Primary Care Provide r Encounter Details Date Type Department Care Team ([facility] st Contact Info) Description 01/16/2023 Orders Only [facility] [address] [place] [address] America Gracia LPN Social History Tobacco Use [...] documented as of this encounter Care Teams Budget Specialist Relationship Specialty Start Date End Date Nicole Mcpherson MD [address] [place] [address] PCP - General Family Medicine 11/11/21 documented as of this encounter
--- OUTSIDE RECORDS SUMMARY | 2025-02-25 17:19 | XMS_ITS | Clinical Summary ---
Author Organization [employer] Address 75 [facility] 7[address] [place] [address] Care Team Providers Care Supervisor Cab Name Role Phone Nicole Mcpherson MD Primary Care Provide r Allergies Active Allergy Reactions Criticality Noted Date Comments Theophylline 05/03/2012 Other reaction(s): Rash Medications Continuous Blood Gluc Distribution Manager (CorengiStyle Mark 2 Sobieski) deviceIndicatio ns:Type 2 diabetes mellitus with hyperglycemia, with long-term current use of insulin ([facility]) Scan sensor every 8 hours 1 each 04/26/19 24 Active fluticasone (Flonase) 50 MCG/ACT nasal sprayIndication s:Mild persistent asthma without complication INHALE 1 SPRAY IN EACH NOSTRIL TWICE DAILY 48 g 05/15/19 24 Active Blood Glucose Monitoring Suppl (CorengiStyle Paden Lite) w/Device kitIndications: Type 2 diabetes mellitus with hyperglycemia, with long-term current use of insulin ([facility]) Use to test blood sugar 3 times daily 1 kit 08/15/19 24 Active acetaminophen (Tylenol) 325 MG tablet Take 2 tablets by mouth every 6 (six) hours if needed for mild pain. 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 30 tablet 11 08/02/19 25 2025 Active FREESTYLE LITE test stripIndication s:Type 2 diabetes mellitus with hyperglycemia, with long-term current use of insulin ([facility]) USE DIRECTED TO TEST BLOOD SUGAR THREE [...] mellitus with other specified complication, unspecified whether correction insulin use ([facility]) TEST BLOOD SUGAR THREE TIMES DAILY 100 each 5 09/19/19 25 Active BD Pen Needle Short Ultrafine 31G X 8 MM miscIndications :Type 2 diabetes mellitus without complication, with long-term current use of insulin ([facility]) USE DIRECTED FOUR TIMES DAILY 100 each 3 5 10:08 AM EST 10/08/19 25 Active Multiple Vitamins-Minera ls (CertaVite/Anti oxidants) tablet TAKE 1 TABLET BY MOUTH EVERY MORNING 90 tablet 3 10/11/19 25 Active cetirizine (ZyrTEC) 10 MG tabletIndicatio ns:Allergic rhinitis, unspecified seasonality, unspecified trigger TAKE 1 TABLET BY MOUTH EVERY DAY NEEDED 90 tablet 3 5 10:24 AM EST 10/11/19 25 Active Aspirin Low Dose 81 MG [...] DAY IN THE MORNING 45 tablet 1 5 10:08 AM EST 02/07/20 25 Active Acetaminophen 500 MG capsuleIndicati ons:Acute pain of left knee Take 1 capsule (500 mg) by mouth every 8 (eight) hours if needed for moderate pain or fever. 30 capsule 02/07/20 25 2024 Active Dulera 200-5 MCG/ACT inhalerIndicati ons:Asthma, unspecified asthma severity, unspecified whether complicated, unspecified whether persistent INHALE 2 PUFFS BY MOUTH TWICE DAILY IN THE MORNING AND IN THE EVENING RINSE MOUTH AFTER USING. 13 g 2 02/08/20 25 Active Ventolin HFA 108 (90 Base) MCG/ACT inhalerIndicati ons:Influenza-l eliezer symptoms INHALE 2 PUFFS BY MOUTH EVERY 4 HOURS NEEDED FOR WHEEZING OR SHORTNESS OF BREATH 18 g 1 02/22/20 25 Active albuterol 108 (90 Base) MCG/ACT inhalerIndicati ons:Influenza-l eliezer symptoms Inhale 2 puffs every 4 (four) hours if needed for wheezing or shortness of breath. 18 g 1 10:25 AM EST 03/19/20 24 2024 Discontinued Ferrous Sulfate (iron) 325 (65 Fe) MG tabletIndicatio ns:Iron deficiency TAKE 1 TABLET BY MOUTH EVERY OTHER DAY IN THE MORNING 45 tablet 1 08/17/19 25 2024 Discontinued Dulera 200-5 MCG/ACT inhalerIndicati ons:Asthma, unspecified asthma severity, unspecified whether complicated, unspecified whether persistent INHALE 2 PUFFS BY MOUTH TWICE DAILY IN THE MORNING AND IN THE EVENING RINSE MOUTH AFTER USING. 13 g 2 10/12/19 25 2024 Discontinued Active Problems [...] Encounters Date Type Department Care Team Description 02/20/2025 Refill [facility] [address] [place] [address] Charles Anaya MD Influenza-like symptoms 02/07/2025 Refill [facility] [address] [place] [address] Nicole Mcpherson MD Asthma, unspecified asthma severity, unspecified whether complicated, unspecified whether persistent 02/06/2025 2:00 PM EST Office Visit [facility] [address] [place] [address] Ibeth Ashraf MD Acute pain of left knee (Primary Dx) 02/06/2025 Travel 02/05/2025 Refill [facility] [address] [place] [address] Nicole Mcpherson MD Iron deficiency 01/09/2025 Refill [facility] [address] [place] [address] Nicole Mcpherson MD Mixed anxiety and depressive disorder 01/07/2025 Refill [facility] [address] [place] [address] Nicole Mcpherson MD 12/31/2024 Telephone [facility] [address] [place] [address] Kemal Bashir [place] cologaurd outreach 12/24/2024 9:15 AM EDT Office Visit [facility] [address] [place] [address] Radha Taylor MD Chronic bilateral low back pain without sciatica (Primary Dx); Mixed anxiety and depressive disorder 12/24/2024 Travel 12/17/2024 10:00 AM EDT Office Visit [facility] [address] [place] [address] Radha Taylor MD Chronic bilateral low back pain without sciatica (Primary Dx); Mixed anxiety and depressive disorder 12/17/2024 Travel 12/17/2024 Refill [facility] [address] [place] [address] Nicole Mcpherson MD Other diabetic neurological complication associated with type 2 diabetes mellitus ([facility]/HCC) 12/01/2024 Refill [facility] [address] [place] [address] Nicole Mcpherson MD Mild episode of recurrent major depressive disorder ([facility]/HCC); Other diabetic neurological complication associated with type 2 diabetes mellitus ([facility]/HCC) from Last 3 Months Immunizations Immunization Administration [...] housing situation today? 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 (CMS/HCC) MAMMOGRAPHY Routine 08/22/2023 ZZZ HISTORICAL HEPATITIS C AB W/REFL TO HCV RNA, QN, PCR Routine 08/10/2021 3:07 PM EDT COLONOSCOPY Routine 11/30/2016 from Last 3 Months or Most Recently Relevant to Health Maintenance Results * XR Knee 4+ Views Left (02/06/2025 2:29 PM EST) Anatomical Region Laterality Modality Lower Extremities, Knee Left Radiogra phic Imaging 02/06/2025 2:29 PM EST Narrative 02/06/2025 2:48 PM EST [address] [address] XRay Report Signed Patient: nIa Greer MR#: [id number] : 1955 Acct:[id number] Age/Sex: 70 / F ADM Date: 02/06/25 Loc: HO.HHCX Attending Dr: Ibeth Ashraf MD Ordering Physician: Ibeth Ashraf MD Date of Service: 02/06/25 Procedure(s): XR knee LT 4V Accession Number(s): [id number] cc: Ibeth Ashraf MD Reason for Exam: [...] Tomi Tavera MD 02/06/2025 02:45 PM EST RP Dictated By: Tomi Tavera MD Signed By: <Electronically signed by Tomi Tavera MD in OV> 02/06/25 1445 DD/ 1429 TD/TT: 02/06/25 1440 Floor Renovator: Procedure Note Donotuseinterpreter, Image - 02/06/[address] [address] XRay Report Signed Patient: Chaparro Greer#: [id number] : 3Acct:[id number] Age/Sex: 70 / FADM Date: 02/06/25 Loc: .HHCX Attending Dr: Ibeth Ashraf MD Ordering Physician: Ibeth Ashraf MD Date of Service: 02/06/25 Procedure(s): XR knee LT 4V Accession Number(s): [id number] cc: Ibeth Ashraf MD Reason for Exam: [...] Tomi Tavera MD 02/06/2025 02:45 PM EST RP Dictated By: Tomi Tavera MD Signed By: <Electronically signed by Tomi Tavera MD in OV> 02/06/25 1445 DD/ 1429 TD/TT: 02/06/25 1440 Floor Renovator: us Ibeth Ashraf MD IMG XR PROCEDURES Final Re sult * Albumin, Random Urine W/Creatinine (10/01/2024 8:29 AM EDT) Creatinine, Urine 60.23 mg/dL [facility] Microalbumin Urine 8.0 mg/L [facility] Microalbum Creatinine Ratio Ur 13.2 <30 ug/mg cr [facility] Comment:Albumin/Creatinine R atio Reference Ranges: Normal: < 30 ug/mg creatinine Microalbuminuria: 30 - 300 ug/mg creatinineClinical Albuminuria: > 300 ug/mg creatinine Urine (Urine, Random) 10/01/2024 8:29 AM EDT 10/01/2024 11:07 AM EDT us Nicole Stevenson MD LAB URINE ORDERABLES Final Result [facility] [address] [place] [address] [phone] * (ABNORMAL) Lipid Panel, Standard (10/01/2024 8:29 AM EDT) Triglycerides 116 <150 mg/dL [facility] Comment:Desirable Triglyceri de: less than 150 mg/dLBorderline High Triglyceride 150-199 mg/dLHigh Triglyceride: 200-499 mg/dLVery High Triglyceride: greater than or equal to 5OO mg/dL Cholesterol 140 <200 mg/dL [facility] Comment:Desirable Cholestero l: less than 200 mg/dLBorderline High Cholesterol: 200-239 mg/dLHigh Cholesterol: greater than 239 mg/dL LDL Cholesterol Calculated 78 <100 mg/dL [facility] Comment:Desirable LDL: less than 100 mg/dLNear Optimal/Above Optimal LDL: 110- 129 mg/dLBorderline High LDL: 130-159 mg/dLHigh LDL: 160-189 mg/dLVery High LDL: greater than or equal to 190 mg/dL HDL Cholesterol 39(L) >40 mg/dL [facility] Comment:Desirable HDL: great er than 40 mg/dL Note: This HDL assay may give artificially low results in patients with liver disease. Blood Venous blood specimen / Unknown 10/01/2024 8:29 AM EDT 10/01/2024 11:06 AM EDT Result [facility] Nicole Stevenson MD LAB BLOOD ORDERABLES Final Result [facility] [address] [place] [phone] * (ABNORMAL) POCT HGB A1C (09/12/2024 1:53 PM EDT) [facility] Hemoglobin A1C 6.9(A) 4.0 - 6.0 % QC Media Lot # [id number] Lot# Expiration Date [id number] Blood 09/12/2024 1:53 PM EDT Result [facility] Nicole Stevenson MD POINT OF CARE TEST EN TER/EDIT ORDERABLES Final Result * Mammography (08/22/2023) Pathologist [facility] Mammogram BIRADS 1 Normal, Abnormal, BIRADS 1 , BIRADS 2 Anatomical Region Laterality Modality Other Result [facility] Historical Provider HEALTH MAINTENANCE Edited Result - Final * HEPATITIS C AB W/REFL TO HCV RNA, QN, PCR (08/10/2021 3:07 PM EDT) Pathologist [facility] HEPATITIS C ANTIBODY NON-REACT SAM[facility]A NON-REACT [facility] INDEX 0.03 <1.00 [facility] Comment: HCV antibody was non-reactive. There is no laboratory evidence of HCV infection. In most cases, no further action is required. However, if recent HCV exposure is suspected, a test for HCV RNA (test code 04837) is suggested. For additional information please refer to http://education.Georgina Goodman/faq/HOQ85x2 (This link is being provided for informational/ educational purposes only.) 08/10/2021 3:07 PM EDT us Adrianne Durham [facility] MANAGER HISTORICAL/NON ORDERABLE LABS Final Result [facility] [address] [place] [phone], * Colonoscopy (11/30/2016) Colonoscopy Normal Normal Narrative Margot Mroa - 11/30/2016 Recommended 10 years. See see results scanned in sales assistant entertainment and media on 10/01/2024 she completed last colonoscopy with [facility] and per GI note procedure was done on 11/30/2016 us Historical Provider MD HEALTH MAINTENANCE Final Result from Last 3 Months or Most Recently Relevant to Health Maintenance Insurance [id number] STANDARD [facility] SKILLED NURSING OPTIONS (HMO D-SNP) Care Teams Supervisor Cab Relationship Specialty Start Date End Date Nicole Mcpherson MD [address] [place] [phone] PCP - General Family Medicine 11/11/21
--- OUTSIDE RECORDS SUMMARY | 2025-02-25 17:20 | XMS_ITS | Encounter Summary ---
Author Organization [employer] Address [address] [facility] 7t [place] [address] Care Team Providers Care Ribbon Sweatband Operator Name Role Phone Nicole Mcpherson MD Primary Care Provide r Reason for Visit * Reason Onset Date Comments Hospital Follow-up 10/05/2023 Encounter Details Date Type Department Care Team ([facility] st Contact Info) Description 10/05/2023 Telephone [facility] [address] [place] [address] [phone] Nicole Mcpherson MD [address] [place], [place] [phone] Hospital Follow-up Social History Tobacco Use Types [...] regards to moms HDF follow up appt, mortgage or loan underwriter sees no task,. documented in this encounter Plan of Treatment Not on file documented as of this encounter Visit Diagnoses Not on filedocumented in this encounter Additional Health Concerns Assessment Noted Time PHQ-9 Depression Total Score: 11 023 9:15 AM EDT documented as of this encounter Care Teams Ribbon Sweatband Operator Relationship Specialty Start Date End Date Nicole Mcpherson MD [address] [place] [address] PCP - General Family Medicine 11/11/21 documented as of this encounter
--- OUTSIDE RECORDS SUMMARY | 2025-02-25 17:20 | XMS_ITS | Encounter Summary ---
Author Organization [employer] Address [address] [facility] [address]t [place] [address] Care Team Providers Care Floor Layer Name Role Phone Nicole Mcpherson MD Primary Care Provide r Reason for Visit * Reason Comments Med Refill Encounter Details Date Type Department Care Team ([facility] Contact Info) Description 10/24/2023 Refill [facility] [address] [place], [place] [phone] Nicole Mcpherson MD [address] [place], [place] [phone] Type 2 diabetes mellitus with other specified complication, unspecified whether detention insulin use ([facility]) Social History Tobacco Use Types [...] mellitus with other specified complication, unspecified whether detention insulin use (HCC) documented in this encounter Additional Health Concerns Assessment Noted Time PHQ-9 Depression Total Score: 11 023 9:15 AM EDT documented as of this encounter Care Teams Floor Layer Relationship Specialty Start Date End Date Nicole Mcpherson MD [address] [place] [phone] PCP - General Family Medicine 11/11/21 documented as of this encounter
--- OUTSIDE RECORDS SUMMARY | 2025-02-25 17:20 | XMS_ITS | Encounter Summary ---
Author Organization [employer] Address [address] [facility] [address] [place] [address] Care Team Providers Care Licensed Loan Officer Assistant Name Role Phone Nicole Mcpherson MD Primary Care Provide r Reason for Visit * Reason Comments Med Refill Encounter Details Date Type Department Care Team ([facility] Contact Info) Description 02/20/2025 Refill [facility] [address] [place] [address] [phone] Charles Anaya MD [address] [place] [phone] Influenza-like symptoms Social History Tobacco Use Types Packs/Day Years [...] as of this encounter Visit Diagnoses Diagnosis Influenza-like symptoms Other general symptoms documented in this encounter Additional Health Concerns Assessment Noted Time PHQ-9 Depression Total Score: 18 025 4:00 PM EDT documented as of this encounter Care Teams Licensed Loan Officer Assistant Relationship Specialty Start Date End Date Nicole Mcpherson MD [address] [place] [phone] PCP - General Family Medicine 11/11/21 documented as of this encounter
--- OUTSIDE RECORDS SUMMARY | 2025-02-25 17:20 | XMS_ITS | Encounter Summary ---
Author Organization [employer] Address [address] [facility] [address] 7[address] [place] [address] Care Team Providers Care Automatic Bandsaw Tender Name Role Phone Nicole Mcpherson MD Primary Care Provide r Encounter Details Date Type Department Care Team (Late st Contact Info) Description 10/20/2022 Orders Only [facility] [address] [place] [address] America Gracia LPN Social History Tobacco Use [...] documented as of this encounter Care Teams Automatic Bandsaw Tender Relationship Specialty Start Date End Date Nicole Mcpherson MD [address] [place] [phone] PCP - General Family Medicine 11/11/21 documented as of this encounter
--- OUTSIDE RECORDS SUMMARY | 2025-02-25 17:20 | XMS_ITS | Encounter Summary ---
Author Organization [employer] Address [address] [facility] [address] [place] [address] Care Team Providers Care Bone Puller Name Role Phone Nicole Mcpherson MD Primary Care Provide r Encounter Details Date Type Department Care Team (Late st Contact Info) Description 05/26/2022 Orders Only [facility] [address] [place] [address] America Gracia LPN Social History Tobacco Use [...] on filedocumented in this encounter Care Teams Bone Puller Relationship Specialty Start Date End Date Nicole Mcpherson MD [address] [place] [phone] PCP - General Family Medicine 11/11/21 documented as of this encounter
== END 2025-02-25 13:56 | disposition home or self-care (01) ==
LOC: HO.HOS 13:07
PROVIDERS: PCP Internal Medicine
DX: M65.332 Trigger finger, left middle finger (principal)
CPT/HCPCS: 99214

== ENCOUNTER → 2025-02-25 13:06 | Outpatient (BNVA) | payer OTHER, SELFPAY | PROVIDERS: PCP Internal Medicine | DX: M65.332 Trigger finger, left middle finger (principal) | CPT/HCPCS: 99212 ==